=== PATIENT | female | born 1945 | race Caucasian/White ===

== ENCOUNTER → 2016-07-29 | Outpatient (CLI) | payer OTHER, MEDICARE ==
[~2016-07-29] MED LIST: ACET-1256 PO; ASPI81TA28 PO; CHOL100010 PO; HYDR0.5T PO; LISI-791 PO; METO25TA56 PO; OMEP40CA PO; SIMV40TA2 PO
== END | disposition home or self-care (01) ==
LOC: C.RDSM 10:30
PROVIDERS: ATTEND Physical Medicine & Rehabilitation Sports Medicine
DX: S72.041D Displaced fracture of base of neck of right femur, subsequent encounter for closed fracture with routine healing (principal); X58.XXXD Exposure to other specified factors, subsequent encounter

== ENCOUNTER → 2016-09-16 | Outpatient (CLI) | payer OTHER, MEDICARE ==
[2016-09-16 13:28] LABS: BASO % 0.4 %; BASO ABS # 0.02 K/uL (0-0.2); COMPLETE YES; EOS % 2.1 %; HEMATOCRIT 37.5 % (37-47); IG% 0.2 %; LYMPH % 31.1 %; LYMPH ABS # 1.47 K/uL (1.2-3.4); MEAN CELL VOLUME 90.4 fL (80-100); MEAN CORPUSCULAR HEMOGLOBIN 30.6 pg (25-34); MEAN CORPUSCULAR HGB CONC 33.9 g/dl (32-36); MEAN PLATELET VOLUME 9.5 fL (7.4-10.4); MONO % 6.1 %; NEUT % 60.1 %; PLATELET COUNT 160 K/uL (130-400); RED BLOOD COUNT 4.15 M/uL (4.2-5.4); WHITE BLOOD COUNT 4.73 K/uL (4.8-10.8)
[2016-09-16 14:18] LABS: ALT/SGPT 30 U/L (12-78); AST/SGOT 27 U/L (15-37); BLOOD UREA NITROGEN 10 mg/dl (7-18); BUN/CREATININE RATIO 13.1 (10-20); CALCIUM 9.1 mg/dl (8.5-10.1); CARBON DIOXIDE 25 mmol/L (21-32); CHLORIDE 103 mmol/L (98-107); CHOLESTEROL 159 mg/dl (0-200); CREATININE 0.77 mg/dl (0.60-1.20); GLUCOSE 84 mg/dl (70-99); POTASSIUM 4.1 mmol/L (3.5-5.1); SODIUM 136 mmol/L (136-145)
[2016-09-16 14:21] LABS: CHOLESTEROL/HDL RATIO 1.6; HDL CHOLESTEROL 98 mg/dl; LDL CHOLESTEROL CALCULATED 51 mg/dl; TRIGLYCERIDES 50 mg/dl (0-150); VERY LOW DENSITY LIPOPROT CALC 10 mg/dl
--- NOTE | 2016-09-25 08:44 | CODING QUERY MEDICAL NECESSITY ---
CQSUPPORTING DIAGNOSIS NEEDED A supporting diagnosis is required for the test/procedure performed on this patient in order for us to be reimbursed by the patient's insurance. Please provide a supporting diagnosis for the following test/procedure listed below next to the test name along with your signature. *If there is no additional diagnosis for this patient that would support the following test/procedure please document that below next to the test/procedure. Test(s)/Procedure(s) that require a supporting diagnosis: DOS 09/16/16 VITAMIN D TEST ORDERED BY ANSELMO ESTRADA Provider Signature: Date: Thank you Sanna Ramachandran Health Information Management Once completed, please kindly fax back to [phone] For questions please call [phone]
== END | disposition home or self-care (01) ==
LOC: C.LAB 12:29
DX: I10 Essential (primary) hypertension (principal); E78.5 Hyperlipidemia, unspecified; M06.9 Rheumatoid arthritis, unspecified

== ENCOUNTER → 2017-02-24 | Outpatient (CLI) | payer OTHER, MEDICARE ==
[2017-02-24 13:06] LABS: BASO % 0.4 %; BASO ABS # 0.02 K/uL (0-0.2); COMPLETE YES; EOS % 2.1 %; HEMATOCRIT 38.5 % (37-47); LYMPH % 34.4 %; LYMPH ABS # 1.62 K/uL (1.2-3.4); MEAN CELL VOLUME 94.4 fL (80-100); MEAN CORPUSCULAR HEMOGLOBIN 30.9 pg (25-34); MEAN CORPUSCULAR HGB CONC 32.7 g/dl (32-36); MEAN PLATELET VOLUME 9.5 fL (7.4-10.4); MONO % 8.1 %; PLATELET COUNT 149 K/uL (130-400); RED BLOOD COUNT 4.08 M/uL (4.2-5.4); WHITE BLOOD COUNT 4.71 K/uL (4.8-10.8)
[2017-02-24 13:52] LABS: ALT/SGPT 35 U/L (12-78); AST/SGOT 28 U/L (15-37); BLOOD UREA NITROGEN 18 mg/dl (7-18); BUN/CREATININE RATIO 23.6 (10-20); CALCIUM 8.5 mg/dl (8.5-10.1); CARBON DIOXIDE 26 mmol/L (21-32); CHLORIDE 103 mmol/L (98-107); CHOLESTEROL 165 mg/dl (0-200); CHOLESTEROL/HDL RATIO 1.5; CREATININE 0.75 mg/dl (0.60-1.20); FERRITIN 89.3 ng/ml (8.0-388.0); GLUCOSE 79 mg/dl (70-99); HDL CHOLESTEROL 109 mg/dl; LDL CHOLESTEROL CALCULATED 46 mg/dl; MAGNESIUM 2.2 mg/dl (1.8-2.4); POTASSIUM 4.3 mmol/L (3.5-5.1); SODIUM 135 mmol/L (136-145); THYROID STIMULATING HORMONE 0.164 uIu/ml (0.300-4.500); TRIGLYCERIDES 49 mg/dl (0-150); VERY LOW DENSITY LIPOPROT CALC 10 mg/dl
== END | disposition home or self-care (01) ==
LOC: C.LAB 12:14
DX: E78.5 Hyperlipidemia, unspecified (principal); G25.81 Restless legs syndrome

== ENCOUNTER 2020-05-09 15:42 | Inpatient (IN) ==
[2020-05-09 16:31] LABS: Eosinophils # (auto) 0.01 K/uL (0-0.5); Eosinophils % (auto) 0.2 %; Hematocrit (blood only) 33.8 % (37-47); Hemoglobin 11.8 g/dL (12.0-16.0); Immature Granulocytes # (auto) 0.01 K/uL (0.00-0.02); Immature Granulocytes % (auto) 0.2 %; Lymphocytes # (auto) 0.59 K/uL (1.2-3.4); Lymphocytes % (auto) 10.9 %; Mean Corpuscular Hemoglobin 31.1 pg (25-34); Mean Corpuscular Hgb Conc 34.9 g/dL (32-36); Mean Corpuscular Volume 89.2 fL (80-100); Monocytes % (auto) 7.4 %; Neutrophils # (auto) 4.41 K/uL (1.4-6.5); Neutrophils % (auto) 81.3 %; Platelet Count 169 K/uL (130-400); RDW Coefficient of Variation 12.6 % (11.5-14.5); RDW Standard Deviation 40.4 fL (36.4-46.3); Red Blood Count 3.79 M/uL (4.2-5.4); White Blood Count 5.42 K/uL (4.8-10.8)
[2020-05-09 16:47] LABS: Albumin Level 2.6 gm/dl (3.4-5.0); BUN Creatinine Ratio 15.6 (10-20); Creatinine Clr Calc Pharmacy 45.2 ml/min; Est GFR (African American) 92.7; Magnesium 1.7 mg/dl (1.8-2.4); Potassium 2.9 mmol/L (3.5-5.1)
--- NOTE | 2020-05-09 16:48 | Emergency Department Note ---
History of Present Illness General Chief complaint: Shortness of Breath/Dyspnea Stated complaint: DR SEVERO EVERARDO OVER Time Seen by Provider: 05/09/20 15:58 History of Present Illness Provider complaint: Shortness of breath and cough Onset (ago): day(s) (11) Associated symptoms: + cough, + fever/chills (Fevers have resolved ), + nausea/vomiting (Nausea no vomiting) and + shortness of breath 75-year-old female who presents to the emergency department with cough and shortness of breath. Patient reports she has been having cough and shortness of breath for the last 11 days. She also reports nausea, no vomiting. No chest pain or abdominal pain. Patient reports no hemoptysis. She reports she did have fevers earlier in her symptom course but has since resolved. She reports that multiple members of her family have been feeling ill as well. Home Medications Medication Instructions Recorded Confirmed Type acetaminophen 1,000 mg PO Q6H PRN 05/09/20 05/09/20 History aspirin [Aspirin Low Dose] 81 mg PO QAM 05/09/20 05/09/20 History calcium carbonate [Calcium 600] 600 mg PO QAM 05/09/20 05/09/20 History cholecalciferol (vitamin D3) 125 mcg PO QAM 05/09/20 05/09/20 History [Vitamin D3] furosemide 20 mg PO QAM 05/09/20 05/09/20 History hydroxychloroquine 400 mg PO HS 05/09/20 05/09/20 History metoprolol tartrate 50 mg PO QAM 05/09/20 05/09/20 History metoprolol tartrate 100 mg PO QPM 05/09/20 05/09/20 History simvastatin 20 mg PO QPM 05/09/20 05/09/20 History Allergies Allergy/AdvReac Type Severity Reaction Status Date / Time Sulfa (Sulfonamide Allergy Intermediate Rash Verified 05/09/20 16:57 Antibiotics) trimethoprim Allergy Intermediate Rash Verified 05/09/20 16:57 vancomycin Allergy Intermediate Rash, Verified 05/09/20 16:57 shortness of breath Cephalosporins AdvReac Mild Vomiting Verified 05/09/20 16:57 Past Med/Surg History Medical History (Updated 05/09/20 @ 19:26 by Nicho Mancia) Endometriosis Hyperlipidemia Hypertension No pertinent family history Rheumatoid arthritis Surgical History (Updated 05/09/20 @ 16:44 by Nicho Mancia) No pertinent past surgical history Social History Smoking Status: Former smoker Tobacco Type: Cigarettes Feels Safe at Home: Yes Review of Systems A total of 10 systems reviewed and were otherwise negative Physical Exam Vital Signs Vital Signs - 24 hr 05/09/20 15:45 05/09/20 16:09 05/09/20 16:10 Temperature 37.2 C Temperature Source Temporal Artery Scan Pulse Rate 98 H 81 86 Pulse Rate [Left] Pulse Rate from SpO2 Sensor 81 88 Respiratory Rate 24 29 H 29 H Respiratory Effort / Characteristics Non-Labored Spontaneous Respiratory Depth Normal Blood Pressure 171/89 H Blood Pressure [Right Arm] Blood Pressure Mean 116 Blood Pressure Mean [Right Arm] Blood Pressure Position [Right Arm] Pulse Oximetry 89 L 96 97 Oxygen Delivery Method Room Air Nasal Cannula Nasal Cannula Oxygen Flow Rate 3 3 Sepsis Recent Fever Within 48 Hours No Sepsis New/Unexplained Change in Mental Status No Sepsis Action Taken by Nursing No Action Required 05/09/20 16:15 05/09/20 16:20 05/09/20 16:30 Temperature Temperature Source Pulse Rate 81 81 79 Pulse Rate [Left] Pulse Rate from SpO2 Sensor 81 81 Respiratory Rate 26 H 31 H 25 H Respiratory Effort / Characteristics Short of Breath SOB on Exertion Short of Breath SOB on Exertion Respiratory Depth Blood Pressure Blood Pressure [Right Arm] Blood Pressure Mean Blood Pressure Mean [Right Arm] Blood Pressure Position [Right Arm] Pulse Oximetry 100 99 100 Oxygen Delivery Method Nasal Cannula Nasal Cannula Nasal Cannula Oxygen Flow Rate 3 3 3 Sepsis Recent Fever Within 48 Hours Sepsis New/Unexplained Change in Mental Status Sepsis Action Taken by Nursing 05/09/20 16:40 05/09/20 16:50 05/09/20 17:00 Temperature Temperature Source Pulse Rate 87 81 81 Pulse Rate [Left] Pulse Rate from SpO2 Sensor 82 83 Respiratory Rate 27 H 28 H 27 H Respiratory Effort / Characteristics Respiratory Depth Blood Pressure Blood Pressure [Right Arm] Blood Pressure Mean Blood Pressure Mean [Right Arm] Blood Pressure Position [Right Arm] Pulse Oximetry 99 95 Oxygen Delivery Method Nasal Cannula Nasal Cannula Oxygen Flow Rate 3 3 Sepsis Recent Fever Within 48 Hours Sepsis New/Unexplained Change in Mental Status Sepsis Action Taken by Nursing 05/09/20 17:10 05/09/20 17:13 05/09/20 17:20 Temperature Temperature Source Pulse Rate 90 80 84 Pulse Rate [Left] Pulse Rate from SpO2 Sensor 87 81 84 Respiratory Rate 18 26 H 26 H Respiratory Effort / Characteristics Respiratory Depth Blood Pressure 157/72 H 157/72 H Blood Pressure [Right Arm] Blood Pressure Mean 100 100 Blood Pressure Mean [Right Arm] Blood Pressure Position [Right Arm] Pulse Oximetry 95 97 98 Oxygen Delivery Method Nasal Cannula Oxygen Flow Rate 3 Sepsis Recent Fever Within 48 Hours Sepsis New/Unexplained Change in Mental Status Sepsis Action Taken by Nursing 05/09/20 17:30 05/09/20 17:31 05/09/20 17:53 Temperature Temperature Source Pulse Rate 78 86 107 H Pulse Rate [Left] Pulse Rate from SpO2 Sensor 79 76 Respiratory Rate 18 30 H 23 Respiratory Effort / Characteristics Respiratory Depth Blood Pressure 154/66 H Blood Pressure [Right Arm] Blood Pressure Mean 95 Blood Pressure Mean [Right Arm] Blood Pressure Position [Right Arm] Pulse Oximetry 100 99 Oxygen Delivery Method Oxygen Flow Rate Sepsis Recent Fever Within 48 Hours Sepsis New/Unexplained Change in Mental Status Sepsis Action Taken by Nursing 05/09/20 18:00 05/09/20 18:10 05/09/20 18:20 Temperature Temperature Source Pulse Rate 80 80 84 Pulse Rate [Left] Pulse Rate from SpO2 Sensor 80 80 82 Respiratory Rate 24 28 H 27 H Respiratory Effort / Characteristics Respiratory Depth Blood Pressure Blood Pressure [Right Arm] Blood Pressure Mean Blood Pressure Mean [Right Arm] Blood Pressure Position [Right Arm] Pulse Oximetry 100 98 98 Oxygen Delivery Method Oxygen Flow Rate Sepsis Recent Fever Within 48 Hours Sepsis New/Unexplained Change in Mental Status Sepsis Action Taken by Nursing 05/09/20 18:30 05/09/20 18:32 Temperature 37.1 C Temperature Source Oral Pulse Rate 79 Pulse Rate [Left] 85 Pulse Rate from SpO2 Sensor 81 Respiratory Rate 23 26 H Respiratory Effort / Characteristics Spontaneous SOB on Exertion Respiratory Depth Blood Pressure 156/94 H Blood Pressure [Right Arm] 156/94 H Blood Pressure Mean 114 Blood Pressure Mean [Right Arm] 114 Blood Pressure Position [Right Arm] Lying Pulse Oximetry 96 97 Oxygen Delivery Method Nasal Cannula Oxygen Flow Rate 3 Sepsis Recent Fever Within 48 Hours Sepsis New/Unexplained Change in Mental Status Sepsis Action Taken by Nursing Physical Exam GENERAL: She is oriented to person, place, and time. She appears well-developed and well-nourished. HENT: Exam performed. -Head: Normocephalic and atraumatic. -Right Ear: External ear normal. No mastoid tenderness. -Left Ear: External ear normal. No mastoid tenderness. -Mouth/Throat: The oropharynx is clear and moist. No trismus in the jaw. No dental abscesses or uvula swelling. No oropharyngeal exudate or tonsillar abscesses. EYES: Conjunctivae and EOM are normal. Pupils are equal, round, and reactive to light. Right eye exhibits no discharge. Left eye exhibits no discharge. No scleral icterus. NECK: Normal range of motion. Neck supple. No JVD present. No spinous process tenderness present. No carotid bruit present. No rigidity. No tracheal deviation and normal range of motion present. No Brudzinski's sign and no Kernig's sign noted. CV: Normal rate, regular rhythm, normal heart sounds and intact distal pulses. There is no peripheral edema. Palpable radial pulses bue. PULM/CHEST:Rhonchi bilaterally. -Chest Wall: She exhibits no tenderness. ABD: The abdomen is soft. Bowel sounds are normal. She has no distension. No mass is present. There is no tenderness. There is no rebound, no guarding, no Mu rphy's sign and no tenderness at McBurney's point. Rovsig negative MUSC/SKEL: Normal range of motion. There is no peripheral edema, tenderness or deformity. LYMPH: No cervical adenopathy. NEURO: She is alert and oriented to person, place, and time. She has normal strength. No cranial nerve deficit or sensory deficit. Coordination and gait normal. GCS eye subscore is 4. GCS verbal subscore is 5. GCS motor subscore is 6. Cerebellar tests wnl. SKIN: Skin is warm and dry. She is not diaphoretic. PSYCH: She has a normal mood and affect. Behavior is normal. Judgment and thought content normal. Course Course 1558: The patient was evaluated in room B10. A complete history and physical exam was performed. Patient was seen in full airborne precautions. Patient was seen in N95's, gloves, gowns, face shield by myself and staff. Cardiac monitoring: An order was placed for continuous cardiac monitoring. The monitor shows a rate of 80 with sinus rhythm Patient was found to be hypoxic on room air and placed on supplemental oxygen via nasal cannula which improved her oxygen saturation. 1922: Vital signs stable on continuous oxygen via nasal cannula.Labs show potassium of 2.9. Potassium replaced in the emergency department. Labs also show an elevated troponin and elevated proBNP. Chest x-ray shows findings are consistent of a viral pneumonia. CTA of the chest was negative for PE did show findings consistent of a viral pneumonia.Patient was COVID-19 positive. Given the patient's hypoxia, elevated troponin, EKG changes, and COVID-19 positive patient will be admitted to the hospitalist service. Dr. Oden [facility] hospitalist notified. Administered Medications Discontinued Medications Ioversol (Optiray 320 125ml) 118 ml IV ONCE ONE Stop: 05/09/20 17:35 Last Admin: 05/09/20 17:35 Dose: 118 ml Documented by: [id number] Potassium Chloride (Potassium Chloride 10 Meq Tabcr) 40 meq PO NOW STA Stop: 05/09/20 17:27 Last Admin: 05/09/20 18:34 Dose: 40 meq Documented by: [id number] Critical Care Time Critical Care Time: Yes I have personally spent greater than 67 minutes of critical care time in the direct management of this patient. This includes bedside care, interpretation of diagnostic studies, and testing, discussion with consultants, patient, and family members, and other required patient management activities. This 67 minut es is in excess of all separately billable procedures. Medical Decision Making Laboratory Data Result diagrams: 05/09/20 16:20 05/09/20 16:20 Lab Results 05/09/20 05/09/20 05/09/20 Range/Units 16:20 16:20 16:20 WBC 5.42 (4.8-10.8) K/uL RBC 3.79 L (4.2-5.4) M/uL Hgb 11.8 L (12.0-16.0) g/dL Hct 33.8 L (37-47) % MCV 89.2 (80-100) fL MCH 31.1 (25-34) pg MCHC 34.9 (32-36) g/dL RDW Std Deviation 40.4 (36.4-46.3) fL RDW Coeff of Emily 12.6 (11.5-14.5) % Plt Count 169 (130-400) K/uL MPV 10.0 (7.4-10.4) fL Immature Gran % (Auto) 0.2 % Neut % (Auto) 81.3 % Lymph % (Auto) 10.9 % Divide % (Auto) 7.4 % Eos % (Auto) 0.2 % Baso % (Auto) 0.0 % Neut # (Auto) 4.41 (1.4-6.5) K/uL Lymph # (Auto) 0.59 L (1.2-3.4) K/uL Divide # (Auto) 0.40 (0.11-0.59) K/uL Eos # (Auto) 0.01 (0-0.5) K/uL Baso # (Auto) 0.00 (0-0.2) K/uL Immature Gran # (Auto) 0.01 (0.00-0.02) K/uL PT 10.9 (9.0-12.0) Seconds INR 1.1 (0.9-1.1) APTT 29.8 (21.0-31.0) Seconds PTT Ratio 1.1 VBG pH (7.36-7.41) VBG pCO2 (38-50) mmHg VBG pO2 mmHg VBG HCO3 mmol/L VBG O2 Saturation % VBG Base Excess mEq/L Barometric Pressure mm/Hg Sodium 136 (136-145) mmol/L Potassium 2.9 L (3.5-5.1) mmol/L Chloride 101 (98-107) mmol/L Carbon Dioxide 23 (21-32) mmol/L Anion Gap 12.0 H (3-11) BUN 11 (7-18) mg/dl Creatinine 0.73 (0.6-1.2) mg/dl Est Cr Clr Drug Dosing 45.2 ml/min Est GFR ( Amer) 92.7 Est GFR (Non-Af Amer) 80.0 BUN/Creatinine Ratio 15.6 (10-20) Glucose 81 (70-99) mg/dl Lactate (0.4-2.0) mmol/L Calcium 9.0 (8.5-10.1) mg/dl Magnesium 1.7 L (1.8-2.4) mg/dl Total Bilirubin 1.0 (0.2-1) mg/dl AST 38 H (15-37) U/L ALT 16 (12-78) U/L Alkaline Phosphatase 67 (45-117) U/L Troponin I 0.176 H* (0-0.045) ng/ml NT-Pro-B Natriuret Pep 3837 H (0-1800) pg/ml Total Protein 7.6 (6.4-8.2) gm/dl Albumin 2.6 L (3.4-5.0) gm/dl Globulin 5.0 H (2.5-4.0) gm/dl Albumin/Globulin Ratio 0.5 L (0.9-2) Procalcitonin (0-0.5) ng/ml COVID-19 Eval Order SARS-CoV-2 (PCR) (Negative) Influenza Type A (PCR) (Neg) Influenza Type B (PCR) (Neg) RSV (RT-PCR) (Neg) 05/09/20 05/09/20 05/09/20 Range/Units 16:20 16:20 16:20 WBC (4.8-10.8) K/uL RBC (4.2-5.4) M/uL Hgb (12.0-16.0) g/dL Hct (37-47) % MCV (80-100) fL MCH (25-34) pg MCHC (32-36) g/dL RDW Std Deviation (36.4-46.3) fL RDW Coeff of Emily (11.5-14.5) % Plt Count (130-400) K/uL MPV (7.4-10.4) fL Immature Gran % (Auto) % Neut % (Auto) % Lymph % (Auto) % Divide % (Auto) % Eos % (Auto) % Baso % (Auto) % Neut # (Auto) (1.4-6.5) K/uL Lymph # (Auto) (1.2-3.4) K/uL Divide # (Auto) (0.11-0.59) K/uL Eos # (Auto) (0-0.5) K/uL Baso # (Auto) (0-0.2) K/uL Immature Gran # (Auto) (0.00-0.02) K/uL PT (9.0-12.0) Seconds INR (0.9-1.1) APTT (21.0-31.0) Seconds PTT Ratio VBG pH (7.36-7.41) VBG pCO2 (38-50) mmHg VBG pO2 mmHg VBG HCO3 mmol/L VBG O2 Saturation % VBG Base Excess mEq/L Barometric Pressure mm/Hg Sodium (136-145) mmol/L Potassium (3.5-5.1) mmol/L Chloride (98-107) mmol/L Carbon Dioxide (21-32) mmol/L Anion Gap (3-11) BUN (7-18) mg/dl Creatinine (0.6-1.2) mg/dl Est Cr Clr Drug Dosing ml/min Est GFR ( Amer) Est GFR (Non-Af Amer) BUN/Creatinine Ratio (10-20) Glucose (70-99) mg/dl Lactate (0.4-2.0) mmol/L Calcium (8.5-10.1) mg/dl Magnesium (1.8-2.4) mg/dl Total Bilirubin (0.2-1) mg/dl AST (15-37) U/L ALT (12-78) U/L Alkaline Phosphatase (45-117) U/L Troponin I (0-0.045) ng/ml NT-Pro-B Natriuret Pep (0-1800) pg/ml Total Protein (6.4-8.2) gm/dl Albumin (3.4-5.0) gm/dl Globulin (2.5-4.0) gm/dl Albumin/Globulin Ratio (0.9-2) Procalcitonin 0.21 (0-0.5) ng/ml COVID-19 Eval Order CovFluRsv at [facility] SARS-CoV-2 (PCR) POSITIVE A* (Negative) Influenza Type A (PCR) Negative (Neg) Influenza Type B (PCR) Negative (Neg) RSV (RT-PCR) Negative (Neg) 05/09/20 05/09/20 Range/Units 16:58 16:58 WBC (4.8-10.8) K/uL RBC (4.2-5.4) M/uL Hgb (12.0-16.0) g/dL Hct (37-47) % MCV (80-100) fL MCH (25-34) pg MCHC (32-36) g/dL RDW Std Deviation (36.4-46.3) fL RDW Coeff of Emily (11.5-14.5) % Plt Count (130-400) K/uL MPV (7.4-10.4) fL Immature Gran % (Auto) % Neut % (Auto) % Lymph % (Auto) % Divide % (Auto) % Eos % (Auto) % Baso % (Auto) % Neut # (Auto) (1.4-6.5) K/uL Lymph # (Auto) (1.2-3.4) K/uL Divide # (Auto) (0.11-0.59) K/uL Eos # (Auto) (0-0.5) K/uL Baso # (Auto) (0-0.2) K/uL Immature Gran # (Auto) (0.00-0.02) K/uL PT (9.0-12.0) Seconds INR (0.9-1.1) APTT (21.0-31.0) Seconds PTT Ratio VBG pH 7.43 H (7.36-7.41) VBG pCO2 36 L (38-50) mmHg VBG pO2 27 mmHg VBG HCO3 24 mmol/L VBG O2 Saturation < 60.0 % VBG Base Excess -0.3 mEq/L Barometric Pressure 728.7 mm/Hg Sodium (136-145) mmol/L Potassium (3.5-5.1) mmol/L Chloride (98-107) mmol/L Carbon Dioxide (21-32) mmol/L Anion Gap (3-11) BUN (7-18) mg/dl Creatinine (0.6-1.2) mg/dl Est Cr Clr Drug Dosing ml/min Est GFR ( Amer) Est GFR (Non-Af Amer) BUN/Creatinine Ratio (10-20) Glucose (70-99) mg/dl Lactate 2.5 H* (0.4-2.0) mmol/L Calcium (8.5-10.1) mg/dl Magnesium (1.8-2.4) mg/dl Total Bilirubin (0.2-1) mg/dl AST (15-37) U/L ALT (12-78) U/L Alkaline Phosphatase (45-117) U/L Troponin I (0-0.045) ng/ml NT-Pro-B Natriuret Pep (0-1800) pg/ml Total Protein (6.4-8.2) gm/dl Albumin (3.4-5.0) gm/dl Globulin (2.5-4.0) gm/dl Albumin/Globulin Ratio (0.9-2) Procalcitonin (0-0.5) ng/ml COVID-19 Eval Order SARS-CoV-2 (PCR) (Negative) Influenza Type A (PCR) (Neg) Influenza Type B (PCR) (Neg) RSV (RT-PCR) (Neg) Imaging Data Radiologist's Impression: XR chest 1V portable HISTORY: SEPSIS COMPARISON: Chest 08/20/2014. FINDINGS: Peripheral bilateral mid to lower lung zone airspace opacities, left greater than right. This likely represents a viral pneumonia. No pneumothorax. No pleural effusions. The heart is mildly enlarged. This remains unchanged. Old, healed bilateral humeral neck fractures. IMPRESSION: Peripheral bilateral mid to lower lung zone airspace opacities consistent with a viral pneumonia. ACT 112: Negative or not required by law. Electronically signed by: Milo Parsons M.D. 05/09/2020 4:59 PM Dictated: 05/09/[id number] Transcribed: 05/09/201657 CHEST CTA for PULMONARY ARTERIES CT DOSE: 406.44 mGycm HISTORY: Short of breath. Covid pneumonia. TECHNIQUE: Multiaxial CT images of the chest were performed following the intravenous administration of contrast to evaluate the pulmonary arteries. Maximal intensity projection images were also obtained. A dose lowering technique was utilized adhering to the principles of ALARA. COMPARISON STUDY: Chest CT 03/03/2010. FINDINGS: Multiple [id number] compression deformities seen within the thoracic spine. This is most pronounced at the T12 level. These are technically age indeterminate but likely old. Limited views the upper abdomen demonstrate a normal liver and adrenal glands. The spleen is likely mildly enlarged. There is a small hiatus hernia. No hilar lymphadenopathy. Mildly enlarged subcarinal lymph node measuring 2.0 x 1.3 cm. This may be reactive. No pleural or pericardial effusions. The heart is mildly enlarged. No pneumothorax. Patchy groundglass airspace opacities are seen throughout the lungs. These are most pronounced within the periphery of the bilateral mid to lower lung zones and are consistent with a moderate multifocal pneumonia. No pneumothorax. The central airways are patent. There is mild respiratory motion artifact. Normal caliber thoracic aorta with no evidence for dissection. Suboptimal evaluation of the bilateral lower lobe and right middle lobe segmental/subsegmental pulmonary arteries due to the respiratory motion artifact. Otherwise, no filling defects within the remaining pulmonary arteries to suggest pulmonary embolus. IMPRESSION: 1. No evidence for pulmonary embolus with limitations as described above. 2. Moderate multifocal pneumonia as described above. This is likely viral. ACT 112: Negative or not required by law. Electronically signed by: Milo Parsons M.D. 05/09/2020 6:02 PM Dictated: 05/09/[id number] Transcribed: 05/09/201755 ECG Data Indication: + SOB/dyspnea Rate (beats per minute): 79 Rhythm: + normal sinus ECG Intervals/blocks: + Right Bundle branch block and + Prolonged QT ECG ST segments: + Normal ST segments and + T-wave inversions Additional Comments: LA 144 QRS 140 QTc 529. QTc prolongation is new when compared to the EKG fromJuly 2014. S1Q3T3 pattern is observed. This was also present on the EKG from July 2014. There is T wave inversion in lead III, aVF, V2 through V6. The T wave inversion in leads V4 through V6 are new from the EKG compared in July 2014. [facility] Narrative 1558: The patient was evaluated in room B10. A complete history and physical exam was performed. Patient was seen in full airborne precautions. Patient was seen in N95's, gloves, gowns, face shield by myself and staff. Cardiac monitoring: An order was placed for continuous cardiac monitoring. The monitor shows a rate of 80 with sinus rhythm Patient was found to be hypoxic on room air and placed on supplemental oxygen via nasal cannula which improved her oxygen saturation. 1922: Vital signs stable on continuous oxygen via nasal cannula.Labs show potassium of 2.9. Potassium replaced in the emergency department. Labs also show an elevated troponin and elevated proBNP. Chest x-ray shows findings are consistent of a viral pneumonia. CTA of the chest was negative for PE did show findings consistent of a viral pneumonia.Patient was COVID-19 positive. Given the patient's hypoxia, elevated troponin, EKG changes, and COVID-19 positive patient will be admitted to the hospitalist service. [facility] Impression & Plan Pneumonia due to 2019 novel coronavirus, Hypoxia, Elevated troponin, Prolonged Q-T interval on ECG Discharge Plan Visit Data Chief Complaint: Shortness of Breath/Dyspnea Stated Complaint: DR SEVERO REF OVER ED Provider: Nicho Mancia Discharge Problem: Pneumonia due to 2019 novel coronavirus, Hypoxia, Elevated troponin, Prolonged Q-T interval on ECG Patient Disposition: Admitted As Inpatient Forms Stand Alone Forms: My [facility] Prescriptions Prescriptions: No Action metoprolol tartrate 100 mg tablet 100 mg PO QPM RF: 0 metoprolol tartrate 100 mg tablet 50 mg PO QAM RF: 0 aspirin [Aspirin Low Dose] 81 mg Tablet,Delayed Release (Dr/Ec) 81 mg PO QAM RF: 0 acetaminophen 500 mg Tablet 1,000 mg PO Q6H PRN (Reason: Pain) RF: 0 simvastatin 40 mg tablet 20 mg PO QPM RF: 0 calcium carbonate [Calcium 600] 600 mg calcium (1,500 mg) Tablet 600 mg PO QAM RF: 0 furosemide 20 mg tablet 20 mg PO QAM RF: 0 hydroxychloroquine 200 mg tablet 400 mg PO HS RF: 0 cholecalciferol (vitamin D3) [Vitamin D3] 125 mcg (5,000 unit) Tablet 125 mcg PO QAM RF: 0 Referrals Referrals: Jose Padgett Jr, DO [Primary Care Provider] -
[2020-05-09 16:50] LABS: INR 1.1 (0.9-1.1); Partial Thromboplastin Ratio 1.1; Partial Thromboplastin Time 29.8 Seconds (21.0-31.0); Prothrombin Time 10.9 Seconds (9.0-12.0)
--- NOTE | 2020-05-09 17:00 | XRay Report ---
XR chest 1V portable HISTORY: SEPSIS COMPARISON: Chest 08/20/2014. FINDINGS: Peripheral bilateral mid to lower lung zone airspace opacities, left greater than right. Th is likely represents a viral pneumonia. No pneumothorax. No pleural effusions. The heart is mildly en larged. This remains unchanged. Old, healed bilateral humeral neck fractures. IMPRESSION: Peripheral bilateral mid to lower lung zone airspace opacities consistent with a viral pneumonia. ACT 112: Negative or not required by law. Electronically signed by: Milo Parsons M.D. 05/09/2020 4:59 PM
[2020-05-09 17:01] LABS: Albumin Globulin Ratio 0.5 (0.9-2); Total Protein 7.6 gm/dl (6.4-8.2); Troponin I 0.176 ng/ml (0-0.045)
[2020-05-09 17:13] LABS: Influenza A virus by PCR Negative (Neg); Influenza B virus by PCR Negative (Neg); RSV by PCR Negative (Neg)
[2020-05-09 17:16] LABS: Base Excess VBG -0.3 mEq/L; HCO3 VBG 24 mmol/L; PCO2 VBG 36 mmHg (38-50); PO2 VBG 27 mmHg; pH VBG 7.43 (7.36-7.41)
[2020-05-09] MEDS ORDERED: POTASSIUM CHLORIDE 10 MEQ TABCR PO STA (17:26)
[2020-05-09 17:30] LABS: Oxygen Saturation VBG < 60.0 %
[2020-05-09 17:31] LABS: SARS CoV2 RNA(COVID-19) InHosp POSITIVE (Negative)
[2020-05-09] MEDS ORDERED: OPTIRAY 320 125ml IV ONE (17:34)
--- NOTE | 2020-05-09 18:03 | CT Scan Report ---
CHEST CTA for PULMONARY ARTERIES CT DOSE: 406.44 mGycm HISTORY: Short of breath. Covid pneumonia. TECHNIQUE: Multiaxial CT images of the chest were performed following the intravenous administration of contrast to evaluate the pulmonary arteries. Maximal intensity projection images were also obtaine d. A dose lowering technique was utilized adhering to the principles of ALARA. COMPARISON STUDY: Chest CT 03/03/2010. FINDINGS: Multiple zduo-uu-mewlmfro compression deformities seen within the thoracic spine. This is m ost pronounced at the T12 level. These are technically age indeterminate but likely old. Limited view s the upper abdomen demonstrate a normal liver and adrenal glands. The spleen is likely mildly enlarg ed. There is a small hiatus hernia. No hilar lymphadenopathy. Mildly enlarged subcarinal lymph node m easuring 2.0 x 1.3 cm. This may be reactive. No pleural or pericardial effusions. The heart is mildly enlarged. No pneumothorax. Patchy groundglass airspace opacities are seen throughout the lungs. Thes e are most pronounced within the periphery of the bilateral mid to lower lung zones and are consisten t with a moderate multifocal pneumonia. No pneumothorax. The central airways are patent. There is mil d respiratory motion artifact. Normal caliber thoracic aorta with no evidence for dissection. Subopti mal evaluation of the bilateral lower lobe and right middle lobe segmental/subsegmental pulmonary art eries due to the respiratory motion artifact. Otherwise, no filling defects within the remaining pulm onary arteries to suggest pulmonary embolus. IMPRESSION: 1. No evidence for pulmonary embolus with limitations as described above. 2. Moderate multifocal pneumonia as described above. This is likely viral. ACT 112: Negative or not required by law. Electronically signed by: Milo Parsons M.D. 05/09/2020 6:02 PM
[2020-05-09] MEDS ORDERED: DEXAMETHASONE SOD INJ 10 MG/ML VIAL IV ONE (19:54)
--- NOTE | 2020-05-09 21:58 | History & Physical Report ---
Date of Service May 09, 2020 Assessment & Plan (1) Pneumonia due to 2019 novel coronavirus: Pneumonia due to COVID-19 virus with hypoxia/symptoms suggestive of secondary bacterial superinfection- Dexamethasone 6 mg IV every morning Ceftriaxone 1 g IV every 24 hours Azithromycin 500 mg IV every 24 hours Ventolin HFA 2 puffs 4 times daily, and every 2 hours as needed Duonebs every 4 hours while awake and every 2 hours when necessary. Guaifenesin extended release 600 mg p.o. twice daily Zinc sulfate 220 mg p.o. every morning Lovenox 30 mg subcu every 12 hours Present on Admission?: Yes (2) Hypoxia: See above Present on Admission?: Yes (3) Elevated troponin: Elevated troponin/hypertension/lower extremity edema Troponin 0.176 upon admission. Continue aspirin 81 mg every morning, and metoprolol tartrate 50 mg in the morning and 100 mg in evening with hold parameters. The patient will be admitted to telemetry for serial cardiac enzymes, serial EKG's, cardiac rhythm monitoring. Main differential is ischemia versus myopericarditis associated with COVID-19 infection Consult cardiology Present on Admission?: Yes (4) Rheumatoid arthritis: Continue home dosing of hydroxychloroquine 40 mg p.o. at bedtime Present on Admission?: Yes (5) Hyperlipidemia: Continue simvastatin 20 mg in evening Present on Admission?: Yes (6) Hypertension: See above Present on Admission?: Yes (7) Edema: Hold furosemide at this time, as patient has had decreased oral intake for the past 2 weeks, and if anything looks euvolemic toward mildly hypovolemic Present on Admission?: Yes (8) Osteoporosis: Continue calcium carbonate, and vitamin D3 Present on Admission?: Yes (9) Hypokalemia: Given potassium chloride 40 mEq p.o. in the ED. Placed on NSS + KCl 20 mEq at 80 mils per hour Recheck laboratories in a.m. Present on Admission?: Yes (10) Hypomagnesemia: Magnesium 1.7 upon admission. Give mag sulfate 1 g IV. Repeat in a.m. Present on Admission?: Yes History of Present Illness Chief Complaint: The patient presents to the emergency department with complaint of 2 weeks of shortness of breath, intermittent fevers and chills, dyspnea on exertion, with the addition in the past 24 hours of a productive cough, chest discomfort, and nausea with vomiting Primary Care Provider: Jose Padgett Jr, DO The patient is a 75-year-old female with a past medical history including hyperlipidemia, hypertension, arthritis, lower extremity edema and osteoporosis. She presents with symptoms as noted above. Work-up in the emergency department included the following abnormal laboratories: Hemoglobin 11.8, potassium 2.9, magnesium 1.7, troponin 0 0.176, albumin 2.6, BNP 3837, and COVID-19 positive. Imaging included the following: Chest x-ray showed peripheral bilateral mid to lower lung zone airspace opacities consistent with a viral pneumonia. CT angiography of chest PE protocol, showed no evidence for pulmonary embolism within limitations of the study. Moderate multifocal pneumonia, likely viral. Lowest pulse ox recorded was 89% on room air. Temperature became elevated at 99.7. Allergies Allergy/AdvReac Type Severity Reaction Status Date / Time Sulfa (Sulfonamide Allergy Intermediate Rash Verified 05/09/20 16:57 Antibiotics) trimethoprim Allergy Intermediate Rash Verified 05/09/20 16:57 vancomycin Allergy Intermediate Rash, Verified 05/09/20 16:57 shortness of breath Cephalosporins AdvReac Mild Vomiting Verified 05/09/20 16:57 Home Medications Medication Instructions Recorded Confirmed Type acetaminophen 1,000 mg PO Q6H PRN 05/09/20 05/09/20 History aspirin [Aspirin Low Dose] 81 mg PO QAM 05/09/20 05/09/20 History calcium carbonate [Calcium 600] 600 mg PO QAM 05/09/20 05/09/20 History cholecalciferol (vitamin D3) 125 mcg PO QAM 05/09/20 05/09/20 History [Vitamin D3] furosemide 20 mg PO QAM 05/09/20 05/09/20 History hydroxychloroquine 400 mg PO HS 05/09/20 05/09/20 History metoprolol tartrate 50 mg PO QAM 05/09/20 05/09/20 History metoprolol tartrate 100 mg PO QPM 05/09/20 05/09/20 History simvastatin 20 mg PO QPM 05/09/20 05/09/20 History Past Med/Surg History Medical History (Updated 05/10/20 @ 03:12 by Gregorio Norman MD) Edema Endometriosis Hyperlipidemia Hypertension No pertinent family history Osteoporosis Rheumatoid arthritis Surgical History (Updated 05/09/20 @ 16:44 by Nicho Mancia) No pertinent past surgical history Social History Smoking Status: Former smoker Tobacco Type: Cigarettes Second Hand Exposure: No; Do You Dip or Chew Tobacco: No; Tobacco Cessation Education Requested by Patient: No Hx Alcohol Use: Yes (seldom) Alcohol type: wine Hx Substance Use: No Preferred Language: [place] Communication Ability: Effective Appellate Conferee Required: No Beliefs That Will Affect Care: None Current Living Situation: Family Current Living Situation Comment: with son Lex Other Information That Helps Us Care for You: No Feels Safe at Home: Yes Safety Concerns: Feels Safe At This Time Assistive Devices: Cane Review of Systems Review of Systems: The patient denies palpitations, lower extremity swelling, sore throat, sweats, diarrhea , constipation, abdominal pain, pelvic pain, blood in urine or stool, dysuria, urinary frequency or urgency, lightheadedness, dizziness, headache, memory loss, loss of consciousness, rash, abnormal bruising or bleeding, imbalance, focal weakness, numbness or tingling in arms or legs, back or neck pain, or night sweats. The review of systems is otherwise negative other than for that already noted above, and at least 10 systems have been reviewed. Physical Exam Physical Exam: The patient is awake, alert and oriented 3, normocephalic and atraumatic, lying in bed and in no acute distress. HEENT--PERRL, EOMI, mucous membranes and oropharynx dry. Neck--supple. No JVD. No bruits. Thyroid normal, trachea midline, no adenopathy. Heart--normal S1 and S2. No murmurs, rubs or gallops. Lungs--clear bilaterally, no respiratory distress, no accessory muscle use. Abdomen--normal bowel sounds and soft. Nontender. Nondistended, no hernias or masses, no organomegaly. Extremities--no cyanosis or clubbing. No edema. Dermatologic--normal skin turgor, normal color, no abnormal lymph nodes, no rash. Neurologic--cranial nerves II through XII grossly intact. Rheumatologic--normal range of motion. Psychiatric--normal affect. Results & Data Results & Data ([facility]) Vital Signs (Past 12 Hours) Vital Signs Temp Pulse Pulse Resp BP BP Pulse Ox 05/09/20 21:30 79 29 H 166/98 H 95 05/09/20 21:15 81 20 160/79 H 96 05/09/20 21:00 82 22 166/93 H 96 05/09/20 20:46 83 28 H 152/102 H 95 05/09/20 20:31 77 30 H 121/84 96 05/09/20 20:15 73 25 H 115/92 97 05/09/20 20:00 89 24 143/97 H 95 05/09/20 19:45 76 23 151/82 H 97 05/09/20 19:35 98 05/09/20 19:31 76 28 H 143/79 H 97 05/09/20 19:15 78 22 157/92 H 98 05/09/20 19:00 77 24 156/89 H 100 05/09/20 18:45 81 21 159/98 H 97 05/09/20 18:32 98.8 F 85 26 H 156/94 H 97 05/09/20 18:30 79 23 156/94 H 96 05/09/20 18:20 84 27 H 98 05/09/20 18:10 80 28 H 98 05/09/20 18:00 80 24 100 05/09/20 17:53 107 H 23 05/09/20 17:31 86 30 H 99 05/09/20 17:30 78 18 154/66 H 100 05/09/20 17:20 84 26 H 98 05/09/20 17:13 80 26 H 157/72 H 97 05/09/20 17:10 90 18 157/72 H 95 05/09/20 17:00 81 27 H 95 05/09/20 16:50 81 28 H 99 05/09/20 16:40 87 27 H 05/09/20 16:30 79 25 H 100 05/09/20 16:20 81 31 H 99 05/09/20 16:15 81 26 H 100 05/09/20 16:10 86 29 H 97 05/09/20 16:09 81 29 H 96 05/09/20 15:45 99.0 F 98 H 24 171/89 H 89 L Laboratory Results Laboratory Results WBC 5.42 K/uL (4.8-10.8) 05/09/20 16:20 RBC 3.79 M/uL (4.2-5.4) L 05/09/20 16:20 Hgb 11.8 g/dL (12.0-16.0) L 05/09/20 16:20 Hct 33.8 % (37-47) L 05/09/20 16:20 MCV 89.2 fL (80-100) 05/09/20 16:20 MCH 31.1 pg (25-34) 05/09/20 16:20 MCHC 34.9 g/dL (32-36) 05/09/20 16:20 RDW Std Deviation 40.4 fL (36.4-46.3) 05/09/20: RDW Coeff of Emily 12.6 % (11.5-14.5) 05/09/20:20 Plt Count 169 K/uL (130-400) 05/09/20:20 MPV 10.0 fL (7.4-10.4) 05/09/20:20 Immature Gran % (Auto) 0.2 % 05/09/20:20 Neut % (Auto) 81.3 % 05/09/20 16:20 Lymph % (Auto) 10.9 % 05/09/20:20 [place] % (Auto) 7.4 % 05/09/20 16:20 Eos % (Auto) 0.2 % 05/09/20 16:20 Baso % (Auto) 0.0 % 05/09/20:20 Neut # (Auto) 4.41 K/uL (1.4-6.5) 05/09/20 16:20 Lymph # (Auto) 0.59 K/uL (1.2-3.4) L 05/09/20:20 [place] # (Auto) 0.40 K/uL (0.11-0.59) 05/09/20 16:20 Eos # (Auto) 0.01 K/uL (0-0.5) 05/09/20 16:20 Baso # (Auto) 0.00 K/uL (0-0.2) 05/09/20:20 Immature Gran # (Auto) 0.01 K/uL (0.00-0.02) 05/09/20 16:20 PT 10.9 Seconds (9.0-12.0) 05/09/20 16:20 INR 1.1 (0.9-1.1) 05/09/20 16:20 APTT 29.8 Seconds (21.0-31.0) 05/09/20 16:20 PTT Ratio 1.1 05/09/20 16:20 VBG pH 7.43 (7.36-7.41) H 05/09/20 16:58 VBG pCO2 36 mmHg (38-50) L 05/09/20 16:58 VBG pO2 27 mmHg 05/09/20 16:58 VBG HCO3 24 mmol/L 05/09/20 16:58 VBG O2 Saturation < 60.0 % 05/09/20 16:58 VBG Base Excess -0.3 mEq/L 05/09/20 16:58 Barometric Pressure 728.7 mm/Hg 05/09/20 16:58 Sodium 136 mmol/L (136-145) 05/09/20 16:20 Potassium 2.9 mmol/L (3.5-5.1) L 05/09/20 16:20 Chloride 101 mmol/L (98-107) 05/09/20 16:20 Carbon Dioxide 23 mmol/L (21-32) 05/09/20 16:20 Anion Gap 12.0 (3-11) H 05/09/20 16:20 BUN 11 mg/dl (7-18) 05/09/20 16:20 Creatinine 0.73 mg/dl (0.6-1.2) 05/09/20 16:20 Est Cr Clr Drug Dosing 45.2 ml/min 05/09/20 16:20 Est GFR ( Amer) 92.7 05/09/20 16:20 Est GFR (Non-Af Amer) 80.0 05/09/20 16:20 BUN/Creatinine Ratio 15.6 (10-20) 05/09/20 16:20 Glucose 81 mg/dl (70-99) 05/09/20 16:20 Lactate 1.5 mmol/L (0.4-2.0) 05/09/20 19:04 Calcium 9.0 mg/dl (8.5-10.1) 05/09/20 16:20 Magnesium 1.7 mg/dl (1.8-2.4) L 05/09/20 16:20 Total Bilirubin 1.0 mg/dl (0.2-1) 05/09/20 16:20 AST 38 U/L (15-37) H 05/09/20 16:20 ALT 16 U/L (12-78) 05/09/20 16:20 Alkaline Phosphatase 67 U/L (45-117) 05/09/20 16:20 Troponin I 0.176 ng/ml (0-0.045) H* 05/09/20 16:20 NT-Pro-B Natriuret Pep 3837 pg/ml (0-1800) H 05/09/20 16:20 Total Protein 7.6 gm/dl (6.4-8.2) 05/09/20 16:20 Albumin 2.6 gm/dl (3.4-5.0) L 05/09/20 16:20 Globulin 5.0 gm/dl (2.5-4.0) H 05/09/20 16:20 Albumin/Globulin Ratio 0.5 (0.9-2) L 05/09/20 16:20 Procalcitonin 0.21 ng/ml (0-0.5) 05/09/20 16:20 COVID-19 Eval Order CovFluRsv at [facility] 05/09/20 16:20 SARS-CoV-2 (PCR) POSITIVE (Negative) A* 05/09/20 16:20 Influenza Type A (PCR) Negative (Neg) 05/09/20 16:20 Influenza Type B (PCR) Negative (Neg) 05/09/20 16:20 RSV (RT-PCR) Negative (Neg) 05/09/20 16:20 Diagnostic Findings [facility], [id number] XRay Report Patient: CANDIS PATELAdmit Date: 05/09/20MR#: [id number]: [address] DRAcct ID:[id number]: Date: [address] [place] [address] Zip: [place], [place] [address]Gcc: 75Location: EDSex: FRoom/Bed:Att Phy:Diagnosis: SOB, DR REF OVERPri Phy: Jose Padgett Jr, DOService Date: 05/09/20Fam Phy:Interpreting Phy: Milo Parsons MDAdmit Phy: Ordering Phy: Nicho Mancia MD cc: ~ XR chest 1V portable HISTORY: SEPSIS COMPARISON: Chest 08/20/2014. FINDINGS: Peripheral bilateral mid to lower lung zone airspace opacities, left greater than right. This likely represents a viral pneumonia. No pneumothorax. No pleural effusions. The heart is mildly enlarged. This remains unchanged. Old, healed bilateral humeral neck fractures. IMPRESSION: Peripheral bilateral mid to lower lung zone airspace opacities consistent with a viral pneumonia. ACT 112: Negative or not required by law. Electronically signed by: Milo Parsons M.D. 05/09/2020 4:59 PM Dictated: 05/09/201657Transcribed: 05/09/201657 [facility], [id number] CT Scan Report Patient: CANDIS PATELAdmit Date: 05/09/20MR#: [id number]: [address] ID:[id number]: Date: [address] [place] [address] Zip: [place] [address]Hhw: 75Location: EDSex: FRoom/Bed:Att Phy:Diagnosis: SOB, DR EVERARDO OVERPri Phy: Jose Padgett Jr, DOService Date: 05/09/20Fam Phy:Interpreting Phy: Milo Parsons MDAdmit Phy: Ordering Phy: Nicho Mancia MD cc: ~ CHEST CTA for PULMONARY ARTERIES CT DOSE: 406.44 mGycm HISTORY: Short of breath. Covid pneumonia. TECHNIQUE: Multiaxial CT images of the chest were performed following the intravenous administration of contrast to evaluate the pulmonary arteries. Maximal intensity projection images were also obtained. A dose lowering techni que was utilized adhering to the principles of ALARA. COMPARISON STUDY: Chest CT 03/03/2010. FINDINGS: Multiple nmli-je-uyvtiedb compression deformities seen within the thoracic spine. This is most pronounced at the T12 level. These are technically age indeterminate but likely old. Limited views the upper abdomen demonstrate a normal liver and adrenal glands. The spleen is likely mildly enlarged. There is a small hiatus hernia. No hilar lymphadenopathy. Mildly enlarged subcarinal lymph node measuring 2.0 x 1.3 cm. This may be reactive. No pleural or pericardial effusions. The heart is mildly enlarged. No pneumothorax. Patchy groundglass airspace opacities are seen throughout the lungs. These are most pronounced within the periphery of the bilateral mid to lower lung zones and are consistent with a moderate multifocal pneumonia. No pneumothorax. The central airways are patent. There is mild respiratory motion artifact. Normal caliber thoracic aorta with no evidence for dissection. Suboptimal evaluation of the bilateral lower lobe and right middle lobe segmental/subsegmental pulmonary arteries due to the respiratory motion artifact. Otherwise, no filling defects within the remaining pulmonary arteries to suggest pulmonary embolus. IMPRESSION: 1. No evidence for pulmonary embolus with limitations as described above. 2. Moderate multifocal pneumonia as described above. This is likely viral. ACT 112: Negative or not required by law. Electronically signed by: Milo Parsons M.D. 05/09/2020 6:02 PM Dictated: 05/09/201755Transcribed: 05/09/201755 Code Status & VTE Plan Code Status Full code VTE Prophylaxis Plan VTE Prophylaxis will be ordered: Yes PG Care Time/CCT Total # of Minutes Spent Total Time Spent with Patient: Total time spent is greater than 50% in coordination of care (as documented) at patient's floor/unit and/or counseling patient: Coding Level of Care Code 72916 Initial Inpt Care Lvl 3 Diagnoses Pneumonia due to 2019 novel coronavirus U07.1; J12.82 Hypoxia R09.02 Elevated troponin R77.8 Rheumatoid arthritis M06.9 Hyperlipidemia E78.5 Hypertension I10 Edema R60.9 Osteoporosis M81.0 Hypokalemia E87.6 Hypomagnesemia E83.42
[2020-05-09] MEDS ORDERED: ALBUTEROL HFA 8 GM INHALER INH PRN (22:20)
[2020-05-09] MEDS ORDERED: ONDANSETRON INJ 2 MG/ML 2 ML VIAL IV PRN (22:20)
[2020-05-09] MEDS ORDERED: ALBUT/IPRATROP 3MG/0.5MG NEB 3 ML VIAL NEB PRN (22:20)
[2020-05-09] MEDS ORDERED: MAGNESIUM SULFATE / D5W 1 GM/100 ML BAG IV ONE (23:34)
[2020-05-09] MEDS: AZITHROMYCIN 500 MG in DEXTROSE 5% 250 ML IV SCH (23:44)
[2020-05-09] MEDS: METOPROLOL TARTRATE 100 MG TAB PO SCH (23:47)
[2020-05-09] MEDS: guaiFENesin 600 MG TABCR PO SCH (23:47)
[2020-05-09] MEDS: SIMVASTATIN 20 MG TAB PO SCH (23:47)
[2020-05-09] MEDS: HYDROXYCHLOROQUINE SULFATE 200 MG TAB PO SCH (23:47)
[2020-05-09] MEDS: ENOXAPARIN INJ 30 MG/0.3 ML SYR SQ SCH (23:50)
[2020-05-10] MEDS: cefTRIAXone SODIUM 1,000 MG in DEXTROSE 5% 50 ML IV SCH ×2 (04:00→23:00)
[2020-05-10] MEDS: NSS + 20MEQ KCL 20 MEQ/1,000 ML BAG IV SCH ×2 (04:00→11:02)
[2020-05-10 08:09] LABS: Hematocrit (blood only) 32.5 % (37-47); Hemoglobin 11.2 g/dL (12.0-16.0); Immature Granulocytes # (auto) 0.01 K/uL (0.00-0.02); Immature Granulocytes % (auto) 0.4 %; Lymphocytes # (auto) 0.61 K/uL (1.2-3.4); Lymphocytes % (auto) 24.3 %; Mean Corpuscular Hemoglobin 30.8 pg (25-34); Mean Corpuscular Hgb Conc 34.5 g/dL (32-36); Mean Corpuscular Volume 89.3 fL (80-100); Neutrophils # (auto) 1.79 K/uL (1.4-6.5); Neutrophils % (auto) 71.3 %; Platelet Count 161 K/uL (130-400); RDW Coefficient of Variation 12.7 % (11.5-14.5); RDW Standard Deviation 40.6 fL (36.4-46.3); Red Blood Count 3.64 M/uL (4.2-5.4); White Blood Count 2.51 K/uL (4.8-10.8)
[2020-05-10 08:26] LABS: Albumin Level 2.2 gm/dl (3.4-5.0); BUN Creatinine Ratio 19.4 (10-20); Calcium 8.8 mg/dl (8.5-10.1); Creatinine Clr Calc Pharmacy 58.4 ml/min; Est GFR (African American) 104.4; Magnesium 2.3 mg/dl (1.8-2.4); Potassium 3.7 mmol/L (3.5-5.1)
[2020-05-10] MEDS: dexAMETHasone 6 MG in SYRINGE 0 ML IV SCH (08:28)
[2020-05-10] MEDS: ENOXAPARIN INJ 30 MG/0.3 ML SYR SQ SCH ×2 (08:28→21:34)
[2020-05-10] MEDS: METOPROLOL TARTRATE 50 MG TAB PO SCH (08:28)
[2020-05-10] MEDS: ASPIRIN 81 MG ECTAB PO SCH (08:28)
[2020-05-10] MEDS: guaiFENesin 600 MG TABCR PO SCH ×2 (08:28→21:34)
[2020-05-10] MEDS: ZINC SULFATE 220 MG CAPSULE PO SCH (08:28)
[2020-05-10] MEDS: CHOLECALCIFEROL 1,000 UNITS 25 MCG TAB PO SCH (08:29)
[2020-05-10] MEDS: CALCIUM 600MG + VIT D 400 IU TAB PO SCH (08:29)
[2020-05-10 08:43] LABS: Albumin Globulin Ratio 0.5 (0.9-2); Bilirubin,Total 0.5 mg/dl (0.2-1); Globulin 4.7 gm/dl (2.5-4.0); Total Protein 6.9 gm/dl (6.4-8.2); Troponin I 0.15 ng/ml (0-0.045)
--- NOTE | 2020-05-10 13:56 | Hospitalist Progress Note ---
Date of Service May 10, 2020 Assessment & Plan (1) Pneumonia due to 2019 novel coronavirus: Pneumonia due to COVID-19 virus with hypoxia/symptoms suggestive of secondary bacterial superinfection- Dexamethasone 6 mg IV daily x 10 days, stop sooner if she comes off oxygen Ceftriaxone 1 g IV every 24 hours x 5 days Azithromycin 500 mg IV every 24 hours x 5 days Ventolin HFA 2 puffs 4 times daily, and every 2 hours as needed Guaifenesin extended release 600 mg p.o. twice daily Zinc sulfate 220 mg p.o. every morning Lovenox 30 mg subcu every 12 hours stable on 4-5 liters today some crackles in bases, will give Lasix this afternoon (2) Hypoxia: requiring 4-5L, no distress treat COVID as above give lasix for negative fluid balance (3) Elevated troponin: no chest pain, no EKG changes hold on cardiology consult would not classify this as demand ischemia all three troponin consistent Continue aspirin 81 mg every morning, and metoprolol tartrate 50 mg in the morning and 100 mg in evening with hold parameters. (4) Rheumatoid arthritis: Continue home dosing of hydroxychloroquine 40 mg p.o. at bedtime (5) Hyperlipidemia: Continue simvastatin 20 mg in evening (6) Hypertension: See above (7) Edema: resume lasix today (8) Osteoporosis: Continue calcium carbonate, and vitamin D3 (9) Hypokalemia: resolved, K is 3.7 continue PO supplementation with lasix (10) Hypomagnesemia: resolved, up to 2.3 today Admission and Anticipated Discharge Date Admission Date: May 09, 2020 Subjective patient doing well, resting in bed, no distress at all she is eating well, no nausea, no diarrhea no fever/chills, no cough reviewed chart, reviewed labs Review of Systems Review of Systems: All systems reviewed & are unremarkable except as noted in Subjective Respiratory: + dyspnea on exertion; no cough and no dyspnea Cardiovascular: no chest pain and no edema Physical Exam 2 Constitutional: WD/WN, vitals as above Neck: trachea midline, no thyromegaly Respiratory: normal respiratory effort; no respiratory distress, no labored breathing and no cough Auscultation: + crackles (bases) Cardiovascular: RRR, no murmur, no edema Gastrointestinal (Abdomen): normal bowel sounds, soft, nontender, no hepatosplenomegaly Musculoskeletal: no cyanosis or clubbing, extremities motor strength 5/5 Skin: no rashes, warm and dry Neurologic: patellar DTR's 2+ bilat, sensation intact and PERRL, EOMI, accommodation nl, no face palsy, no dysarthria Psychiatric: A+Ox3, euthymic affect Lymphatic: no cervical or axillary lymphadenopathy Results & Data Results & Data ([facility]) Vital Signs (Past 12 Hours) Vital Signs Temp Pulse Pulse Resp BP BP Pulse Ox 05/10/20 12:00 69 05/10/20 11:01 37.2 C 66 20 121/76 95 05/10/20 08:00 69 89 L 05/10/20 07:19 36.8 C 69 20 116/69 91 05/10/20 03:58 36.7 C 68 18 111/68 93 Pulse Ox 05/10/20 12:00 05/10/20 11:01 05/10/20 08:00 89 L 05/10/20 07:19 05/10/20 03:58 Laboratory Results Laboratory Results - last 24 hr 05/09/20 05/09/20 05/09/20 16:20 16:20 16:20 WBC 5.42 RBC 3.79 L Hgb 11.8 L Hct 33.8 L MCV 89.2 MCH 31.1 MCHC 34.9 RDW Std Deviation 40.4 RDW Coeff of Emily 12.6 Plt Count 169 MPV 10.0 Immature Gran % (Auto) 0.2 Neut % (Auto) 81.3 Lymph % (Auto) 10.9 [place] % (Auto) 7.4 Eos % (Auto) 0.2 Baso % (Auto) 0.0 Neut # (Auto) 4.41 Lymph # (Auto) 0.59 L [place] # (Auto) 0.40 Eos # (Auto) 0.01 Baso # (Auto) 0.00 Immature Gran # (Auto) 0.01 PT 10.9 INR 1.1 APTT 29.8 PTT Ratio 1.1 VBG pH VBG pCO2 VBG pO2 VBG HCO3 VBG O2 Saturation VBG Base Excess Barometric Pressure Sodium 136 Potassium 2.9 L Chloride 101 Carbon Dioxide 23 Anion Gap 12.0 H BUN 11 Creatinine 0.73 Est Cr Clr Drug Dosing 45.2 Est GFR ( Amer) 92.7 Est GFR (Non-Af Amer) 80.0 BUN/Creatinine Ratio 15.6 Glucose 81 Lactate Calcium 9.0 Magnesium 1.7 L Total Bilirubin 1.0 AST 38 H ALT 16 Alkaline Phosphatase 67 Troponin I 0.176 H* NT-Pro-B Natriuret Pep 3837 H Total Protein 7.6 Albumin 2.6 L Globulin 5.0 H Albumin/Globulin Ratio 0.5 L Procalcitonin COVID-19 Eval Order SARS-CoV-2 (PCR) Influenza Type A (PCR) Influenza Type B (PCR) RSV (RT-PCR) 05/09/20 05/09/20 05/09/20 16:20 16:20 16:20 WBC RBC Hgb Hct MCV MCH MCHC RDW Std Deviation RDW Coeff of Emily Plt Count MPV Immature Gran % (Auto) Neut % (Auto) Lymph % (Auto) [place] % (Auto) Eos % (Auto) Baso % (Auto) Neut # (Auto) Lymph # (Auto) [place] # (Auto) Eos # (Auto) Baso # (Auto) Immature Gran # (Auto) PT INR APTT PTT Ratio VBG pH VBG pCO2 VBG pO2 VBG HCO3 VBG O2 Saturation VBG Base Excess Barometric Pressure Sodium Potassium Chloride Carbon Dioxide Anion Gap BUN Creatinine Est Cr Clr Drug Dosing Est GFR ( Amer) Est GFR (Non-Af Amer) BUN/Creatinine Ratio Glucose Lactate Calcium Magnesium Total Bilirubin AST ALT Alkaline Phosphatase Troponin I NT-Pro-B Natriuret Pep Total Protein Albumin Globulin Albumin/Globulin Ratio Procalcitonin 0.21 COVID-19 Eval Order CovFluRsv at [facility] SARS-CoV-2 (PCR) POSITIVE A* Influenza Type A (PCR) Negative Influenza Type B (PCR) Negative RSV (RT-PCR) Negative 05/09/20 05/09/20 05/09/20 16:58 16:58 19:04 WBC RBC Hgb Hct MCV MCH MCHC RDW Std Deviation RDW Coeff of Emily Plt Count MPV Immature Gran % (Auto) Neut % (Auto) Lymph % (Auto) [place] % (Auto) Eos % (Auto) Baso % (Auto) Neut # (Auto) Lymph # (Auto) [place] # (Auto) Eos # (Auto) Baso # (Auto) Immature Gran # (Auto) PT INR APTT PTT Ratio VBG pH 7.43 H VBG pCO2 36 L VBG pO2 27 VBG HCO3 24 VBG O2 Saturation < 60.0 VBG Base Excess -0.3 Barometric Pressure 728.7 Sodium Potassium Chloride Carbon Dioxide Anion Gap BUN Creatinine Est Cr Clr Drug Dosing Est GFR ( Amer) Est GFR (Non-Af Amer) BUN/Creatinine Ratio Glucose Lactate 2.5 H* 1.5 Calcium Magnesium Total Bilirubin AST ALT Alkaline Phosphatase Troponin I NT-Pro-B Natriuret Pep Total Protein Albumin Globulin Albumin/Globulin Ratio Procalcitonin COVID-19 Eval Order SARS-CoV-2 (PCR) Influenza Type A (PCR) Influenza Type B (PCR) RSV (RT-PCR) 05/10/20 05/10/20 05/10/20 07:53 07:53 12:25 WBC 2.51 L RBC 3.64 L Hgb 11.2 L Hct 32.5 L MCV 89.3 MCH 30.8 MCHC 34.5 RDW Std Deviation 40.6 RDW Coeff of Emily 12.7 Plt Count 161 MPV 10.0 Immature Gran % (Auto) 0.4 Neut % (Auto) 71.3 Lymph % (Auto) 24.3 [place] % (Auto) 4.0 Eos % (Auto) 0.0 Baso % (Auto) 0.0 Neut # (Auto) 1.79 Lymph # (Auto) 0.61 L [place] # (Auto) 0.10 L Eos # (Auto) 0.00 Baso # (Auto) 0.00 Immature Gran # (Auto) 0.01 PT INR APTT PTT Ratio VBG pH VBG pCO2 VBG pO2 VBG HCO3 VBG O2 Saturation VBG Base Excess Barometric Pressure Sodium 137 Potassium 3.7 D Chloride 106 Carbon Dioxide 20 L Anion Gap 11.0 BUN 11 Creatinine 0.57 L Est Cr Clr Drug Dosing 58.4 Est GFR ( Amer) 104.4 Est GFR (Non-Af Amer) 90.0 BUN/Creatinine Ratio 19.4 Glucose 109 H Lactate Calcium 8.8 Magnesium 2.3 Total Bilirubin 0.5 D AST 32 ALT 15 Alkaline Phosphatase 60 Troponin I 0.150 H* 0.133 H* NT-Pro-B Natriuret Pep Total Protein 6.9 Albumin 2.2 L Globulin 4.7 H Albumin/Globulin Ratio 0.5 L Procalcitonin COVID-19 Eval Order SARS-CoV-2 (PCR) Influenza Type A (PCR) Influenza Type B (PCR) RSV (RT-PCR) Medications Administered Current Inpatient Medications Acetaminophen (Acetaminophen 500 Mg Tab) 500 mg PO Q6H PRN PRN Reason: Pain or Fever Stop: 06/08/20 22:27 Albuterol (Albuterol Hfa 8 Gm Inhaler) 2 puffs INH QID PRN PRN Reason: Dyspnea Stop: 06/08/20 22:19 Albuterol (Albut/Ipratrop 3mg/0.5mg Neb 3 Ml Vial) 3 ml NEB Q2H PRN PRN Reason: dyspnea Stop: 06/08/20 22:19 Aspirin ([facility] 81 Mg [facility]ab) [facility] [place]: 06/09/20 08:59 Last Admin: 05/10/20 08:28 Dose: 81 mg Documented by: Enoxaparin Sodium (Enoxaparin Inj 30 Mg/0.3 Ml Syr) 30 mg SQ Q12 [facility] Stop: 06/08/20 22:59 Last Admin: 05/10/20 08:28 Dose: 30 mg Documented by: Guaifenesin (Guaifenesin 600 Mg Tabcr) 600 mg PO Q12 [facility] Stop: 06/08/20 22:19 Last Admin: 05/10/20 08:28 Dose: 600 mg Documented by: Hydroxychloroquine Sulfate (Hydroxychloroquine Sulfate 200 Mg Tab) 400 mg PO HS [facility] Stop: 06/08/20 22:19 Last Admin: 05/09/20 23:47 Dose: 400 mg Documented by: Dexamethasone 6 mg/ Syringe 1.5 mls @ 1 mls/[facility] Stop: 06/09/20 08:59 Last Admin: 05/10/20 08:28 Dose: 1 mls/min Documented by: Ceftriaxone Sodium 1,000 mg/ (Dextrose) 50 mls @ 100 mls/hr IV Q24H [facility]; Protocol Stop: 05/16/20 22:29 Last Infusion: 05/10/20 04:30 Dose: Infused Documented by: Azithromycin 500 mg/ Dextrose 255 mls @ 125 mls/hr IV Q24H [facility] Stop: 05/16/20 22:59 Last Infusion: 05/10/20 01:47 Dose: Infused Documented by: Metoprolol Tartrate (Metoprolol Tartrate 50 Mg Tab) [facility] Stop: 06/09/20 08:59 Last Admin: 05/10/20 08:28 Dose: 50 mg Documented by: Metoprolol Tartrate (Metoprolol Tartrate 100 Mg Tab) 100 mg PO QPM [facility] Stop: 06/08/20 22:19 Last Admin: 05/09/20 23:47 Dose: 100 mg Documented by: Multivitamins/Minerals (Calcium 600mg + Vit D 400 Iu Tab) 1 [facility] [place]: 06/09/20 08:59 Last Admin: 05/10/20 08:29 Dose: 1 tab Documented by: Ondansetron HCl (Ondansetron Inj 2 Mg/Ml 2 Ml Vial) 4 mg IV Q6H PRN PRN Reason: Nausea Stop: 06/08/20 22:19 Simvastatin (Simvastatin 20 Mg Tab) 20 mg PO QPM [facility] Stop: 06/08/20 22:19 Last Admin: 05/09/20 23:47 Dose: 20 mg Documented by: Vitamin D (Cholecalciferol 1,000 Units 25 Mcg Tab) 5,000 units PO [facility] Stop: 06/09/20 08:59 Last Admin: 05/10/20 08:29 Dose: 5,000 units Documented by: Zinc Sulfate (Zinc Sulfate 220 Mg Capsule) 220 mg PO [facility] Stop: 06/09/20 08:59 Last Admin: 05/10/20 08:28 Dose: 220 mg Documented by: PG Care Time/CCT Total # of Minutes Spent Total Time Spent with Patient: Total time spent is greater than 50% in coordination of care (as documented) at patient's floor/unit and/or counseling patient: Coding Level of Care Code 08703 Subseq Hosp Care Lvl 3 Diagnoses Pneumonia due to 2019 novel coronavirus U07.1; J12.82 Hypoxia R09.02 Elevated troponin R77.8 Rheumatoid arthritis M06.9 Hyperlipidemia E78.5 Hypertension I10 Edema R60.9 Osteoporosis M81.0 Hypokalemia E87.6 Hypomagnesemia E83.42
[2020-05-10] MEDS ORDERED: FUROSEMIDE 20 MG in SYRINGE 0 ML IV ONE (16:00)
[2020-05-10] MEDS: METOPROLOL TARTRATE 100 MG TAB PO SCH (21:33)
[2020-05-10] MEDS: POTASSIUM CHLORIDE CRTAB 20 MEQ TABCR PO SCH (21:33)
[2020-05-10] MEDS: SIMVASTATIN 20 MG TAB PO SCH (21:35)
[2020-05-10] MEDS: HYDROXYCHLOROQUINE SULFATE 200 MG TAB PO SCH (21:35)
[2020-05-10] MEDS: AZITHROMYCIN 500 MG in DEXTROSE 5% 250 ML IV SCH (23:56)
[2020-05-11] MEDS: ACETAMINOPHEN 500 MG TAB PO PRN (01:58)
--- NOTE | 2020-05-11 05:42 | Electrocardiogram Report ---
Test Reason : Blood Pressure : / mmHG Vent. Rate : 079 BPM Atrial Rate : 079 BPM P-R Int : 144 ms QRS Dur : 140 ms QT Int : 462 ms P-R-T Axes : 003 014 -31 degrees QTc Int : 529 ms Poor data quality, interpretation may be adversely affected Normal sinus rhythm Right bundle branch block T wave abnormality, consider inferolateral ischemia Abnormal ECG When compared with ECG of 20-AUG-2014 20:07, Borderline criteria for Inferior infarct are no longer Present T wave inversion more evident in Inferolateral leads QT has lengthened Confirmed by Jeremías Whitlock ([id number]) on 05/11/2020 5:41:58 AM Referred By: REFERRED SELF Confirmed By:Jeremías Whitlock
--- NOTE | 2020-05-11 06:02 | Electrocardiogram Report ---
Test Reason : Blood Pressure : / mmHG Vent. Rate : 061 BPM Atrial Rate : 061 BPM P-R Int : 154 ms QRS Dur : 140 ms QT Int : 514 ms P-R-T Axes : 030 024 -22 degrees QTc Int : 517 ms Normal sinus rhythm with sinus arrhythmia Right bundle branch block T wave abnormality, consider inferolateral ischemia Abnormal ECG When compared with ECG of 09-MAY-2020 16:12, No significant change was found Confirmed by Jeremías Whitlock ([id number]) on 05/11/2020 6:01:44 AM Referred By: REFERRED SELF Confirmed By:Jeremías Whitlock
[2020-05-11 06:43] LABS: Hematocrit (blood only) 32.8 % (37-47); Hemoglobin 11.2 g/dL (12.0-16.0); Immature Granulocytes # (auto) 0.02 K/uL (0.00-0.02); Immature Granulocytes % (auto) 0.3 %; Lymphocytes # (auto) 0.81 K/uL (1.2-3.4); Lymphocytes % (auto) 12.2 %; Mean Corpuscular Hemoglobin 30.2 pg (25-34); Mean Corpuscular Hgb Conc 34.1 g/dL (32-36); Mean Corpuscular Volume 88.4 fL (80-100); Mean Platelet Volume 10.3 fL (7.4-10.4); Monocytes # (auto) 0.37 K/uL (0.11-0.59); Monocytes % (auto) 5.6 %; Neutrophils # (auto) 5.46 K/uL (1.4-6.5); Neutrophils % (auto) 81.9 %; Platelet Count 168 K/uL (130-400); RDW Coefficient of Variation 12.7 % (11.5-14.5); RDW Standard Deviation 40.9 fL (36.4-46.3); Red Blood Count 3.71 M/uL (4.2-5.4); White Blood Count 6.66 K/uL (4.8-10.8)
[2020-05-11 07:22] LABS: Albumin Globulin Ratio 0.5 (0.9-2); Albumin Level 2.2 gm/dl (3.4-5.0); BUN Creatinine Ratio 25.4 (10-20); Bilirubin,Total 0.4 mg/dl (0.2-1); Calcium 8.7 mg/dl (8.5-10.1); Creatinine Clr Calc Pharmacy 44.7 ml/min; Est GFR (African American) 89.7; Est GFR (Non-African American) 77.4; Globulin 4.5 gm/dl (2.5-4.0); Potassium 3.7 mmol/L (3.5-5.1); Total Protein 6.7 gm/dl (6.4-8.2)
[2020-05-11] MEDS: ENOXAPARIN INJ 30 MG/0.3 ML SYR SQ SCH ×2 (08:39→22:00)
[2020-05-11] MEDS: CHOLECALCIFEROL 1,000 UNITS 25 MCG TAB PO SCH (08:39)
[2020-05-11] MEDS: FUROSEMIDE 20 MG TAB PO SCH (08:39)
[2020-05-11] MEDS: ZINC SULFATE 220 MG CAPSULE PO SCH (08:40)
[2020-05-11] MEDS: METOPROLOL TARTRATE 50 MG TAB PO SCH (08:40)
[2020-05-11] MEDS: guaiFENesin 600 MG TABCR PO SCH ×2 (08:40→21:59)
[2020-05-11] MEDS: ASPIRIN 81 MG ECTAB PO SCH (08:40)
[2020-05-11] MEDS: CALCIUM 600MG + VIT D 400 IU TAB PO SCH (08:41)
[2020-05-11] MEDS: POTASSIUM CHLORIDE CRTAB 20 MEQ TABCR PO SCH ×2 (08:41→21:59)
[2020-05-11] MEDS: dexAMETHasone 6 MG in SYRINGE 0 ML IV SCH (09:02)
--- NOTE | 2020-05-11 10:27 | Hospitalist Progress Note ---
Date of Service May 11, 2020 Assessment & Plan (1) Pneumonia due to 2019 novel coronavirus: Pneumonia due to COVID-19 virus with hypoxia/symptoms suggestive of secondary bacterial superinfection- Dexamethasone 6 mg IV daily x 10 days, day 3 Ceftriaxone 1 g IV every 24 hours x 5 days Azithromycin 500 mg IV every 24 hours x 5 days Ventolin HFA 2 puffs 4 times daily, and every 2 hours as needed Guaifenesin extended release 600 mg p.o. twice daily Zinc sulfate 220 mg p.o. every morning Lovenox 30 mg subcu every 12 hours stable on 3L today lungs cleared up with resuming lasix yesterday (2) Hypoxia: requiring 3L, no distress treat COVID as above give lasix 20mg daily for negative fluid balance (3) Elevated troponin: no chest pain, no EKG changes hold on cardiology consult would not classify this as demand ischemia all three troponin consistent Continue aspirin 81 mg every morning, and metoprolol tartrate 50 mg in the morning and 100 mg in evening with hold parameters. (4) Rheumatoid arthritis: Continue home dosing of hydroxychloroquine 40 mg p.o. at bedtime (5) Hyperlipidemia: Continue simvastatin 20 mg in evening (6) Hypertension: See above (7) Edema: continue lasix 20mg daily (8) Osteoporosis: Continue calcium carbonate, and vitamin D3 (9) Hypokalemia: resolved, K is 3.7 again today continue PO supplementation with lasix (10) Hypomagnesemia: resolved, up to 2.0 today Admission and Anticipated Discharge Date Admission Date: May 09, 2020 Subjective patient feels well, breathing comfortably at rest, gets winded with little exertion sat up in a chair this morning, ate a little breakfast has a cough, some sputum production no fever/chills/sweats, no diarrhea or vomiting she wants to walk more, will get PT to work with her, difficult cause she is confined to a room vitals stable, on 3L 95% at rest CBC and BMP normal today Review of Systems Review of Systems: All systems reviewed & are unremarkable except as noted in Subjective Physical Exam Constitutional: WD/WN, vitals as above Neck: trachea midline, no thyromegaly Respiratory: normal respiratory effort; no respiratory distress, no labored breathing and no cough Auscultation: lungs clear to auscultation bilaterally Cardiovascular: RRR, no murmur, no edema Gastrointestinal (Abdomen): normal bowel sounds, soft, nontender, no hepatosplenomegaly Musculoskeletal: no cyanosis or clubbing, extremities motor strength 5/5 Skin: no rashes, warm and dry Neurologic: patellar DTR's 2+ bilat, sensation intact and PERRL, EOMI, accommodation nl, no face palsy, no dysarthria Psychiatric: A+Ox3, euthymic affect Lymphatic: no cervical or axillary lymphadenopathy Results & Data Results & Data ([facility]) Vital Signs (Past 12 Hours) Vital Signs Temp Pulse Pulse Resp BP Pulse Ox 05/11/20 08:11 36.7 C 72 20 132/73 95 05/11/20 08:00 69 05/11/20 04:28 36.8 C 72 21 134/71 96 05/10/20 23:38 67 05/10/20 23:13 36.8 C 67 23 129/76 96 Laboratory Results Laboratory Results - last 24 hr 05/10/20 05/10/20 05/11/20 12:25 20:34 06:07 WBC 6.66 RBC 3.71 L Hgb 11.2 L Hct 32.8 L MCV 88.4 MCH 30.2 MCHC 34.1 RDW Std Deviation 40.9 RDW Coeff of Emily 12.7 Plt Count 168 MPV 10.3 Immature Gran % (Auto) 0.3 Neut % (Auto) 81.9 Lymph % (Auto) 12.2 [place] % (Auto) 5.6 Eos % (Auto) 0.0 Baso % (Auto) 0.0 Neut # (Auto) 5.46 Lymph # (Auto) 0.81 L [place] # (Auto) 0.37 Eos # (Auto) 0.00 Baso # (Auto) 0.00 Immature Gran # (Auto) 0.02 Sodium Potassium Chloride Carbon Dioxide Anion Gap BUN Creatinine Est Cr Clr Drug Dosing Est GFR ( Amer) Est GFR (Non-Af Amer) BUN/Creatinine Ratio Glucose Calcium Magnesium Total Bilirubin AST ALT Alkaline Phosphatase Troponin I 0.133 H* 0.115 H* Total Protein Albumin Globulin Albumin/Globulin Ratio 05/11/20 06:07 WBC RBC Hgb Hct MCV MCH MCHC RDW Std Deviation RDW Coeff of Emily Plt Count MPV Immature Gran % (Auto) Neut % (Auto) Lymph % (Auto) [place] % (Auto) Eos % (Auto) Baso % (Auto) Neut # (Auto) Lymph # (Auto) [place] # (Auto) Eos # (Auto) Baso # (Auto) Immature Gran # (Auto) Sodium 136 Potassium 3.7 Chloride 106 Carbon Dioxide 23 Anion Gap 7.0 BUN 19 H D Creatinine 0.75 Est Cr Clr Drug Dosing 44.7 Est GFR ( Amer) 89.7 Est GFR (Non-Af Amer) 77.4 BUN/Creatinine Ratio 25.4 H Glucose 120 H Calcium 8.7 Magnesium 2.0 Total Bilirubin 0.4 AST 32 ALT 15 Alkaline Phosphatase 60 Troponin I Total Protein 6.7 Albumin 2.2 L Globulin 4.5 H Albumin/Globulin Ratio 0.5 L Medications Administered Current Inpatient Medications Acetaminophen (Acetaminophen 500 Mg Tab) 500 mg PO Q6H PRN PRN Reason: Pain or Fever Stop: 06/08/20 22:27 Last Admin: 05/11/20 01:58 Dose: 500 mg Documented by: Albuterol (Albuterol Hfa 8 Gm Inhaler) 2 puffs INH QID PRN PRN Reason: Dyspnea Stop: 06/08/20 22:19 Albuterol (Albut/Ipratrop 3mg/0.5mg Neb 3 Ml Vial) 3 ml NEB Q2H PRN PRN Reason: dyspnea Stop: 06/08/20 22:19 Aspirin (Aspirin 81 Mg Ectab) [facility] [place]: 06/09/20 08:59 Last Admin: 05/11/20 08:40 Dose: 81 mg Documented by: Enoxaparin Sodium (Enoxaparin Inj 30 Mg/0.3 Ml Syr) 30 mg SQ Q12 [facility] Stop: 06/08/20 22:59 Last Admin: 05/11/20 08:39 Dose: 30 mg Documented by: Furosemide (Furosemide 20 Mg Tab) 20 mg PO QAM [facility] Stop: 06/10/20 08:59 Last Admin: 05/11/20 08:39 Dose: 20 mg Documented by: Guaifenesin (Guaifenesin 600 Mg Tabcr) 600 mg PO Q12 [facility] Stop: 06/08/20 22:19 Last Admin: 05/11/20 08:40 Dose: 600 mg Documented by: Hydroxychloroquine Sulfate (Hydroxychloroquine Sulfate 200 Mg Tab) 400 mg PO [facility] Stop: 06/08/20 22:19 Last Admin: 05/10/20 21:35 Dose: 400 mg Documented by: Dexamethasone 6 mg/ Syringe 1.5 mls @ 1 mls/min IV QAM [facility] Stop: 06/09/20 08:59 Last Admin: 05/11/20 09:02 Dose: 1 mls/min Documented by: Ceftriaxone Sodium 1,000 mg/ (Dextrose) 50 mls @ 100 mls/hr IV Q24H [facility]; Protocol Stop: 05/16/20 22:29 Last Infusion: 05/10/20 23:55 Dose: Infused Documented by: Azithromycin 500 mg/ Dextrose 255 mls @ 125 mls/hr IV Q24H [facility] Stop: 05/16/20 22:59 Last Infusion: 05/11/20 02:05 Dose: Infused Documented by: Metoprolol Tartrate (Metoprolol Tartrate 50 Mg Tab) [facility] [place]: 06/09/20 08:59 Last Admin: 05/11/20 08:40 Dose: 50 mg Documented by: Metoprolol Tartrate (Metoprolol Tartrate 100 Mg Tab) 100 mg PO QPM [facility] Stop: 06/08/20 22:19 Last Admin: 05/10/20 21:33 Dose: 100 mg Documented by: Multivitamins/Minerals (Calcium 600mg + Vit D 400 Iu Tab) 1 tab PO [facility] Stop: 06/09/20 08:59 Last Admin: 05/11/20 08:41 Dose: 1 tab Documented by: Ondansetron HCl (Ondansetron Inj 2 Mg/Ml 2 Ml Vial) 4 mg IV Q6H PRN PRN Reason: Nausea Stop: 06/08/20 22:19 Potassium Chloride (Potassium Chloride Crtab 20 Meq Tabcr) 20 meq PO BID [facility] Stop: 06/09/20 20:59 Last Admin: 05/11/20 08:41 Dose: 20 meq Documented by: Simvastatin (Simvastatin 20 Mg Tab) 20 mg PO QPM [facility] Stop: 06/08/20 22:19 Last Admin: 05/10/20 21:35 Dose: 20 mg Documented by: Vitamin D (Cholecalciferol 1,000 Units 25 Mcg Tab) 5,000 [facility] [place]: 06/09/20 08:59 Last Admin: 05/11/20 08:39 Dose: 5,000 units Documented by: Zinc Sulfate (Zinc Sulfate 220 Mg Capsule) 220 mg PO QAM [facility] Stop: 06/09/20 08:59 Last Admin: 05/11/20 08:40 Dose: 220 mg Documented by: PG Care Time/CCT Total # of Minutes Spent Total Time Spent with Patient: Total time spent is greater than 50% in coordination of care (as documented) at patient's floor/unit and/or counseling patient: Coding Level of Care Code 90881 Subseq Hosp Care Lvl 3 Diagnoses Pneumonia due to 2019 novel coronavirus U07.1; J12.82 Hypoxia R09.02 Elevated troponin R77.8 Rheumatoid arthritis M06.9 Hyperlipidemia E78.5 Hypertension I10 Edema R60.9 Osteoporosis M81.0 Hypokalemia E87.6 Hypomagnesemia E83.42
[2020-05-11] MEDS: SIMVASTATIN 20 MG TAB PO SCH (21:59)
[2020-05-11] MEDS: METOPROLOL TARTRATE 100 MG TAB PO SCH (21:59)
[2020-05-11] MEDS: HYDROXYCHLOROQUINE SULFATE 200 MG TAB PO SCH (21:59)
[2020-05-11] MEDS: cefTRIAXone SODIUM 1,000 MG in DEXTROSE 5% 50 ML IV SCH (22:00)
[2020-05-11] MEDS: AZITHROMYCIN 500 MG in DEXTROSE 5% 250 ML IV SCH (23:03)
--- NOTE | 2020-05-12 06:17 | Electrocardiogram Report ---
Test Reason : Blood Pressure : / mmHG Vent. Rate : 070 BPM Atrial Rate : 070 BPM P-R Int : 144 ms QRS Dur : 148 ms QT Int : 462 ms P-R-T Axes : 031 007 -19 degrees QTc Int : 498 ms Normal sinus rhythm Right bundle branch block T wave abnormality, consider inferolateral ischemia Abnormal ECG When compared with ECG of 10-MAY-2020 06:44, No significant change was found Confirmed by Jeremías Whitlock ([id number]) on 05/12/2020 6:16:58 AM Referred By: REFERRED SELF Confirmed By:Jeremías Whitlock
[2020-05-12] MEDS: dexAMETHasone 6 MG in SYRINGE 0 ML IV SCH (08:48)
[2020-05-12] MEDS: CHOLECALCIFEROL 1,000 UNITS 25 MCG TAB PO SCH (08:48)
[2020-05-12] MEDS: ASPIRIN 81 MG ECTAB PO SCH (08:48)
[2020-05-12] MEDS: METOPROLOL TARTRATE 50 MG TAB PO SCH (08:48)
[2020-05-12] MEDS: ZINC SULFATE 220 MG CAPSULE PO SCH (08:48)
[2020-05-12] MEDS: CALCIUM 600MG + VIT D 400 IU TAB PO SCH (08:49)
[2020-05-12] MEDS: POTASSIUM CHLORIDE CRTAB 20 MEQ TABCR PO SCH ×2 (08:49→21:30)
[2020-05-12] MEDS: guaiFENesin 600 MG TABCR PO SCH ×2 (08:49→21:30)
[2020-05-12] MEDS: ENOXAPARIN INJ 30 MG/0.3 ML SYR SQ SCH ×2 (08:49→21:31)
[2020-05-12] MEDS: FUROSEMIDE 20 MG TAB PO SCH (08:49)
[2020-05-12] MEDS ORDERED: FUROSEMIDE 20 MG in SYRINGE 0 ML IV ONE (10:00)
[2020-05-12 10:16] LABS: Hemoglobin 12.9 g/dL (12.0-16.0); Mean Corpuscular Hemoglobin 30.8 pg (25-34); Mean Corpuscular Hgb Conc 33.9 g/dL (32-36); Mean Corpuscular Volume 90.7 fL (80-100); Mean Platelet Volume 10.1 fL (7.4-10.4); Platelet Count 277 K/uL (130-400); RDW Coefficient of Variation 12.9 % (11.5-14.5); Red Blood Count 4.19 M/uL (4.2-5.4); White Blood Count 9.28 K/uL (4.8-10.8)
[2020-05-12 10:35] LABS: D Dimer 3300 ug/L FEU (0-500)
[2020-05-12 10:43] LABS: BUN Creatinine Ratio 19.9 (10-20); C Reactive Protein 2.44 mg/dl (0-0.29); Calcium 9.5 mg/dl (8.5-10.1); Creatinine Clr Calc Pharmacy 40.6 ml/min; Est GFR (African American) 80.6; Est GFR (Non-African American) 69.5; Potassium 3.5 mmol/L (3.5-5.1)
[2020-05-12 10:57] LABS: Appearance Urine Clear (Clear); Bacteria Urine Automated Negative (Negative); Bilirubin Urine Negative (Negative); Blood Urine Negative (Negative); Cast Urine Automated 0 /lpf (0-5); Color Urine Yellow; Glucose Urine UA Negative (Negative); Ketones Urine Negative (Negative); Leukocyte Esterase Urine 1+ (Negative); Nitrite Urine Negative (Negative); Protein Urine Negative (Negative); RBC Urine Automated 0-4 /hpf (0-4); Specific Gravity Urine 1.009 (1.000-1.030); Urobilinogen Urine Negative (Negative); pH Urine 7.5 (4.5-7.5)
--- NOTE | 2020-05-12 12:09 | XRay Report ---
XR chest 1V portable CLINICAL HISTORY: worsening hypoxemia COMPARISON STUDY: 05/09/2020 FINDINGS: The cardiac and mediastinal contours remain stable. There are persistent interstitial pulmo nary opacities with a peripheral distribution. These remain stable to slightly improved on the left a nd stable to slightly progressive on the right. There are no large pleural effusions.[ IMPRESSION: Persistent multifocal interstitial pulmonary opacities consistent with a multifocal pneum onia ACT 112: Negative or not required by law. Electronically signed by: Med Baez M.D. 05/12/2020 12:08 PM
[2020-05-12] MEDS: ACETAMINOPHEN 500 MG TAB PO PRN (13:46)
--- NOTE | 2020-05-12 14:50 | Hospitalist Progress Note ---
Date of Service May 12, 2020 Assessment & Plan (1) Pneumonia due to 2019 novel coronavirus: Pneumonia due to COVID-19 virus with hypoxia/symptoms suggestive of secondary bacterial superinfection- Dexamethasone 6 mg IV daily x 10 days, day 4 Ceftriaxone 1 g IV daily, day 4 Azithromycin 500 mg IV daily, day 4 Ventolin HFA 2 puffs 4 times daily, and every 2 hours as needed Guaifenesin extended release 600 mg p.o. twice daily Zinc sulfate 220 mg p.o. every morning Lovenox 30 mg subcu every 12 hours more oxygen required today, likely from some mild pulmonary edema improved with Lasix 20mg IV, down to 5L from 8L oxymask continue to keep lungs dry, will repeat Lasix 20mg IV in the morning ESR, CRP and d dimer elevated with signs of inflammation CTA chest at time of admission negative for PE (2) Hypoxia: increased oxygen requirement at 8L oxymask, now down to 5L with diuresis, no distress treat COVID as above continue Lasix 20mg IV daily (3) Elevated troponin: no chest pain, no EKG changes hold on cardiology consult would not classify this as demand ischemia all three troponin consistent Continue aspirin 81 mg every morning, and metoprolol tartrate 50 mg in the morning and 100 mg in evening with hold parameters. (4) Rheumatoid arthritis: Continue home dosing of hydroxychloroquine 40 mg p.o. at bedtime (5) Hyperlipidemia: Continue simvastatin 20 mg in evening (6) Hypertension: See above (7) Edema: continue lasix 20mg IV daily (8) Osteoporosis: Continue calcium carbonate, and vitamin D3 (9) Hypokalemia: resolved, K is 3.5 continue BID supplementation with lasix (10) Hypomagnesemia: resolved Admission and Anticipated Discharge Date Admission Date: May 09, 2020 Subjective patient with some increased dyspnea and hypoxia this morning, started suddenly placed on 8L oxymask, saturations came up to 95%, felt better gave her additional Lasix 20mg IV to her 20mg PO and her urine output was greatly increased crackles in the bases on exam oxygen improved to 5L by this afternoon checked labs, CBC normal, d dimer 3300, ESR 62, CRP 2.44, procalcitonin 0.10 CXR reviewed personally, persistent bilateral multifocal infiltrates patient is eating well, minimal cough, no fever/chills, no diarrhea Review of Systems Review of Systems: All systems reviewed & are unremarkable except as noted in Subjective Respiratory: + dyspnea and + dyspnea on exertion; no cough Physical Exam Constitutional: WD/WN, vitals as above Neck: trachea midline, no thyromegaly Respiratory: normal respiratory effort; no respiratory distress, no labored breathing and no cough Auscultation: + crackles (bases); no rhonchi and no wheezes Cardiovascular: RRR, no murmur, no edema Gastrointestinal (Abdomen): normal bowel sounds, soft, nontender, no hepatosplenomegaly Musculoskeletal: no cyanosis or clubbing, extremities motor strength 5/5 Skin: no rashes, warm and dry Neurologic: patellar DTR's 2+ bilat, sensation intact and PERRL, EOMI, accommodation nl, no face palsy, no dysarthria Psychiatric: A+Ox3, euthymic affect Lymphatic: no cervical or axillary lymphadenopathy Results & Data Results & Data ([facility]) Vital Signs (Past 12 Hours) Vital Signs Temp Pulse Pulse Resp BP BP Pulse Ox 05/12/20 12:05 36.7 C 77 16 152/85 H 91 05/12/20 09:30 20 93 05/12/20 08:30 36.6 C 72 22 116/63 88 L 05/12/20 08:15 36.6 C 72 24 91 05/12/20 08:00 67 81 L 05/12/20 03:51 36.5 C 76 18 123/70 90 Laboratory Results Laboratory Results - last 24 hr 05/12/20 05/12/20 05/12/20 09:48 09:48 09:48 WBC 9.28 RBC 4.19 L Hgb 12.9 Hct 38.0 MCV 90.7 MCH 30.8 MCHC 33.9 RDW Std Deviation 43.0 RDW Coeff of Emily 12.9 Plt Count 277 D MPV 10.1 ESR 62 H D-Dimer 3300 H* Sodium Potassium Chloride Carbon Dioxide Anion Gap BUN Creatinine Est Cr Clr Drug Dosing Est GFR ( Amer) Est GFR (Non-Af Amer) BUN/Creatinine Ratio Glucose Calcium C-Reactive Protein Procalcitonin Urine Color Urine Appearance Urine pH Ur Specific [place] Urine Protein Urine Glucose (UA) Urine Ketones Urine Blood Urine Nitrite Urine Bilirubin Urine Urobilinogen Ur Leukocyte Esterase Urine WBC (Auto) Urine RBC (Auto) U Hyaline Cast (Auto) U Epithel Cells (Auto) Urine Bacteria (Auto) 05/12/20 05/12/20 05/12/20 09:48 09:48 10:40 WBC RBC Hgb Hct MCV MCH MCHC RDW Std Deviation RDW Coeff of Emily Plt Count MPV ESR D-Dimer Sodium 138 Potassium 3.5 Chloride 106 Carbon Dioxide 25 Anion Gap 7.0 BUN 16 Creatinine 0.82 Est Cr Clr Drug Dosing 40.6 Est GFR ( Amer) 80.6 Est GFR (Non-Af Amer) 69.5 BUN/Creatinine Ratio 19.9 Glucose 104 H Calcium 9.5 C-Reactive Protein 2.44 H Procalcitonin 0.10 Urine Color Yellow Urine Appearance Clear Urine pH 7.5 Ur Specific [place] 1.009 Urine Protein Negative Urine Glucose (UA) Negative Urine Ketones Negative Urine Blood Negative Urine Nitrite Negative Urine Bilirubin Negative Urine Urobilinogen Negative Ur Leukocyte Esterase 1+ H Urine WBC (Auto) 1-5 Urine RBC (Auto) 0-4 U Hyaline Cast (Auto) 0 U Epithel Cells (Auto) 5-10 H Urine Bacteria (Auto) Negative Medications Administered Current Inpatient Medications Acetaminophen (Acetaminophen 500 Mg Tab) 500 mg PO Q6H PRN PRN Reason: Pain or Fever Stop: 06/08/20 22:27 Last Admin: 05/12/20 13:46 Dose: 500 mg Documented by: Albuterol (Albuterol Hfa 8 Gm Inhaler) 2 puffs INH QID PRN PRN Reason: Dyspnea Stop: 06/08/20 22:19 Albuterol (Albut/Ipratrop 3mg/0.5mg Neb 3 Ml Vial) 3 ml NEB Q2H PRN PRN Reason: dyspnea Stop: 06/08/20 22:19 Aspirin (Aspirin 81 Mg Ectab) 81 mg PO QAM [facility] Stop: 06/09/20 08:59 Last Admin: 05/12/20 08:48 Dose: 81 mg Documented by: Enoxaparin Sodium (Enoxaparin Inj 30 Mg/0.3 Ml Syr) 30 mg SQ Q12 [facility] Stop: 06/08/20 22:59 Last Admin: 05/12/20 08:49 Dose: 30 mg Documented by: Guaifenesin (Guaifenesin 600 Mg Tabcr) 600 mg PO Q12 [facility] Stop: 06/08/20 22:19 Last Admin: 05/12/20 08:49 Dose: 600 mg Documented by: Hydroxychloroquine Sulfate (Hydroxychloroquine Sulfate 200 Mg Tab) 400 mg PO HS [facility] Stop: 06/08/20 22:19 Last Admin: 05/11/20 21:59 Dose: 400 mg Documented by: Dexamethasone 6 mg/ Syringe 1.5 mls @ 1 mls/min IV QAM [facility] Stop: 06/09/20 08:59 Last Admin: 05/12/20 08:48 Dose: 1 mls/min Documented by: Ceftriaxone Sodium 1,000 mg/ (Dextrose) 50 mls @ 100 mls/hr IV Q24H [facility]; Protocol Stop: 05/16/20 22:29 Last Infusion: 05/11/20 23:04 Dose: Infused Documented by: Azithromycin 500 mg/ Dextrose 255 mls @ 125 mls/hr IV Q24H [facility] Stop: 05/16/20 22:59 Last Infusion: 05/12/20 03:56 Dose: Infused Documented by: Furosemide 20 mg/ Syringe 2 mls [facility]: 06/12/20 08:59 Metoprolol Tartrate (Metoprolol Tartrate 50 Mg Tab) [facility] Stop: 06/09/20 08:59 Last Admin: 05/12/20 08:48 Dose: 50 mg Documented by: Metoprolol Tartrate (Metoprolol Tartrate 100 Mg Tab) 100 mg PO QPM [facility] Stop: 06/08/20 22:19 Last Admin: 05/11/20 21:59 Dose: 100 mg Documented by: Multivitamins/Minerals (Calcium 600mg + Vit D 400 Iu Tab) [facility] Stop: 06/09/20 08:59 Last Admin: 05/12/20 08:49 Dose: 1 tab Documented by: Ondansetron HCl (Ondansetron Inj 2 Mg/Ml 2 Ml Vial) 4 mg IV Q6H PRN PRN Reason: Nausea Stop: 06/08/20 22:19 Potassium Chloride (Potassium Chloride Crtab 20 Meq Tabcr) 20 meq PO BID [facility] Stop: 06/09/20 20:59 Last Admin: 05/12/20 08:49 Dose: 20 meq Documented by: Simvastatin (Simvastatin 20 Mg Tab) 20 mg PO QPM [facility] Stop: 06/08/20 22:19 Last Admin: 05/11/20 21:59 Dose: 20 mg Documented by: Vitamin D (Cholecalciferol 1,000 Units 25 Mcg Tab) 5,000 units PO QAM [facility] Stop: 06/09/20 08:59 Last Admin: 05/12/20 08:48 Dose: 5,000 units Documented by: Zinc Sulfate (Zinc Sulfate 220 Mg Capsule) 220 mg PO QAM [facility] Stop: 06/09/20 08:59 Last Admin: 05/12/20 08:48 Dose: 220 mg Documented by: PG Care Time/CCT Total # of Minutes Spent Total Time Spent: 33 Total Time Spent with Patient: Total time spent is greater than 50% in coordination of care (as documented) at patient's floor/unit and/or counseling patient: Coding Level of Care Code 88505 Subseq Hosp Care Lvl 3 Diagnoses Pneumonia due to 2019 novel coronavirus U07.1; J12.82 Hypoxia R09.02 Elevated troponin R77.8 Rheumatoid arthritis M06.9 Hyperlipidemia E78.5 Hypertension I10 Edema R60.9 Osteoporosis M81.0 Hypokalemia E87.6 Hypomagnesemia E83.42
[2020-05-12] MEDS: HYDROXYCHLOROQUINE SULFATE 200 MG TAB PO SCH (21:30)
[2020-05-12] MEDS: SIMVASTATIN 20 MG TAB PO SCH (21:30)
[2020-05-12] MEDS: METOPROLOL TARTRATE 100 MG TAB PO SCH (21:31)
[2020-05-12] MEDS: cefTRIAXone SODIUM 1,000 MG in DEXTROSE 5% 50 ML IV SCH (21:32)
[2020-05-12] MEDS: AZITHROMYCIN 500 MG in DEXTROSE 5% 250 ML IV SCH (22:53)
[2020-05-13] MEDS: dexAMETHasone 6 MG in SYRINGE 0 ML IV SCH (08:28)
[2020-05-13] MEDS: FUROSEMIDE 20 MG in SYRINGE 0 ML IV SCH (08:28)
[2020-05-13] MEDS: ENOXAPARIN INJ 30 MG/0.3 ML SYR SQ SCH ×2 (08:28→21:11)
[2020-05-13] MEDS: POTASSIUM CHLORIDE CRTAB 20 MEQ TABCR PO SCH ×2 (08:29→23:12)
[2020-05-13] MEDS: ASPIRIN 81 MG ECTAB PO SCH (08:29)
[2020-05-13] MEDS: METOPROLOL TARTRATE 50 MG TAB PO SCH (08:29)
[2020-05-13] MEDS: guaiFENesin 600 MG TABCR PO SCH ×2 (08:29→21:10)
[2020-05-13] MEDS: ZINC SULFATE 220 MG CAPSULE PO SCH (08:29)
[2020-05-13] MEDS: CALCIUM 600MG + VIT D 400 IU TAB PO SCH (08:29)
[2020-05-13] MEDS: CHOLECALCIFEROL 1,000 UNITS 25 MCG TAB PO SCH (08:29)
--- NOTE | 2020-05-13 10:30 | Hospitalist Progress Note ---
Date of Service May 13, 2020 Assessment & Plan (1) Pneumonia due to 2019 novel coronavirus: Pneumonia due to COVID-19 virus with hypoxia/symptoms suggestive of secondary bacterial superinfection- Dexamethasone 6 mg IV daily x 10 days, day 5 Ceftriaxone 1 g IV daily, day 5, stop after today Azithromycin 500 mg IV daily, day 5 Ventolin HFA 2 puffs 4 times daily, and every 2 hours as needed Guaifenesin extended release 600 mg p.o. twice daily Zinc sulfate 220 mg p.o. every morning Lovenox 30 mg subcu every 12 hours down to 5L today, breathing easier after diuresis gave Lasix 20mg IV again today ESR, CRP and d dimer elevated with signs of inflammation CTA chest at time of admission negative for PE (2) Hypoxia: improved oxygenation today, down to 5L, no distress at rest, desaturates with exertion treat COVID as above continue Lasix 20mg IV daily (3) Elevated troponin: no chest pain, no EKG changes hold on cardiology consult would not classify this as demand ischemia all three troponin consistent Continue aspirin 81 mg every morning, and metoprolol tartrate 50 mg in the morning and 100 mg in evening with hold parameters. (4) Rheumatoid arthritis: Continue home dosing of hydroxychloroquine 40 mg p.o. at bedtime (5) Hyperlipidemia: Continue simvastatin 20 mg in evening (6) Hypertension: See above (7) Edema: continue lasix 20mg IV daily (8) Osteoporosis: Continue calcium carbonate, and vitamin D3 (9) Hypokalemia: check BMP this morning continue BID supplementation with lasix (10) Hypomagnesemia: resolved Admission and Anticipated Discharge Date Admission Date: May 09, 2020 Subjective patient is feeling better today, saturations are 95% on 5L while resting, any little activity will make her desaturate but she recovers well she is eating well, says her stools are a little loose but not bothersome no fever/chills, no nausea, no chest pain, has a minimal cough, non-productive made a lot of urine with Lasix yesterday, had 500cc out so far today, will watch as she got Lasix 20mg IV this morning will check a BMP told her that she is slowly improving, likely here in hospital a few more days Review of Systems Review of Systems: All systems reviewed & are unremarkable except as noted in Subjective Constitutional: no fever Respiratory: + cough, + dyspnea and + dyspnea on exertion; no sputum production Cardiovascular: no chest pain and no edema Gastrointestinal: + diarrhea/loose stools; no abdominal pain, no nausea, no vomiting and no constipation Physical Exam Constitutional: WD/WN, vitals as above Neck: trachea midline, no thyromegaly Respiratory: normal respiratory effort; no respiratory distress, no labored breathing and no cough Auscultation: + crackles (bases); no rhonchi and no wheezes Cardiovascular: RRR, no murmur, no edema Gastrointestinal (Abdomen): normal bowel sounds, soft, nontender, no hepatosplenomegaly Musculoskeletal: no cyanosis or clubbing, extremities motor strength 5/5 Skin: no rashes, warm and dry Neurologic: patellar DTR's 2+ bilat, sensation intact and PERRL, EOMI, accommodation nl, no face palsy, no dysarthria Psychiatric: A+Ox3, euthymic affect Lymphatic: no cervical or axillary lymphadenopathy Results & Data Results & Data ([facility]) Vital Signs (Past 12 Hours) Vital Signs Temp Pulse Pulse Resp BP BP Pulse Ox 05/13/20 08:00 73 05/13/20 07:42 36.7 C 78 20 129/75 92 05/13/20 03:46 36.5 C 64 28 H 133/82 91 05/12/20 23:59 67 05/12/20 23:32 36.6 C 65 22 135/80 96 Laboratory Results Laboratory Results - last 24 hr 05/12/20 05/12/20 05/12/20 09:48 09:48 09:48 D-Dimer 3300 H* Sodium 138 Potassium 3.5 Chloride 106 Carbon Dioxide 25 Anion Gap 7.0 BUN 16 Creatinine 0.82 Est Cr Clr Drug Dosing 40.6 Est GFR ( Amer) 80.6 Est GFR (Non-Af Amer) 69.5 BUN/Creatinine Ratio 19.9 Glucose 104 H Calcium 9.5 C-Reactive Protein 2.44 H Procalcitonin 0.10 Urine Color Urine Appearance Urine pH Ur Specific [place] Urine Protein Urine Glucose (UA) Urine Ketones Urine Blood Urine Nitrite Urine Bilirubin Urine Urobilinogen Ur Leukocyte Esterase Urine WBC (Auto) Urine RBC (Auto) U Hyaline Cast (Auto) U Epithel Cells (Auto) Urine Bacteria (Auto) 05/12/20 10:40 D-Dimer Sodium Potassium Chloride Carbon Dioxide Anion Gap BUN Creatinine Est Cr Clr Drug Dosing Est GFR ( Amer) Est GFR (Non-Af Amer) BUN/Creatinine Ratio Glucose Calcium C-Reactive Protein Procalcitonin Urine Color Yellow Urine Appearance Clear Urine pH 7.5 Ur Specific [place] 1.009 Urine Protein Negative Urine Glucose (UA) Negative Urine Ketones Negative Urine Blood Negative Urine Nitrite Negative Urine Bilirubin Negative Urine Urobilinogen Negative Ur Leukocyte Esterase 1+ H Urine WBC (Auto) 1-5 Urine RBC (Auto) 0-4 U Hyaline Cast (Auto) 0 U Epithel Cells (Auto) 5-10 H Urine Bacteria (Auto) Negative Medications Administered Current Inpatient Medications Acetaminophen (Acetaminophen 500 Mg Tab) 500 mg PO Q6H PRN PRN Reason: Pain or Fever Stop: 06/08/20 22:27 Last Admin: 05/12/20 13:46 Dose: 500 mg Documented by: Albuterol (Albuterol Hfa 8 Gm Inhaler) 2 puffs INH QID PRN PRN Reason: Dyspnea Stop: 06/08/20 22:19 Albuterol (Albut/Ipratrop 3mg/0.5mg Neb 3 Ml Vial) 3 ml NEB Q2H PRN PRN Reason: dyspnea Stop: 06/08/20 22:19 Aspirin (Aspirin 81 Mg Ectab) 81 mg PO QAM [facility] Stop: 06/09/20 08:59 Last Admin: 05/13/20 08:29 Dose: 81 mg Documented by: Enoxaparin Sodium (Enoxaparin Inj 30 Mg/0.3 Ml Syr) 30 mg SQ Q12 [facility] Stop: 06/08/20 22:59 Last Admin: 05/13/20 08:28 Dose: 30 mg Documented by: Guaifenesin (Guaifenesin 600 Mg Tabcr) 600 mg PO Q12 [facility] Stop: 06/08/20 22:19 Last Admin: 05/13/20 08:29 Dose: 600 mg Documented by: Hydroxychloroquine Sulfate (Hydroxychloroquine Sulfate 200 Mg Tab) 400 mg PO HS [facility] Stop: 06/08/20 22:19 Last Admin: 05/12/20 21:30 Dose: 400 mg Documented by: Dexamethasone 6 mg/ Syringe 1.5 mls @ 1 mls/min IV QAM [facility] Stop: 06/09/20 08:59 Last Admin: 05/13/20 08:28 Dose: 1 mls/min Documented by: Ceftriaxone Sodium 1,000 mg/ (Dextrose) 50 mls @ 100 mls/hr IV Q24H [facility]; Protocol Stop: 05/16/20 22:29 Last Infusion: 05/12/20 22:02 Dose: Infused Documented by: Azithromycin 500 mg/ Dextrose 255 mls @ 125 mls/hr IV Q24H [facility] Stop: 05/16/20 22:59 Last Infusion: 05/13/20 01:00 Dose: Infused Documented by: Furosemide 20 mg/ Syringe 2 mls @ 4 [facility]ls[facility] [place]: 06/12/20 08:59 Last Admin: 05/13/20 08:28 Dose: 4 mls/min Documented by: Metoprolol Tartrate (Metoprolol Tartrate 50 Mg Tab) 50 mg PO [facility] Stop: 06/09/20 08:59 Last Admin: 05/13/20 08:29 Dose: 50 mg Documented by: Metoprolol Tartrate (Metoprolol Tartrate 100 Mg Tab) 100 mg PO QPM [facility] Stop: 06/08/20 22:19 Last Admin: 05/12/20 21:31 Dose: 100 mg Documented by: Multivitamins/Minerals (Calcium 600mg + Vit D 400 Iu Tab) 1 tab PO [facility] Stop: 06/09/20 08:59 Last Admin: 05/13/20 08:29 Dose: 1 tab Documented by: Ondansetron HCl (Ondansetron Inj 2 Mg/Ml 2 Ml Vial) 4 mg IV Q6H PRN PRN Reason: Nausea Stop: 06/08/20 22:19 Potassium Chloride (Potassium Chloride Crtab 20 Meq Tabcr) 20 meq PO BID [facility] Stop: 06/09/20 20:59 Last Admin: 05/13/20 08:29 Dose: 20 meq Documented by: Simvastatin (Simvastatin 20 Mg Tab) 20 mg PO QPM [facility] Stop: 06/08/20 22:19 Last Admin: 05/12/20 21:30 Dose: 20 mg Documented by: Vitamin D (Cholecalciferol 1,000 Units 25 Mcg Tab) 5,000 units PO [facility] Stop: 06/09/20 08:59 Last Admin: 05/13/20 08:29 Dose: 5,000 units Documented by: Zinc Sulfate (Zinc Sulfate 220 Mg Capsule) 220 mg PO QAM [facility] Stop: 06/09/20 08:59 Last Admin: 05/13/20 08:29 Dose: 220 mg Documented by: PG Care Time/CCT Total # of Minutes Spent Total Time Spent with Patient: Total time spent is greater than 50% in coordination of care (as documented) at patient's floor/unit and/or counseling patient: Coding Level of Care Code 83100 Subseq Hosp Care Lvl 2 Diagnoses Pneumonia due to 2019 novel coronavirus U07.1; J12.82 Hypoxia R09.02 Elevated troponin R77.8 Rheumatoid arthritis M06.9 Hyperlipidemia E78.5 Hypertension I10 Edema R60.9 Osteoporosis M81.0 Hypokalemia E87.6 Hypomagnesemia E83.42
[2020-05-13 11:17] LABS: BUN Creatinine Ratio 22.8 (10-20); Calcium 9.5 mg/dl (8.5-10.1); Est GFR (Non-African American) 64.7; Potassium 3.9 mmol/L (3.5-5.1)
[2020-05-13] MEDS ORDERED: CALCIUM CARBONATE 500 MG CHEWABLE TAB PO PRN (15:33)
[2020-05-13] MEDS: HYDROXYCHLOROQUINE SULFATE 200 MG TAB PO SCH (21:10)
[2020-05-13] MEDS: SIMVASTATIN 20 MG TAB PO SCH (21:11)
[2020-05-13] MEDS: METOPROLOL TARTRATE 100 MG TAB PO SCH (21:11)
[2020-05-13] MEDS ORDERED: POTASSIUM CHLORIDE 20 MEQ/15 ML UDC PO STA (21:22)
[2020-05-13] MEDS: AZITHROMYCIN 500 MG in DEXTROSE 5% 250 ML IV SCH (23:12)
[2020-05-13] MEDS: cefTRIAXone SODIUM 1,000 MG in DEXTROSE 5% 50 ML IV SCH (23:12)
[2020-05-14] MEDS: dexAMETHasone 6 MG in SYRINGE 0 ML IV SCH (08:39)
[2020-05-14] MEDS: CALCIUM 600MG + VIT D 400 IU TAB PO SCH (08:40)
[2020-05-14] MEDS: ENOXAPARIN INJ 30 MG/0.3 ML SYR SQ SCH ×2 (08:40→20:27)
[2020-05-14] MEDS: METOPROLOL TARTRATE 50 MG TAB PO SCH (08:40)
[2020-05-14] MEDS: ZINC SULFATE 220 MG CAPSULE PO SCH (08:40)
[2020-05-14] MEDS: FUROSEMIDE 20 MG in SYRINGE 0 ML IV SCH (08:40)
[2020-05-14] MEDS: CHOLECALCIFEROL 1,000 UNITS 25 MCG TAB PO SCH (08:41)
[2020-05-14] MEDS: guaiFENesin 600 MG TABCR PO SCH ×2 (08:41→20:28)
[2020-05-14] MEDS: POTASSIUM CHLORIDE CRTAB 20 MEQ TABCR PO SCH ×2 (08:41→08:46)
[2020-05-14] MEDS: ASPIRIN 81 MG ECTAB PO SCH (08:41)
--- NOTE | 2020-05-14 09:52 | Hospitalist Progress Note ---
Date of Service May 14, 2020 Assessment & Plan (1) Pneumonia due to 2019 novel coronavirus: Pneumonia due to COVID-19 virus with hypoxia/symptoms suggestive of secondary bacterial superinfection- Dexamethasone 6 mg IV daily x 10 days, day 6 completed 5 days of Ceftriaxone 1 g IV daily and Azithromycin 500 mg IV daily Ventolin HFA 2 puffs 4 times daily, and every 2 hours as needed Guaifenesin extended release 600 mg p.o. twice daily add flutter valve today to try to mobilize secretions Zinc sulfate 220 mg p.o. every morning Lovenox 30 mg subcu every 12 hours stable on 6L, no distress, just feels weak responds well to diuresis and she is drinking a lot of fluids already got Lasix 20mg IV this morning, will give additional Lasix 20mg IV at 1300 increase her AM Lasix to 40mg IV tomorrow repeat her BMP in the morning, her Cr is stable at 0.87 and K is 3.9 ESR, CRP and d dimer elevated with signs of inflammation back on 05/12 CTA chest at time of admission negative for PE (2) Hypoxia: slight increase in oxygen requirements today at 6L, no distress at rest, desaturates with exertion treat COVID as above continue Lasix but increase to 40mg IV daily (3) Elevated troponin: no chest pain, no EKG changes hold on cardiology consult would not classify this as demand ischemia all three troponin consistent Continue aspirin 81 mg every morning, and metoprolol tartrate 50 mg in the morning and 100 mg in evening with hold parameters. (4) Rheumatoid arthritis: Continue home dosing of hydroxychloroquine 400 mg p.o. at bedtime (5) Hyperlipidemia: Continue simvastatin 20 mg in evening (6) Hypertension: See above (7) Edema: continue lasix 40mg IV daily she normally takes 20mg PO daily at home continue on potassium 20mEq BID, K is 3.9 (8) Osteoporosis: Continue calcium carbonate, and vitamin D3 (9) Hypokalemia: K is 3.9 continue 20mEq BID supplementation with lasix (10) Hypomagnesemia: resolved (11) GERD (gastroesophageal reflux disease): c/o some reflux symptoms add Protonix 40mg daily starting today Admission and Anticipated Discharge Date Admission Date: May 09, 2020 Subjective patient sitting up in a chair, she says she wishes she could say she feels better but she doesn't still feels weak and has some shortness of breath, no fever/chills she thinks she would feel better if she could cough up this phlegm, already on Mucinex, will add flutter valve up to 6L this morning, got her Lasix 20mg IV, will give another dose at 1pm, Cr is stable and she is drinking a lot of fluid no diarrhea or vomiting, she is sleeping okay, feels okay on her feet when she walks to the bathroom Review of Systems Review of Systems: All systems reviewed & are unremarkable except as noted in Subjective Constitutional: + fatigue and + weakness; no fever, no chills and no sweats Respiratory: + cough, + dyspnea and + dyspnea on exertion; no sputum production Cardiovascular: no chest pain and no edema Gastrointestinal: no abdominal pain, no nausea, no vomiting, no constipation and no diarrhea/loose stools Physical Exam Constitutional: WD/WN, vitals as above Neck: trachea midline, no thyromegaly Respiratory: normal respiratory effort; no respiratory distress, no labored breathing and no cough Auscultation: + crackles (bases); no rhonchi and no wheezes Cardiovascular: RRR, no murmur, no edema Gastrointestinal (Abdomen): normal bowel sounds, soft, nontender, no hepatosplenomegaly Musculoskeletal: no cyanosis or clubbing, extremities motor strength 5/5 Skin: no rashes, warm and dry Neurologic: patellar DTR's 2+ bilat, sensation intact and PERRL, EOMI, accommodation nl, no face palsy, no dysarthria Psychiatric: A+Ox3, euthymic affect Lymphatic: no cervical or axillary lymphadenopathy Results & Data Results & Data ([facility]) Vital Signs (Past 12 Hours) Vital Signs Temp Pulse Pulse Resp BP Pulse Ox 05/14/20 08:00 67 05/14/20 07:46 83 18 105/72 05/14/20 04:00 37.2 C 69 18 111/72 90 05/13/20 22:49 36.6 C 74 20 117/71 91 Laboratory Results Laboratory Results - last 24 hr 05/13/20 10:24 Sodium 134 L Potassium 3.9 Chloride 102 Carbon Dioxide 28 Anion Gap 5.0 BUN 20 H Creatinine 0.87 Est Cr Clr Drug Dosing 38.0 Est GFR ( Amer) 75.0 Est GFR (Non-Af Amer) 64.7 BUN/Creatinine Ratio 22.8 H Glucose 112 H Calcium 9.5 Medications Administered Current Inpatient Medications Acetaminophen (Acetaminophen 500 Mg Tab) 500 mg PO Q6H PRN PRN Reason: Pain or Fever Stop: 06/08/20 22:27 Last Admin: 05/12/20 13:46 Dose: 500 mg Documented by: Albuterol (Albuterol Hfa 8 Gm Inhaler) 2 puffs INH QID PRN PRN Reason: Dyspnea Stop: 06/08/20 22:19 Albuterol (Albut/Ipratrop 3mg/0.5mg Neb 3 Ml Vial) 3 ml NEB Q2H PRN PRN Reason: dyspnea Stop: 06/08/20 22:19 Aspirin (Aspirin 81 Mg Ectab) 81 mg PO QAM [facility] Stop: 06/09/20 08:59 Last Admin: 05/14/20 08:41 Dose: 81 mg Documented by: Calcium Carbonate (Calcium Carbonate 500 Mg Chewable Tab) 500 mg PO Q6 PRN PRN Reason: Indigestion Stop: 06/12/20 15:32 Last Admin: 05/13/20 15:42 Dose: 500 mg Documented by: Enoxaparin Sodium (Enoxaparin Inj 30 Mg/0.3 Ml Syr) 30 mg SQ Q12 [facility] Stop: 06/08/20 22:59 Last Admin: 05/14/20 08:40 Dose: 30 mg Documented by: Guaifenesin (Guaifenesin 600 Mg Tabcr) 600 mg PO Q12 [facility] Stop: 06/08/20 22:19 Last Admin: 05/14/20 08:41 Dose: 600 mg Documented by: Hydroxychloroquine Sulfate (Hydroxychloroquine Sulfate 200 Mg Tab) 400 mg PO HS [facility] Stop: 06/08/20 22:19 Last Admin: 05/13/20 21:10 Dose: 400 mg Documented by: Dexamethasone 6 mg/ Syringe 1.5 mls @ 1 mls/min IV QAM [facility] Stop: 06/09/20 08:59 Last Admin: 05/14/20 08:39 Dose: 1 mls/min Documented by: Furosemide 40 mg/ Syringe 4 mls @ 4 [facility]: 06/14/20 08:59 Furosemide 20 mg/ Syringe 2 mls @ 4 mls/min IV ONE ONE Stop: 05/14/20 13:01 Metoprolol Tartrate (Metoprolol Tartrate 50 Mg Tab) [facility] Stop: 06/09/20 08:59 Last Admin: 05/14/20 08:40 Dose: 50 mg Documented by: Metoprolol Tartrate (Metoprolol Tartrate 100 Mg Tab) 100 mg PO QPM [facility] Stop: 06/08/20 22:19 Last Admin: 05/13/20 21:11 Dose: 100 mg Documented by: Multivitamins/Minerals (Calcium 600mg + Vit D 400 Iu Tab) 1 [facility] Stop: 06/09/20 08:59 Last Admin: 05/14/20 08:40 Dose: 1 tab Documented by: Ondansetron HCl (Ondansetron Inj 2 Mg/Ml 2 Ml Vial) 4 mg IV Q6H PRN PRN Reason: Nausea Stop: 06/08/20 22:19 Potassium Chloride (Potassium Chloride Pwd 20 Meq Pack) 20 meq PO BID [facility] Stop: 06/13/20 20:59 Simvastatin (Simvastatin 20 Mg Tab) 20 mg PO QPM [facility] Stop: 06/08/20 22:19 Last Admin: 05/13/20 21:11 Dose: 20 mg Documented by: Vitamin D (Cholecalciferol 1,000 Units 25 Mcg Tab) 5,000 units PO QAM [facility] Stop: 06/09/20 08:59 Last Admin: 05/14/20 08:41 Dose: 5,000 units Documented by: Zinc Sulfate (Zinc Sulfate 220 Mg Capsule) [facility] Stop: 06/09/20 08:59 Last Admin: 05/14/20 08:40 Dose: 220 mg Documented by: PG Care Time/CCT Total # of Minutes Spent Total Time Spent with Patient: Total time spent is greater than 50% in coordination of care (as documented) at patient's floor/unit and/or counseling patient: Coding Level of Care Code 45722 Subseq Hosp Care Lvl 3 Diagnoses Pneumonia due to 2019 novel coronavirus U07.1; J12.82 Hypoxia R09.02 Elevated troponin R77.8 Rheumatoid arthritis M06.9 Hyperlipidemia E78.5 Hypertension I10 Edema R60.9 Osteoporosis M81.0 Hypokalemia E87.6 Hypomagnesemia E83.42 GERD (gastroesophageal reflux disease) K21.9
[2020-05-14] MEDS: PANTOprazole 40 MG TAB PO SCH (10:31)
[2020-05-14] MEDS ORDERED: FUROSEMIDE 20 MG in SYRINGE 0 ML IV ONE (13:00)
[2020-05-14] MEDS: METOPROLOL TARTRATE 100 MG TAB PO SCH (20:28)
[2020-05-14] MEDS: POTASSIUM CHLORIDE PWD 20 MEQ PACK PO SCH (20:28)
[2020-05-14] MEDS: HYDROXYCHLOROQUINE SULFATE 200 MG TAB PO SCH (20:29)
[2020-05-14] MEDS: SIMVASTATIN 20 MG TAB PO SCH (20:29)
[2020-05-15] MEDS: ENOXAPARIN INJ 30 MG/0.3 ML SYR SQ SCH ×2 (08:43→19:49)
[2020-05-15] MEDS: FUROSEMIDE 40 MG in SYRINGE 0 ML IV SCH (08:43)
[2020-05-15] MEDS: dexAMETHasone 6 MG in SYRINGE 0 ML IV SCH (08:43)
[2020-05-15] MEDS: METOPROLOL TARTRATE 50 MG TAB PO SCH (08:43)
[2020-05-15] MEDS: ZINC SULFATE 220 MG CAPSULE PO SCH (08:44)
[2020-05-15] MEDS: CALCIUM 600MG + VIT D 400 IU TAB PO SCH (08:44)
[2020-05-15] MEDS: guaiFENesin 600 MG TABCR PO SCH ×2 (08:44→19:51)
[2020-05-15] MEDS: CHOLECALCIFEROL 1,000 UNITS 25 MCG TAB PO SCH (08:44)
[2020-05-15] MEDS: POTASSIUM CHLORIDE PWD 20 MEQ PACK PO SCH ×2 (08:44→19:50)
[2020-05-15] MEDS: ASPIRIN 81 MG ECTAB PO SCH (08:44)
[2020-05-15] MEDS: PANTOprazole 40 MG TAB PO SCH (08:44)
--- NOTE | 2020-05-15 15:07 | Hospitalist Progress Note ---
Date of Service May 15, 2020 Assessment & Plan (1) Pneumonia due to 2019 novel coronavirus: Pneumonia due to COVID-19 virus with hypoxia/symptoms suggestive of secondary bacterial superinfection-seems improved, remains on some oxygen 7 Dexamethasone 6 mg IV daily x 10 days, day 7 completed 5 days of Ceftriaxone 1 g IV daily and Azithromycin 500 mg IV daily Continue Ventolin HFA 2 puffs 4 times daily, and every 2 hours as needed Continue guaifenesin extended release 600 mg p.o. twice daily Continue flutter valve today to try to mobilize secretions Zinc sulfate 220 mg p.o. every morning Lovenox 30 mg subcu every 12 hours stable on 2-3 L nasal cannula, no distress, just feels weak responds well to diuresis and she is drinking a lot of fluids Continue daily IV Lasix repeat her BMP in the morning ESR, CRP and d dimer elevated with signs of inflammation back on 05/12-follow in the morning CTA chest at time of admission negative for PE (2) Hypoxia: Improved, weaned down to 2 L nasal cannula today Continue to treat COVID as above continue Lasix 40mg IV daily Will need a two-step prior to discharge-probably tomorrow (3) Elevated troponin: no chest pain, no EKG changes, minimally elevated hold on cardiology consult would not classify this as demand ischemia all three troponin consistent Continue aspirin 81 mg every morning, and metoprolol tartrate 50 mg in the morning and 100 mg in evening with hold parameters. (4) Rheumatoid arthritis: Continue home dosing of hydroxychloroquine 400 mg p.o. at bedtime (5) Hyperlipidemia: Continue simvastatin 20 mg in evening (6) Hypertension: Blood pressures controlled Continue metoprolol, Lasix (7) Edema: Very minimal at this point Continue lasix 40mg IV daily x1 more day she normally takes 20mg PO daily at home-convert to this on 05/17 continue on potassium 20mEq BID, follow BMP Normal (8) Osteoporosis: Continue calcium carbonate, and vitamin D3 (9) Hypokalemia: K is 3.9 continue 20mEq BID supplementation with lasix (10) Hypomagnesemia: resolved (11) GERD (gastroesophageal reflux disease): c/o some reflux symptoms added Protonix 40mg daily and now improved (12) DVT prophylaxis: Lovenox 30 mg SQ twice daily Disposition-continued stay, but possibly discharged home tomorrow Admission and Anticipated Discharge Date Admission Date: May 09, 2020 Subjective Patient reports feeling fairly well, remains on oxygen. He is eating more. Feels like she is able to ambulate at her baseline. Not short of breath and has mild cough. Telemetry with normal sinus rhythm rates in the 60s to 70s. Review of Systems Review of Systems: All systems reviewed & are unremarkable except as noted in HPI & below Physical Exam Constitutional: average body habitus; no acute distress and not ill appearing Eyes: + anicteric sclerae Neck: trachea midline, no thyromegaly Respiratory: normal respiratory effort; no labored breathing Auscultation: + crackles (Bilateral lower lung berg); no rhonchi and no wheezes Cardiovascular: RRR, no murmur, no edema Chest (Breasts): Chest: normal inspection of chest Gastrointestinal (Abdomen): normal bowel sounds, soft, nontender, no hepatosplenomegaly Musculoskeletal: Extremities: + extremities abnormal to inspection (Multiple deformities of the hands and fingers), no cyanosis and no clubbing Skin: no rashes, warm and dry Neurologic: moves all extremities and awake; no focal motor deficits Psychiatric: A+Ox3, euthymic affect Lymphatic: no lymphedema Results & Data Results & Data ([facility]) Vital Signs (Past 12 Hours) Vital Signs Temp Pulse Resp BP Pulse Ox 05/15/20 12:22 36.6 C 85 18 90/64 L 98 05/15/20 08:54 36.8 C 88 20 114/74 95 05/15/20 03:39 36.9 C 64 16 150/87 H 98 Laboratory Results Laboratory values reviewed sputum culture growing Moraxella catarrhalis Blood cultures negative PG Care Time/CCT Total # of Minutes Spent Total Time Spent with Patient: Total time spent is greater than 50% in coordination of care (as documented) at patient's floor/unit and/or counseling patient: Coding Level of Care Code 88133 Subseq Hosp Care Lvl 3 Diagnoses Pneumonia due to 2019 novel coronavirus U07.1; J12.82 Hypoxia R09.02 Elevated troponin R77.8 Rheumatoid arthritis M06.9 Hyperlipidemia E78.5 Hypertension I10 Edema R60.9 Osteoporosis M81.0 Hypokalemia E87.6 Hypomagnesemia E83.42 GERD (gastroesophageal reflux disease) K21.9 DVT prophylaxis Z29.9
[2020-05-15] MEDS: HYDROXYCHLOROQUINE SULFATE 200 MG TAB PO SCH (19:50)
[2020-05-15] MEDS: METOPROLOL TARTRATE 100 MG TAB PO SCH (19:50)
[2020-05-15] MEDS: SIMVASTATIN 20 MG TAB PO SCH (19:52)
[2020-05-16] MEDS: METOPROLOL TARTRATE 50 MG TAB PO SCH (07:42)
[2020-05-16] MEDS: ZINC SULFATE 220 MG CAPSULE PO SCH (07:42)
[2020-05-16] MEDS: PANTOprazole 40 MG TAB PO SCH (07:42)
[2020-05-16] MEDS: ASPIRIN 81 MG ECTAB PO SCH (07:42)
[2020-05-16] MEDS: ENOXAPARIN INJ 30 MG/0.3 ML SYR SQ SCH (07:43)
[2020-05-16] MEDS: CHOLECALCIFEROL 1,000 UNITS 25 MCG TAB PO SCH (07:43)
[2020-05-16] MEDS: dexAMETHasone 6 MG in SYRINGE 0 ML IV SCH (07:43)
[2020-05-16] MEDS: guaiFENesin 600 MG TABCR PO SCH (07:43)
[2020-05-16] MEDS: CALCIUM 600MG + VIT D 400 IU TAB PO SCH (07:43)
[2020-05-16] MEDS: POTASSIUM CHLORIDE PWD 20 MEQ PACK PO SCH (07:43)
[2020-05-16] MEDS: FUROSEMIDE 40 MG in SYRINGE 0 ML IV SCH (08:03)
[2020-05-16] MEDS ORDERED: FUROSEMIDE 20 MG TAB PO SCH (09:00)
[2020-05-16 09:17] LABS: Basophils # (auto) 0.01 K/uL (0-0.2); Basophils % (auto) 0.1 %; Eosinophils # (auto) 0.04 K/uL (0-0.5); Eosinophils % (auto) 0.3 %; Hematocrit (blood only) 39.3 % (37-47); Hemoglobin 13.3 g/dL (12.0-16.0); Immature Granulocytes # (auto) 0.22 K/uL (0.00-0.02); Immature Granulocytes % (auto) 1.5 %; Lymphocytes % (auto) 11.4 %; Mean Corpuscular Hemoglobin 30.6 pg (25-34); Mean Corpuscular Hgb Conc 33.8 g/dL (32-36); Mean Corpuscular Volume 90.6 fL (80-100); Mean Platelet Volume 10.2 fL (7.4-10.4); Monocytes # (auto) 0.54 K/uL (0.11-0.59); Monocytes % (auto) 3.6 %; Neutrophils # (auto) 12.36 K/uL (1.4-6.5); Neutrophils % (auto) 83.1 %; Platelet Count 297 K/uL (130-400); RDW Coefficient of Variation 13.1 % (11.5-14.5); RDW Standard Deviation 43.2 fL (36.4-46.3); Red Blood Count 4.34 M/uL (4.2-5.4); White Blood Count 14.87 K/uL (4.8-10.8)
[2020-05-16 09:49] LABS: Albumin Level 2.6 gm/dl (3.4-5.0); BUN Creatinine Ratio 49.2 (10-20); C Reactive Protein 1.28 mg/dl (0-0.29); Calcium 10.1 mg/dl (8.5-10.1); Creatinine Clr Calc Pharmacy 35.4 ml/min; Est GFR (Non-African American) 62.1; Potassium 3.7 mmol/L (3.5-5.1)
[2020-05-16 09:54] LABS: Albumin Globulin Ratio 0.5 (0.9-2); Bilirubin,Total 0.5 mg/dl (0.2-1); Globulin 4.9 gm/dl (2.5-4.0); Total Protein 7.5 gm/dl (6.4-8.2)
--- NOTE | 2020-05-16 13:33 | Discharge Summary ---
Date of Service May 16, 2020 Admission HPI Per Admitting Provider The patient is a 75-year-old female with a past medical history including hyperlipidemia, hypertension, arthritis, lower extremity edema and osteoporosis. She presents with symptoms as noted above. Work-up in the emergency department included the following abnormal laboratories: Hemoglobin 11.8, potassium 2.9, magnesium 1.7, troponin 0 0.176, albumin 2.6, BNP 3837, and COVID-19 positive. Imaging included the following: Chest x-ray showed peripheral bilateral mid to lower lung zone airspace opacities consistent with a viral pneumonia. CT angiography of chest PE protocol, showed no evidence for pulmonary embolism within limitations of the study. Moderate multifocal pneumonia, likely viral. Lowest pulse ox recorded was 89% on room air. Temperature became elevated at 99.7. Principal Diagnosis COVID-19 PNA, Acute respiratory failure with hypoxia Discharge Exam Constitutional average body habitus; no acute distress and not ill appearing Eyes + anicteric sclerae Neck trachea midline, no thyromegaly Respiratory normal respiratory effort, lungs clear to auscultation Cardiovascular RRR, no murmur, no edema Chest (Breasts) Chest: normal inspection of chest Gastrointestinal (Abdomen) normal bowel sounds, soft, nontender, no hepatosplenomegaly Musculoskeletal Extremities: + extremities abnormal to inspection (Multiple deformities of the hands and fingers), no cyanosis and no clubbing Skin no rashes, warm and dry Neurologic moves all extremities and awake; no focal motor deficits Psychiatric A+Ox3, euthymic affect Lymphatic no lymphedema Discharge Data Allergies Allergy/AdvReac Type Severity Reaction Status Date / Time Sulfa (Sulfonamide Allergy Intermediate Rash Verified 05/09/20 16:57 Antibiotics) trimethoprim Allergy Intermediate Rash Verified 05/09/20 16:57 vancomycin Allergy Intermediate Rash, Verified 05/09/20 16:57 shortness of breath Cephalosporins AdvReac Mild Vomiting Verified 05/09/20 16:57 Consultations 05/09/20 19:14 ED Decision to Admit Stat 05/09/20 22:20 Consult Case Management - Discharge Planning Routine Ordered Studies 05/09/20 16:00 CT angio chest PE protocol Stat CXR x 2 Hospital Course (1) Pneumonia due to 2019 novel coronavirus: Pneumonia due to COVID-19 virus with hypoxia/symptoms suggestive of secondary bacterial superinfection-seems improved, remains on some oxygen --> needs 2L with exertion but none at rest Dexamethasone 6 mg IV daily x 10 days, needs 2 more days after discharge completed 5 days of Ceftriaxone 1 g IV daily and Azithromycin 500 mg IV daily Never needed bronchodilators Was given guaifenesin extended release 600 mg p.o. twice daily -Continue flutter valve today to try to mobilize secretions -was given Zinc sulfate 220 mg p.o. every morning Lovenox 30 mg subcu every 12 hours was used for DVT prophylaxis responded well to diuresis -was given a few doses of IV lasix Continue home po lasix on discharge ESR, CRP and d dimer elevated on 05/12-improving by day of discharge CTA chest at time of admission negative for PE Doing very well, stable for dc to home (2) Hypoxia: Improved, as above, needs 2L with exertion treated with IV lasix and decadron (3) Elevated troponin: no chest pain, no EKG changes, minimally elevated would not classify this as demand ischemia all three troponin consistent Continue aspirin 81 mg every morning, and metoprolol tartrate 50 mg in the morning and 100 mg in evening with hold parameters. (4) Rheumatoid arthritis: Continue home dosing of hydroxychloroquine 400 mg p.o. at bedtime (5) Hyperlipidemia: Continue simvastatin 20 mg in evening (6) Hypertension: Blood pressures controlled Continue metoprolol, Lasix (7) Edema: Very minimal at this point continue home po lasix (8) Osteoporosis: Continue calcium carbonate, and vitamin D3 (9) Hypokalemia: replaced and resolved (10) Hypomagnesemia: resolved (11) GERD (gastroesophageal reflux disease): c/o some reflux symptoms added Protonix 40mg daily and now improved-continue x 2 weeks after discharge due to steroid use and stress (12) DVT prophylaxis: Lovenox 30 mg SQ twice daily Disposition-dc to home, no need for home health Total Time Total Time Spent Total Time Spent (In Minutes): 35 min Total Time Includes: Examination of the Patient, Discharge Planning and Medication Reconciliation Discharge Plan Discharge Items Patient Disposition: Home - Home Health Services Reason For Visit: COVID-19 PNEUMONIA WITH HYPOXIA, ELEVATED TROPONIN Discharge Diagnosis: COVID-19 Pneumonia, Acute respiratory failure with hypoxia Condition on Discharge: Good Activity: As commented below Bathing: No limitations Exercise/Sports: Gradually increase as tolerated Non-emergency contact: Primary Care Provider Call non-emergency contact if: you have any medication questions and your sym ptoms worsen Follow-up/Referrals: Jose Padgett Jr, DO [Primary Care Provider] - (Follow up within 1-2 weeks.) Diet: Heart Healthy Addtl Attending Provider Instructions: Please finish out 2 more days of the steroid called dexamethasone to reduce inflammation in your lungs. Continue using the oxygen at 2L via nasal cannula with exertion until your doctor tells you it is safe to stop using it. Please continue the antacid pill called Protonix for 2 more weeks to prevent ulcers in the stomach. You can come out of quarantine 20 days from your first symptoms which would be in about 4 days from now. Pending Studies at Discharge: No Stand-Alone Forms: My [facility] Medications and DC Order Prescriptions: New pantoprazole 40 mg Tablet,Delayed Release (Dr/Ec) 40 mg PO QAM 14 Days Qty: 14 RF: 0 dexamethasone 6 mg tablet 6 mg PO DAILY Qty: 2 RF: 0 Continued metoprolol tartrate 100 mg tablet 100 mg PO QPM RF: 0 metoprolol tartrate 100 mg tablet 50 mg PO QAM RF: 0 aspirin [Aspirin Low Dose] 81 mg Tablet,Delayed Release (Dr/Ec) 81 mg PO QAM RF: 0 acetaminophen 500 mg Tablet 1,000 mg PO Q6H PRN (Reason: Pain) RF: 0 simvastatin 40 mg tablet 20 mg PO QPM RF: 0 calcium carbonate [Calcium 600] 600 mg calcium (1,500 mg) Tablet 600 mg PO QAM RF: 0 furosemide 20 mg tablet 20 mg PO QAM RF: 0 hydroxychloroquine 200 mg tablet 400 mg PO HS RF: 0 cholecalciferol (vitamin D3) [Vitamin D3] 125 mcg (5,000 unit) Tablet 125 mcg PO QAM RF: 0 Discharge Orders: Discharge Order (Routine); Ordered 05/16/20 Ordered By: Chaya Odell Admission Data Admit Date/Time: 05/09/20 20:31 Attending Provider: Chaya Odell Admit Provider: Gregorio Nomran Primary Care Provider: Jose Padgett Jr Other Providers: Gregorio Norman Other Interventions: Discharge Summary Assessment (RN) Last Done: 05/16/20 12:59 Coding Level of Care Code D/C Day Management >30 mins Diagnoses Pneumonia due to 2019 novel coronavirus U07.1; J12.82 Hypoxia R09.02 Elevated troponin R77.8 Rheumatoid arthritis M06.9 Hyperlipidemia E78.5 Hypertension I10 Edema R60.9 Osteoporosis M81.0 Hypokalemia E87.6 Hypomagnesemia E83.42 GERD (gastroesophageal reflux disease) K21.9 DVT prophylaxis Z29.9
== END 2020-05-16 15:56 | disposition home health service (06) | DRG 177 ==
LOC: ED 15:42 → SUATTDRO 20:31 → 2S 20:31

== ENCOUNTER 2020-12-14 15:15 | Observation (INO) ==
[2020-12-14] MEDS ORDERED: SODIUM CHLORIDE 0.9% 1000ML 1,000 ML IV SCH (16:30)
[2020-12-14] MEDS ORDERED: PANTOPRAZOLE BOLUS/DRIP 1 EA IV STA (16:38)
[2020-12-14] MEDS ORDERED: PANTOprazole 80 MG in DEXTROSE 5% 100 ML IV ONE (16:38)
--- NOTE | 2020-12-14 16:41 | Emergency Department Note ---
History of Present Illness General Chief complaint: Fall Time Seen by Provider: 12/14/20 15:38 Source: patient Mode of arrival: EMS Limitations: no limitations History of Present Illness Provider complaint: Syncope, fall Onset (ago): hour(s) Maximum Pain Intensity: 3 Treatments prior to arrival: other This is a 75-year-old female presents emergency department via EMS after a syncopal event and subsequent fall at home. Patient states she was in the kitchen cooking in the next thing she knows she was on the floor with her grandson standing over her. Son is at bedside who states his son reported to him that patient seemed well-appearing and then suddenly collapsed. She had very brief stiffening and shaking of her extremities when she initially collapsed. He reported to his father that this lasted no more than a minute, and patient very quickly returned to baseline. Son states he was only approximately 5 minutes from the house and by the time of his arrival the patient was sitting up, oriented, and was well-appearing. Given her collapse as well as striking her head on the linoleum floor in the kitchen with obvious contusion noted to the back of the head, they contacted EMS. Patient does use aspirin, no other anticoagulation. Patient states she does have a posterior headache, dizziness, and nausea although denies any other new or evolving symptoms, denies any additional pain. No other prodromal symptoms of dizziness, chest pain, palpitations, trouble breathing, nausea, weakness. No recent falls or injury. No change in bowel or bladder function. No recent change in medications or diet. Pt seen during a time of high acuity and national emergency pandemic while wearing PPE. Home Medications Medication Instructions Recorded Confirmed Type acetaminophen 500 mg tablet 1,000 mg PO Q6H PRN 05/09/20 12/14/20 History aspirin 81 mg tablet,delayed 81 mg PO QAM 05/09/20 12/14/20 History release (Aspirin Low Dose) calcium carbonate 600 mg calcium 600 mg PO QAM 05/09/20 12/14/20 History (1,500 mg) tablet (Calcium) cholecalciferol (vitamin D3) 125 125 mcg PO QAM 05/09/20 12/14/20 History mcg (5,000 unit) tablet (Vitamin D3) furosemide 20 mg tablet 20 mg PO QAM 05/09/20 12/14/20 History hydroxychloroquine 200 mg tablet 200 mg PO BID 05/09/20 12/14/20 History metoprolol tartrate 100 mg tablet 100 mg PO QPM 05/09/20 12/14/20 History simvastatin 40 mg tablet 40 mg PO QPM 05/09/20 12/14/20 History metoprolol tartrate 100 mg tablet 50 mg PO QAM 12/14/20 12/14/20 History Allergies Allergy/AdvReac Type Severity Reaction Status Date / Time Sulfa (Sulfonamide Allergy Intermediate Rash Verified 12/14/20 21:20 Antibiotics) trimethoprim Allergy Intermediate Rash Verified 12/14/20 21:20 vancomycin Allergy Intermediate Rash, Verified 12/14/20 21:20 shortness of breath Cephalosporins AdvReac Mild Vomiting Verified 12/14/20 21:20 Past Med/Surg History Medical History Edema Endometriosis Fracture of femoral neck, right Headache Hyperlipidemia Hypertension No pertinent family history Osteoporosis Rheumatoid arthritis Surgical History No pertinent past surgical history Social History Smoking Status: Unknown if ever smoked Tobacco Type: Cigarettes Second Hand Exposure: No; Hx Alcohol Use: Yes (seldom) Alcohol type: wine Hx Substance Use: No Preferred Language: Upper Sorbian Communication Ability: Effective Supervisor Sound Technician Required: No Beliefs That Will Affect Care: None Current Living Situation: Family Current Living Situation Comment: with son Lex Feels Safe at Home: Yes Assistive Devices: Oxygen - Continuous Review of Systems A total of 10 systems reviewed and were otherwise negative All systems reviewed & are unremarkable except as noted in HPI & below Physical Exam Vital Signs Vital Signs - 24 hr 12/14/20 15:30 12/14/20 16:00 12/14/20 16:51 Temperature 36.6 C Temperature Source Oral Pulse Rate - Lying Pulse Rate - Sitting Pulse Rate - Standing Pulse Rate 62 65 67 Pulse Rate from SpO2 Sensor 62 66 69 Respiratory Rate 16 23 17 Blood Pressure - Lying Blood Pressure - Sitting Blood Pressure- Standing Blood Pressure 155/71 H 170/86 H Blood Pressure Mean 99 114 Pulse Oximetry 98 99 99 Oxygen Delivery Method Room Air Sepsis Recent Fever Within 48 Hours No Sepsis New/Unexplained Change in Mental Status No Sepsis Action Taken by Nursing No Action Required 12/14/20 17:00 12/14/20 18:00 12/14/20 18:30 Temperature Temperature Source Pulse Rate - Lying Pulse Rate - Sitting Pulse Rate - Standing Pulse Rate 66 61 Pulse Rate from SpO2 Sensor 64 67 61 Respiratory Rate 17 16 Blood Pressure - Lying Blood Pressure - Sitting Blood Pressure- Standing Blood Pressure 140/69 140/80 136/73 Blood Pressure Mean 92 100 94 Pulse Oximetry 97 98 99 Oxygen Delivery Method Sepsis Recent Fever Within 48 Hours Sepsis New/Unexplained Change in Mental Status Sepsis Action Taken by Nursing 12/14/20 19:01 12/14/20 19:23 12/14/20 19:31 Temperature Temperature Source Pulse Rate - Lying 63 Pulse Rate - Sitting 62 Pulse Rate - Standing 70 Pulse Rate 64 61 Pulse Rate from SpO2 Sensor 64 61 Respiratory Rate 13 20 Blood Pressure - Lying 108/84 Blood Pressure - Sitting 154/68 H Blood Pressure- Standing 154/80 H Blood Pressure 134/71 125/84 Blood Pressure Mean 92 97 Pulse Oximetry 98 98 Oxygen Delivery Method Sepsis Recent Fever Within 48 Hours Sepsis New/Unexplained Change in Mental Status Sepsis Action Taken by Nursing 12/14/20 20:00 12/14/20 21:30 12/14/20 22:00 Temperature Temperature Source Pulse Rate - Lying Pulse Rate - Sitting Pulse Rate - Standing Pulse Rate 62 70 71 Pulse Rate from SpO2 Sensor 62 70 72 Respiratory Rate 17 18 15 Blood Pressure - Lying Blood Pressure - Sitting Blood Pressure- Standing Blood Pressure 111/72 122/63 107/60 Blood Pressure Mean 85 82 75 Pulse Oximetry 98 97 96 Oxygen Delivery Method Sepsis Recent Fever Within 48 Hours Sepsis New/Unexplained Change in Mental Status Sepsis Action Taken by Nursing GENERAL: alert, well appearing, well nourished, no distress, non-toxic HEAD: nc, hematoma noted in the occipital scalp region EYE EXAM: normal conjunctiva, PERRL and EOM's grossly intact, no nystagmus OROPHARYNX: no exudate, no erythema, lips, buccal mucosa, and tongue normal and mucous membranes are moist NECK: supple, no nuchal rigidity, no adenopathy, non-tender, FROM LUNGS: Clear to auscultation. Normal chest wall mechanics, no w/r/r HEART: no murmurs, S1 normal and S2 normal ABDOMEN: abdomen soft, non-tender, normo-active bowel sounds, no masses, no rebound or guarding. BACK: Back is symmetrical on inspection and there is no deformity, no midline tenderness, no CVA tenderness. SKIN: no rashes and no bruising UPPER EXTREMITIES: upper extremities are grossly normal. FROM, nml pulses b/l. Chronic deformities related to rheumatoid arthritis with significant ulnar deviation of bilateral hands. LOWER EXTREMITIES: No pitting edema. FROM, nml pulses b/l. NEURO EXAM: Normal sensorium, cranial nerves II-XII grossly intact, normal speech, no gross weakness of arms, no gross weakness of legs. Gross sensation intact. Course Course 1824: Pt updated on results. Emesis bag from CT consistent with blueberries which patient states she ate earlier today. No evidence of blood. Patient states nausea improved. Discussed results so far. Vital signs stable. 1924: Repeat troponin not elevated. New compared to prior. Administered Medications Sodium Chloride (Nss 1000ml) 1,000 mls @ 125 mls/hr IV .Q8H KARLA Stop: 01/13/21 16:29 Last Admin: 12/14/20 17:10 Dose: 125 mls/hr Documented by: [id number] Discontinued Medications Pantoprazole Sodium (Protonix Bolus/Drip) 0 mls @ 1 mls/hr IV ONE STA Stop: 12/14/20 16:39 Last Admin: 12/14/20 18:35 Dose: Not Given Documented by: [id number] Pantoprazole Sodium 40 mg/ (Dextrose) 100 mls @ 20 mls/hr IV Q5H [facility] Stop: 01/13/21 16:59 Last Admin: 12/14/20 18:35 Dose: Not Given Documented by: [id number] Pantoprazole Sodium 80 mg/ (Dextrose) 120 mls @ 400 mls/hr IV NOW ONE Stop: 12/14/20 16:55 Last Admin: 12/14/20 18:35 Dose: Not Given Documented by: [id number] Ioversol (Optiray 320 100ml) 94 ml IV ONCE ONE Stop: 12/14/20 16:50 Last Admin: 12/14/20 16:50 Dose: 94 ml Documented by: [id number] Medical Decision Making Differential Diagnosis Differential diagnosis includes etiologies such as vasovagal event, infection, hypoglycemia, electrolyte abnormalities, cardiac sources, intracerebral event, t oxicologic, neurologic, as well as others were entertained. Medical Records Attestation: I reviewed the patient's medical records. Home Medications Current Medication List: was personally reviewed by me Laboratory Data Attestation: I reviewed the patient's lab results. Result diagrams: 12/14/20 17:35 12/14/20 17:35 Lab Results 12/14/20 12/14/20 12/14/20 Range/Units 17:35 17:35 18:11 WBC 7.64 (4.8-10.8) K/uL RBC 4.24 (4.2-5.4) M/uL Hgb 13.3 (12.0-16.0) g/dL Hct 39.9 (37-47) % MCV 94.1 (80-100) fL MCH 31.4 (25-34) pg MCHC 33.3 (32-36) g/dL RDW Std Deviation 45.7 (36.4-46.3) fL RDW Coeff of Emily 13.3 (11.5-14.5) % Plt Count 134 (130-400) K/uL MPV 10.1 (7.4-10.4) fL Immature Gran % (Auto) 0.3 % Neut % (Auto) 83.0 % Lymph % (Auto) 11.4 % [place] % (Auto) 4.8 % Eos % (Auto) 0.5 % Baso % (Auto) 0.0 % Neut # (Auto) 6.34 (1.4-6.5) K/uL Lymph # (Auto) 0.87 L (1.2-3.4) K/uL [place] # (Auto) 0.37 (0.11-0.59) K/uL Eos # (Auto) 0.04 (0-0.5) K/uL Baso # (Auto) 0.00 (0-0.2) K/uL Immature Gran # (Auto) 0.02 (0.00-0.02) K/uL Sodium 130 L (136-145) mmol/L Potassium 4.5 (3.5-5.1) mmol/L Chloride 99 (98-107) mmol/L Carbon Dioxide 25 (21-32) mmol/L Anion Gap 6.0 (3-11) BUN 14 (7-18) mg/dl Creatinine 0.89 (0.6-1.2) mg/dl Est Cr Clr Drug Dosing Not Reportable Est GFR ( Amer) 73.0 ml/min Est GFR (Non-Af Amer) 63.0 ml/min BUN/Creatinine Ratio 15.5 (10-20) Glucose 101 H (70-99) mg/dl Calcium 8.7 (8.5-10.1) mg/dl Magnesium 2.0 (1.8-2.4) mg/dl Total Bilirubin 0.9 (0.2-1) mg/dl AST 30 (15-37) U/L ALT 26 (12-78) U/L Alkaline Phosphatase 94 (45-117) U/L Troponin I 0.040 (0-0.045) ng/ml NT-Pro-B Natriuret Pep 838 (0-1800) pg/ml Total Protein 7.6 (6.4-8.2) gm/dl Albumin 3.6 (3.4-5.0) gm/dl Globulin 4.0 (2.5-4.0) gm/dl Albumin/Globulin Ratio 0.9 (0.9-2) Lipase 170 (73-393) U/L TSH 0.351 (0.300-4.500) uIu/ml Urine Color Yellow Urine Appearance Clear (Clear) Urine pH 7.0 (4.5-7.5) Ur Specific [place] 1.023 (1.000-1.030) Urine Protein Negative (Negative) Urine Glucose (UA) Negative (Negative) Urine Ketones Negative (Negative) Urine Blood Negative (Negative) Urine Nitrite Negative (Negative) Urine Bilirubin Negative (Negative) Urine Urobilinogen Negative (Negative) Ur Leukocyte Esterase Negative (Negative) COVID-19 Eval Order SARS-CoV-2 (PCR) (Negative) 12/14/20 12/14/20 12/14/20 Range/Units 19:12 20:47 20:47 WBC (4.8-10.8) K/uL RBC (4.2-5.4) M/uL Hgb (12.0-16.0) g/dL Hct (37-47) % MCV (80-100) fL MCH (25-34) pg MCHC (32-36) g/dL RDW Std Deviation (36.4-46.3) fL RDW Coeff of Emily (11.5-14.5) % Plt Count (130-400) K/uL MPV (7.4-10.4) fL Immature Gran % (Auto) % Neut % (Auto) % Lymph % (Auto) % [place] % (Auto) % Eos % (Auto) % Baso % (Auto) % Neut # (Auto) (1.4-6.5) K/uL Lymph # (Auto) (1.2-3.4) K/uL [place] # (Auto) (0.11-0.59) K/uL Eos # (Auto) (0-0.5) K/uL Baso # (Auto) (0-0.2) K/uL Immature Gran # (Auto) (0.00-0.02) K/uL Sodium (136-145) mmol/L Potassium (3.5-5.1) mmol/L Chloride (98-107) mmol/L Carbon Dioxide (21-32) mmol/L Anion Gap (3-11) BUN (7-18) mg/dl Creatinine (0.6-1.2) mg/dl Est Cr Clr Drug Dosing Est GFR ( Amer) ml/min Est GFR (Non-Af Amer) ml/min BUN/Creatinine Ratio (10-20) Glucose (70-99) mg/dl Calcium (8.5-10.1) mg/dl Magnesium (1.8-2.4) mg/dl Total Bilirubin (0.2-1) mg/dl AST (15-37) U/L ALT (12-78) U/L Alkaline Phosphatase (45-117) U/L Troponin I 0.058 H* (0-0.045) ng/ml NT-Pro-B Natriuret Pep (0-1800) pg/ml Total Protein (6.4-8.2) gm/dl Albumin (3.4-5.0) gm/dl Globulin (2.5-4.0) gm/dl Albumin/Globulin Ratio (0.9-2) Lipase (73-393) U/L TSH (0.300-4.500) uIu/ml Urine Color Urine Appearance (Clear) Urine pH (4.5-7.5) Ur Specific [place] (1.000-1.030) Urine Protein (Negative) Urine Glucose (UA) (Negative) Urine Ketones (Negative) Urine Blood (Negative) Urine Nitrite (Negative) Urine Bilirubin (Negative) Urine Urobilinogen (Negative) Ur Leukocyte Esterase (Negative) COVID-19 Eval Order Covid19 at [facility] SARS-CoV-2 (PCR) NEGATIVE (Negative) Imaging Data Radiologist's Impression: Cervical Spine CT 12/14/20 16:19 CT OF THE CERVICAL SPINE WITHOUT CONTRAST CLINICAL HISTORY: trauma, syncope COMPARISON STUDY: Cervical spine CT February 29, 2008. TECHNIQUE: Helical axial images of the cervical spine were obtained without IV contrast. Sagittal and coronal reconstructions were viewed. Automated exposure control was utilized for the study. A dose lowering technique was utilized adhering to the principles of ALARA. FINDINGS: Alignment of the cervical spine is anatomic. Vertebral body heights are maintained. No acute cervical spine fracture or subluxation is present. There is no prevertebral edema. Facet joints are intact. Severe multilevel facet arthrosis is present. Degenerative changes at the C1-C2 articulation are noted. The anterior inferior aspect of the C7 vertebral body is excluded on this exam. There is mild leftward curvature of the cervical spine. IMPRESSION: No acute cervical spine fracture or subluxation. ACT 112: Negative or not required by law. Electronically signed by: Ej Veronica M.D. 12/14/2020 4:52 PM Chest X-Ray 12/14/20 16:19 XR chest 1V portable HISTORY: 75 years-old Female syncope acute chest trauma with syncope COMPARISON: 05/12/2020 chest radiograph and CTA chest TECHNIQUE: Portable AP view of the chest FINDINGS: Cardiomediastinal and hilar silhouettes are unchanged. Calcified plaque of the thoracic aorta. Mild chronic interstitial coarsening. Ill-defined opacity of the left lung apex may be secondary to summation density. No pneumothorax, pleural effusion or overt pulmonary edema. Degenerative changes of the shoulders and spine. Contrast is noted within the bilateral renal collecting systems. IMPRESSION: No acute process. ACT 112: Negative or not required by law. The above report was generated using voice recognition software. It may contain grammatical, syntax or spelling errors. Electronically signed by: Viktor Dunne M.D. 12/14/2020 5:[address] 12/14/20 16:19 CT head/brain wo con CLINICAL HISTORY: 75 years-old Female with trauma, syncope. Acute head trauma with syncope TECHNIQUE: Multiple axial CT images of the head were obtained without contrast. A dose lowering technique was utilized adhering to the principles of ALARA. CT DOSE: 965.81 mGycm COMPARISON: Head CT 05/17/2015 FINDINGS: No acute intracranial hemorrhage, midline shift, intracranial mass, hydrocephalus, territorial ischemia or abnormal extra-axial collection. Age- related involutional changes. White matter hypodensities suggestive of chronic microvascular ischemic disease. Unchanged subcentimeter chronic lacunar infarcts of the fernandez radiata. Senescent calcifications of the basal ganglia. Cerebral vascular calcifications. The calvarium is intact. Small posterior parietal scalp hematoma measures 4.3 x 0.5 cm. The paranasal sinuses, mastoid air cells, and middle ear cavities are clear. IMPRESSION: 1. No acute intracranial abnormality or calvarial fracture. 2. Small posterior scalp hematoma. ACT 112: Negative or not required by law. The above report was generated using voice recognition software. It may contain grammatical, syntax or spelling errors. Electronically signed by: Viktor Dunne M.D. 12/14/2020 4:51 PM Pelvis X-Ray 12/14/20 16:20 XR pelvis 1-2V routine HISTORY: 75 years-old Female syncope acute syncope with pelvic pain COMPARISON: CT abdomen and pelvis of same day TECHNIQUE: AP view of the pelvis FINDINGS: Demineralized appearance the bones. Right hip total joint arthroplasty. Moderate left hip osteoarthritis. No acute fracture, dislocation or avascular necrosis identified. Arterial calcifications. Contrast within the urinary bladder. IMPRESSION: No acute fracture or dislocation. ACT 112: Negative or not required by law. The above report was generated using voice recognition software. It may contain grammatical, syntax or spelling errors. Electronically signed by: Viktor Dunne M.D. 12/14/2020 5:48 PM Abdomen/Pelvis CT 12/14/20 16:[address] WITH IV CONTRAST CT DOSE: 850.06 mGycm HISTORY: Acute nausea with vomiting hematemesis TECHNIQUE: Multiaxial CT images of the abdomen and pelvis were performed following the IV administration of 94 cc of Optiray, A dose lowering technique was utilized adhering to the principles of ALARA. COMPARISON STUDY: CT abdomen and pelvis 06/08/2007, thoracic spine radiographs 11/10/2008. FINDINGS: Mild cardiomegaly. Extensive coronary artery calcifications with extensive atherosclerosis of the aorta and branch vessels. No thoracic or abdominal aortic aneurysm. Mild subpleural cystic changes of the right lower lobe. Subsegmental bibasilar atelectasis/scarring. No pneumatosis or pneumoperitoneum. Limited study secondary to upper extremity positioning. Streak artifact from right hip arthroplasty limits evaluation of the pelvic structures. The spleen, mildly atrophic pancreas, adrenal glands, gallbladder and liver appear unremarkable. Patency of the hepatic and portal veins. Unremarkable kidneys. No hydronephrosis. There are a few tiny subcentimeter bilateral renal hypodensities arise. The visualized urinary bladder is unremarkable. The uterus is either atrophic or surgically absent. There is no adenopathy. Mild distal esophageal wall thickening. Small hiatal hernia. Mild colonic diverticulosis. Wall thickening of the transverse and descending colon is likely secondary to partial distention. Normal appendix. No small bowel obstruction. No ascites or mesenteric inflammation. Unremarkable soft tissues. Degenerative changes of the spine, pelvis and left hip. No acute fracture or suspicious bone lesion identified. Numerous thoracic and lumbar compression deformities, notably involving the T12 and L1 vertebral bodies appear chronic. IMPRESSION: 1. No acute intra-abdominal or intrapelvic abnormality. 2. No bowel obstruction or bowel wall thickening. Normal appendix. 3. Mild colonic diverticulosis. 4. Small hiatal hernia. 5. Additional findings as above. ACT 112: Negative or not required by law. The above report was generated using voice recognition software. It may contain grammatical, syntax or spelling errors. Electronically signed by: Viktor Dunne M.D. 12/14/2020 5:04 PM ECG Data Attestation: I personally reviewed and interpreted this ECG as follows: Indication: + syncope Rate (beats per minute): 61 Rhythm: + normal sinus ECG Intervals/blocks: + Right Bundle branch block ECG [place]: + Normal ECG ST segments: + Nonspecific ST abnormalities Comparison ECG Date: from (05/11/2020) Change: no significant change MDM Narrative This is a 75-year-old female brought in by EMS after a syncopal event at home. Patient denied any prodromal symptoms or recent changes otherwise explain her syncope. Family did witness some stiffening/mild shaking when she first collapse however no tongue biting and no incontinence and patient awake and alert 1 minute later. Based on this I do not suspect occult seizure disorder. Initial labs that were drawn and sent were reassuring. Patient monitored on telemetry and was hemodynamically stable. No ectopy or dysrhythmia noted. Patient initially sent for CT of the head and C-spine, however while in CT the tech called stating she began vomiting. Additional CT of the abdomen and pelvis added as a precaution. CAT scans are reassuring. Scalp hematoma was noted consistent with her physical exam. No other other evidence of trauma on exam. I suspect the nausea and vomiting is secondary to her close head injury and likely underlying concussion. Given no obvious explanation for her syncopal event, patient continue be monitored and repeat troponin drawn and sent. This was positive. Discussed results with patient and family at bedside and advised additional inpatient evaluation and treatment. Case discussed with hospitalist. No acute EKG changes noted. Patient denied any complaints of chest pain or trouble breathing. I do not suspect occult cardiac contusion or other intrathoracic trauma. Patient does use low-dose aspirin daily, no other anticoagulation. Patient has no pertinent family history. Patient was first seen and observation began at 1538 and was necessary in order to determine etiology of syncopal event and monitor for changes. Upon re-evaluation, 4 hours of observation revealed that the patient should be admitted due to an elevated troponin and unexplained syncopal event at 1925. Patient admitted to hospitalist service. An order was placed for continuous cardiac monitoring. The monitor shows a rate of _80_ with _normal sinus_ rhythm. Impression & Plan Syncope, Elevated troponin, Rheumatoid arthritis, CHI (closed head injury), Scalp hematoma, Nausea & vomiting Discharge Plan Visit Data Chief Complaint: Fall ED Provider: Gisselle Mak Discharge Problem: Syncope, Elevated troponin, Rheumatoid arthritis, CHI (closed head injury), Scalp hematoma, Nausea & vomiting Forms Stand Alone Forms: [facility] [employer] Prescriptions Prescriptions: No Action metoprolol tartrate 100 mg tablet 100 mg PO QPM RF: 0 aspirin [Aspirin Low Dose] 81 mg Tablet,Delayed Release (Dr/Ec) 81 mg PO QAM RF: 0 acetaminophen 500 mg Tablet 1,000 mg PO Q6H PRN (Reason: Pain) RF: 0 simvastatin 40 mg tablet 40 mg PO QPM RF: 0 calcium carbonate [Calcium 600] 600 mg calcium (1,500 mg) Tablet 600 mg PO QAM RF: 0 furosemide 20 mg tablet 20 mg PO QAM RF: 0 hydroxychloroquine 200 mg tablet 200 mg PO BID RF: 0 cholecalciferol (vitamin D3) [Vitamin D3] 125 mcg (5,000 unit) Tablet 125 mcg PO QAM RF: 0 metoprolol tartrate 100 mg tablet 50 mg PO QAM RF: 0 Referrals Referrals: Jose Padgett Jr, [Primary Care Provider] -
[2020-12-14] MEDS ORDERED: OPTIRAY 320 100ml IV ONE (16:49)
--- NOTE | 2020-12-14 16:52 | CT Scan Report ---
CT head/brain wo con CLINICAL HISTORY: 75 years-old Female with trauma, syncope. Acute head trauma with syncope TECHNIQUE: Multiple axial CT images of the head were obtained without contrast. A dose lowering tech nique was utilized adhering to the principles of ALARA. CT DOSE: 965.81 mGycm COMPARISON: Head CT 05/17/2015 FINDINGS: No acute intracranial hemorrhage, midline shift, intracranial mass, hydrocephalus, territorial ischem ia or abnormal extra-axial collection. Age-related involutional changes. White matter hypodensities s uggestive of chronic microvascular ischemic disease. Unchanged subcentimeter chronic lacunar infarcts of the fernandez radiata. Senescent calcifications of the basal ganglia. Cerebral vascular calcificatio ns. The calvarium is intact. Small posterior parietal scalp hematoma measures 4.3 x 0.5 cm. The paranasal sinuses, mastoid air cells, and middle ear cavities are clear. IMPRESSION: 1. No acute intracranial abnormality or calvarial fracture. 2. Small posterior scalp hematoma. ACT 112: Negative or not required by law. The above report was generated using voice recognition software. It may contain grammatical, syntax o r spelling errors. Electronically signed by: Viktor Dunne M.D. 12/14/2020 4:51 PM
--- NOTE | 2020-12-14 16:54 | CT Scan Report ---
CT OF THE CERVICAL SPINE WITHOUT CONTRAST CLINICAL HISTORY: trauma, syncope COMPARISON STUDY: Cervical spine CT February 29, 2008. TECHNIQUE: Helical axial images of the cervical spine were obtained without IV contrast. Sagittal a nd coronal reconstructions were viewed. Automated exposure control was utilized for the study. A do se lowering technique was utilized adhering to the principles of ALARA. FINDINGS: Alignment of the cervical spine is anatomic. Vertebral body heights are maintained. No acut e cervical spine fracture or subluxation is present. There is no prevertebral edema. Facet joints are intact. Severe multilevel facet arthrosis is present. Degenerative changes at the C1-C2 articulatio n are noted. The anterior inferior aspect of the C7 vertebral body is excluded on this exam. There is mild leftward curvature of the cervical spine. IMPRESSION: No acute cervical spine fracture or subluxation. ACT 112: Negative or not required by law. Electronically signed by: Ej Veronica M.D. 12/14/2020 4:52 PM
[2020-12-14] MEDS ORDERED: PANTOprazole 40 MG in DEXTROSE 5% 100 ML IV SCH (17:00)
--- NOTE | 2020-12-14 17:05 | CT Scan Report ---
ABDOMEN AND PELVIS CT WITH IV CONTRAST CT DOSE: 850.06 mGycm HISTORY: Acute nausea with vomiting hematemesis TECHNIQUE: Multiaxial CT images of the abdomen and pelvis were performed following the IV administrat ion of 94 cc of Optiray, A dose lowering technique was utilized adhering to the principles of ALARA. COMPARISON STUDY: CT abdomen and pelvis 06/08/2007, thoracic spine radiographs 11/10/2008. FINDINGS: Mild cardiomegaly. Extensive coronary artery calcifications with extensive atherosclerosis of the aor ta and branch vessels. No thoracic or abdominal aortic aneurysm. Mild subpleural cystic changes of th e right lower lobe. Subsegmental bibasilar atelectasis/scarring. No pneumatosis or pneumoperitoneum. Limited study secondary to upper extremity positioning. Streak artifact from right hip arthroplasty l imits evaluation of the pelvic structures. The spleen, mildly atrophic pancreas, adrenal glands, gallbladder and liver appear unremarkable. Flores ncy of the hepatic and portal veins. Unremarkable kidneys. No hydronephrosis. There are a few tiny rangel bcentimeter bilateral renal hypodensities arise. The visualized urinary bladder is unremarkable. The uterus is either atrophic or surgically absent. There is no adenopathy. Mild distal esophageal wall thickening. Small hiatal hernia. Mild colonic diverticulosis. Wall thicke ellen of the transverse and descending colon is likely secondary to partial distention. Normal appendi x. No small bowel obstruction. No ascites or mesenteric inflammation. Unremarkable soft tissues. Dege nerative changes of the spine, pelvis and left hip. No acute fracture or suspicious bone lesion ident ified. Numerous thoracic and lumbar compression deformities, notably involving the T12 and L1 vertebr al bodies appear chronic. IMPRESSION: 1. No acute intra-abdominal or intrapelvic abnormality. 2. No bowel obstruction or bowel wall thickening. Normal appendix. 3. Mild colonic diverticulosis. 4. Small hiatal hernia. 5. Additional findings as above. ACT 112: Negative or not required by law. The above report was generated using voice recognition software. It may contain grammatical, syntax o r spelling errors. Electronically signed by: Viktor Dunne M.D. 12/14/2020 5:04 PM
[2020-12-14 17:44] LABS: Eosinophils # (auto) 0.04 K/uL (0-0.5); Eosinophils % (auto) 0.5 %; Hematocrit (blood only) 39.9 % (37-47); Hemoglobin 13.3 g/dL (12.0-16.0); Immature Granulocytes # (auto) 0.02 K/uL (0.00-0.02); Immature Granulocytes % (auto) 0.3 %; Lymphocytes # (auto) 0.87 K/uL (1.2-3.4); Lymphocytes % (auto) 11.4 %; Mean Corpuscular Hemoglobin 31.4 pg (25-34); Mean Corpuscular Hgb Conc 33.3 g/dL (32-36); Mean Corpuscular Volume 94.1 fL (80-100); Mean Platelet Volume 10.1 fL (7.4-10.4); Monocytes # (auto) 0.37 K/uL (0.11-0.59); Monocytes % (auto) 4.8 %; Neutrophils # (auto) 6.34 K/uL (1.4-6.5); Platelet Count 134 K/uL (130-400); RDW Coefficient of Variation 13.3 % (11.5-14.5); RDW Standard Deviation 45.7 fL (36.4-46.3); Red Blood Count 4.24 M/uL (4.2-5.4); White Blood Count 7.64 K/uL (4.8-10.8)
--- NOTE | 2020-12-14 17:49 | XRay Report ---
XR pelvis 1-2V routine HISTORY: 75 years-old Female syncope acute syncope with pelvic pain COMPARISON: CT abdomen and pelvis of same day TECHNIQUE: AP view of the pelvis FINDINGS: Demineralized appearance the bones. Right hip total joint arthroplasty. Moderate left hip osteoarthri tis. No acute fracture, dislocation or avascular necrosis identified. Arterial calcifications. Contra st within the urinary bladder. IMPRESSION: No acute fracture or dislocation. ACT 112: Negative or not required by law. The above report was generated using voice recognition software. It may contain grammatical, syntax o r spelling errors. Electronically signed by: Viktor Dunne M.D. 12/14/2020 5:48 PM
--- NOTE | 2020-12-14 17:53 | XRay Report ---
XR chest 1V portable HISTORY: 75 years-old Female syncope acute chest trauma with syncope COMPARISON: 05/12/2020 chest radiograph and CTA chest TECHNIQUE: Portable AP view of the chest FINDINGS: Cardiomediastinal and hilar silhouettes are unchanged. Calcified plaque of the thoracic aorta. Mild c hronic interstitial coarsening. Ill-defined opacity of the left lung apex may be secondary to summati on density. No pneumothorax, pleural effusion or overt pulmonary edema. Degenerative changes of the s houlders and spine. Contrast is noted within the bilateral renal collecting systems. IMPRESSION: No acute process. ACT 112: Negative or not required by law. The above report was generated using voice recognition software. It may contain grammatical, syntax o r spelling errors. Electronically signed by: Viktor Dunne M.D. 12/14/2020 5:51 PM
[2020-12-14 18:02] LABS: Alanine Aminotransferase 26 U/L (12-78); Albumin Level 3.6 gm/dl (3.4-5.0); Aspartate Aminotransferase 30 U/L (15-37); BUN Creatinine Ratio 15.5 (10-20); Blood Urea Nitrogen 14 mg/dl (7-18); Calcium 8.7 mg/dl (8.5-10.1); Carbon Dioxide 25 mmol/L (21-32); Chloride 99 mmol/L (98-107); Glucose 101 mg/dl (70-99); Lipase 170 U/L (73-393); Potassium 4.5 mmol/L (3.5-5.1); Sodium 130 mmol/L (136-145)
[2020-12-14 18:13] LABS: Albumin Globulin Ratio 0.9 (0.9-2); Alkaline Phosphatase 94 U/L (45-117); Bilirubin,Total 0.9 mg/dl (0.2-1); NT Pro B Type Natriuretic Pept 838 pg/ml (0-1800); Thyroid Stimulating Hormone 0.351 uIu/ml (0.300-4.500); Total Protein 7.6 gm/dl (6.4-8.2)
[2020-12-14 18:22] LABS: Appearance Urine Clear (Clear); Bilirubin Urine Negative (Negative); Blood Urine Negative (Negative); Color Urine Yellow; Glucose Urine UA Negative (Negative); Ketones Urine Negative (Negative); Leukocyte Esterase Urine Negative (Negative); Nitrite Urine Negative (Negative); Protein Urine Negative (Negative); Specific Gravity Urine 1.023 (1.000-1.030); Urobilinogen Urine Negative (Negative)
--- NOTE | 2020-12-14 20:35 | History & Physical Report ---
Date of Service December 14, 2020 Assessment & Plan (1) Seizure: Plan: Araceli Cobos is a 75 y/o F w/ CAD (60% LAD), rheumatoid arthritis, and previous seizure x1-2 who presents w/ a 1 minute episode most consistent w/ generalized tonic clonic seizure. Patient has had sz hx in 2007 w/ neuro consult and had MRI supporting PRES. She was not placed on chronic seizure meds. No family hx. - considered PRES. MRI in AM, would also r/o structural lesion. Neuro consult. EEG will defer to neuro. - no obvious medication precipitation. hydroxychloroquine and autoimmune possible assoc w/ PRES Also considered syncope (convulsive>vasovagal/orthostatic>cardiogenic). More lik kris seizure given hx, the prolonged convulsive state, and tongue biting. - considered hypona 130, but this level should not result in seizure. Other labs and electrolytes reviewed. - considered hyperthyroidism given hx. TSH lower limit of normal. check T4. - check lyme, anaplasma - monitor telemetry - trend trop. elevation/increase so far is modest (2) Hyponatremia: Plan: Per patient, has had issues w/ in past. - added fluid restriction - 130 at admission, follow BMP in AM Present on Admission?: Yes (3) Fall: Plan: - no acute fracture or brain bleed per imaging - small posterior scalp hematoma noted - clinical presentation reassuring; monitor clinically Present on Admission?: Yes (4) Elevated troponin: Plan: - given level of elevation, most likely demand ischemia. may also be 2/2 seizure activity - reassuring presentation and w/o chest pain complaint - trend trop Present on Admission?: Yes (5) Rheumatoid arthritis: Plan: - continue home hydroxychloquine Present on Admission?: Yes (6) Hypertension: Plan: - hold PM dose metoprolol because of current 107/60 BP, restart tomorrow Present on Admission?: Yes (7) Hyperlipidemia: Plan: - continue home Simvastatin Present on Admission?: Yes Plan: FEN/GI: HH. fluid restrict 2L. 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 This was witnessed by the grandson who noted that patient appeared unresponsive, fell backwards, and hit her occiput on the linoleum. Patient then had eyes rolled back and had tonic-clonic like activity for almost a minute. After the episode resolved, patient had some nausea but no other symptoms. Her son came several minutes later and called EMS. Son noticed some pallor. Currently, back of head is hurting s/p hitting her head. Denies confusion, numbness/tingling, tinnitus. She has had total of 3 episodes of emesis, but this has resolved and she is no longer nauseated. Denies recent illness. No postdrome or postictal symptoms. Patient had a seizure episode in 2007 while hospitalized at [facility] and had neuro consult w/ unremarkable eeg and MRI brain suggestive of PRES at the time. She was not placed on chronic antiepileptic therapy. Denies hx of migraines. 20 pack year tobacco hx, quit 10 years ago. Patient was on home O2 after covid admission, but has since weaned off. ED course: NSS maintenance rate. Prelim labwork and imaging (CT head, abd/pelv. XR hip, chest) w/o acute fracture or bleed. 2nd troponin slightly elev from 0.40 to 0.58. Allergies Allergy/AdvReac Type Severity Reaction Status Date / Time Sulfa (Sulfonamide Allergy Intermediate Rash Verified 12/14/20 21:20 Antibiotics) trimethoprim Allergy Intermediate Rash Verified 12/14/20 21:20 vancomycin Allergy Intermediate Rash, Verified 12/14/20 21:20 shortness of breath Cephalosporins AdvReac Mild Vomiting Verified 12/14/20 21:20 Home Medications Medication Instructions Recorded Confirmed Type acetaminophen 500 mg tablet 1,000 mg PO Q6H PRN 05/09/20 12/14/20 History aspirin 81 mg tablet,delayed 81 mg PO QAM 05/09/20 12/14/20 History release (Aspirin Low Dose) calcium carbonate 600 mg calcium 600 mg PO QAM 05/09/20 12/14/20 History (1,500 mg) tablet (Calcium) cholecalciferol (vitamin D3) 125 125 mcg PO QAM 05/09/20 12/14/20 History mcg (5,000 unit) tablet (Vitamin D3) furosemide 20 mg tablet 20 mg PO QAM 05/09/20 12/14/20 History hydroxychloroquine 200 mg tablet 200 mg PO BID 05/09/20 12/14/20 History simvastatin 40 mg tablet 40 mg PO QPM 05/09/20 12/14/20 History metoprolol tartrate 100 mg tablet 50 mg PO QAM 12/14/20 12/14/20 History doxycycline hyclate 100 mg capsule 100 mg PO BID 9 Days #18 cap 12/15/20 Rx Past Med/Surg History Medical History Edema Endometriosis Fracture of femoral neck, right Headache Hyperlipidemia Hypertension No pertinent family history Osteoporosis Rheumatoid arthritis Surgical History No pertinent past surgical history Social History Smoking Status: Former smoker Tobacco Type: Cigarettes Second Hand Exposure: No; Hx Alcohol Use: Yes Alcohol type: wine Hx Substance Use: No Preferred Language: Pashto Communication Ability: Effective School Inspector Required: No Beliefs That Will Affect Care: None marital status: / Current Living Situation: Family Current Living Situation Comment: Lives with son and grandchildren How many Children do You have: 1 Feels Safe at Home: Yes Assistive Devices: Cane Review of Systems Review of Systems: All systems reviewed & are unremarkable except as noted in HPI & below Constitutional: Denies fever, chills. + mild fatigue Eyes: Denies blurry vision, vision changes ENT: Denies sore throat, sinus pain, tongue pain Cardiovascular: Denies chest pain, palpitations Respiratory: Chronic SOB, resolved after outpatient cardio started Lasix Mar 2020 Gastrointestinal: Denies abdominal pain, vomiting, constipation, diarrhea. Nausea has resolved Genitourinary: Denies urinary symptoms including dysuria Musculoskeletal: Denies weakness, muscle aches/pain, joint aches/pain Neurological: + occipital headache. Denies numbness, tingling, focal weakness. Initially stated had some dizziness after seizure-like episode, but later clarified that it was nausea and not room-spinning or near-syncopal dizziness. Physical Exam Physical Exam: General: A&Ox4. NAD. Cooperative. Normal speech. HEENT: Small palpable raised lump at occiput, mildly TTP. EOMI. PERRL. Poor dentition. + tongue bite nia on right. Neck supple. No c spine ttp. Pulm: CTAB. -wheezes, -rales, -rhonchi. No respiratory distress. Cardiac: RRR, -mrg. Radial pulses intact and symmetrical. Abdominal: Nontender, nondistended, soft. Neuro: CN II-XII intact. No facial droop. Normal strength and sensation of extremities. Integ: No visible rash, bruising or erythema, including at occiput of skull. Results & Data Results & Data ([facility]) Vital Signs (Past 12 Hours) Vital Signs Temp Pulse Resp BP Pulse Ox 12/14/20 19:01 64 13 134/71 98 12/14/20 18:30 61 16 136/73 99 12/14/20 18:00 140/80 98 12/14/20 17:00 66 17 140/69 97 12/14/20 16:51 67 17 99 12/14/20 16:00 65 23 170/86 H 99 12/14/20 15:30 36.6 C 62 16 155/71 H 98 Laboratory Results Cardiac Enzymes 12/14/20 12/14/20 Range/Units 17:35 19:12 AST 30 (15-37) U/L Troponin I 0.040 0.058 H* (0-0.045) ng/ml CBC 12/14/20 Range/Units 17:35 WBC 7.64 (4.8-10.8) K/uL RBC 4.24 (4.2-5.4) M/uL Hgb 13.3 (12.0-16.0) g/dL Hct 39.9 (37-47) % Plt Count 134 (130-400) K/uL Neut # (Auto) 6.34 (1.4-6.5) K/uL Lymph # (Auto) 0.87 L (1.2-3.4) K/uL [place] # (Auto) 0.37 (0.11-0.59) K/uL Eos # (Auto) 0.04 (0-0.5) K/uL Baso # (Auto) 0.00 (0-0.2) K/uL Comprehensive Metabolic Panel 12/14/20 Range/Units 17:35 Sodium 130 L (136-145) mmol/L Potassium 4.5 (3.5-5.1) mmol/L Chloride 99 (98-107) mmol/L Carbon Dioxide 25 (21-32) mmol/L BUN 14 (7-18) mg/dl Creatinine 0.89 (0.6-1.2) mg/dl Glucose 101 H (70-99) mg/dl Calcium 8.7 (8.5-10.1) mg/dl AST 30 (15-37) U/L ALT 26 (12-78) U/L Alkaline Phosphatase 94 (45-117) U/L Total Protein 7.6 (6.4-8.2) gm/dl Albumin 3.6 (3.4-5.0) gm/dl Intake and Output 12/14/20 12/14/20 12/14/20 06:59 14:59 22:59 Other: Weight 57 kg Weight Measurement Method Built in [facility] Patient Weight 12/15/20 06:59 Weight 57 kg Diagnostic Findings Cervical Spine CT 12/14/20 16:19 CT OF THE CERVICAL SPINE WITHOUT CONTRAST CLINICAL HISTORY: trauma, syncope COMPARISON STUDY: Cervical spine CT February 29, 2008. TECHNIQUE: Helical axial images of the cervical spine were obtained without IV contrast. Sagittal and coronal reconstructions were viewed. Automated exposure control was utilized for the study. A dose lowering technique was utilized adhering to the principles of ALARA. FINDINGS: Alignment of the cervical spine is anatomic. Vertebral body heights are maintained. No acute cervical spine fracture or subluxation is present. There is no prevertebral edema. Facet joints are intact. Severe multilevel facet arthrosis is present. Degenerative changes at the C1-C2 articulation are noted. The anterior inferior aspect of the C7 vertebral body is excluded on this exam. There is mild leftward curvature of the cervical spine. IMPRESSION: No acute cervical spine fracture or subluxation. ACT 112: Negative or not required by law. Electronically signed by: Ej Veronica M.D. 12/14/2020 4:52 PM Chest X-Ray 12/14/20 16:19 XR chest 1V portable HISTORY: 75 years-old Female syncope acute chest trauma with syncope COMPARISON: 05/12/2020 chest radiograph and CTA chest TECHNIQUE: Portable AP view of the chest FINDINGS: Cardiomediastinal and hilar silhouettes are unchanged. Calcified plaque of the thoracic aorta. Mild chronic interstitial coarsening. Ill-defined opacity of the left lung apex may be secondary to summation density. No pneumothorax, pleural effusion or overt pulmonary edema. Degenerative changes of the shoulders and spine. Contrast is noted within the bilateral renal collecting systems. IMPRESSION: No acute process. ACT 112: Negative or not required by law. The above report was generated using voice recognition software. It may contain grammatical, syntax or spelling errors. Electronically signed by: Viktor Dunne M.D. 12/14/2020 5:[address] 12/14/20 16:19 CT head/brain wo con CLINICAL HISTORY: 75 years-old Female with trauma, syncope. Acute head trauma with syncope TECHNIQUE: Multiple axial CT images of the head were obtained without contrast. A dose lowering technique was utilized adhering to the principles of ALARA. CT DOSE: 965.81 mGycm COMPARISON: Head CT 05/17/2015 FINDINGS: No acute intracranial hemorrhage, midline shift, intracranial mass, hydrocephalus, territorial ischemia or abnormal extra-axial collection. Age- related involutional changes. White matter hypodensities suggestive of chronic microvascular ischemic disease. Unchanged subcentimeter chronic lacunar infarcts of the fernandez radiata. Senescent calcifications of the basal ganglia. Cerebral vascular calcifications. The calvarium is intact. Small posterior parietal scalp hematoma measures 4.3 x 0.5 cm. The paranasal sinuses, mastoid air cells, and middle ear cavities are clear. IMPRESSION: 1. No acute intracranial abnormality or calvarial fracture. 2. Small posterior scalp hematoma. ACT 112: Negative or not required by law. The above report was generated using voice recognition software. It may contain grammatical, syntax or spelling errors. Electronically signed by: Viktor Dunne M.D. 12/14/2020 4:51 PM Pelvis X-Ray 12/14/20 16:20 XR pelvis 1-2V routine HISTORY: 75 years-old Female syncope acute syncope with pelvic pain COMPARISON: CT abdomen and pelvis of same day TECHNIQUE: AP view of the pelvis FINDINGS: Demineralized appearance the bones. Right hip total joint arthroplasty. Moderate left hip osteoarthritis. No acute fracture, dislocation or avascular necrosis identified. Arterial calcifications. Contrast within the urinary bladder. IMPRESSION: No acute fracture or dislocation. ACT 112: Negative or not required by law. The above report was generated using voice recognition software. It may contain grammatical, syntax or spelling errors. Electronically signed by: Viktor Dunne M.D. 12/14/2020 5:48 PM Abdomen/Pelvis CT 12/14/20 16:[address] WITH IV CONTRAST CT DOSE: 850.06 mGycm HISTORY: Acute nausea with vomiting hematemesis TECHNIQUE: Multiaxial CT images of the abdomen and pelvis were performed following the IV administration of 94 cc of Optiray, A dose lowering technique was utilized adhering to the principles of ALARA. COMPARISON STUDY: CT abdomen and pelvis 06/08/2007, thoracic spine radiographs 11/10/2008. FINDINGS: Mild cardiomegaly. Extensive coronary artery calcifications with extensive atherosclerosis of the aorta and branch vessels. No thoracic or abdominal aortic aneurysm. Mild subpleural cystic changes of the right lower lobe. Subsegmental bibasilar atelectasis/scarring. No pneumatosis or pneumoperitoneum. Limited study secondary to upper extremity positioning. Streak artifact from right hip arthroplasty limits evaluation of the pelvic structures. The spleen, mildly atrophic pancreas, adrenal glands, gallbladder and liver appear unremarkable. Patency of the hepatic and portal veins. Unremarkable kidneys. No hydronephrosis. There are a few tiny subcentimeter bilateral renal hypodensities arise. The visualized urinary bladder is unremarkable. The uterus is either atrophic or surgically absent. There is no adenopathy. Mild distal esophageal wall thickening. Small hiatal hernia. Mild colonic diverticulosis. Wall thickening of the transverse and descending colon is likely secondary to partial distention. Normal appendix. No small bowel obstruction. No ascites or mesenteric inflammation. Unremarkable soft tissues. Degenerative changes of the spine, pelvis and left hip. No acute fracture or suspicious bone lesion identified. Numerous thoracic and lumbar compression deformities, notably involving the T12 and L1 vertebral bodies appear chronic. IMPRESSION: 1. No acute intra-abdominal or intrapelvic abnormality. 2. No bowel obstruction or bowel wall thickening. Normal appendix. 3. Mild colonic diverticulosis. 4. Small hiatal hernia. 5. Additional findings as above. ACT 112: Negative or not required by law. The above report was generated using voice recognition software. It may contain grammatical, syntax or spelling errors. Electronically signed by: Viktor Dunne M.D. 12/14/2020 5:04 PM ECG Additional Comments: ecg interpreted by me. NSR 61. RBBB and inferior lead T wave inversion unchanged from 05/11/20 ecg. Normal axis. Slightly prolonged QTc 493. Code Status & VTE Plan Code Status full VTE Prophylaxis Plan VTE Prophylaxis will be ordered: Yes Supervising Physician Co-Signing Physician Notes Attending addendum: I have physically seen this patient, have supervised the medical residents activities, and agree with the H&P unless as otherwise noted. Assessment and Plan: Seizure like activity- The patient will be admitted to telemetry for serial cardiac enzymes, serial EKG's, cardiac rhythm monitoring and a 2-D echocardiogram with Dopplers. History of previous seizure in 2007, with MRI suggesting PRES Order Lyme and anaplasmosis testing and treat as appropriate Consult neurology, can decide if EEG is necessary Elevated troponin- The patient will be admitted to telemetry for serial cardiac enzymes, serial EKG's, cardiac rhythm monitoring and a 2-D echocardiogram with Dopplers. Continue aspirin 81 mg every morning and metoprolol tartrate 50 mg every morning. Trend blood pressure and heart rates, and add an evening dose of metoprolol tartrate as indicated Hyponatremia- Sodium 130 upon admission Fluid restriction as noted Repeat laboratories in a.m. Hyperlipidemia- Continue simvastatin Check a fasting lipid panel Rheumatoid arthritis- Continue hydroxychloroquine Remaining orders and notations as noted Resident Activity Tracking Resident Involvement: Resident Care Provided Care Provided: Adult Hospital Medicine
[2020-12-15] MEDS: ACETAMINOPHEN 325 MG TAB PO PRN ×2 (00:41→16:14)
[2020-12-15] MEDS ORDERED: ENOXAPARIN INJ 40 MG/0.4 ML SYR SQ SCH (05:00)
[2020-12-15 06:34] LABS: Basophils # (auto) 0.01 K/uL (0-0.2); Basophils % (auto) 0.2 %; Eosinophils # (auto) 0.07 K/uL (0-0.5); Eosinophils % (auto) 1.4 %; Hematocrit (blood only) 34.4 % (37-47); Hemoglobin 11.4 g/dL (12.0-16.0); Lymphocytes # (auto) 1.39 K/uL (1.2-3.4); Lymphocytes % (auto) 28.5 %; Mean Corpuscular Hemoglobin 30.3 pg (25-34); Mean Corpuscular Hgb Conc 33.1 g/dL (32-36); Mean Corpuscular Volume 91.5 fL (80-100); Mean Platelet Volume 10.7 fL (7.4-10.4); Monocytes # (auto) 0.39 K/uL (0.11-0.59); Neutrophils # (auto) 3.02 K/uL (1.4-6.5); Neutrophils % (auto) 61.9 %; Platelet Count 114 K/uL (130-400); RDW Coefficient of Variation 13.2 % (11.5-14.5); RDW Standard Deviation 44.4 fL (36.4-46.3); Red Blood Count 3.76 M/uL (4.2-5.4); White Blood Count 4.88 K/uL (4.8-10.8)
[2020-12-15 07:07] LABS: Albumin Level 2.9 gm/dl (3.4-5.0); BUN Creatinine Ratio 16.9 (10-20); Calcium 8.1 mg/dl (8.5-10.1); Creatinine Clr Calc Pharmacy 39.8 ml/min; Est GFR (African American) 79.4 ml/min; Est GFR (Non-African American) 68.5 ml/min; Potassium 3.4 mmol/L (3.5-5.1)
[2020-12-15 07:09] LABS: Albumin Globulin Ratio 0.8 (0.9-2); Bilirubin,Total 0.8 mg/dl (0.2-1); Globulin 3.5 gm/dl (2.5-4.0); T4 Free Thyroxine 1.27 ng/dl (0.8-1.6); Total Protein 6.4 gm/dl (6.4-8.2); Troponin I 0.049 ng/ml (0-0.045)
[2020-12-15 08:03] LABS: Lyme Ab IgG w/WB Rflx Positive (Negative); Lyme Ab IgM w/WB Rflx Equivocal (Negative)
--- NOTE | 2020-12-15 08:29 | Magnetic Resonance Report ---
MR brain seizure wo con INDICATION: [place] ^seizure vs syncope TECHNIQUE: Multiplanar and multisequence MR images of the brain were obtained without contrast. Comparison: Comparison is made to MRI brain 02/29/2008 FINDINGS: No abnormal restricted diffusion is identified. Foci of T2 and FLAIR hyperintensity are noted in the paraventricular areas consistent with chronic small vessel ischemic disease. Old lacunar infarct is s een on the left. There is no evidence of acute intraparenchymal hemorrhage. No extra axial fluid kera ections are seen. There are no masses, mass effect, or midline shift. No abnormal enhancement is seen . Ex vacuo ventriculomegaly and sulcal enlargement is noted compatible with diffuse encephalomalacia. The corpus callosum, pituitary gland, and cerebellar tonsils appear grossly unremarkable.High-resolu tion images of the temporal lobes do not demonstrate any signal abnormality. Flow voids of the major intracranial arterial vessels are identified. The imaged portions of the para nasal sinuses, mastoid air cells, and orbits are unremarkable. IMPRESSION: No acute abnormality. In particular, no edema in the temporal lobes bilaterally in this postictal pat ient. ACT 112: Negative or not required by law. Electronically signed by: Damian Lobo M.D. 12/15/2020 8:28 AM
--- NOTE | 2020-12-15 08:35 | Neurology Consultation ---
Date of Consultation December 15, 2020 Assessment & Plan (1) Syncope: (2) Post-traumatic seizures: (3) Concussion: (4) Headache: This patient had a significant event December 14. I believe this initiated with a sudden onset syncope/collapse which is likely cardiovascular in origin. I suspect a cardiac dysrhythmia and orthostasis or vasovagal seem less likely. I do not believe this represents a primary seizure. The only seizure type that would create this type of immediate collapse would be an atonic seizure. Atonic seizures are quite rare in adults and typically associated with multiple other seizure types in individuals with significant brain problems. Next, the patient had a significant closed head trauma to her occipital creating a concussion. This head trauma triggered the brief generalized tonic seizures. Patient had a several minute post ictal phase and was back to baseline neurologically by 5 minutes or so. She had some typical post concussion symptoms with headache, nonspecific dizziness, and nausea. Today she is back to baseline with minimal headache. She has a small contusion in her occiput. Neurologic examination shows no focal findings, meningeal signs, or encephalopathy. CT scan of the head and cervical spines were unremarkable and an MRI of the brain was unremarkable. She does have some atrophy and [id number] old small vessel ischemia noted. Overnight she had significant hypotension and was still hypotensive this morning. Recommendations: 1. I see no need for an EEG at this time. 2. I see no need for to initiate an anticonvulsant at this time also. 3. call if worse or new issues arise Overall, I spent a total of 100 minutes with this case including review of records, review of CT and MRI films, direct evaluation the patient bedside, and discussion of the case with the patient and Dr. Umana including differential diagnosis and treatment options. History of Present Illness Reason for Consultation: Patient is a 75-year-old, who I was asked to see at the request of Dr. Roth for neurologic consultation regarding syncope versus seizure Requesting Physician: Dr. 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 there was no amyloidosis diagnosed. She was given hydroxychloroquine, steroids, and gold therapy for the rheumatoid arthritis in the past, but currently is hydroxychloroquine. she was given Rituxan for the gammopathy. She also has a history of hypertension, dyslipideia, and diastolic heart failure. She was seen by Dr. Browning in 2007. She presented to the ER with a seizure and had initial seizure in the ER. There was a concern about Vicodin use or overdose. The seizure in the emergency room was a witnessed generalized tonic- clonic event. She was given Dilantin. An MRI of the brain reportedly showed PRES, but I do not have that film to review. She had considerable hypertension at the time. An EEG showed some very mild generalized slowing but no focal abnormalities or potentially epileptogenic discharges. She did well and Dilantin was discontinued years ago. Recently, the patient was hospitalized in April of this year for a Covid-19 positive viral pneumonia. She had a Prolia injection 12-13-20. she has been getting these for 6 years without incident. Sometime around 1400 on December 14, patient was standing at the kitchen sink with a pot of water when she was witnessed to have sudden onset of her eyes rolling up and she fell straight back onto her occiput onto the kitchen floor. She had no warning symptoms. After she was on the ground, she was noted to have generalized tonic movements lasting up to a minute. There was no obvious tongue biting or incontinence of urine. Afterwards she had some confusion but by 5 minutes was much improved. She vomited once. Patient apparently had eaten at 11 a.m.. She was not ill. Patient arrived at the emergency room December 14 at 15:30, with a temperature 36.6, pulse 62 and regular, respiratory rate 16, blood pressure 155/71, and O2 saturation 98 percent. She was complaining of some headaches, we "dizziness", and nausea. She vomited once or twice in the emergency room. Neurologic examination was unremarkable and there were no focal neurologic findings. CBC was unremarkable. Chem profile was unremarkable although a sodium was 130. TSH was 0.[address] scan of the cervical spine was unremarkable with no acute changes. Chest x-ray was unremarkable. CT scan of the head revealed an occipital scalp hematoma and some basal ganglia calcifications of a nonspecific nature but was otherwise without acute findings. CT scan of the abdomen pelvis was unremarkable. An MRI of the brain showed no acute changes or stroke. There was no edema in the temporal lobes. overnight her blood pressure was 89/50 and this morning at 07:37 was 103/58. Pulse was normal in the 60s. EKG shows left atrial enlargement and right bundle-branch block. There were T- wave inversions consistent with inferior ischemia but there was no change compared to her previous EKG from April of 2020 Where as her headache was quite intense steady aching yesterday, this morning it is very minimal. She has no other symptoms and feels back to baseline. Allergies Allergy/AdvReac Type Severity Reaction Status Date / Time Sulfa (Sulfonamide Allergy Intermediate Rash Verified 12/14/20 21:20 Antibiotics) trimethoprim Allergy Intermediate Rash Verified 12/14/20 21:20 vancomycin Allergy Intermediate Rash, Verified 12/14/20 21:20 shortness of breath Cephalosporins AdvReac Mild Vomiting Verified 12/14/20 21:20 Home Medications Medication Instructions Recorded Confirmed Type acetaminophen 500 mg tablet 1,000 mg PO Q6H PRN 05/09/20 12/14/20 History aspirin 81 mg tablet,delayed 81 mg PO QAM 05/09/20 12/14/20 History release (Aspirin Low Dose) calcium carbonate 600 mg calcium 600 mg PO QAM 05/09/20 12/14/20 History (1,500 mg) tablet (Calcium) cholecalciferol (vitamin D3) 125 125 mcg PO QAM 05/09/20 12/14/20 History mcg (5,000 unit) tablet (Vitamin D3) furosemide 20 mg tablet 20 mg PO QAM 05/09/20 12/14/20 History hydroxychloroquine 200 mg tablet 200 mg PO BID 05/09/20 12/14/20 History metoprolol tartrate 100 mg tablet 100 mg PO QPM 05/09/20 12/14/20 History simvastatin 40 mg tablet 40 mg PO QPM 05/09/20 12/14/20 History metoprolol tartrate 100 mg tablet 50 mg PO QAM 12/14/20 12/14/20 History Patient History Medical History Edema Endometriosis Fracture of femoral neck, right Headache Hyperlipidemia Hypertension No pertinent family history Osteoporosis Rheumatoid arthritis Surgical History No pertinent past surgical history Social History Smoking Status: Former smoker Tobacco Type: Cigarettes Smoking End Date: 2009; Second Hand Exposure: No; Hx Alcohol Use: Yes Alcohol type: wine Hx Substance Use: No Preferred Language: [place] Citizen Communication Ability: Effective Counterperson Required: No Beliefs That Will Affect Care: None Current Living Situation: Family Current Living Situation Comment: Lives with son and grandchildren Other Information That Helps Us Care for You: No Feels Safe at Home: Yes Safety Concerns: Feels Safe At This Time Assistive Devices: None Assistive Devices Comment: was on home O2 after covid hosp admisison, since weaned off Review of Systems Constitutional: no fever, no fatigue and no weakness Eyes: no diplopia, no eye pain and no worsening vision Ear, Nose, Mouth, Throat: no ear pain, no tinnitus, no hearing loss, no dizziness, no snoring, no hoarseness and no dysphagia Respiratory: no cough and no dyspnea Cardiovascular: no chest pain, no palpitations and no lightheadedness Gastrointestinal: no abdominal pain, no nausea and no vomiting Genitourinary: no dysuria, no urinary frequency and no urinary incontinence Musculoskeletal: no back pain, no neck pain, no radicular pain, no joint pain and no myalgia Integumentary: no rash and no lesions Neurologic: + headache(s); no gait abnormality, no localized weakness, no generalized weakness, no tingling, no numbness, no tremor(s), no abnormal movements, no abnormal speech, no confusion and no memory loss Psychiatric: no depression, no irritability, no anxiety, no difficulty concentrating, no confusion and no hallucinations Endocrine: no fatigue and no flushing Hematologic / Lymphatic: no easy bleeding and no easy bruising Allergy / Immunological: no urticaria and no problem reported Exam (Neuro) Physical Exam: The patient is right-handed. The patient is awake, alert, and attentive. Speech is normal without any aphasia or dysarthria. The patient can name objects, repeat phrases, and has normal spontaneous speech. Mentation and thought processes are intact, with orientation to person, place and time, and normal fund of knowledge. Attention and concentration are normal. Mood and affect are normal and appropriate. General appearance and grooming are normal. Short and long-term memory seem intact to conversation The discs are sharp with positive venous pulsations bilaterally. There are no exudates, hemorrhages, or blood vessel changes seen. Pupils are 4 mm bilaterally and reactive to light. Extraocular eye muscles are intact without nystagmus. Visual acuity and visual berg seem normal grossly to confrontation. There are no deficits to sensation in the face in all 3 distributions of the fifth cranial nerve bilaterally. Corneal reflexes are positive bilaterally. Facial strength and symmetry was normal bilaterally. Hearing seems normal bilaterally. Palate moves well without asymmetry. There is normal sternocleidomastoid and trapezius (shoulder shrug) strength bilaterally. Tongue is midline with good strength bilaterally. Neck has a full range of motion without discomfort. There are no cervical bruits bilaterally. There are no cranial or ocular bruits. Heart is without murmur. There is a regular rhythm and rate. Cervical, thoracic, and lumbar spine are nontender to palpation. Gait was not tested but stance sitting up in chair is normal. With outstretched arms there is no drift. There are no resting, postural, or action tremors. There is no ataxia with finger to nose testing. The patient has severe joint deformity in the hands so facility cannot be adequately tested. No other abnormal involuntary movements are noted. Motor strength is 5/5 diffusely in the arms bilaterally including deltoids, biceps, triceps, brachioradialis, wrist flexors and extensors, and equipment maintenance superintendent. Motor strength is 5/5 diffusely in the legs bilaterally including hip flexors, quadriceps, hamstrings, gastrocnemius, tibialis anterior, tibialis posterior, and Peroneii muscles. All of the toes on the left are absent and several toes right absent. The limbs have good tone without rigidity or spasticity. There is no atrophy noted in the muscles. Muscle bulk is normal, there is no tenderness to palpation, no myotonia to percussion, and no fasciculations seen. Sensory examination is intact to touch and pin throughout all 4 limbs diffusely. Vibratory and position sense testing is normal bilaterally as well. There is normal sensation to temperature. Reflexes are 1/4 in the biceps, triceps, brachioradialis, quadriceps, and Achilles tendons bilaterally. There is no clonus bilaterally. Toes are downgoing with plantar stimulation on the right. There is no peripheral edema noted in the limbs. Results & Data ([facility] [place]) Vital Signs (Past 12 Hours) Vital Signs Temp Pulse Pulse Resp BP BP Pulse Ox 12/15/20 07:37 37.1 C 68 18 103/58 L 97 12/15/20 03:39 36.8 C 18 89/50 L 98 12/15/20 00:24 36.7 C 18 146/83 H 98 12/15/20 00:12 74 12/14/20 22:00 71 15 107/60 96 12/14/20 21:30 70 18 122/63 97 PG Care Time/CCT Total # of Minutes Spent Total Time Spent with Patient: Total time spent is greater than 50% in coordination of care (as documented) at patient's floor/unit and/or counseling patient: Coding Level of Care Code 57141 Office/Outpt Visit, New Diagnoses Post-traumatic seizures R56.1 Syncope R55 Concussion S06.0X9A Headache R51.9 Time Spent (min) 100 Comment add modifiers as able
--- NOTE | 2020-12-15 08:56 | Electrocardiogram Report ---
Test Reason : Blood Pressure : / mmHG Vent. Rate : 061 BPM Atrial Rate : 061 BPM P-R Int : 166 ms QRS Dur : 146 ms QT Int : 490 ms P-R-T Axes : 009 007 -06 degrees QTc Int : 493 ms Normal sinus rhythm Possible Left atrial enlargement Right bundle branch block Diffuse Nonspecific T wave abnormality Abnormal ECG When compared with ECG of 11-MAY-2020 09:51, No significant change was found Confirmed by Adalberto Newberry ([id number]) on 12/15/2020 8:56:07 AM Referred By: REFERRED SELF Confirmed By:Adalberto Newberry
[2020-12-15] MEDS ORDERED: METOPROLOL TARTRATE 50 MG TAB PO SCH (09:00)
[2020-12-15] MEDS ORDERED: HYDROXYCHLOROQUINE SULFATE 200 MG TAB PO SCH (09:00)
[2020-12-15] MEDS ORDERED: FUROSEMIDE 20 MG TAB PO SCH (09:00)
[2020-12-15] MEDS ORDERED: DOXYCYCLINE HYCLATE 100 MG CAP PO SCH (12:00)
--- NOTE | 2020-12-15 13:21 | Hospitalist Progress Note ---
Date of Service December 15, 2020 Assessment & Plan (1) Syncope: Plan: Araceli Cobos is a 75 y/o F w/ CAD (60% LAD), rheumatoid arthritis, and previous seizure x1-2 who presents w/ syncope and 1 minute episode most consistent w/ generalized tonic clonic seizure. Patient has had sz hx in 2007 w/ neuro consult and had MRI supporting PRES. She was not placed on chronic seizure meds. No family hx. - considered PRES. MRI in AM, would also r/o structural lesion. Neuro consult, they believe her etiology more syncope, and her concussion trigger a brief seizure, believe possible cardiac etiology - no obvious medication precipitation. hydroxychloroquine and autoimmune p ossible assoc w/ PRES Also considered syncope (convulsive>vasovagal/orthostatic>cardiogenic). - Na 130, but this level should not result in seizure. Other labs and electrolytes reviewed. - TSH T4 WNL - Positive lyme --> started doxycycline 12/15 -negative anaplasma smear -12/14 EKG RBBB no change from apr 2020 - monitor telemetry - trop 0.058 max downtrending -cardiology consulted (2) Hyponatremia: Plan: Per patient, has had issues w/ in past. - 130 at admission, recieved IVF, last 136 (3) Fall: Plan: - no acute fracture or brain bleed per imaging - small posterior scalp hematoma noted - clinical presentation reassuring; monitor clinically (4) Elevated troponin: Plan: - given level of elevation, most likely demand ischemia. may also be 2/2 seizure activity - reassuring presentation and w/o chest pain complaint - trop downtrending (5) Rheumatoid arthritis: Plan: - continue home hydroxychloquine (6) Hypertension: Plan: - hold metoprolol due to soft BP -last BP 118/61 (7) Hyperlipidemia: Plan: - continue home Simvastatin Plan: FEN/GI: HH. fluid restrict 2L. No IV fluids ppx: Lovenox code: full dispo: med/surg tele Admission and Anticipated Discharge Date Admission Date: December 14, 2020 Subjective 75yo Female with PMH CAD, RA, polyclonal gammopathy, hyperviscosity syndrome, HTN, HLD, COVID here for 1 episode of syncope followed by generalized seizure. Patient states that she was with her grandson when she lost consciousness and woke up on the floor. She denies that this has ever happened before, denies dizziness when getting up from a chair, denies history of arrythmia. Patient states she is in charge of her own medication, she takes them regularly. Denies any recent changes in diet or medication. Patient seen seated next to bedside resting comfortably, no complaints, denies headache SOB chest pain. Last night patient was laying in bed had an episode of hypotension, she states she did not feel any symptoms dizziness LOC chest pain SOB, states her BP went back to normal when she sat upright. Review of Systems Review of Systems: Negative fever chills Negative headache dizziness Negative chest pain palpitations SOB Negative nausea vomitting diarrhea constipation Negative numbness tingling rash swelling Physical Exam Physical Exam: General: Well appearing, age appropriate Heart: RRR, +S1 S2, no murmurs/gallops/rubs Lungs: cta b/l, no wheezes/rales/rhonchi Abd: soft, NT/ND, +BS Extremities: no swelling, no rashes Results & Data Results & Data ([facility]) Vital Signs (Past 12 Hours) Vital Signs Temp Pulse Resp BP Pulse Ox Pulse Ox 12/15/20 12:30 98 12/15/20 11:15 36.7 C 66 18 118/61 98 12/15/20 07:37 37.1 C 68 18 103/58 L 97 12/15/20 03:39 36.8 C 18 89/50 L 98 Laboratory Results 12/15/20 12/15/20 12/15/20 Range/Units 05:28 05:28 05:28 WBC (4.8-10.8) K/uL RBC (4.2-5.4) M/uL Hgb (12.0-16.0) g/dL Hct (37-47) % MCV (80-100) fL MCH (25-34) pg MCHC (32-36) g/dL RDW Std Deviation (36.4-46.3) fL RDW Coeff of Emily (11.5-14.5) % Plt Count (130-400) K/uL MPV (7.4-10.4) fL Immature Gran % (Auto) % Neut % (Auto) % Lymph % (Auto) % [place] % (Auto) % Eos % (Auto) % Baso % (Auto) % Neut # (Auto) (1.4-6.5) K/uL Lymph # (Auto) (1.2-3.4) K/uL [place] # (Auto) (0.11-0.59) K/uL Eos # (Auto) (0-0.5) K/uL Baso # (Auto) (0-0.2) K/uL Immature Gran # (Auto) (0.00-0.02) K/uL Sodium 136 (136-145) mmol/L Potassium 3.4 L D (3.5-5.1) mmol/L Chloride 107 (98-107) mmol/L Carbon Dioxide 22 (21-32) mmol/L Anion Gap 7.0 (3-11) BUN 14 (7-18) mg/dl Creatinine 0.83 (0.6-1.2) mg/dl Est Cr Clr Drug Dosing 39.8 Est GFR ( Amer) 79.4 ml/min Est GFR (Non-Af Amer) 68.5 ml/min BUN/Creatinine Ratio 16.9 (10-20) Glucose 88 (70-99) mg/dl Calcium 8.1 L (8.5-10.1) mg/dl Magnesium (1.8-2.4) mg/dl Total Bilirubin 0.8 (0.2-1) mg/dl AST 24 (15-37) U/L ALT 21 (12-78) U/L Alkaline Phosphatase 75 (45-117) U/L Troponin I 0.049 H* (0-0.045) ng/ml NT-Pro-B Natriuret Pep (0-1800) pg/ml Total Protein 6.4 (6.4-8.2) gm/dl Albumin 2.9 L (3.4-5.0) gm/dl Globulin 3.5 (2.5-4.0) gm/dl Albumin/Globulin Ratio 0.8 L (0.9-2) Lipase (73-393) U/L TSH (0.300-4.500) uIu/ml Free T4 1.27 (0.8-1.6) ng/dl Urine Color Urine Appearance (Clear) Urine pH (4.5-7.5) Ur Specific Ney (1.000-1.030) Urine Protein (Negative) Urine Glucose (UA) (Negative) Urine Ketones (Negative) Urine Blood (Negative) Urine Nitrite (Negative) Urine Bilirubin (Negative) Urine Urobilinogen (Negative) Ur Leukocyte Esterase (Negative) Anaplasma Smear Lyme Disease IgG Ab Positive A (Negative) Lyme IgG (Western Blot) Pending Lyme IgG 18 kDa Band Pending Lyme IgG 23 kDa Band Pending Lyme IgG 28 kDa Band Pending Lyme IgG 30 kDa Band Pending Lyme IgG 39 kDa Band Pending Lyme IgG 41 kDa Band Pending Lyme IgG 45 kDa Band Pending Lyme IgG 58 kDa Band Pending Lyme IgG 66 kDa Band Pending Lyme IgG 93 kDa Band Pending Lyme IgM Ab (WB) Pending Lyme Disease IgM Ab Equivocal A (Negative) Lyme IgM 23 kDa Band Pending Lyme IgM 39 kDa Band Pending Lyme IgM 41 kDa Band Pending COVID-19 Eval Order SARS-CoV-2 (PCR) (Negative) 12/15/20 12/14/20 12/14/20 Range/Units 05:28 20:47 20:47 WBC 4.88 (4.8-10.8) K/uL RBC 3.76 L (4.2-5.4) M/uL Hgb 11.4 L (12.0-16.0) g/dL Hct 34.4 L (37-47) % MCV 91.5 (80-100) fL MCH 30.3 (25-34) pg MCHC 33.1 (32-36) g/dL RDW Std Deviation 44.4 (36.4-46.3) fL RDW Coeff of Emily 13.2 (11.5-14.5) % Plt Count 114 L (130-400) K/uL MPV 10.7 H (7.4-10.4) fL Immature Gran % (Auto) 0.0 % Neut % (Auto) 61.9 % Lymph % (Auto) 28.5 % [place] % (Auto) 8.0 % Eos % (Auto) 1.4 % Baso % (Auto) 0.2 % Neut # (Auto) 3.02 (1.4-6.5) K/uL Lymph # (Auto) 1.39 (1.2-3.4) K/uL [place] # (Auto) 0.39 (0.11-0.59) K/uL Eos # (Auto) 0.07 (0-0.5) K/uL Baso # (Auto) 0.01 (0-0.2) K/uL Immature Gran # (Auto) 0.00 (0.00-0.02) K/uL Sodium (136-145) mmol/L Potassium (3.5-5.1) mmol/L Chloride (98-107) mmol/L Carbon Dioxide (21-32) mmol/L Anion Gap (3-11) BUN (7-18) mg/dl Creatinine (0.6-1.2) mg/dl Est Cr Clr Drug Dosing Est GFR ( Amer) ml/min Est GFR (Non-Af Amer) ml/min BUN/Creatinine Ratio (10-20) Glucose (70-99) mg/dl Calcium (8.5-10.1) mg/dl Magnesium (1.8-2.4) mg/dl Total Bilirubin (0.2-1) mg/dl AST (15-37) U/L ALT (12-78) U/L Alkaline Phosphatase (45-117) U/L Troponin I (0-0.045) ng/ml NT-Pro-B Natriuret Pep (0-1800) pg/ml Total Protein (6.4-8.2) gm/dl Albumin (3.4-5.0) gm/dl Globulin (2.5-4.0) gm/dl Albumin/Globulin Ratio (0.9-2) Lipase (73-393) U/L TSH (0.300-4.500) uIu/ml Free T4 (0.8-1.6) ng/dl Urine Color Urine Appearance (Clear) Urine pH (4.5-7.5) Ur Specific Ney (1.000-1.030) Urine Protein (Negative) Urine Glucose (UA) (Negative) Urine Ketones (Negative) Urine Blood (Negative) Urine Nitrite (Negative) Urine Bilirubin (Negative) Urine Urobilinogen (Negative) Ur Leukocyte Esterase (Negative) Anaplasma Smear See Comment Lyme Disease IgG Ab (Negative) Lyme IgG (Western Blot) Lyme IgG 18 kDa Band Lyme IgG 23 kDa Band Lyme IgG 28 kDa Band Lyme IgG 30 kDa Band Lyme IgG 39 kDa Band Lyme IgG 41 kDa Band Lyme IgG 45 kDa Band Lyme IgG 58 kDa Band Lyme IgG 66 kDa Band Lyme IgG 93 kDa Band Lyme IgM Ab (WB) Lyme Disease IgM Ab (Negative) Lyme IgM 23 kDa Band Lyme IgM 39 kDa Band Lyme IgM 41 kDa Band COVID-19 Eval Order Covid19 at [facility] SARS-CoV-2 (PCR) NEGATIVE (Negative) 12/14/20 12/14/20 12/14/20 Range/Units 19:12 18:11 17:35 WBC (4.8-10.8) K/uL RBC (4.2-5.4) M/uL Hgb (12.0-16.0) g/dL Hct (37-47) % MCV (80-100) fL MCH (25-34) pg MCHC (32-36) g/dL RDW Std Deviation (36.4-46.3) fL RDW Coeff of Emily (11.5-14.5) % Plt Count (130-400) K/uL MPV (7.4-10.4) fL Immature Gran % (Auto) % Neut % (Auto) % Lymph % (Auto) % [place] % (Auto) % Eos % (Auto) % Baso % (Auto) % Neut # (Auto) (1.4-6.5) K/uL Lymph # (Auto) (1.2-3.4) K/uL [place] # (Auto) (0.11-0.59) K/uL Eos # (Auto) (0-0.5) K/uL Baso # (Auto) (0-0.2) K/uL Immature Gran # (Auto) (0.00-0.02) K/uL Sodium 130 L (136-145) mmol/L Potassium 4.5 (3.5-5.1) mmol/L Chloride 99 (98-107) mmol/L Carbon Dioxide 25 (21-32) mmol/L Anion Gap 6.0 (3-11) BUN 14 (7-18) mg/dl Creatinine 0.89 (0.6-1.2) mg/dl Est Cr Clr Drug Dosing Not Reportable Est GFR ( Amer) 73.0 ml/min Est GFR (Non-Af Amer) 63.0 ml/min BUN/Creatinine Ratio 15.5 (10-20) Glucose 101 H (70-99) mg/dl Calcium 8.7 (8.5-10.1) mg/dl Magnesium 2.0 (1.8-2.4) mg/dl Total Bilirubin 0.9 (0.2-1) mg/dl AST 30 (15-37) U/L ALT 26 (12-78) U/L Alkaline Phosphatase 94 (45-117) U/L Troponin I 0.058 H* 0.040 (0-0.045) ng/ml NT-Pro-B Natriuret Pep 838 (0-1800) pg/ml Total Protein 7.6 (6.4-8.2) gm/dl Albumin 3.6 (3.4-5.0) gm/dl Globulin 4.0 (2.5-4.0) gm/dl Albumin/Globulin Ratio 0.9 (0.9-2) Lipase 170 (73-393) U/L TSH 0.351 (0.300-4.500) uIu/ml Free T4 (0.8-1.6) ng/dl Urine Color Yellow Urine Appearance Clear (Clear) Urine pH 7.0 (4.5-7.5) Ur Specific Ney 1.023 (1.000-1.030) Urine Protein Negative (Negative) Urine Glucose (UA) Negative (Negative) Urine Ketones Negative (Negative) Urine Blood Negative (Negative) Urine Nitrite Negative (Negative) Urine Bilirubin Negative (Negative) Urine Urobilinogen Negative (Negative) Ur Leukocyte Esterase Negative (Negative) Anaplasma Smear Lyme Disease IgG Ab (Negative) Lyme IgG (Western Blot) Lyme IgG 18 kDa Band Lyme IgG 23 kDa Band Lyme IgG 28 kDa Band Lyme IgG 30 kDa Band Lyme IgG 39 kDa Band Lyme IgG 41 kDa Band Lyme IgG 45 kDa Band Lyme IgG 58 kDa Band Lyme IgG 66 kDa Band Lyme IgG 93 kDa Band Lyme IgM Ab (WB) Lyme Disease IgM Ab (Negative) Lyme IgM 23 kDa Band Lyme IgM 39 kDa Band Lyme IgM 41 kDa Band COVID-19 Eval Order SARS-CoV-2 (PCR) (Negative) 12/14/20 Range/Units 17:35 WBC 7.64 (4.8-10.8) K/uL RBC 4.24 (4.2-5.4) M/uL Hgb 13.3 (12.0-16.0) g/dL Hct 39.9 (37-47) % MCV 94.1 (80-100) fL MCH 31.4 (25-34) pg MCHC 33.3 (32-36) g/dL RDW Std Deviation 45.7 (36.4-46.3) fL RDW Coeff of Emily 13.3 (11.5-14.5) % Plt Count 134 (130-400) K/uL MPV 10.1 (7.4-10.4) fL Immature Gran % (Auto) 0.3 % Neut % (Auto) 83.0 % Lymph % (Auto) 11.4 % [place] % (Auto) 4.8 % Eos % (Auto) 0.5 % Baso % (Auto) 0.0 % Neut # (Auto) 6.34 (1.4-6.5) K/uL Lymph # (Auto) 0.87 L (1.2-3.4) K/uL [place] # (Auto) 0.37 (0.11-0.59) K/uL Eos # (Auto) 0.04 (0-0.5) K/uL Baso # (Auto) 0.00 (0-0.2) K/uL Immature Gran # (Auto) 0.02 (0.00-0.02) K/uL Sodium (136-145) mmol/L Potassium (3.5-5.1) mmol/L Chloride (98-107) mmol/L Carbon Dioxide (21-32) mmol/L Anion Gap (3-11) BUN (7-18) mg/dl Creatinine (0.6-1.2) mg/dl Est Cr Clr Drug Dosing Est GFR ( Amer) ml/min Est GFR (Non-Af Amer) ml/min BUN/Creatinine Ratio (10-20) Glucose (70-99) mg/dl Calcium (8.5-10.1) mg/dl Magnesium (1.8-2.4) mg/dl Total Bilirubin (0.2-1) mg/dl AST (15-37) U/L ALT (12-78) U/L Alkaline Phosphatase (45-117) U/L Troponin I (0-0.045) ng/ml NT-Pro-B Natriuret Pep (0-1800) pg/ml Total Protein (6.4-8.2) gm/dl Albumin (3.4-5.0) gm/dl Globulin (2.5-4.0) gm/dl Albumin/Globulin Ratio (0.9-2) Lipase (73-393) U/L TSH (0.300-4.500) uIu/ml Free T4 (0.8-1.6) ng/dl Urine Color Urine Appearance (Clear) Urine pH (4.5-7.5) Ur Specific Ney (1.000-1.030) Urine Protein (Negative) Urine Glucose (UA) (Negative) Urine Ketones (Negative) Urine Blood (Negative) Urine Nitrite (Negative) Urine Bilirubin (Negative) Urine Urobilinogen (Negative) Ur Leukocyte Esterase (Negative) Anaplasma Smear Lyme Disease IgG Ab (Negative) Lyme IgG (Western Blot) Lyme IgG 18 kDa Band Lyme IgG 23 kDa Band Lyme IgG 28 kDa Band Lyme IgG 30 kDa Band Lyme IgG 39 kDa Band Lyme IgG 41 kDa Band Lyme IgG 45 kDa Band Lyme IgG 58 kDa Band Lyme IgG 66 kDa Band Lyme IgG 93 kDa Band Lyme IgM Ab (WB) Lyme Disease IgM Ab (Negative) Lyme IgM 23 kDa Band Lyme IgM 39 kDa Band Lyme IgM 41 kDa Band COVID-19 Eval Order SARS-CoV-2 (PCR) (Negative) Medications Administered Current Inpatient Medications Acetaminophen (Acetaminophen 325 Mg Tab) 650 mg PO Q4H PRN PRN Reason: Pain or Fever Stop: 01/14/21 00:20 Last Admin: 12/15/20 00:41 Dose: 650 mg Documented by: Doxycycline Hyclate (Doxycycline Hyclate 100 Mg Cap) 100 mg PO BID [facility] Stop: 12/25/20 11:59 Last Admin: 12/15/20 12:47 Dose: 100 mg Documented by: Enoxaparin Sodium (Enoxaparin Inj 40 Mg/0.4 Ml Syr) 40 mg SQ Q24H KARLA Stop: 01/14/21 04:59 Last Admin: 12/15/20 09:31 Dose: 40 mg Documented by: Furosemide (Furosemide 20 Mg Tab) 20 mg PO QAM KARLA Stop: 01/14/21 08:59 Last Admin: 12/15/20 09:32 Dose: 20 mg Documented by: Hydroxychloroquine Sulfate (Hydroxychloroquine Sulfate 200 Mg Tab) 200 mg PO BID KARLA Stop: 01/14/21 08:59 Last Admin: 12/15/20 09:32 Dose: 200 mg Documented by: Metoprolol Tartrate (Metoprolol Tartrate 50 Mg Tab) 50 mg PO QAM KARLA Stop: 01/14/21 08:59 Last Admin: 12/15/20 08:32 Dose: Not Given Documented by: Metoprolol Tartrate (Metoprolol Tartrate 100 Mg Tab) 100 mg PO QPM [facility] Stop: 01/14/21 20:59 Simvastatin (Simvastatin 40 Mg Tab) 40 mg PO QPM [facility] Stop: 01/14/21 20:59 Resident Activity Tracking Resident Involvement: Resident Care Provided Care Provided: Adult Hospital Medicine
--- NOTE | 2020-12-15 16:14 | Cardiology Consultation ---
Date of Consultation December 15, 2020 Assessment & Plan (1) Syncope: Etiology of syncopal episode remains unclear. Agree with neurology evaluation that her presentation is more suggestive of convulsive syncope than conventional seizure. Telemetry appears benign, no evidence of heart block or dysrhythmia. Although she has been mildly hypotensive, she denies a history of orthostasis and the event occurred after she had been standing for a while and was actively washing dishes (not shortly after standing up) and she had no prodrome. This makes orthostatic hypotension less likely, but in order to offer more blood pressure reserve would recommend holding her diuretic currently and considering decreased dose upon discharge (e.g., furosemide 20 mg every other day). Similarly, would consider reducing her metoprolol dosing from 100 mg a.m./50 mg every afternoon to 50 mg twice daily. Although her troponin is mildly elevated, she does not describe any prior or prodromal ischemic symptoms in her ECG shows no dynamic changes, suspect supply/demand mismatch from acute syncopal event and patient with known borderline occlusive coronary disease caused mild troponin elevation from demand ischemia. Would recommend increasing her activity on reduced vasoactive regimen, if she is able to ambulate tomorrow morning and has reasonable hemodynamics she could be discharged home with arrangements for a Zio patch or MCOT monitor with plans for follow-up with Dr. Cunha for further evaluation. (2) Nonocclusive coronary atherosclerosis of [place] coronary artery: Although her coronary disease was nonocclusive in 2008, it may have progressed, but she has not been having symptoms suggestive of myocardial ischemia. Could obtain outpatient stress study if etiology of syncope remains unexplained and/or she demonstrates any symptoms suggestive of myocardial ischemia. (3) Chronic heart failure with preserved ejection fraction (HFpEF): She notes that she has done well with no heart failure symptoms since she was placed on diuretics by Dr. Cunha. She appears euvolemic to mildly hypovolemic currently, as noted above would recommend decreasing frequency of diuretic dosing. Could shift to sliding scale weight-based regimen regimen as well. (4) Hypertension: Currently borderline hypotensive, medication adjustment as above. (5) Elevated troponin: As noted above. History of Present Illness Reason for Consultation: Syncope, prolonged QT interval Requesting Physician: Bridget Umana MD Attending Physician: Bridget Umana MD History of Present Illness 75-year-old woman with history of nonocclusive CAD, hemodynamically insignificant LAD/pulmonary artery fistula, diastolic congestive heart failure (on chronic diuretics), rheumatoid arthritis (on hydroxychloroquine), with other medical problems (see below), who was admitted last evening after an episode of convulsive syncope. Patient had a history of a seizure requiring hospitalization in 2007, neurology work-up was negative and she was not placed on anticonvulsants. She has not had prior syncopal episodes and denies any orthostatic symptoms, presyncope, or lightheadedness. She was washing the dishes and had been standing for about 15 minutes when she suddenly lost consciousness and fell to the floor and had tonic/clonic type activity for about 1 minute. No incontinence. Did sustain a small posterior scalp hematoma. She denied any prodrome. She did have dizziness, headache, and several episodes of vomiting after her syncopal episode. She had no associated chest discomfort, dyspnea, or palpitations. Aside from mild scalp discomfort from her hematoma, she has no current complaints. Telemetry monitoring shows sinus rhythm 60-70 bpm with no bradycardia, heart block, significant ectopy or dysrhythmias. PAST MEDICAL HISTORY (from Dr. Cunha's 08/16/20 outpatient note): 1. A 60% mid LAD lesion. 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 3. Normal Qp/Qs suggesting no evidence of significant left to right shunting. 4. Normal pulmonary artery pressures and normal pulmonary capillary wedge pressures (10/2012 at [facility] in the scanned outside procedure note from 10/20/2012) which were significantly different than the catheterization at [facility] which revealed pulmonary hypertension and severe elevation of her wedge pressures. 5. Echocardiogram 02/2020 with normal LV function, EF in the range of 65% with type 2 diastolic dysfunction and elevated left atrial pressures and top normal pulmonary artery pressures without significant valvular heart disease. 6. Longstanding rheumatoid arthritis. 7. Polyclonal gammopathy 8. TMA of her left foot. 9. History of hyperviscosity syndrome. 10. Osteoporosis. 11. History of perirectal abscess with E. coli bacteremia. 12. Negative workup for amyloidosis 09/2007. 13. History of a negative workup for heparin-induced thrombocytopenia. 14. Status post hip fracture, 07/2014. 15. Right bundle-branch block. Allergies Allergy/AdvReac Type Severity Reaction Status Date / Time Sulfa (Sulfonamide Allergy Intermediate Rash Verified 12/14/20 21:20 Antibiotics) trimethoprim Allergy Intermediate Rash Verified 12/14/20 21:20 vancomycin Allergy Intermediate Rash, Verified 12/14/20 21:20 shortness of breath Cephalosporins AdvReac Mild Vomiting Verified 12/14/20 21:20 Home Medications Medication Instructions Recorded Confirmed Type acetaminophen 500 mg tablet 1,000 mg PO Q6H PRN 05/09/20 12/14/20 History aspirin 81 mg tablet,delayed 81 mg PO QAM 05/09/20 12/14/20 History release (Aspirin Low Dose) calcium carbonate 600 mg calcium 600 mg PO QAM 05/09/20 12/14/20 History (1,500 mg) tablet (Calcium) cholecalciferol (vitamin D3) 125 125 mcg PO QAM 05/09/20 12/14/20 History mcg (5,000 unit) tablet (Vitamin D3) furosemide 20 mg tablet 20 mg PO QAM 05/09/20 12/14/20 History hydroxychloroquine 200 mg tablet 200 mg PO BID 05/09/20 12/14/20 History metoprolol tartrate 100 mg tablet 100 mg PO QPM 05/09/20 12/14/20 History simvastatin 40 mg tablet 40 mg PO QPM 05/09/20 12/14/20 History metoprolol tartrate 100 mg tablet 50 mg PO QAM 12/14/20 12/14/20 History Patient History Medical History Edema Endometriosis Fracture of femoral neck, right Headache Hyperlipidemia Hypertension No pertinent family history Osteoporosis Rheumatoid arthritis Surgical History No pertinent past surgical history Social History Smoking Status: Former smoker Tobacco Type: Cigarettes Smoking End Date: 2009; Second Hand Exposure: No; Hx Alcohol Use: Yes Alcohol type: wine Hx Substance Use: No Preferred Language: Arabic Communication Ability: Effective Fish Liver Sorter Required: No Beliefs That Will Affect Care: None marital status: / Current Living Situation: Family Current Living Situation Comment: Lives with son and grandchildren How many Children do You have: 1 Other Information That Helps Us Care for You: No Feels Safe at Home: Yes Safety Concerns: Feels Safe At This Time Assistive Devices: Cane Assistive Devices Comment: was on home O2 after covid hosp admisison, since weaned off Physical Exam Physical Exam: Normal habitus elderly white female in no distress. Afebrile. Blood pressure is mildly hypotensive to low normal. Pulse 65 and regular without ectopy. Skin: no ecchymoses or generalized lesions. HEENT: Small posterior hematoma, otherwise unremarkable. Neck: Jugular venous pulse at or just below the clavicle at 90 degrees, no carotid bruits. Lungs: clear bilaterally. Cardiac: regular rhythm, no murmur or gallop. Abdomen: benign. Extremities: no edema, pulses intact. Neurologic: normal affect and conversation, nonfocal. Results & Data ([facility]) Vital Signs (Past 12 Hours) Vital Signs Temp Pulse Resp BP Pulse Ox Pulse Ox 12/15/20 12:30 98 12/15/20 11:15 98.1 F 66 18 118/61 98 12/15/20 07:37 98.8 F 68 18 103/58 L 97 12/15/20 03:39 98.2 F 18 89/50 L 98 Laboratory Results Troponins were borderline (0.040, 0.058, 0.049) Hemoglobin 11 with normal white count. Potassium 3.4, otherwise normal electrolytes, BUN 14, creatinine 0.83. Diagnostic Findings ECG on admission showed sinus rhythm, right bundle branch block, nonspecific T wave abnormality (flattened T wave in anterior leads). QTc interval was normal (440 ms by my measurement). Compared with ECG of 05/11/2020, no significant change. Chest x-ray unremarkable. Brain MRI and head CT were unremarkable. CT of the abdomen/pelvis was unremarkable. Echocardiogram from February 2020 showed EF 65 to 70% with mild LVH and grade 2 diastolic dysfunction. Mild MR/TR/PI with top normal PA systolic pressure. Compared with 2013 study, diastolic dysfunction had worsened, otherwise no significant change. PG Care Time/CCT Total # of Minutes Spent Total Time Spent with Patient: Total time spent is greater than 50% in coordination of care (as documented) at patient's floor/unit and/or counseling patient: Coding Level of Care Code 83486 Initial Inpt Care Lvl 3 Diagnoses Syncope R55 Nonocclusive coronary atherosclerosis of [place] coronary artery I25.10 Chronic heart failure with preserved ejection fraction (HFpEF) I50.32 Hypertension I10 Elevated troponin R77.8
[2020-12-15 16:24] VITALS: BP 128/55; TEMP 97.9; O2SAT 99
--- NOTE | 2020-12-15 18:16 | Discharge Summary ---
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 This was witnessed by the grandson who noted that patient appeared unresponsive, fell backwards, and hit her occiput on the linoleum. Patient then had eyes rolled back and had tonic-clonic like activity for almost a minute. After the episode resolved, patient had some nausea but no other symptoms. Her son came several minutes later and called EMS. Son noticed some pallor. Currently, back of head is hurting s/p hitting her head. Denies confusion, numbness/tingling, tinnitus. She has had total of 3 episodes of emesis, but this has resolved and she is no longer nauseated. Denies recent illness. No postdrome or postictal symptoms. Patient had a seizure episode in 2007 while hospitalized at [facility] and had neuro consult w/ unremarkable eeg and MRI brain suggestive of PRES at the time. She was not placed on chronic antiepileptic therapy. Denies hx of migraines. 20 pack year tobacco hx, quit 10 years ago. Patient was on home O2 after covid admission, but has since weaned off. ED course: NSS maintenance rate. Prelim labwork and imaging (CT head, abd/pelv. XR hip, chest) w/o acute fracture or bleed. 2nd troponin slightly elev from 0.40 to 0.58. Admission Exam Per Admitting Provider General: A&Ox4. NAD. Cooperative. Normal speech. HEENT: Small palpable raised lump at occiput, mildly TTP. EOMI. PERRL. Poor dentition. + tongue bite nia on right. Neck supple. No c spine ttp. Pulm: CTAB. -wheezes, -rales, -rhonchi. No respiratory distress. Cardiac: RRR, -mrg. Radial pulses intact and symmetrical. Abdominal: Nontender, nondistended, soft. Neuro: CN II-XII intact. No facial droop. Normal strength and sensation of extremities. Integ: No visible rash, bruising or erythema, including at occiput of skull. Principal Diagnosis Syncope Discharge Exam General: Well appearing, age appropriate Heart: RRR, +S1 S2, no murmurs/gallops/rubs Lungs: cta b/l, no wheezes/rales/rhonchi Abd: soft, NT/ND, +BS Extremities: no swelling, no rashes Discharge Data Allergies Allergy/AdvReac Type Severity Reaction Status Date / Time Sulfa (Sulfonamide Allergy Intermediate Rash Verified 12/14/20 21:20 Antibiotics) trimethoprim Allergy Intermediate Rash Verified 12/14/20 21:20 vancomycin Allergy Intermediate Rash, Verified 12/14/20 21:20 shortness of breath Cephalosporins AdvReac Mild Vomiting Verified 12/14/20 21:20 Consultations 12/14/20 20:25 ED Decision to Admit Stat 12/14/20 22:51 Consult Neurology Routine 12/15/20 11:52 Consult Cardiology Routine Ordered Studies 12/14/20 16:19 CT cervical spine wo con Stat CT head/brain wo con Stat 12/14/20 16:35 CT abd pelvis IV con only Stat 12/14/20 22:51 MR brain seizure wo con Routine Hospital Course (1) Syncope: Araceli Cobos is a 75 y/o F w/ CAD (60% LAD), rheumatoid arthritis, and previous seizure x1-2 who presents w/ syncope and 1 minute episode most consistent w/ generalized tonic clonic seizure. Patient has had sz hx in 2007 w/ neuro consult and had MRI supporting PRES. She was not placed on chronic seizure meds. No family hx. Considered PRES. No obvious medication precipitation. hydroxychloroquine and autoimmune possible assoc w/ PRES. MRI brain negative. Neuro consult, they believe her etiology more syncope, and her concussion trigger a brief seizure, believe possible cardiac etiology More likely Cardiogenic etiology Low Na 130, other labs and electrolytes reviewed WNL. TSH T4 WNL. Positive lyme. Negative anaplasma smear. 12/14 EKG RBBB no change from apr 2020. Trop 0.058 max downtrending. Cardiology consulted, believe contribution from hypovolemia/arrythmia. Decreasing lasix to 20mg every other day, metoprolol to 50mg BID, recommend 30 day event monitor. Please have patient follow up with Dr. Cunha to get the event monitor. (2) Lyme disease: Lyme IgG positive. Started on doxycyclne - sent home with rx to finish 10 days of course. (3) Prolonged Q-T interval on ECG: QT 490. No arrythmias noted while in the hospital. To have outpatient event monitor arranged. (4) Hyponatremia: Per patient, has had issues w/ in past. 130 at admission, recieved IVF, last 136 (5) Fall: No acute fracture or brain bleed per imaging, small posterior scalp hematoma noted. Clinical presentation reassuring. (6) Elevated troponin: Given level of elevation, most likely demand ischemia. Reassuring presentation and w/o chest pain complaint, trop downtrending. (7) Rheumatoid arthritis: Continue home hydroxychloquine (8) Hypertension: Metoprolol dose decreased. See above. Lasix decreased to every other day. Orthostatics negative. (9) Hyperlipidemia: Continue home Simvastatin Total Time Total Time Spent Total Time Spent (In Minutes): see attending attestation Discharge Plan Discharge Items Patient Disposition: Home - Self-Care Reason For Visit: SEIZURE VS SYNCOPE Discharge Diagnosis: Syncope Activity: Resume your previous activity Non-emergency contact: Primary Care Provider Call non-emergency contact if: your symptoms worsen Follow-up/Referrals: Jose Padgett Jr, DO [Primary Care Provider] - (Please call your primary care office and schedule a hospital follow up appointment.) Diet: Regular and Heart Healthy Addtl Attending Provider Instructions: You were admitted to the hospital for Syncope, also known as fainting. You were evaluated by Neurology, who determined that you did not have a seizure. You were also evaluated by Cardiology, who determined you were slightly dehydrated, and that may have contributed to your symptoms. We will reduce your lasix from 20mg daily to 20mg every other day. We will also reduce your metoprolol to 50mg twice a day. We would like you to follow up with cardiology to get a 30 day event monitor, in order to evaluate for possible arrythmias You were also found to be positive for Lyme Disease. It is possible that Lyme disease may also have contributed to your symptoms. Please take the antibiotic Doxycycline twice a day for 9 days, and follow up with your PCP. Please do not take your calcium supplement while you are on this medication. A discharge summary will be sent to your primary care physician to ensure continuity of care. Please bring this discharge summary with you to your next office appointment so that your provider can review it at that time. Follow-up appointments: Make a follow-up appointment with your PCP within the next week. It is very important that you follow up with them shortly after discharge from the hospital. Make a follow-up appointment with your Curatorial Specialist. It is very important that you follow up with them shortly after discharge from the hospital. Keep all your follow-up appointments as already scheduled. If you cannot make an appointment, notify your provider. Medications: Your medication list has been reviewed and reconciled upon discharge to ensure accuracy and continuity of care. An updated list of all your medications is included with your hospital discharge paperwork. Please review this list closely, and make note of any changes. * We have adjusted your Lasix to 20mg every other day. * We have adjusted your Metoprolol to 50mg twice a day. * We have sent a medication called Doxycycline to your pharmacy. Please take Doxycycline 100mg twice a day for 9 days. Take your medications as instructed; do not skip a dose of your medicines. Make sure all of your doctors know every medicine you are taking (including weis-hpn-lqsehyb medicines, vitamins, and supplements). Call your primary care provider before taking any new medicines (including tmck-rhn-hrspdgc medicines, vitamins, and supplements), because some of these may interact with your current medications, or may make your symptoms worse. Tell your primary care provider if you cannot afford your medications. CONTACT YOUR PRIMARY CARE PROVIDER if you experience any of the following: Trouble breathing, fainting Difficulty following your treatment plan, or difficulty taking medications CALL 911 OR GO TO THE EMERGENCY DEPARTMENT if you experience any of the following: Sudden, severe abdominal pain or nausea/vomiting Severe chest pain, or chest pain that radiates (moves) to your jaw or arm Sudden, severe shortness of breath or difficulty breathing Thank you for allowing us to participate in your care. Pending Studies at Discharge: No Stand-Alone Forms: [employer], Smoking Cessation Medications and DC Order Prescriptions: New doxycycline hyclate 100 mg capsule 100 mg PO BID 9 Days Qty: 18 RF: 0 Continued aspirin [Aspirin Low Dose] 81 mg Tablet,Delayed Release (Dr/Ec) 81 mg PO QAM RF: 0 acetaminophen 500 mg Tablet 1,000 mg PO Q6H PRN (Reason: Pain) RF: 0 simvastatin 40 mg tablet 40 mg PO QPM RF: 0 calcium carbonate [Calcium 600] 600 mg calcium (1,500 mg) Tablet 600 mg PO QAM RF: 0 furosemide 20 mg tablet 20 mg PO QAM RF: 0 hydroxychloroquine 200 mg tablet 200 mg PO BID RF: 0 cholecalciferol (vitamin D3) [Vitamin D3] 125 mcg (5,000 unit) Tablet 125 mcg PO QAM RF: 0 metoprolol tartrate 100 mg tablet 50 mg PO QAM RF: 0 Discontinued metoprolol tartrate 100 mg tablet 100 mg PO QPM RF: 0 Discharge Orders: Discharge Order (Routine); Ordered 12/15/20 Ordered By: Tricia Spencer Admission Data Admit Date/Time: 12/14/20 22:51 Attending Provider: Bridget Umana Admit Provider: Miller Roth Primary Care Provider: Jose Padgett Jr Other Providers: Pavan Baeza ; Gregorio Norman ; Adalberto Newberry Other Interventions: Discharge Summary Assessment (RN) Last Done: 12/15/20 18:07 Supervising Physician Co-Signing Physician Notes Resident Physician Supervision Note: I independently interviewed and examined the patient and verified the ro histo ry and physical, reviewed labs and image studies and agree with resident Dr. Spencer findings and care plan. Resident Activity Tracking Resident Involvement: Resident Care Provided Care Provided: Adult Hospital Medicine
[2020-12-15 18:34] VITALS: PULSE 68
[2020-12-15] MEDS ORDERED: METOPROLOL TARTRATE 100 MG TAB PO SCH (21:00)
[2020-12-15] MEDS ORDERED: SIMVASTATIN 40 MG TAB PO SCH (21:00)
--- NOTE | 2020-12-16 05:29 | Billing Data ---
Date of Service December 16, 2020 Coding Level of Care Code INT OBSERVATION CARE 70M LVL 3
[2020-12-19 00:26] LABS: 18KDIGG Band REACTIVE; 23KDIGG Band NON-REACTIVE; 23KDIGM Band REACTIVE; 28KDIGG Band REACTIVE; 30KDIGG Band REACTIVE; 39KDIGG Band REACTIVE; 39KDIGM Band NON-REACTIVE; 41KDIGG Band REACTIVE; 41KDIGM Band REACTIVE; 45KDIGG Band REACTIVE; 58KDIGG Band REACTIVE; 66KDIGG Band REACTIVE; 93KDIGG Band REACTIVE; Lyme Antibodies, WB IgG POSITIVE (NEGATIVE); Lyme Antibodies, WB IgM POSITIVE (NEGATIVE)
== END 2020-12-15 18:49 | disposition home or self-care (01) ==
LOC: ED 15:15 → 2W 15:15 → SUATTDRO 22:51 → 2W 23:30
DX: Z79.82 Long term (current) use of aspirin; Z79.899 Other long term (current) drug therapy; M81.0 Age-related osteoporosis without current pathological fracture; S00.03XA Contusion of scalp, initial encounter; I10 Essential (primary) hypertension; E78.5 Hyperlipidemia, unspecified; I25.10 Atherosclerotic heart disease of native coronary artery without angina pectoris; R77.8 Other specified abnormalities of plasma proteins; K44.9 Diaphragmatic hernia without obstruction or gangrene; Z87.891 Personal history of nicotine dependence; R56.1 Post traumatic seizures; K57.30 Diverticulosis of large intestine without perforation or abscess without bleeding; S06.0X9A Concussion with loss of consciousness of unspecified duration, initial encounter; A69.20 Lyme disease, unspecified; Z20.822 Contact with and (suspected) exposure to COVID-19; E87.1 Hypo-osmolality and hyponatremia; M06.9 Rheumatoid arthritis, unspecified; R55 Syncope and collapse; Z88.1 Allergy status to other antibiotic agents; W19.XXXA Unspecified fall, initial encounter; Z88.2 Allergy status to sulfonamides

== ENCOUNTER 2020-12-29 18:42 | Inpatient (IN) ==
[2020-12-29 19:11] LABS: Basophils # (auto) 0.04 K/uL (0-0.2); Basophils % (auto) 0.6 %; Eosinophils # (auto) 0.15 K/uL (0-0.5); Eosinophils % (auto) 2.3 %; Hematocrit (blood only) 38.7 % (37-47); Hemoglobin 12.8 g/dL (12.0-16.0); Lymphocytes # (auto) 2.11 K/uL (1.2-3.4); Lymphocytes % (auto) 31.8 %; Mean Corpuscular Hemoglobin 30.8 pg (25-34); Mean Corpuscular Hgb Conc 33.1 g/dL (32-36); Mean Corpuscular Volume 93.3 fL (80-100); Mean Platelet Volume 9.8 fL (7.4-10.4); Monocytes % (auto) 7.5 %; Neutrophils # (auto) 3.84 K/uL (1.4-6.5); Neutrophils % (auto) 57.8 %; Platelet Count 146 K/uL (130-400); RDW Coefficient of Variation 13.8 % (11.5-14.5); Red Blood Count 4.15 M/uL (4.2-5.4); White Blood Count 6.64 K/uL (4.8-10.8)
[2020-12-29 19:29] LABS: Alanine Aminotransferase 31 U/L (12-78); Albumin Level 3.3 gm/dl (3.4-5.0); Aspartate Aminotransferase 34 U/L (15-37); BUN Creatinine Ratio 12.9 (10-20); Blood Urea Nitrogen 19 mg/dl (7-18); Calcium 9.6 mg/dl (8.5-10.1); Carbon Dioxide 29 mmol/L (21-32); Chloride 104 mmol/L (98-107); Est GFR (African American) 40.4 ml/min; Est GFR (Non-African American) 34.9 ml/min; Glucose 91 mg/dl (70-99); Lipase 172 U/L (73-393); Potassium 4.7 mmol/L (3.5-5.1); Sodium 137 mmol/L (136-145)
[2020-12-29 19:30] LABS: Partial Thromboplastin Ratio 0.9; Partial Thromboplastin Time 24.9 Seconds (21.0-31.0)
[2020-12-29 19:34] LABS: Albumin Globulin Ratio 0.7 (0.9-2); Alkaline Phosphatase 103 U/L (45-117); Bilirubin,Total 0.6 mg/dl (0.2-1); Globulin 4.7 gm/dl (2.5-4.0); Troponin I < 0.015 ng/ml (0-0.045)
--- NOTE | 2020-12-29 20:38 | XRay Report ---
XR chest 1V portable CLINICAL HISTORY: Atypical chest pain. COMPARISON STUDY: Chest CT May 09, 2020. Chest radiograph December 14, 2020. FINDINGS: Lung volumes are normal. Lungs are clear. There is no pneumothorax or pleural effusion. Car diac size is stable. Mediastinal contours are normal. There is no evidence for pulmonary edema. Elect ronic device projects over the left chest. IMPRESSION: No acute cardiopulmonary findings. ACT 112: Negative or not required by law. Electronically signed by: Ej Veronica M.D. 12/29/2020 8:37 PM
[2020-12-29 21:48] LABS: Magnesium 2.6 mg/dl (1.8-2.4); Thyroid Stimulating Hormone 1.48 uIu/ml (0.300-4.500)
--- NOTE | 2020-12-29 23:10 | Emergency Department Note ---
History of Present Illness General Chief complaint: Cardiac Assessment Stated complaint: Cardiac Assessment Time Seen by Provider: 12/29/20 22:50 History of Present Illness 75-year-old female presents to the ED with a chief complaint of being contacted by her heart monitor company [employer] and told to come to the hospital because she needs a pacemaker. She states they told her her heart shut down. The patient states that she was feeling lightheaded throughout the day today intermittently. 2 to 3 weeks ago she had a syncopal episode where she fell and hurt her self. She has seen Dr. Cunha. The patient has no complaints at this time. No fevers or recent illness. No chest pains or shortness of breath. Home Medications Medication Instructions Recorded Confirmed Type acetaminophen 500 mg tablet 1,000 mg PO Q6H PRN 05/09/20 12/14/20 History aspirin 81 mg tablet,delayed 81 mg PO QAM 05/09/20 12/14/20 History release (Aspirin Low Dose) calcium carbonate 600 mg calcium 600 mg PO QAM 05/09/20 12/14/20 History (1,500 mg) tablet (Calcium) cholecalciferol (vitamin D3) 125 125 mcg PO QAM 05/09/20 12/14/20 History mcg (5,000 unit) tablet (Vitamin D3) furosemide 20 mg tablet 20 mg PO QAM 05/09/20 12/14/20 History hydroxychloroquine 200 mg tablet 200 mg PO BID 05/09/20 12/14/20 History simvastatin 40 mg tablet 40 mg PO QPM 05/09/20 12/14/20 History metoprolol tartrate 100 mg tablet 50 mg PO QAM 12/14/20 12/14/20 History Allergies Allergy/AdvReac Type Severity Reaction Status Date / Time Sulfa (Sulfonamide Allergy Intermediate Rash Verified 12/14/20 21:20 Antibiotics) trimethoprim Allergy Intermediate Rash Verified 12/14/20 21:20 vancomycin Allergy Intermediate Rash, Verified 12/14/20 21:20 shortness of breath Cephalosporins AdvReac Mild Vomiting Verified 12/14/20 21:20 Past Med/Surg History Medical History Edema Endometriosis Fracture of femoral neck, right Headache Hyperlipidemia Hypertension No pertinent family history Osteoporosis Rheumatoid arthritis Surgical History No pertinent past surgical history Social History Smoking Status: Never smoker Tobacco Type: Cigarettes Second Hand Exposure: No; Hx Alcohol Use: Yes Alcohol type: wine Hx Substance Use: No Preferred Language: Bengali Communication Ability: Effective [employer]ph[employer] Required: No Beliefs That Will Affect Care: None marital status: / Current Living Situation: Family Current Living Situation Comment: Lives with son and grandchildren How many Children do You have: 1 Feels Safe at Home: Yes Assistive Devices: Cane Review of Systems A total of 10 systems reviewed and were otherwise negative Physical Exam Vital Signs Vital Signs - 24 hr 12/29/20 18:46 Temperature 37.1 C Temperature Source Skin Pulse Rate 68 Pulse Rhythm Regular Pulse Strength Normal Respiratory Rate 20 Respiratory Effort / Characteristics Non-Labored Spontaneous Respiratory Depth Normal Respiratory Pattern Regular Blood Pressure 194/90 H Blood Pressure Mean 124 Pulse Oximetry 100 Oxygen Delivery Method Room Air Sepsis Recent Fever Within 48 Hours No Sepsis New/Unexplained Change in Mental Status N/A Sepsis Action Taken by Nursing No Action Required CONSTITUTIONAL/VITAL SIGNS: Reviewed / noted above. GENERAL: Non-toxic in appearance. INTEGUMENTARY: Warm, dry, and [place]. HEAD: Normocephalic. EYES: without scleral icterus or trauma. ENT/OROPHARYNX: clear and moist. LYMPHADENOPATHY/NECK: Is supple without lymphadenopathy or meningismus. RESPIRATORY: Clear to auscultation bilaterally. No increased work of breathing. CARDIOVASCULAR: Regular rate and rhythm. GI/ABDOMEN: Soft and nontender. No organomegaly or pulsatile mass. EXTREMITIES: Warm and well perfused. BACK: No CVA tenderness. NEUROLOGICAL: Intact without focal deficits. PSYCHIATRIC: normal affect. MUSCULOSKELETAL: Normally developed with good muscle tone. TRIAGE NURSING DOCUMENTATION REVIEWED. Medical Decision Making Differential Diagnosis Differential includes acute coronary syndrome, myocardial infarction, CVA, TIA, anemia, infection, pneumonia, UTI, pyelonephritis, poor nutrition, dehydration, electrolyte disturbance,hypoglycemia, arrhythmia. Medical Records Attestation: I reviewed the patient's medical records. Home Medications Current Medication List: was personally reviewed by me Laboratory Data Attestation: I reviewed the patient's lab results. Result diagrams: 12/29/20 19:00 12/29/20 19:00 Lab Results 12/29/20 12/29/20 12/29/20 Range/Units 19:00 19:00 19:00 WBC 6.64 (4.8-10.8) K/uL RBC 4.15 L (4.2-5.4) M/uL Hgb 12.8 (12.0-16.0) g/dL Hct 38.7 (37-47) % MCV 93.3 (80-100) fL MCH 30.8 (25-34) pg MCHC 33.1 (32-36) g/dL RDW Std Deviation 47.0 H (36.4-46.3) fL RDW Coeff of Emily 13.8 (11.5-14.5) % Plt Count 146 (130-400) K/uL MPV 9.8 (7.4-10.4) fL Immature Gran % (Auto) 0.0 % Neut % (Auto) 57.8 % Lymph % (Auto) 31.8 % Esmeralda % (Auto) 7.5 % Eos % (Auto) 2.3 % Baso % (Auto) 0.6 % Neut # (Auto) 3.84 (1.4-6.5) K/uL Lymph # (Auto) 2.11 (1.2-3.4) K/uL Esmeralda # (Auto) 0.50 (0.11-0.59) K/uL Eos # (Auto) 0.15 (0-0.5) K/uL Baso # (Auto) 0.04 (0-0.2) K/uL Immature Gran # (Auto) 0.00 (0.00-0.02) K/uL APTT 24.9 (21.0-31.0) Seconds PTT Ratio 0.9 Sodium 137 (136-145) mmol/L Potassium 4.7 (3.5-5.1) mmol/L Chloride 104 (98-107) mmol/L Carbon Dioxide 29 (21-32) mmol/L Anion Gap 4.0 (3-11) BUN 19 H (7-18) mg/dl Creatinine 1.45 H (0.6-1.2) mg/dl Est Cr Clr Drug Dosing 26.0 ml/min Est GFR ( Amer) 40.4 ml/min Est GFR (Non-Af Amer) 34.9 ml/min BUN/Creatinine Ratio 12.9 (10-20) Glucose 91 (70-99) mg/dl Calcium 9.6 (8.5-10.1) mg/dl Magnesium (1.8-2.4) mg/dl Total Bilirubin 0.6 (0.2-1) mg/dl AST 34 (15-37) U/L ALT 31 (12-78) U/L Alkaline Phosphatase 103 (45-117) U/L Troponin I < 0.015 (0-0.045) ng/ml Total Protein 8.0 (6.4-8.2) gm/dl Albumin 3.3 L (3.4-5.0) gm/dl Globulin 4.7 H (2.5-4.0) gm/dl Albumin/Globulin Ratio 0.7 L (0.9-2) Lipase 172 (73-393) U/L TSH (0.300-4.500) uIu/ml 12/29/20 Range/Units 19:00 WBC (4.8-10.8) K/uL RBC (4.2-5.4) M/uL Hgb (12.0-16.0) g/dL Hct (37-47) % MCV (80-100) fL MCH (25-34) pg MCHC (32-36) g/dL RDW Std Deviation (36.4-46.3) fL RDW Coeff of Emily (11.5-14.5) % Plt Count (130-400) K/uL MPV (7.4-10.4) fL Immature Gran % (Auto) % Neut % (Auto) % Lymph % (Auto) % Esmeralda % (Auto) % Eos % (Auto) % Baso % (Auto) % Neut # (Auto) (1.4-6.5) K/uL Lymph # (Auto) (1.2-3.4) K/uL Esmeralda # (Auto) (0.11-0.59) K/uL Eos # (Auto) (0-0.5) K/uL Baso # (Auto) (0-0.2) K/uL Immature Gran # (Auto) (0.00-0.02) K/uL APTT (21.0-31.0) Seconds PTT Ratio Sodium (136-145) mmol/L Potassium (3.5-5.1) mmol/L Chloride (98-107) mmol/L Carbon Dioxide (21-32) mmol/L Anion Gap (3-11) BUN (7-18) mg/dl Creatinine (0.6-1.2) mg/dl Est Cr Clr Drug Dosing ml/min Est GFR ( Amer) ml/min Est GFR (Non-Af Amer) ml/min BUN/Creatinine Ratio (10-20) Glucose (70-99) mg/dl Calcium (8.5-10.1) mg/dl Magnesium 2.6 H (1.8-2.4) mg/dl Total Bilirubin (0.2-1) mg/dl AST (15-37) U/L ALT (12-78) U/L Alkaline Phosphatase (45-117) U/L Troponin I (0-0.045) ng/ml Total Protein (6.4-8.2) gm/dl Albumin (3.4-5.0) gm/dl Globulin (2.5-4.0) gm/dl Albumin/Globulin Ratio (0.9-2) Lipase (73-393) U/L TSH 1.480 (0.300-4.500) uIu/ml Imaging Data Radiologist's Impression: Chest X-Ray 12/29/20 18:53 XR chest 1V portable CLINICAL HISTORY: Atypical chest pain. COMPARISON STUDY: Chest CT May 09, 2020. Chest radiograph December 14, 2020. FINDINGS: Lung volumes are normal. Lungs are clear. There is no pneumothorax or pleural effusion. Cardiac size is stable. Mediastinal contours are normal. There is no evidence for pulmonary edema. Electronic device projects over the left chest. IMPRESSION: No acute cardiopulmonary findings. ACT 112: Negative or not required by law. Electronically signed by: Ej Veronica M.D. 12/29/2020 8:37 PM ECG Data Attestation: I personally reviewed and interpreted this ECG as follows: Additional Comments: Twelve-lead EKG: Per my interpretation there is a normal sinus rhythm at a rate of 68. Right bundle branch block. No ST elevation. No PVCs. MDM Narrative Patient presents with an event monitor that alerted her that she needed to come to the hospital for possible pacemaker due to an arrhythmia. The patient currently has no symptoms but did have some lightheadedness earlier today. The patient Is currently asymptomatic. Twelve-lead EKG shows a normal sinus rhythm at a rate of 68 with a right bundle branch block. CBC and chemistry panel Is unremarkable. Troponin is negative. BUN is 19 and creatinine is 1.45. Baseline creatinine is 0.85. TSH was normal. The patient was told the results. She will see the hospitalist for further inpatient monitoring and care. Impression & Plan Arrhythmia, Acute kidney injury, Episodic lightheadedness Discharge Plan Visit Data Chief Complaint: Cardiac Assessment Stated Complaint: Cardiac Assessment ED Provider: Damaso Vogt Discharge Problem: Arrhythmia, Acute kidney injury, Episodic lightheadedness Patient Disposition: Being Evaluated by Hospitalist Forms Stand Alone Forms: [facility], Virtual Emergency Department, Important Visit Information Prescriptions Prescriptions: No Action aspirin [Aspirin Low Dose] 81 mg Tablet,Delayed Release (Dr/Ec) 81 mg PO QAM RF: 0 acetaminophen 500 mg Tablet 1,000 mg PO Q6H PRN (Reason: Pain) RF: 0 simvastatin 40 mg tablet 40 mg PO QPM RF: 0 calcium carbonate [Calcium 600] 600 mg calcium (1,500 mg) Tablet 600 mg PO QAM RF: 0 furosemide 20 mg tablet 20 mg PO QAM RF: 0 hydroxychloroquine 200 mg tablet 200 mg PO BID RF: 0 cholecalciferol (vitamin D3) [Vitamin D3] 125 mcg (5,000 unit) Tablet 125 mcg PO QAM RF: 0 metoprolol tartrate 100 mg tablet 50 mg PO QAM RF: 0 Referrals Referrals: Jose Padgett Jr, [Primary Care Provider] -
[2020-12-29] MEDS ORDERED: SODIUM CHLORIDE 0.9% 1000ML 500 ML IV ONE (23:40)
[2020-12-30] MEDS ORDERED: ONDANSETRON INJ 2 MG/ML 2 ML VIAL IV PRN (01:20)
--- NOTE | 2020-12-30 01:54 | History & Physical Report ---
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 She presents today after being contacted by her heart monitor company [employer] #Arrhythmia Patient recently discharged on December 15 for evaluation of syncopal episode. During this admission there was no clear etiology of her syncopal episode. She was noted to have Lyme disease and started on appropriate therapy, she reports being compliant with this therapy. Since discharge she has been feeling well reporting no fevers or chills, nausea or vomiting, chest pressure, chest pain, shortness of breath. She does note a slight bit of increased fatigue. She was in her usual state of health this afternoon when she was contacted by her heart monitor company [employer] who advised her to come to the emergency department as she would need a pacemaker. She has no further details regarding the arrhythmia that was observed, or other information as to why she was instructed to present to the hospital. Plan to obtain pacemaker interrogation and consult cardiology if indicated. -Admit to telemetry, n.p.o. in the event pacemaker is needed -Interrogate pacemaker -Consult cardiology based on results -EKG with chest pain #VERONICA Creatinine on presentation today was 1.45, baseline appears to be 0.9. Avoid nephrotoxins, adequate hydration -LR at 100 -Trend BMP #Chronic heart failure with preserved ejection fraction Not in failure at present, continue home medications -Furosemide 20 mg every morning -Metoprolol 50 mg every morning #Rheumatoid arthritis History of, at some point there was concern that she had developed press syndrome and that was responsible for her presentation. She has been maintained on hydroxychloroquine. -Continue hydroxychloroquine 100 mg p.o. twice daily -Tylenol 1 g every 6 hours #Coronary artery disease -Continue simvastatin 20 mg every afternoon -Baby aspirin 81 mg every morning #Lyme disease Diagnosed in previous admission, completed course of doxycycline without issues. FENa: N.p.o. in the event that she needs a pacemaker placed Code Status: Full code DVT PPX: Lovenox PT/OT: Ordered Case Management: Discharge planning Dispo: Telemetry Ousmane Marcum MD PGY 3, FCM This chart was completed utilizing [employer] dictation voice recognition software. Grammatical errors, random word insertions, pronoun errors, and in complete sentences are an occasional consequence of the system. Any questions or concerns about the content, text, or information contained within the body of this dictation should be addressed directly to the physician for clarification. 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 She presents today after being contacted by her heart monitor company [employer]. They alerted her that they noticed an abnormality on her event monitor and recommended she come to the hospital as she would need a pacemaker to be placed. She has no additional details regarding the specific arrhythmia observed. Upon presentation to the emergency department she was completely asymptomatic specifically denying any chest pressure, chest pain, shortness of breath, nausea or vomiting. She reports that she has been compliant with her Lyme's disease medication and taking it as prescribed. She reports that she follows with Dr. Cunha as an outpatient. Upon arrival to the emergency department routine labs were obtained, CBC was unremarkable, CMP demonstrated a mild elevation of creatinine to 1.45 otherwise unremarkable, troponin negative, mild hypoalbuminemia demonstrated, TSH 1.48 Covid testing was negative chest x-ray was negative. Given the patient's concerning message from her heart monitor company the hospital service was consulted for admission. Upon evaluation of the patient she reports being completely asymptomatic, noting she has been feeling well over the past few days. She denies any recent syncopal episodes, chest pressure, chest pain, shortness of breath, fevers or chills she does note a bit of increased fatigue. Will admit to telemetry overnight and obtain pacemaker interrogation prior to consulting cardiology Allergies Allergy/AdvReac Type Severity Reaction Status Date / Time Sulfa (Sulfonamide Allergy Intermediate Rash Verified 12/29/20 23:44 Antibiotics) trimethoprim Allergy Intermediate Rash Verified 12/29/20 23:44 vancomycin Allergy Intermediate Rash, Verified 12/29/20 23:44 shortness of breath Cephalosporins AdvReac Mild Vomiting Verified 12/29/20 23:44 Home Medications Medication Instructions Recorded Confirmed Type acetaminophen 500 mg tablet 1,000 mg PO Q6H PRN 05/09/20 12/29/20 History aspirin 81 mg tablet,delayed 81 mg PO QAM 05/09/20 12/29/20 History release (Aspirin Low Dose) calcium carbonate 600 mg calcium 600 mg PO QAM 05/09/20 12/29/20 History (1,500 mg) tablet (Calcium) cholecalciferol (vitamin D3) 125 125 mcg PO QAM 05/09/20 12/29/20 History mcg (5,000 unit) tablet (Vitamin D3) furosemide 20 mg tablet 20 mg PO QAM 05/09/20 12/29/20 History hydroxychloroquine 200 mg tablet 100 mg PO BID 05/09/20 12/29/20 History simvastatin 40 mg tablet 20 mg PO QPM 05/09/20 12/29/20 History metoprolol tartrate 100 mg tablet 50 mg PO QAM 12/14/20 12/29/20 History Past Med/Surg History Medical History Edema Endometriosis Fracture of femoral neck, right Headache Hyperlipidemia Hypertension No pertinent family history Osteoporosis Rheumatoid arthritis Surgical History No pertinent past surgical history Social History Smoking Status: Never smoker Tobacco Type: Cigarettes Second Hand Exposure: No; Hx Alcohol Use: Yes Alcohol type: wine Hx Substance Use: No Preferred Language: Upper Sorbian Communication Ability: Effective High School Counselor Required: No Beliefs That Will Affect Care: None marital status: / Current Living Situation: Family Current Living Situation Comment: Lives with son and grandchildren How many Children do You have: 1 Feels Safe at Home: Yes Assistive Devices: Cane Review of Systems Review of Systems: All systems reviewed & are unremarkable except as noted in HPI & below Physical Exam Physical Exam: General: No acute distress HEENT: Normocephalic atraumatic Neck: No significant lymphadenopathy, trachea midline, normal to visual inspec tion Cardiac: Regular rate and rhythm, normal S1, normal S2, I did not appreciated any significant murmurs rubs or gallops, 1+ pedal edema bilaterally, No calf tenderness, capillary refill is less than 3 seconds Respiratory: Clear to auscultation bilaterally with symmetrical chest rise, I did not appreciate any significant wheezes, rales, rhonchi, no increased work of breathing GI: Normal bowel sounds, soft, nontender in all 4 quadrants, nondistended MSK: No sensory or motor changes, moves all extremities without issue, extremities are warm and well-perfused Skin: [place], clean, dry, intact. Neuro: Alert and oriented x4 Psych: Calm, cooperative, logical thought process Results & Data Results & Data ([facility]) Vital Signs (Past 12 Hours) Vital Signs Temp Pulse Resp BP Pulse Ox 12/30/20 01:00 72 22 12/30/20 00:30 73 16 164/78 H 98 12/30/20 00:00 63 16 97 12/29/20 23:30 63 16 12/29/20 23:00 64 17 171/92 H 94 12/29/20 22:59 67 14 96 12/29/20 18:46 37.1 C 68 20 194/90 H 100 Laboratory Results 12/29/20 12/29/20 12/29/20 Range/Units 23:00 23:00 19:00 WBC (4.8-10.8) K/uL RBC (4.2-5.4) M/uL Hgb (12.0-16.0) g/dL Hct (37-47) % MCV (80-100) fL MCH (25-34) pg MCHC (32-36) g/dL RDW Std Deviation (36.4-46.3) fL RDW Coeff of Emily (11.5-14.5) % Plt Count (130-400) K/uL MPV (7.4-10.4) fL Immature Gran % (Auto) % Neut % (Auto) % Lymph % (Auto) % [place] % (Auto) % Eos % (Auto) % Baso % (Auto) % Neut # (Auto) (1.4-6.5) K/uL Lymph # (Auto) (1.2-3.4) K/uL [place] # (Auto) (0.11-0.59) K/uL Eos # (Auto) (0-0.5) K/uL Baso # (Auto) (0-0.2) K/uL Immature Gran # (Auto) (0.00-0.02) K/uL APTT (21.0-31.0) Seconds PTT Ratio Sodium (136-145) mmol/L Potassium (3.5-5.1) mmol/L Chloride (98-107) mmol/L Carbon Dioxide (21-32) mmol/L Anion Gap (3-11) BUN (7-18) mg/dl Creatinine (0.6-1.2) mg/dl Est Cr Clr Drug Dosing ml/min Est GFR ( Amer) ml/min Est GFR (Non-Af Amer) ml/min BUN/Creatinine Ratio (10-20) Glucose (70-99) mg/dl Calcium (8.5-10.1) mg/dl Magnesium 2.6 H (1.8-2.4) mg/dl Total Bilirubin (0.2-1) mg/dl AST (15-37) U/L ALT (12-78) U/L Alkaline Phosphatase (45-117) U/L Troponin I (0-0.045) ng/ml Total Protein (6.4-8.2) gm/dl Albumin (3.4-5.0) gm/dl Globulin (2.5-4.0) gm/dl Albumin/Globulin Ratio (0.9-2) Lipase (73-393) U/L TSH 1.480 (0.300-4.500) uIu/ml COVID-19 Eval Order Covid19 at [facility] SARS-CoV-2 (PCR) NEGATIVE (Negative) 12/29/20 12/29/20 12/29/20 Range/Units 19:00 19:00 19:00 WBC 6.64 (4.8-10.8) K/uL RBC 4.15 L (4.2-5.4) M/uL Hgb 12.8 (12.0-16.0) g/dL Hct 38.7 (37-47) % MCV 93.3 (80-100) fL MCH 30.8 (25-34) pg MCHC 33.1 (32-36) g/dL RDW Std Deviation 47.0 H (36.4-46.3) fL RDW Coeff of Emily 13.8 (11.5-14.5) % Plt Count 146 (130-400) K/uL MPV 9.8 (7.4-10.4) fL Immature Gran % (Auto) 0.0 % Neut % (Auto) 57.8 % Lymph % (Auto) 31.8 % [place] % (Auto) 7.5 % Eos % (Auto) 2.3 % Baso % (Auto) 0.6 % Neut # (Auto) 3.84 (1.4-6.5) K/uL Lymph # (Auto) 2.11 (1.2-3.4) K/uL [place] # (Auto) 0.50 (0.11-0.59) K/uL Eos # (Auto) 0.15 (0-0.5) K/uL Baso # (Auto) 0.04 (0-0.2) K/uL Immature Gran # (Auto) 0.00 (0.00-0.02) K/uL APTT 24.9 (21.0-31.0) Seconds PTT Ratio 0.9 Sodium 137 (136-145) mmol/L Potassium 4.7 (3.5-5.1) mmol/L Chloride 104 (98-107) mmol/L Carbon Dioxide 29 (21-32) mmol/L Anion Gap 4.0 (3-11) BUN 19 H (7-18) mg/dl Creatinine 1.45 H (0.6-1.2) mg/dl Est Cr Clr Drug Dosing 26.0 ml/min Est GFR ( Amer) 40.4 ml/min Est GFR (Non-Af Amer) 34.9 ml/min BUN/Creatinine Ratio 12.9 (10-20) Glucose 91 (70-99) mg/dl Calcium 9.6 (8.5-10.1) mg/dl Magnesium (1.8-2.4) mg/dl Total Bilirubin 0.6 (0.2-1) mg/dl AST 34 (15-37) U/L ALT 31 (12-78) U/L Alkaline Phosphatase 103 (45-117) U/L Troponin I < 0.015 (0-0.045) ng/ml Total Protein 8.0 (6.4-8.2) gm/dl Albumin 3.3 L (3.4-5.0) gm/dl Globulin 4.7 H (2.5-4.0) gm/dl Albumin/Globulin Ratio 0.7 L (0.9-2) Lipase 172 (73-393) U/L TSH (0.300-4.500) uIu/ml COVID-19 Eval Order SARS-CoV-2 (PCR) (Negative) Medications Administered Current Inpatient Medications Acetaminophen (Acetaminophen 500 Mg Tab) 1,000 mg PO Q4H PRN PRN Reason: Pain or Fever Stop: 01/29/21 01:19 Enoxaparin Sodium (Enoxaparin Inj 40 Mg/0.4 Ml Syr) 40 mg SQ Q24H KARLA Stop: 01/29/21 01:29 Ondansetron HCl (Ondansetron Inj 2 Mg/Ml 2 Ml Vial) 4 mg IV Q6H PRN PRN Reason: Nausea Stop: 01/29/21 01:19 Polyethylene Glycol (Polyethylene (Miralax) 17 Gm Pack) 17 gm PO DAILY KARLA Stop: 01/29/21 08:59 Code Status & VTE Plan VTE Prophylaxis Plan VTE Prophylaxis will be ordered: Yes Resident Activity Tracking Resident Involvement: Resident Care Provided Care Provided: Adult Hospital Medicine (1) Arrhythmia Arrhythmia type: unspecified cardiac arrhythmia Qualified Code(s): I49.9 - Cardiac arrhythmia, unspecified
[2020-12-30] MEDS ORDERED: ACETAMINOPHEN 500 MG TAB PO PRN (02:31)
[2020-12-30] MEDS: LACTATED RINGER'S 1,000 ML IV SCH ×2 (04:32→13:09)
[2020-12-30] MEDS: ENOXAPARIN INJ 30 MG/0.3 ML SYR SQ SCH (05:21)
[2020-12-30 05:23] LABS: Basophils # (auto) 0.02 K/uL (0-0.2); Basophils % (auto) 0.5 %; Eosinophils # (auto) 0.13 K/uL (0-0.5); Eosinophils % (auto) 3.1 %; Hematocrit (blood only) 34.1 % (37-47); Hemoglobin 11.4 g/dL (12.0-16.0); Lymphocytes # (auto) 1.39 K/uL (1.2-3.4); Lymphocytes % (auto) 33.1 %; Mean Corpuscular Hemoglobin 30.9 pg (25-34); Mean Corpuscular Hgb Conc 33.4 g/dL (32-36); Mean Corpuscular Volume 92.4 fL (80-100); Mean Platelet Volume 10.5 fL (7.4-10.4); Monocytes # (auto) 0.38 K/uL (0.11-0.59); Neutrophils # (auto) 2.28 K/uL (1.4-6.5); Neutrophils % (auto) 54.3 %; Platelet Count 100 K/uL (130-400); RDW Coefficient of Variation 13.7 % (11.5-14.5); RDW Standard Deviation 46.5 fL (36.4-46.3); Red Blood Count 3.69 M/uL (4.2-5.4)
[2020-12-30 05:50] LABS: Albumin Globulin Ratio 0.7 (0.9-2); Albumin Level 2.6 gm/dl (3.4-5.0); BUN Creatinine Ratio 20.4 (10-20); Bilirubin,Total 0.6 mg/dl (0.2-1); Calcium 8.5 mg/dl (8.5-10.1); Creatinine Clr Calc Pharmacy 43.1 ml/min; Est GFR (Non-African American) 71.6 ml/min; Globulin 3.6 gm/dl (2.5-4.0); Potassium 3.7 mmol/L (3.5-5.1); Total Protein 6.2 gm/dl (6.4-8.2)
--- NOTE | 2020-12-30 06:33 | Billing Data ---
Date of Service December 30, 2020 Coding Level of Care Code 03108 Initial Inpt Care Lvl 2
[2020-12-30] MEDS ORDERED: METOPROLOL TARTRATE 50 MG TAB PO SCH (09:00)
[2020-12-30] MEDS: ASPIRIN 81 MG ECTAB PO SCH (09:03)
[2020-12-30] MEDS: FUROSEMIDE 20 MG TAB PO SCH (09:03)
[2020-12-30] MEDS: HYDROXYCHLOROQUINE SULFATE 200 MG TAB PO SCH ×2 (09:04→19:58)
[2020-12-30] MEDS: CHOLECALCIFEROL 1,000 UNITS 25 MCG TAB PO SCH (09:05)
[2020-12-30] MEDS: CALCIUM CARBONATE 1250MG TAB PO SCH (09:06)
--- NOTE | 2020-12-30 09:51 | Electrocardiogram Report ---
Test Reason : Blood Pressure : / mmHG Vent. Rate : 068 BPM Atrial Rate : 068 BPM P-R Int : 162 ms QRS Dur : 134 ms QT Int : 448 ms P-R-T Axes : 056 -09 018 degrees QTc Int : 476 ms Poor data quality, interpretation may be adversely affected Normal sinus rhythm Possible Left atrial enlargement Right bundle branch block Abnormal ECG When compared with ECG of 14-DEC-2020 16:12, No significant change was found Confirmed by Mark Puente ([id number]) on 12/30/2020 9:50:52 AM Referred By: Savanah Marin Confirmed By:Mrak Puente
[2020-12-30] MEDS: POLYETHYLENE (MIRALAX) 17 GM PACK PO SCH (10:45)
[2020-12-30] MEDS: cefTRIAXone SODIUM 2,000 MG in DEXTROSE 5% 50 ML IV SCH (11:49)
--- NOTE | 2020-12-30 12:35 | Hospitalist Progress Note ---
Date of Service December 30, 2020 Assessment & Plan (1) Sinus pause: Plan: 3.8 sec pause detected on home event monitor on 12/29/2020. Since admission no dysrhythmia seen. [id number] the pause could be the cause of her recent syncopal episode which led to hospitalization in November. The patient had a markedly positive Western Blot for Lyme in November. She completed 10 days of doxy for such. Theoretically Lyme carditis could cause the above electrical disturbance but the chances of such are fairly low. [id number], given the circumstances, will place on rocephin IV in jess of doxy. Will obtain formal EP evaluation on Friday to determine if permanent pacemaker is needed. Tele monitoring in meantime. Hold beta kaylah. Last echo per records 02/2020 with preserved EF. Consider updating her echo. (2) Lyme disease: Plan: Recent Western blot was markedly positive for both IgM and IgG. Early disseminated Lyme? While hospitalized place on Rocephin 2gm IV daily. Cannot rule out Lyme carditis but chances of such are low. Alternatively, it is possible that her RA is causing a falsely positive Lyme Western blot. (3) Nonocclusive coronary atherosclerosis of [place] coronary artery: Plan: 60% LAD lesion based on previous cath per outpatient cardiology records. (4) Syncope: Plan: 11/2020 hospitalization for such. Etiology at that time was uncertain. High suspicion for dysrhythmia as cause. Event monitor ordered and sinus pause detected yesterday. Certainly heart block/sinus pause could have caused her recent syncopal spell. (5) GERD (gastroesophageal reflux disease): (6) Hyperlipidemia: (7) Hypertension: Plan: Hold metoprolol due to #1. (8) Rheumatoid arthritis: Plan: Cont plaquenil. No flare at this time. (9) Pancytopenia: Plan: etiology?? this is new in the last 2-3 weeks. anaplasmosis? nutritional def? other? check anasplamosis DNA given recent lyme. consider b12/folate levels. CBC in am. sed rate/crp in am. (10) DVT prophylaxis: Plan: lovenox 30mg daily Plan: updated pt's son by phone this evening Admission and Anticipated Discharge Date Admission Date: December 30, 2020 Subjective patient lying in bed comfortably during the visit we were able to obtain a copy of the event monitor report that led to this admission the event occurred at ~1000 yesterday am the report demonstrates a 3.8 sec pause/complete AV dissociation when asked to recall where she was or what she was doing during the above event she couldn't remember specifically however, she thinks she had eaten breakfast prior to the event doesn't recall near-syncope or other cardiopulmonary symptoms she does state that most of yesterday she felt dizzy/lightheaded; no vertigo with respect to recent lyme testing that was positive -- denies any fevers, chills, myalgias [place] confirms she indeed took 10 days of doxy post-discharge from recent hospitalization; those abx are complete Review of Systems Review of Systems: gen - good appetite, no fatigue, no fevers/chills CV - no chest pain pulm - no dyspnea GI - no N/V/D Physical Exam Physical Exam: gen - NAD, comfortable, a/o x 3 neck - no JVD mouth - MMM heart - RRR, s1 s2, no murmur lungs - cta b/l abd - soft NT ND BS+ ext - no edema, pulses 2+ b/l skin - no rash Results & Data Results & Data ([facility]) Vital Signs (Past 12 Hours) Vital Signs Temp Pulse Pulse Resp BP BP Pulse Ox 12/30/20 12:00 36.9 C 66 16 132/71 98 12/30/20 08:00 36.7 C 65 12/30/20 03:00 36.7 C 76 20 123/86 99 12/30/20 02:48 71 12/30/20 02:38 36.7 C 98 H 22 168/114 H 98 12/30/20 01:56 68 16 144/59 H 98 12/30/20 01:30 68 18 144/61 H 99 12/30/20 01:00 72 22 Laboratory Results Laboratory Results - last 24 hr 12/30/20 12/30/20 12/30/20 04:56 04:56 04:56 WBC 4.20 L RBC 3.69 L Hgb 11.4 L Hct 34.1 L MCV 92.4 MCH 30.9 MCHC 33.4 RDW Std Deviation 46.5 H RDW Coeff of Emily 13.7 Plt Count 100 L MPV 10.5 H Immature Gran % (Auto) 0.0 Neut % (Auto) 54.3 Lymph % (Auto) 33.1 [place] % (Auto) 9.0 Eos % (Auto) 3.1 Baso % (Auto) 0.5 Neut # (Auto) 2.28 Lymph # (Auto) 1.39 [place] # (Auto) 0.38 Eos # (Auto) 0.13 Baso # (Auto) 0.02 Immature Gran # (Auto) 0.00 Sodium 140 Potassium 3.7 D Chloride 111 H Carbon Dioxide 26 Anion Gap 3.0 BUN 16 Creatinine 0.80 D Est Cr Clr Drug Dosing 43.1 Est GFR ( Amer) 83.0 Est GFR (Non-Af Amer) 71.6 BUN/Creatinine Ratio 20.4 H Glucose 91 Calcium 8.5 Total Bilirubin 0.6 AST 26 ALT 22 Alkaline Phosphatase 79 Total Protein 6.2 L D Albumin 2.6 L Globulin 3.6 Albumin/Globulin Ratio 0.7 L A. phagocytophilum DNA Pending PG Care Time/CCT Total # of Minutes Spent Total Time Spent with Patient: Total time spent is greater than 50% in coordination of care (as documented) at patient's floor/unit and/or counseling patient: Coding Level of Care Code 11439 Subseq Hosp Care Lvl 3 Diagnoses Sinus pause I45.5 Lyme disease A69.20 Nonocclusive coronary atherosclerosis of [place] coronary artery I25.10 Syncope R55 GERD (gastroesophageal reflux disease) K21.9 Hyperlipidemia E78.5 Hypertension I10 Rheumatoid arthritis M06.9 Pancytopenia D61.818 DVT prophylaxis Z29.9
[2020-12-30] MEDS: SIMVASTATIN 20 MG TAB PO SCH (19:58)
[2020-12-31] MEDS: ENOXAPARIN INJ 30 MG/0.3 ML SYR SQ SCH (05:42)
[2020-12-31 06:22] LABS: Basophils # (auto) 0.02 K/uL (0-0.2); Basophils % (auto) 0.5 %; Eosinophils # (auto) 0.12 K/uL (0-0.5); Eosinophils % (auto) 2.8 %; Hematocrit (blood only) 34.8 % (37-47); Hemoglobin 11.5 g/dL (12.0-16.0); Lymphocytes # (auto) 1.42 K/uL (1.2-3.4); Lymphocytes % (auto) 33.6 %; Mean Corpuscular Hemoglobin 30.9 pg (25-34); Mean Corpuscular Volume 93.5 fL (80-100); Mean Platelet Volume 10.7 fL (7.4-10.4); Monocytes # (auto) 0.32 K/uL (0.11-0.59); Monocytes % (auto) 7.6 %; Neutrophils # (auto) 2.34 K/uL (1.4-6.5); Neutrophils % (auto) 55.5 %; Platelet Count 101 K/uL (130-400); RDW Coefficient of Variation 13.6 % (11.5-14.5); RDW Standard Deviation 47.1 fL (36.4-46.3); Red Blood Count 3.72 M/uL (4.2-5.4); White Blood Count 4.22 K/uL (4.8-10.8)
[2020-12-31 06:49] LABS: BUN Creatinine Ratio 28.2 (10-20); Calcium 8.6 mg/dl (8.5-10.1); Creatinine Clr Calc Pharmacy 46.6 ml/min; Est GFR (African American) 91.2 ml/min; Est GFR (Non-African American) 78.7 ml/min; Potassium 4.1 mmol/L (3.5-5.1)
[2020-12-31] MEDS: cefTRIAXone SODIUM 2,000 MG in DEXTROSE 5% 50 ML IV SCH (09:55)
[2020-12-31] MEDS: FUROSEMIDE 20 MG TAB PO SCH (09:57)
[2020-12-31] MEDS: HYDROXYCHLOROQUINE SULFATE 200 MG TAB PO SCH ×2 (09:57→19:38)
[2020-12-31] MEDS: ASPIRIN 81 MG ECTAB PO SCH (09:57)
[2020-12-31] MEDS: CHOLECALCIFEROL 1,000 UNITS 25 MCG TAB PO SCH (09:57)
[2020-12-31] MEDS: CALCIUM CARBONATE 1250MG TAB PO SCH (09:57)
[2020-12-31] MEDS: POLYETHYLENE (MIRALAX) 17 GM PACK PO SCH (09:58)
[2020-12-31] MEDS: ACETAMINOPHEN 500 MG TAB PO PRN (19:36)
[2020-12-31] MEDS: SIMVASTATIN 20 MG TAB PO SCH (19:38)
--- NOTE | 2020-12-31 20:29 | Hospitalist Progress Note ---
Date of Service December 31, 2020 Assessment & Plan (1) Sinus pause: Plan: 3.8 sec pause detected on home event monitor on 12/29/2020. Since admission no dysrhythmia seen. [id number] the pause could be the cause of her recent syncopal episode which led to her hospitalization in November. The patient had a markedly positive Western Blot for Lyme in November. She completed 10 days of doxy for such. Theoretically Lyme carditis could cause the above electrical disturbance but the chances of such are fairly low. [id number], given the circumstances, will place on rocephin IV for now. Will obtain formal EP evaluation on Friday to determine if permanent pacemaker is needed ([facility] Card - Dr Duggan). NPO after MN tonight. Cont to hold beta kaylah. Last echo per records 02/2020 with preserved EF. Consider updating her echo. (2) Lyme disease: Plan: Recent Western blot was markedly positive for both IgM and IgG. Early disseminated Lyme? While hospitalized place on Rocephin 2gm IV daily. Cannot rule out Lyme carditis but chances of such are very low. Alternatively, it is possible that her RA is causing a falsely positive Lyme Western blot. (3) Nonocclusive coronary atherosclerosis of [place] coronary artery: Plan: 60% LAD lesion based on previous cath per outpatient cardiology records. No recent ischemic symptoms. Continue aspirin. (4) Syncope: Plan: 11/2020 hospitalization for such. Etiology at that time was uncertain. High suspicion for dysrhythmia as cause. Event monitor ordered and sinus pause detected 12/29/20. Certainly heart block/sinus pause could have caused her recent syncopal spell. Consult [facility] Cardiology on Friday. Keep NPO in case pacer is needed. (5) GERD (gastroesophageal reflux disease): (6) Hyperlipidemia: (7) Hypertension: Plan: Hold metoprolol due to #1. (8) Rheumatoid arthritis: Plan: Cont plaquenil. No flare at this time. (9) Pancytopenia: Plan: etiology?? this is new in the last 2-3 weeks. anaplasmosis? nutritional def? other? check anasplamosis DNA given recent lyme. check b12/folate levels. check sed rate/crp. repeat CBC in am. (10) DVT prophylaxis: Plan: lovenox 30mg daily Plan: updated pt's son by phone 12/30/20 Admission and Anticipated Discharge Date Admission Date: December 30, 2020 Subjective no events overnight tele - no pauses, AV block, escape rhythms or other dysrhythmia patient reports feeling tired, but otherwise no dizziness, lightheadedness, near-syncope, or chest pain eating well Review of Systems Review of Systems: gen - no fevers, no chills pulm - no cough, no congestion, no dyspnea CV - no palpitations, no chest pain GI - no n/v musculo - no c/o joint pain Physical Exam Physical Exam: gen - NAD, a/o x 3 neck - no JVD mouth - MMM heart - RRR, s1 s2, no murmur lungs - cta b/l abd - soft NT ND BS+ ext - no edema, pulses 2+ b/l skin - no rash musculo - rheumatoid changes b/l hands Results & Data Results & Data ([facility]) Vital Signs (Past 12 Hours) Vital Signs Temp Pulse Pulse Resp BP Pulse Ox 12/31/20 16:00 80 12/31/20 08:41 36.7 C 77 19 114/67 96 Laboratory Results Laboratory Results - last 24 hr 12/31/20 12/31/20 05:43 05:43 WBC 4.22 L RBC 3.72 L Hgb 11.5 L Hct 34.8 L MCV 93.5 MCH 30.9 MCHC 33.0 RDW Std Deviation 47.1 H RDW Coeff of Emily 13.6 Plt Count 101 L MPV 10.7 H Immature Gran % (Auto) 0.0 Neut % (Auto) 55.5 Lymph % (Auto) 33.6 [place] % (Auto) 7.6 Eos % (Auto) 2.8 Baso % (Auto) 0.5 Neut # (Auto) 2.34 Lymph # (Auto) 1.42 [place] # (Auto) 0.32 Eos # (Auto) 0.12 Baso # (Auto) 0.02 Immature Gran # (Auto) 0.00 Sodium 136 Potassium 4.1 Chloride 107 Carbon Dioxide 23 Anion Gap 6.0 BUN 21 H Creatinine 0.74 Est Cr Clr Drug Dosing 46.6 Est GFR ( Amer) 91.2 Est GFR (Non-Af Amer) 78.7 BUN/Creatinine Ratio 28.2 H Glucose 90 Calcium 8.6 PG Care Time/CCT Total # of Minutes Spent Total Time Spent with Patient: Total time spent is greater than 50% in coordination of care (as documented) at patient's floor/unit and/or counseling patient: Coding Level of Care Code 44579 Subseq Hosp Care Lvl 2 Diagnoses Sinus pause I45.5 Lyme disease A69.20 Nonocclusive coronary atherosclerosis of [place] coronary artery I25.10 Syncope R55 GERD (gastroesophageal reflux disease) K21.9 Hyperlipidemia E78.5 Hypertension I10 Rheumatoid arthritis M06.9 Pancytopenia D61.818 DVT prophylaxis Z29.9
[2021-01-01 04:57] LABS: Basophils # (auto) 0.02 K/uL (0-0.2); Basophils % (auto) 0.5 %; Eosinophils # (auto) 0.13 K/uL (0-0.5); Eosinophils % (auto) 3.4 %; Hematocrit (blood only) 35.6 % (37-47); Hemoglobin 11.7 g/dL (12.0-16.0); Immature Granulocytes # (auto) 0.01 K/uL (0.00-0.02); Immature Granulocytes % (auto) 0.3 %; Lymphocytes # (auto) 1.36 K/uL (1.2-3.4); Lymphocytes % (auto) 35.1 %; Mean Corpuscular Hemoglobin 30.6 pg (25-34); Mean Corpuscular Hgb Conc 32.9 g/dL (32-36); Mean Corpuscular Volume 93.2 fL (80-100); Mean Platelet Volume 10.6 fL (7.4-10.4); Monocytes # (auto) 0.39 K/uL (0.11-0.59); Monocytes % (auto) 10.1 %; Neutrophils # (auto) 1.97 K/uL (1.4-6.5); Neutrophils % (auto) 50.6 %; Platelet Count 108 K/uL (130-400); RDW Coefficient of Variation 13.5 % (11.5-14.5); RDW Standard Deviation 45.9 fL (36.4-46.3); Red Blood Count 3.82 M/uL (4.2-5.4); White Blood Count 3.88 K/uL (4.8-10.8)
[2021-01-01 05:17] LABS: BUN Creatinine Ratio 32.2 (10-20); Blood Urea Nitrogen 29 mg/dl (7-18); C Reactive Protein < 0.29 mg/dl (0-0.29); Carbon Dioxide 23 mmol/L (21-32); Chloride 107 mmol/L (98-107); Creatinine Clr Calc Pharmacy 37.9 ml/min; Est GFR (Non-African American) 61.3 ml/min; Glucose 101 mg/dl (70-99); Potassium 3.7 mmol/L (3.5-5.1); Sodium 137 mmol/L (136-145)
[2021-01-01 05:32] LABS: Giant Platelets 1+
[2021-01-01 06:00] LABS: Folate (Folic Acid) 13.5 ng/ml (>5.38)
[2021-01-01] MEDS: ENOXAPARIN INJ 30 MG/0.3 ML SYR SQ SCH (06:20)
[2021-01-01] MEDS: HYDROXYCHLOROQUINE SULFATE 200 MG TAB PO SCH ×2 (09:17→20:47)
[2021-01-01] MEDS: cefTRIAXone SODIUM 2,000 MG in DEXTROSE 5% 50 ML IV SCH (09:17)
[2021-01-01] MEDS: FUROSEMIDE 20 MG TAB PO SCH (09:18)
[2021-01-01] MEDS: POLYETHYLENE (MIRALAX) 17 GM PACK PO SCH (09:18)
[2021-01-01] MEDS: ASPIRIN 81 MG ECTAB PO SCH (09:18)
[2021-01-01] MEDS: CHOLECALCIFEROL 1,000 UNITS 25 MCG TAB PO SCH (09:18)
[2021-01-01] MEDS: CALCIUM CARBONATE 1250MG TAB PO SCH (09:18)
--- NOTE | 2021-01-01 10:04 | Hospitalist Progress Note ---
Date of Service January 01, 2021 Assessment & Plan (1) Sinus pause: Plan: 3.8 sec pause detected on home event monitor on 12/29/2020. Since admission no dysrhythmia seen. [id number] the pause could be the cause of her recent syncopal episode which led to her hospitalization in November. Discussed with Dr. Duggan and planning on pacemaker placement tomorrow. NPO after MN tonight. Cont to hold beta kaylah. Will defer repeat echocardiogram to cardiology. (2) Lyme disease: Plan: Recent Western blot was markedly positive for both IgM and IgG. Completed 10 days of doxycycline. Possible lyme carditis causing pause but low likelihood and given no ongoing AV jg block off BB will discontinue further antibiotics. (3) Nonocclusive coronary atherosclerosis of [place] coronary artery: Plan: 60% LAD lesion based on previous cath per outpatient cardiology records. No recent ischemic symptoms. Continue aspirin. (4) Syncope: Plan: 11/2020 hospitalization for such. Etiology at that time was uncertain. High suspicion for dysrhythmia as cause. Event monitor ordered and sinus pause detected 12/29/20. Certainly heart block/sinus pause could have caused her recent syncopal spell. See above (5) GERD (gastroesophageal reflux disease): Plan: No current symptoms. On no medications for this. (6) Hyperlipidemia: Plan: Continue simvastatin 20 mg p.o. every afternoon (7) Hypertension: Plan: Hold metoprolol due to #1. (8) Rheumatoid arthritis: Plan: Cont plaquenil. No flare at this time. (9) Pancytopenia: Plan: etiology?? this is new in the last 2-3 weeks. ?anaplasmosis -PCR outstanding at this time, smear negative B12 level 386 -doubtful contributory. Folate levels normal. ESR 41, CRP WNL. (10) DVT prophylaxis: Plan: Lovenox 30mg daily -hold prior to pacemaker insertion Admission and Anticipated Discharge Date Admission Date: December 30, 2020 Subjective Patient feels at her baseline. No pauses on telemetry overnight. No chest pain, presyncope, syncope, claudication, orthopnea or PND. Awaiting cardiology evaluation when seen. Review of Systems Review of Systems: All systems reviewed & are unremarkable except as noted in HPI & below Physical Exam Constitutional: WD/WN, vitals as above Eyes: + anicteric sclerae; normal pupil size Neck: trachea midline, no thyromegaly Respiratory: normal respiratory effort, lungs clear to auscultation Cardiovascular: RRR, no murmur, no edema Gastrointestinal (Abdomen): normal bowel sounds, soft, nontender, no hepatosplenomegaly Musculoskeletal: no cyanosis or clubbing, extremities motor strength 5/5 Neurologic: moves all extremities and awake; not confused Psychiatric: A+Ox3, euthymic affect Results & Data Results & Data ([facility]) Vital Signs (Past 12 Hours) Vital Signs Temp Pulse Pulse Resp BP Pulse Ox Pulse Ox 01/01/21 08:03 36.5 C 74 13 146/73 H 98 01/01/21 08:00 65 01/01/21 04:00 36.7 C 66 15 122/69 96 01/01/21 01:00 97 01/01/21 00:00 36.5 C 80 24 126/62 97 PG Care Time/CCT Total # of Minutes Spent Total Time Spent with Patient: Total time spent is greater than 50% in coordination of care (as documented) at patient's floor/unit and/or counseling patient: Coding Level of Care Code 73413 Inpt Consult Level 4 Diagnoses Sinus pause I45.5 Lyme disease A69.20 Nonocclusive coronary atherosclerosis of [place] coronary artery I25.10 Syncope R55 GERD (gastroesophageal reflux disease) K21.9 Hyperlipidemia E78.5 Hypertension I10 Rheumatoid arthritis M06.9 Pancytopenia D61.818 DVT prophylaxis Z29.9
[2021-01-01] MEDS: ACETAMINOPHEN 500 MG TAB PO PRN (14:39)
--- NOTE | 2021-01-01 16:55 | Cardiology Consultation ---
Date of Consultation January 01, 2021 Assessment & Plan (1) Syncope: (2) Lyme disease: (3) AV block, Mobitz II: 1. Syncope: Although we still do not have clear evidence of what caused her syncope the finding of a long pause associated with AV block is suggestive and in the absence of other explanations this may be sufficient to treat. She was on low-dose beta-blockade but that seems unlikely to cause this event. She has had Lyme disease however it has been treated in either this episode is not likely to be caused by Lyme disease or it has been long enough that it should be treated in any case by pacing. 2. Lyme disease: Lyme disease typically causes AV block, her situation is little bit unusual in that she had one episode of very transient AV block without other findings of AV block. 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 3. 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 Although alternatives such as ongoing monitoring are possible given her recent traumatic syncope it may be prudent to implant a pacemaker. I will plan to do that early afternoon on January 02, 2021. History of Present Illness Reason for Consultation: AV block, syncope Attending Physician: Rafi Lee MD History of Present Illness This is a 75-year-old woman with nonocclusive coronary artery disease and diastolic congestive heart failure who presented with an episode of syncope on December 14, 2020. She does have a history of she seizure requiring hospitalization in 2007, apparently her neurologic work-up at the time was negative. This episode occurred after she was standing up washing dishes for about 15 minutes then suddenly lost consciousness and fell to the floor and apparently had seizure type activity for about a minute. She did have a small posterior scalp hematoma. She did have headache and an episode of vomiting after her episode. On telemetry after admission from that event she was in sinus rhythm with no arrhythmia identified. Echocardiography has demonstrated normal left v entricular function with diastolic dysfunction. Of note her Lyme IgG titer was positive and she was started on doxycycline. A neurologic evaluation was performed and it was felt that this did not represent a primary neurologic event. With no clear cause of her event she was discharged on metoprolol 50 mg twice a day and an outpatient event monitor was arranged. A 3.8-second pause was identified on event monitoring on December 29, 2020. She was sent to the emergency room and admitted that day and remains in the hospital. So far no further arrhythmia has been identified. At the time of my evaluation she was feeling well, she describes her event as noted above. Allergies Allergy/AdvReac Type Severity Reaction Status Date / Time Sulfa (Sulfonamide Allergy Intermediate Rash Verified 12/29/20 23:44 Antibiotics) trimethoprim Allergy Intermediate Rash Verified 12/29/20 23:44 vancomycin Allergy Intermediate Rash, Verified 12/29/20 23:44 shortness of breath Cephalosporins AdvReac Mild Vomiting Verified 12/29/20 23:44 Home Medications Medication Instructions Recorded Confirmed Type acetaminophen 500 mg tablet 1,000 mg PO Q6H PRN 05/09/20 12/29/20 History aspirin 81 mg tablet,delayed 81 mg PO QAM 05/09/20 12/29/20 History release (Aspirin Low Dose) calcium carbonate 600 mg calcium 600 mg PO QAM 05/09/20 12/29/20 History (1,500 mg) tablet (Calcium) cholecalciferol (vitamin D3) 125 125 mcg PO QAM 05/09/20 12/29/20 History mcg (5,000 unit) tablet (Vitamin D3) furosemide 20 mg tablet 20 mg PO QAM 05/09/20 12/29/20 History hydroxychloroquine 200 mg tablet 100 mg PO BID 05/09/20 12/29/20 History simvastatin 40 mg tablet 20 mg PO QPM 05/09/20 12/29/20 History metoprolol tartrate 100 mg tablet 50 mg PO QAM 12/14/20 12/29/20 History Patient History Medical History Edema Endometriosis Fracture of femoral neck, right Headache Hyperlipidemia Hypertension No pertinent family history Osteoporosis Rheumatoid arthritis Surgical History No pertinent past surgical history Social History Smoking Status: Former smoker Tobacco Type: Cigarettes Smoking End Date: 50 years ago; Second Hand Exposure: No; Do You Dip or Chew Tobacco: No; Tobacco Cessation Education Requested by Patient: No Hx Alcohol Use: No Hx Substance Use: No Preferred Language: [place]ian Communication Ability: Effective Maintenance And Utilities Supervisor Required: No Beliefs That Will Affect Care: None marital status: / Current Living Situation: Family Current Living Situation Comment: Lives with son and grandchildren How many Children do You have: 1 Other Information That Helps Us Care for You: No Feels Safe at Home: Yes Safety Concerns: Feels Safe At This Time Assistive Devices: Cane Review of Systems Review of Systems: All systems reviewed & are unremarkable except as noted in HPI & below Physical Exam Physical Exam: Constitutional: Alert, cooperative and in no distress. HEENT: Unremarkable Neck: No jugular venous distention, carotid pulses are normal and equal bilaterally without bruits. Pulmonary: Clear to auscultation bilaterally. Cardiac: Regular rhythm with no murmur, gallop or rub. Abdomen: Soft, nontender with normal bowel sounds. Extremities: No edema. Distal pulses intact. Neurologic: No focal findings. Gait is steady. Skin: No rash, ecchymoses or petechiae. Results & Data ([facility]) Vital Signs (Past 12 Hours) Vital Signs Temp Pulse Pulse Resp BP Pulse Ox 01/01/21 16:00 75 01/01/21 08:03 36.5 C 74 13 146/73 H 98 01/01/21 08:00 65 Laboratory Results CBC 01/01/21 Range/Units 04:22 WBC 3.88 L (4.8-10.8) K/uL RBC 3.82 L (4.2-5.4) M/uL Hgb 11.7 L (12.0-16.0) g/dL Hct 35.6 L (37-47) % Plt Count 108 L (130-400) K/uL Neut # (Auto) 1.97 (1.4-6.5) K/uL Lymph # (Auto) 1.36 (1.2-3.4) K/uL Bowie # (Auto) 0.39 (0.11-0.59) K/uL Eos # (Auto) 0.13 (0-0.5) K/uL Baso # (Auto) 0.02 (0-0.2) K/uL Comprehensive Metabolic Panel 01/01/21 Range/Units 04:22 Sodium 137 (136-145) mmol/L Potassium 3.7 (3.5-5.1) mmol/L Chloride 107 (98-107) mmol/L Carbon Dioxide 23 (21-32) mmol/L BUN 29 H (7-18) mg/dl Creatinine 0.91 (0.6-1.2) mg/dl Glucose 101 H (70-99) mg/dl Calcium 9.0 (8.5-10.1) mg/dl Intake and Output 01/01/21 01/01/21 01/01/21 06:59 14:59 22:59 Intake Total 0 / 310 190 / 190 Output Total 0 / 0 Balance 0 / 310 190 / 190 Intake: IV 70 / 70 cefTRIAXone SODIUM 2,000 mg In 70 / 70 Dextrose 5% 50 ml @ 100 mls/hr IV DAILY [facility] Rx#:[id number] Oral 0 / 240 120 / 120 Output: # Bowel Movements 0 / 0 Other: # Unmeasured Voids 1 Weight 54 kg Weight Measurement Method Built in [facility] Diagnostic Findings Her electrocardiograms this admission show sinus rhythm with a normal CT interval and a right bundle branch block with a slightly leftward axis. The event monitor strip was reviewed and this shows transient AV block for 3.8 seconds, 3 nonconducted P waves are present. No other AV block has been identified to my knowledge. Telemetry: Sinus rhythm with intact AV conduction throughout, no significant arrhythmia PG Care Time/CCT Total # of Minutes Spent Total Time Spent with Patient: Total time spent is greater than 50% in coordination of care (as documented) at patient's floor/unit and/or counseling patient: Coding Level of Care Code 91481 Initial Inpt Care Lvl 3 Diagnoses Syncope R55 Lyme disease A69.20 AV block, [place] II I44.1
[2021-01-01] MEDS: SIMVASTATIN 20 MG TAB PO SCH (20:47)
[2021-01-02] MEDS ORDERED: LACTATED RINGER'S 1,000 ML IV SCH (08:00)
[2021-01-02] MEDS: CALCIUM CARBONATE 1250MG TAB PO SCH (08:18)
[2021-01-02] MEDS: ASPIRIN 81 MG ECTAB PO SCH (08:18)
[2021-01-02] MEDS: FUROSEMIDE 20 MG TAB PO SCH (08:18)
[2021-01-02] MEDS: HYDROXYCHLOROQUINE SULFATE 200 MG TAB PO SCH ×2 (08:19→21:22)
[2021-01-02] MEDS: CHOLECALCIFEROL 1,000 UNITS 25 MCG TAB PO SCH (08:19)
[2021-01-02] MEDS: ACETAMINOPHEN 500 MG TAB PO PRN ×2 (09:24→21:21)
[2021-01-02] MEDS: POLYETHYLENE (MIRALAX) 17 GM PACK PO SCH (09:34)
--- NOTE | 2021-01-02 10:08 | Cardiology Progress Note ---
Date of Service January 02, 2021 Assessment & Plan (1) Syncope: (2) Lyme disease: (3) AV block, [place] II: Plan: 1. Syncope: Although we still do not have clear evidence of what caused her syncope the finding of a long pause associated with AV block is suggestive and in the absence of other explanations this is by far the most likely cause of her prior episode of syncope. She was on low-dose beta-blockade but that seems unlikely to cause this event. This has been discontinued but she has not had further pauses, however she did not have more than the 1 in the past either. She has had Lyme disease however it has been treated and either this episode is not likely to be caused by Lyme disease or it has been long enough that it should be treated in any case by pacing. 2. Lyme disease: Lyme disease typically causes AV block, her situation is little bit unusual in that she had one episode of very transient AV block without other findings of AV block. She does have underlying right bundle branch block which has not changed. 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 3. 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 Although alternatives such as ongoing monitoring are possible given her recent traumatic syncope it is prudent to implant a pacemaker. That is planned for around noon today. I discussed the indications, procedure, risks and alternatives of pacemaker implantation with her and she understands and agrees to proceed. Consent obtained. I also discussed sedation with her and she agrees, consent obtained. Admission and Anticipated Discharge Date Admission Date: December 30, 2020 Subjective She is feeling well today, she has had no further syncopal or presyncopal events. No other cardiovascular symptoms. Physical Exam Physical Exam: Constitutional: Alert, cooperative and in no distress. HEENT: Unremarkable Neck: No jugular venous distention, carotid pulses are normal and equal bilaterally without bruits. Pulmonary: Clear to auscultation bilaterally. Cardiac: Regular rhythm with no murmur, gallop or rub. Abdomen: Soft, nontender with normal bowel sounds. Extremities: No edema. Distal pulses intact. Neurologic: No focal findings. Gait is steady. Skin: No rash, ecchymoses or petechiae. Results & Data ([facility]) Vital Signs (Past 12 Hours) Vital Signs Temp Pulse Pulse Pulse Resp BP Pulse Ox 01/02/21 08:00 70 01/02/21 04:19 36.5 C 71 96 H 16 156/75 H 96 01/02/21 01:00 01/02/21 00:05 71 01/01/21 23:55 36.5 C 69 16 109/60 97 Pulse Ox 01/02/21 08:00 01/02/21 04:19 01/02/21 01:00 97 01/02/21 00:05 01/01/21 23:55 Laboratory Results Intake and Output 01/01/21 01/02/21 01/02/21 22:59 06:59 14:59 Other: # Unmeasured Voids 2 Weight 54.1 kg Weight Measurement Method Built in [facility] Diagnostic Findings Telemetry: Sinus rhythm, no significant arrhythmia PG Care Time/CCT Total # of Minutes Spent Total Time Spent with Patient: Total time spent is greater than 50% in coordination of care (as documented) at patient's floor/unit and/or counseling patient: Coding Level of Care Code 11009 Subseq Hosp Care Lvl 3 Diagnoses Syncope R55 Lyme disease A69.20 AV block, [place] II I44.1
--- NOTE | 2021-01-02 11:17 | Hospitalist Progress Note ---
Date of Service January 02, 2021 Assessment & Plan (1) Sinus pause: Plan: 3.8 sec pause detected on home event monitor on 12/29/2020. Since admission no dysrhythmia seen. [id number] the pause could be the cause of her recent syncopal episode which led to her hospitalization in November. NPO Cont to hold beta kaylah. Will defer repeat echocardiogram to cardiology. (2) Lyme disease: Plan: Recent Western blot was markedly positive for both IgM and IgG. Completed 10 days of doxycycline. Adequately treated at this time. Not suspected to be contributory towards above (3) Nonocclusive coronary atherosclerosis of [place] coronary artery: Plan: 60% LAD lesion based on previous cath per outpatient cardiology records. No recent ischemic symptoms. Continue aspirin. (4) Syncope: Plan: 11/2020 hospitalization for such. Etiology at that time was uncertain. High suspicion for dysrhythmia as cause. Event monitor ordered and sinus pause detected 12/29/20. Certainly heart block/sinus pause could have caused her recent syncopal spell. See above (5) GERD (gastroesophageal reflux disease): Plan: No current symptoms. On no medications for this. (6) Hyperlipidemia: Plan: Continue simvastatin 20 mg p.o. every afternoon (7) Hypertension: Plan: Hold metoprolol due to #1. (8) Rheumatoid arthritis: Plan: Cont plaquenil. No flare at this time. (9) Pancytopenia: Plan: etiology?? this is new in the last 2-3 weeks. ?anaplasmosis - PCR outstanding at this time, smear negative. B12 level 386 - doubtful contributory. Folate levels normal. ESR 41, CRP WNL. (10) DVT prophylaxis: Plan: Lovenox 30mg daily - holding perioperatively due to pacemaker insertion Admission and Anticipated Discharge Date Admission Date: December 30, 2020 Subjective No chest pain, presyncope or syncope. Planning on pacemaker insertion today. Review of Systems Review of Systems: All systems reviewed & are unremarkable except as noted in HPI & below Physical Exam Constitutional: WD/WN, vitals as above Eyes: + anicteric sclerae; normal pupil size Neck: trachea midline, no thyromegaly Respiratory: normal respiratory effort, lungs clear to auscultation Cardiovascular: RRR, no murmur, no edema Gastrointestinal (Abdomen): normal bowel sounds, soft, nontender, no hepatosplenomegaly Musculoskeletal: no cyanosis or clubbing, extremities motor strength 5/5 Neurologic: moves all extremities and awake; not confused Psychiatric: A+Ox3, euthymic affect Results & Data Results & Data ([facility]) Vital Signs (Past 12 Hours) Vital Signs Temp Pulse Pulse Pulse Resp BP Pulse Ox 01/02/21 08:00 70 01/02/21 04:19 36.5 C 71 96 H 16 156/75 H 96 01/02/21 01:00 01/02/21 00:05 71 01/01/21 23:55 36.5 C 69 16 109/60 97 Pulse Ox 01/02/21 08:00 01/02/21 04:19 01/02/21 01:00 97 01/02/21 00:05 01/01/21 23:55 PG Care Time/CCT Total # of Minutes Spent Total Time Spent with Patient: Total time spent is greater than 50% in coordination of care (as documented) at patient's floor/unit and/or counseling patient: Coding Level of Care Code 28310 Subseq Hosp Care Lvl 2 Diagnoses Sinus pause I45.5 Lyme disease A69.20 Nonocclusive coronary atherosclerosis of [place] coronary artery I25.10 Syncope R55 GERD (gastroesophageal reflux disease) K21.9 Hyperlipidemia E78.5 Hypertension I10 Rheumatoid arthritis M06.9 Pancytopenia D61.818 DVT prophylaxis Z29.9
[2021-01-02] MEDS ORDERED: BACITRACIN OINT 0.9 GM PKT ONE (11:36)
[2021-01-02] MEDS ORDERED: VANCOMYCIN HCL 1000MG/20ML VIAL ONE (11:36)
[2021-01-02] MEDS ORDERED: WATER, STERILE FOR INJ 10 ML VIAL ONE (11:36)
[2021-01-02] MEDS ORDERED: LIDOCAINE 1% LOCAL 20 ML VIAL ONE (11:36)
--- NOTE | 2021-01-02 12:14 | Pre Anesthesia Assessment ---
Date of Service January 02, 2021 Pre Sedation Assessment Vital Signs Temp Pulse Pulse Pulse Resp BP Pulse Ox 01/02/21 08:00 70 01/02/21 04:19 36.5 C 71 96 H 16 156/75 H 96 01/02/21 01:00 01/02/21 00:05 71 01/01/21 23:55 36.5 C 69 16 109/60 97 01/01/21 19:45 36.6 C 89 16 111/66 97 01/01/21 16:35 36.6 C 76 17 120/59 L 97 01/01/21 16:00 75 01/01/21 12:35 36.6 C 89 21 120/59 L 93 Pulse Ox 01/02/21 08:00 01/02/21 04:19 01/02/21 01:00 97 01/02/21 00:05 01/01/21 23:55 01/01/21 19:45 01/01/21 16:35 01/01/21 16:00 01/01/21 12:35 Cardiovascular RRR, no murmur, no edema Respiratory normal respiratory effort, lungs clear to auscultation Pre-Sedation Airway Assessment Smoking Status: Former smoker Mallampati Class: II ASA: ASA3 NPO Status Date of Last Intake of Fluids: 01/01/21 Date of Last Intake of Solid Food: 01/01/21 Procedure Planning Contraindications for Sedation: none Notes The planned sedation has been discussed with the patient. Informed Consent was obtained. I have identified the patient, determined the appropriateness of sedation and have assessed the patient immediately prior to the procedure. All medicine(s) and interventions are by my order.
[2021-01-02] MEDS ORDERED: MIDAZOLAM HCL 5 MG/ML 1 ML VIAL ONE (12:23)
[2021-01-02] MEDS ORDERED: fentaNYL citrate 100 MCG/2 ML VIAL ONE (12:23)
--- NOTE | 2021-01-02 13:59 | Electrophysiology Report ---
Date of Service January 02, 2021 Electrophysiology Procedure Electrophysiology Procedure Report Preoperative diagnosis: Intermittent complete heart block Postoperative diagnosis: Same Procedure: Dual-chamber pacemaker implantation Surgeon: David iWlkinson MD Estimated blood loss: 20 cc Complications: None Disposition: Mechanical Drawing Teacher recovery Procedure details: After obtaining informed consent for the procedure, the patient was brought to the laboratory and prepped and draped in the standard sterile manner. The left prepectoral region was anesthetized with 1% lidocaine local anesthetic and left axillary venipuncture was performed by percutaneous technique and a guidewire placed through the left subclavian vein into the superior vena cava. The area was further infiltrated with 1% lidocaine local anesthetic and a 5 cm incision was made parallel to the left clavicle and 2 cm b elow it and carried down to the anterior pectoralis fascia. A pacemaker pocket was formed by blunt dissection anterior to the pectoralis fascia and a saline- soaked sponge was placed in the pocket, and antibiotic was not used due to multiple allergies and sensitivities. An 8 [place] Medtronic lead introducer was placed over the guidewire into the left subclavian vein, the dilator and guidewire were removed and a bipolar active fixation steroid tipped atrial lead was advanced through the introducer into the superior vena cava. A guidewire was placed through the introducer and the introducer was stripped from the lead and guidewire. A 7 [place]ian introducer was placed over the guidewire into the left subclavian vein and the dilator and guidewire removed. A septal lead sheath was advanced into the right ventricle and several septal locations were evaluated for pacing. The thresholds were very high and this lead could not be used in that position. The lead was therefore removed and a bipolar active fixation steroid tipped ventricular lead was advanced introducer into the superior vena cava. Using a curved stylette the ventricular lead was advanced through the right ventricular outflow tract into the pulmonary artery and then using a straight stylette was positioned in the right ventricular apex. The screw was extended fixing the lead in position. Pacing and sensing thresholds were evaluated in bipolar configuration and are recorded on the implant data sheet. Diaphragmatic pacing was evaluated at maximum output as noted on the data sheet. Using a curved stylette the atrial lead was positioned in the region of the atrial appendage and the screw extended fixing the lead in position. Pacing and sensing thresholds were evaluated in bipolar configuration and are recorded on the implant data sheet. Diaphragmatic pacing was evaluated at maximum output as noted on the data sheet. Once the leads were in position they were attached to the anterior pectoralis fascia using 2 sutures of 2-0 silk around each lead collar. The saline soaked sponge was removed from the pocket, hemostasis was obtained, the pacemaker was attached to the leads and placed in a Tyrx pouch and then in the pocket with the leads coiled beneath it. The incision was closed with a running double subcutaneous closure of 3-0 Vicryl absorbable suture, followed by running subcuticular skin closure of 4-0 Vicryl absorbable suture. Bacitracin ointment was placed on the incision and a dressing applied. [facility] [place]rophysiology codes Indication for Procedure (1) AV block, Mobitz II: Pacing Procedure 1: Pacin Insert/Replace Pacer A & V PG Moderate Sedation Codes Moderate Sedation Codes Procedure 1: Sedation/Anesthesia: 06808 Mod Sedation by the same physician;Init15 Min Child Age 5 & Up Procedure 2: Sedation/Anesthesia: 87171 Mod Sedation by the same physician; Ea [id number] Minutes
--- NOTE | 2021-01-02 14:36 | Post Anesthesia Assessment ---
Date of Service January 02, 2021 Post Sedation Assessment Vital Signs Temp Pulse Pulse Pulse Resp BP Pulse Ox 01/02/21 14:11 36.6 C 66 18 140/78 97 01/02/21 13:52 36.6 C 66 18 150/87 H 96 01/02/21 08:00 70 01/02/21 04:19 36.5 C 71 96 H 16 156/75 H 96 01/02/21 01:00 01/02/21 00:05 71 01/01/21 23:55 36.5 C 69 16 109/60 97 01/01/21 19:45 36.6 C 89 16 111/66 97 01/01/21 16:35 36.6 C 76 17 120/59 L 97 01/01/21 16:00 75 Pulse Ox 01/02/21 14:11 01/02/21 13:52 01/02/21 08:00 01/02/21 04:19 01/02/21 01:00 97 01/02/21 00:05 01/01/21 23:55 01/01/21 19:45 01/01/21 16:35 01/01/21 16:00 Recovery Score Activity: Moves 4 extremities Respiration: Deep Breath/Cough Circulation: +/-20% PreAnes Value Consciousness: Fully Awake Oxygen Saturation: > 92% On Room Air Post Anesthesia Score: 10 Discharge Sedation Level of Care: Fast Track Phase II Post Sedation Plan On clinical assessment, the patient appears to have tolerated the sedation without complications. Patient is recovering as anticipated. Patient will continue to be monitored by nursing and may be discharged when sedation discharge criteria are met per below protocol. Upon Completions of procedure up to 15 minutes continue every 5 minute vital signs and the P.A.R. score; then discharge to a Phase I or Fast Track to Phase II per the following guidelines: * Discharge Patient to appropriate Phase II area if PAR is 8 or greater or return to pre- procedure baseline. The post - procedure orders will be as directed. * If PAR score is less than 8 or not return to pre-procedure baseline then patient will follow Phase I monitoring till PAR is reached for Phase II. The Phase I may be done in procedure room or may call to secure a Phase I area. * If naloxone or flumazenil are used for reversal, hold in Phase I for continued monitoring from when last reversal dose was given for a minimum of 60 minutes or longer pending the nurse and/or physician discretion of patient condition before discharge to Phase II. Please call the Sedation Physician to re-evaluate and complete post-note for discharge to Phase II area. Do NOT discharge from procedure sedation or Phase 1 until post- sedation evaluation note is complete by procedure /sedation MD Sedation Discharge Instructions to be given to the patient at discharge to home.
--- NOTE | 2021-01-02 15:41 | Electrocardiogram Report ---
Test Reason : Blood Pressure : / mmHG Vent. Rate : 066 BPM Atrial Rate : 066 BPM P-R Int : 160 ms QRS Dur : 132 ms QT Int : 458 ms P-R-T Axes : 029 -08 011 degrees QTc Int : 480 ms Normal sinus rhythm Right bundle branch block Abnormal ECG When compared with ECG of 29-DEC-2020 18:52, No significant change was found Confirmed by Mark Puente ([id number]) on 01/02/2021 3:41:11 PM Referred By: Savanah Marin Confirmed By:Mark Puente
[2021-01-02] MEDS: SIMVASTATIN 20 MG TAB PO SCH (21:23)
[2021-01-03 05:50] LABS: Basophils # (auto) 0.01 K/uL (0-0.2); Basophils % (auto) 0.2 %; Eosinophils % (auto) 4.5 %; Hematocrit (blood only) 35.1 % (37-47); Hemoglobin 11.6 g/dL (12.0-16.0); Lymphocytes % (auto) 27.3 %; Mean Corpuscular Hemoglobin 30.4 pg (25-34); Mean Corpuscular Volume 92.1 fL (80-100); Mean Platelet Volume 10.8 fL (7.4-10.4); Monocytes # (auto) 0.42 K/uL (0.11-0.59); Monocytes % (auto) 9.5 %; Neutrophils # (auto) 2.57 K/uL (1.4-6.5); Neutrophils % (auto) 58.5 %; Platelet Count 105 K/uL (130-400); RDW Coefficient of Variation 13.5 % (11.5-14.5); RDW Standard Deviation 45.1 fL (36.4-46.3); Red Blood Count 3.81 M/uL (4.2-5.4)
[2021-01-03 06:29] LABS: BUN Creatinine Ratio 30.5 (10-20); Calcium 8.7 mg/dl (8.5-10.1); Creatinine Clr Calc Pharmacy 40.8 ml/min; Est GFR (African American) 79.4 ml/min; Est GFR (Non-African American) 68.5 ml/min; Potassium 3.7 mmol/L (3.5-5.1)
[2021-01-03] MEDS: CALCIUM CARBONATE 1250MG TAB PO SCH (09:26)
[2021-01-03] MEDS: FUROSEMIDE 20 MG TAB PO SCH (09:26)
[2021-01-03] MEDS: POLYETHYLENE (MIRALAX) 17 GM PACK PO SCH (09:27)
[2021-01-03] MEDS: ASPIRIN 81 MG ECTAB PO SCH (09:27)
[2021-01-03] MEDS: HYDROXYCHLOROQUINE SULFATE 200 MG TAB PO SCH (09:27)
[2021-01-03] MEDS: CHOLECALCIFEROL 1,000 UNITS 25 MCG TAB PO SCH (09:27)
--- NOTE | 2021-01-03 09:44 | Cardiology Progress Note ---
Date of Service January 03, 2021 Assessment & Plan (1) AV block, Mobitz II: (2) Status post placement of cardiac pacemaker: Plan: 1. AV block: We have documented a brief episode of AV block as an outpatient, this appeared to be in for his and would be consistent with her prior syncopal event. We did not document that but hopefully that is the case and she will not have recurrent symptoms. The pacemaker will monitor for other types of arrhythmias if any are present. 2. Post pacemaker: She is doing well postop day #1, the site looks good, the x- ray looks good and the leads are in good position. The device is working well. She is stable for discharge. I will put discharge recommendations in her discharge instructions, she should follow-up with cardiology within a week to check the incision, either with Sade or I can schedule it with us. I have not scheduled follow-up at this time. Admission and Anticipated Discharge Date Admission Date: December 30, 2020 Subjective She is feeling well today with no significant incisional discomfort and no cardiovascular complaints. Physical Exam Physical Exam: The incision is clean and dry with no active bleeding. Minor ecchymosis as expected. No swelling or erythema. Lungs are clear Cardiac rhythm is regular with no rub Results & Data ([facility]) Vital Signs (Past 12 Hours) Vital Signs Temp Pulse Resp BP Pulse Ox 01/03/21 08:00 36.4 C 85 13 142/80 H 97 01/03/21 02:59 36.9 C 74 19 114/61 96 01/02/21 23:56 36.6 C 67 17 115/63 97 Laboratory Results CBC 01/03/21 Range/Units 05:00 WBC 4.40 L (4.8-10.8) K/uL RBC 3.81 L (4.2-5.4) M/uL Hgb 11.6 L (12.0-16.0) g/dL Hct 35.1 L (37-47) % Plt Count 105 L (130-400) K/uL Neut # (Auto) 2.57 (1.4-6.5) K/uL Lymph # (Auto) 1.20 (1.2-3.4) K/uL [place] # (Auto) 0.42 (0.11-0.59) K/uL Eos # (Auto) 0.20 (0-0.5) K/uL Baso # (Auto) 0.01 (0-0.2) K/uL Comprehensive Metabolic Panel 01/03/21 Range/Units 05:00 Sodium 136 (136-145) mmol/L Potassium 3.7 (3.5-5.1) mmol/L Chloride 106 (98-107) mmol/L Carbon Dioxide 23 (21-32) mmol/L BUN 25 H (7-18) mg/dl Creatinine 0.83 (0.6-1.2) mg/dl Glucose 94 (70-99) mg/dl Calcium 8.7 (8.5-10.1) mg/dl Intake and Output 01/02/21 01/03/21 01/03/21 22:59 06:59 14:59 Intake Total 153 / 153 Output Total 450 / 450 350 / 350 Balance 153 / -297 -450 / -297 -350 / -350 Intake: IV 153 / 153 Lactated Ringer's 1,000 ml @ 80 153 / 153 mls/hr IV .[id number] [facility] Rx#: [id number] Output: Urine 450 / 450 350 / 350 Diagnostic Findings Postop ECG: Sinus rhythm, intact AV conduction, appropriate pacemaker inhibition Telemetry: Predominantly sinus rhythm with intact AV conduction, appropriate pacemaker inhibition Chest x-ray: Good lead position, no pneumothorax by my reading, formal reading pending Pacemaker evaluation: Excellent pacemaker function PG Care Time/CCT Total # of Minutes Spent Total Time Spent with Patient: Total time spent is greater than 50% in c oordination of care (as documented) at patient's floor/unit and/or counseling patient: Coding Level of Care Code None Diagnoses AV block, Mobitz II I44.1 Status post placement of cardiac pacemaker Z95.0 CPT Codes Dual Lead Pacemaker System - 94003 ([id number])
--- NOTE | 2021-01-03 11:30 | XRay Report ---
XR chest 2V PA/lateral HISTORY: Left-sided pacemaker placement. EXACT TIME ORDERED Evaluate for pneumothorax and l COMPARISON: Chest 12/29/2020. FINDINGS: The patient's chin partially obscures the lung apices. No definite pneumothorax. No pleural effusions. There are low lung volumes. Interval placement left-sided dual-chamber pacemaker. The dahiaan ds appear intact. The lungs are clear. No evidence for pulmonary edema. The cardiac silhouette remain s mildly enlarged. There is a tortuous thoracic aorta, unchanged. Old compression deformities again n oted within the thoracic spine. IMPRESSION: Status post left-sided dual-chamber pacemaker. No pneumothorax. ACT 112: Negative or not required by law. Electronically signed by: Milo Parsons M.D. 01/03/2021 11:29 AM
--- NOTE | 2021-01-03 15:09 | Discharge Summary ---
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 She presents today after being contacted by her heart monitor company [employer]. They alerted her that they noticed an abnormality on her event monitor and recommended she come to the hospital as she would need a pacemaker to be placed. She has no additional details regarding the specific arrhythmia observe d. Upon presentation to the emergency department she was completely asymptomatic specifically denying any chest pressure, chest pain, shortness of breath, nausea or vomiting. She reports that she has been compliant with her Lyme's disease medication and taking it as prescribed. She reports that she follows with Dr. Cunha as an outpatient. Upon arrival to the emergency department routine labs were obtained, CBC was unremarkable, CMP demonstrated a mild elevation of creatinine to 1.45 otherwise unremarkable, troponin negative, mild hypoalbuminemia demonstrated, TSH 1.48 Covid testing was negative chest x-ray was negative. Given the patient's concerning message from her heart monitor company the hospital service was consulted for admission. Upon evaluation of the patient she reports being completely asymptomatic, noting she has been feeling well over the past few days. She denies any recent syncopal episodes, chest pressure, chest pain, shortness of breath, fevers or chills she does note a bit of increased fatigue. Will admit to telemetry overnight and obtain pacemaker interrogation prior to consulting cardiology Principal Diagnosis AV block, Mobitz II Sinus pause Discharge Exam Constitutional WD/WN, vitals as above Eyes + anicteric sclerae; normal pupil size Neck trachea midline, no thyromegaly Respiratory normal respiratory effort, lungs clear to auscultation Cardiovascular RRR, no murmur, no edema Gastrointestinal (Abdomen) normal bowel sounds, soft, nontender, no hepatosplenomegaly Musculoskeletal no cyanosis or clubbing, extremities motor strength 5/5 Neurologic moves all extremities and awake; not confused Psychiatric A+Ox3, euthymic affect Discharge Data Allergies Allergy/AdvReac Type Severity Reaction Status Date / Time Sulfa (Sulfonamide Allergy Intermediate Rash Verified 12/29/20 23:44 Antibiotics) trimethoprim Allergy Intermediate Rash Verified 12/29/20 23:44 vancomycin Allergy Intermediate Rash, Verified 12/29/20 23:44 shortness of breath Cephalosporins AdvReac Mild Vomiting Verified 12/29/20 23:44 Consultations 12/29/20 23:09 ED Decision to Admit Stat 12/31/20 19:19 Consult Cardiology Routine Procedures Performed Operation Date: 01/02/21 12:15 Actual Procedures p Pacer with A/V Leads (Dual) - David Wilkinson MD Ordered Studies 01/02/21 07:00 EP Lab Images for PACS ONCE 01/02/21 12:30 CL Cath Imgs for PACS use only Stat Hospital Course (1) Sinus pause: (2) Lyme disease: (3) Nonocclusive coronary atherosclerosis of [place] coronary artery: (4) Syncope: (5) GERD (gastroesophageal reflux disease): (6) Hyperlipidemia: (7) Hypertension: (8) Rheumatoid arthritis: (9) Pancytopenia: (10) DVT prophylaxis: Araceli Cobos is 75 year old female who presented to the ER after recent syncopal episode and her loop recorder showed a 3.8 second pause therefore she was admitted for pacemaker insertion. This was performed on January 02 and she was discharged the following day. Furosemide was switched to every other day dosing on last admission. Metoprolol was switched to twice daily. Total Time Total Time Spent Total Time Spent (In Minutes): 35 Discharge Plan Discharge Items Patient Disposition: Home - Self-Care Reason For Visit: ARRHYTHMIA Discharge Diagnosis: Sinus pause Activity: As commented below Non-emergency contact: Assistant Terminal Manager Call non-emergency contact if: you have any medication questions and your symptoms worsen Follow-up/Referrals: Jose Padgett Jr, DO [Primary Care Provider] - Diet: Heart Healthy Addtl Attending Provider Instructions: Metoprolol changed to twice a day dosing as this medication should be taken twice a day rather than once a day. Now that you have a pacemaker inserted it will no longer cause low heart rates, sinus pauses or heart block. Furosemide switched to every other day dosing as this was changed on last admission to reduce risk of low blood pressure causing dizziness. ACTIVITY RECOMMENDATIONS: * Do not raise affected arm over head for 2 weeks. SPECIAL CARE INSTRUCTIONS: * If bleeding occurs, apply direct pressure to area for 5 minutes. * Call your doctor if you have severe pain, fever, drainage or bleeding at site. * Keep dressing on and dry for 48 hours then remove. * Keep any scheduled doctor's appointment. * Implant Card - hand held device with website information given. SKIN IRRITATION: * You may experience some redness and/or swelling in the area where radiation was administered. If any skin irritation occurs, please contact your family physician. FOLLOW UP VISIT: Keep any scheduled doctor appointments. Pending Studies at Discharge: Yes (Anaplasmosis PCR) Stand-Alone Forms: [facility], Smoking Cessation Medications and DC Order Prescriptions: Continued aspirin [Aspirin Low Dose] 81 mg Tablet,Delayed Release (Dr/Ec) 81 mg PO QAM RF: 0 acetaminophen 500 mg Tablet 1,000 mg PO Q6H PRN (Reason: Pain) RF: 0 simvastatin 40 mg tablet 20 mg PO QPM RF: 0 calcium carbonate [Calcium 600] 600 mg calcium (1,500 mg) Tablet 600 mg PO QAM RF: 0 hydroxychloroquine 200 mg tablet 100 mg PO BID RF: 0 cholecalciferol (vitamin D3) [Vitamin D3] 125 mcg (5,000 unit) Tablet 125 mcg PO QAM RF: 0 Changed furosemide 20 mg tablet 20 mg PO Q2D Qty: 0 RF: 0 metoprolol tartrate 100 mg tablet 50 mg PO BID Qty: 0 RF: 0 Discharge Orders: Discharge Order (Routine); Ordered 01/03/21 Ordered By: Rafi Lee Admission Data Admit Date/Time: 12/30/20 01:20 Attending Provider: Rafi Lee Admit Provider: Ousmane Marcum I. Primary Care Provider: Jose Padgett Jr Other Providers: Mary Lou Marcum Christophe W. Other Interventions: Discharge Summary Assessment (RN) Last Done: 01/03/21 15:04 Coding Level of Care Code D/C DAY MANAGEMENT >30 MINS Diagnoses Sinus pause I45.5 Lyme disease A69.20 Nonocclusive coronary atherosclerosis of [place] coronary artery I25.10 Syncope R55 GERD (gastroesophageal reflux disease) K21.9 Hyperlipidemia E78.5 Hypertension I10 Rheumatoid arthritis M06.9 Pancytopenia D61.818 DVT prophylaxis Z29.9
== END 2021-01-03 16:16 | disposition home or self-care (01) | DRG 243 ==
LOC: ED 18:42 → 1E 12-30 01:20 → SUATTDRO 12-30 01:20 → 1E 12-30 01:57

== ENCOUNTER 2023-04-08 17:11 | Inpatient (IN) ==
[2023-04-08 17:58] LABS: Basophils # (auto) 0.06 K/uL (0.00-0.20); Basophils % (auto) 0.8 %; Eosinophils # (auto) 0.16 K/uL (0.00-0.50); Eosinophils % (auto) 2.1 %; Hemoglobin 12.6 g/dl (12.0-16.0); Immature Granulocytes # (auto) 0.03 K/uL (0.01-0.20); Immature Granulocytes % (auto) 0.4 %; Lymphocytes # (auto) 1.41 K/uL (1.20-3.40); Lymphocytes % (auto) 18.1 %; Mean Corpuscular Hemoglobin 30.7 pg (25.0-34.0); Mean Corpuscular Hgb Conc 33.2 g/dL (32.0-36.0); Mean Corpuscular Volume 92.7 fL (80.0-100.0); Mean Platelet Volume 10.4 fL (9.4-12.4); Monocytes # (auto) 0.61 K/uL (0.11-0.59); Monocytes % (auto) 7.9 %; Neutrophils % (auto) 70.7 %; Platelet Count 170 K/uL (130-400); RDW Coefficient of Variation 12.2 % (11.5-14.5); RDW Standard Deviation 41.7 fL (36.4-46.3); White Blood Count 7.77 K/ul (4.8-10.8)
--- NOTE | 2023-04-08 18:01 | Emergency Department Note ---
Impression & Plan Acute non-ST elevation myocardial infarction (NSTEMI) ED Provider Note Diagnosis: NSTEMI Disposition: Admit CHIEF COMPLAINT: Back pain HPI: Patient 78-year-old presenting with complaint of back pain. Patient points to the mid thoracic region. Patient states this occurred and she was at rest and does not remember any traumatic injuries. Patient states the pain is making her short of breath. Patient denies any anterior chest pain. Patient denies lifting any heavy objects. PAST MEDICAL HISTORY: See Below PAST SURGICAL HISTORY: See Below SOCIAL HISTORY: See Below HOME MEDICATIONS: See Below ALLERGIES: See Below VITALS: See Below PHYSICAL EXAMINATION: GENERAL: Well appearing, well nourished, NAD, non-toxic. EYE EXAM: Normal conjunctiva. OROPHARYNX: Moist mucus membranes. Grossly normal dentition. NECK: Supple, LUNGS: Clear to auscultation. Normal chest wall mechanics. HEART: NSR ABDOMEN: Abdomen soft, non-tender, normo-active bowel sounds, no masses, no rebound or guarding BACK: No CVA TTP. SKIN: No rashes and no bruising. UPPER EXTREMITIES: Upper extremities are grossly normal LOWER EXTREMITIES: Grossly normal, no edema. NEURO EXAM: A&O x3,, normal speech, moves all 4 extremities PSYCH: Cooperative MEDICAL DECISION MAKING: History obtained from: Patient ER Course: Patient is a 78-year-old female presenting with complaint of lower thoracic back pain. Patient states symptoms started at rest. Patient denies lifting any heavy objects. Patient denies any acute trauma. Patient denies any anterior chest pain or shortness of breath. Patient is EKG shows paced rhythm. Patient's first troponin elevated and second troponin increased from that first number. Patient's case discussed with hospitalist service who accepts patient further treatment and evaluation. Patient already took 1 baby aspirin this morning and will be given 3 baby aspirin here to complete a full dose. Labs (independently interpreted) are significant for: Troponin positive x 2 Imaging results (independently interpreted): Chest x-ray clear EKG interpretation (independently interpreted): EKG paced rhythm Medications given: 3 baby aspirin Consultants: Hospitalist service Triage Nursing notes reviewed and agree them. Vital Signs: reviewed and remarkable for: no significant abnormalities Past Med/Surg History Medical History Edema Endometriosis Fracture of femoral neck, right Headache Hyperlipidemia Hypertension No pertinent family history Osteoporosis Rheumatoid arthritis Surgical History No pertinent past surgical history Social History Smoking Status: Former smoker Tobacco Type: Cigarettes Second Hand Exposure: No; Do You Dip or Chew Tobacco: No; Hx Alcohol Use: No Hx Substance Use: No Preferred Language: Lithuanian Communication Ability: Effective [employer] Required: No Beliefs That Will Affect Care: None marital status: / Current Living Situation: Family Current Living Situation Comment: Lives with son and grandchildren How many Children do You have: 1 Feels Safe at Home: Yes Assistive Devices: Cane Allergies Allergies Allergy/AdvReac Type Severity Reaction Status Date / Time Sulfa (Sulfonamide Allergy Intermediate Rash Verified 04/08/23 21:04 Antibiotics) trimethoprim Allergy Intermediate Rash Verified 04/08/23 21:04 vancomycin Allergy Intermediate Rash, Verified 04/08/23 21:04 shortness of breath Cephalosporins AdvReac Mild Vomiting Verified 04/08/23 21:04 Home Meds Home Medications Medication Instructions Recorded Confirmed acetaminophen 500 mg tablet 1,000 mg PO Q6H PRN Pain 05/09/20 04/08/23 aspirin 81 mg tablet,delayed 81 mg PO QAM 05/09/20 04/08/23 release (Niya Low Dose Aspirin) calcium carbonate 600 mg calcium 600 mg PO QAM 05/09/20 04/08/23 (1,500 mg) tablet (Calcium) cholecalciferol (vitamin D3) 125 125 mcg PO QAM 05/09/20 04/08/23 mcg (5,000 unit) tablet (Vitamin D3) hydroxychloroquine 200 mg tablet 200 mg PO BID 05/09/20 04/08/23 amlodipine 2.5 mg tablet 2.5 mg PO QAM 04/08/23 04/08/23 furosemide 20 mg tablet 20 mg PO QAM 04/08/23 04/08/23 metoprolol succinate 100 mg 50 mg PO HS 04/08/23 04/08/23 tablet,extended release 24 hr simvastatin 20 mg tablet 20 mg PO HS 04/08/23 04/08/23 Results & Data (ED) Vital Signs Vital Signs - 24 hr 04/08/23 17:19 04/08/23 17:19 04/08/23 17:22 Temperature 36.7 C Temperature Source Oral Pulse Rate 81 79 Pulse Rate from SpO2 Sensor Respiratory Rate 18 Respiratory Effort / Characteristics Spontaneous Short of Breath Blood Pressure 141/98 H Blood Pressure Mean 112 Pulse Oximetry 98 98 Oxygen Delivery Method Room Air Room Air Oxygen Flow Rate 0 Sepsis Recent Fever Within 48 Hours No Sepsis New/Unexplained Change in Mental Status N/A Sepsis Action Taken by Nursing No Action Required 04/08/23 17:32 04/08/23 18:01 04/08/23 18:31 Temperature Temperature Source Pulse Rate 84 77 78 Pulse Rate from SpO2 Sensor Respiratory Rate 16 17 13 Respiratory Effort / Characteristics Blood Pressure 156/117 H 138/91 156/93 H Blood Pressure Mean 130 106 114 Pulse Oximetry 95 98 96 Oxygen Delivery Method Room Air Room Air Room Air Oxygen Flow Rate Sepsis Recent Fever Within 48 Hours Sepsis New/Unexplained Change in Mental Status Sepsis Action Taken by Nursing 04/08/23 19:23 04/08/23 19:25 04/08/23 19:25 Temperature Temperature Source Pulse Rate 93 H 81 Pulse Rate from SpO2 Sensor 88 Respiratory Rate 19 14 Respiratory Effort / Characteristics Blood Pressure 139/85 Blood Pressure Mean 104 Pulse Oximetry 98 Oxygen Delivery Method Oxygen Flow Rate Sepsis Recent Fever Within 48 Hours Sepsis New/Unexplained Change in Mental Status Sepsis Action Taken by Nursing 04/08/23 19:30 04/08/23 19:30 04/08/23 20:00 Temperature Temperature Source Pulse Rate 82 Pulse Rate from SpO2 Sensor 85 Respiratory Rate 17 Respiratory Effort / Characteristics Blood Pressure 148/78 H 124/76 Blood Pressure Mean 84 97 Pulse Oximetry 94 Oxygen Delivery Method Oxygen Flow Rate Sepsis Recent Fever Within 48 Hours Sepsis New/Unexplained Change in Mental Status Sepsis Action Taken by Nursing 04/08/23 20:00 04/08/23 20:30 04/08/23 20:30 Temperature Temperature Source Pulse Rate 80 78 Pulse Rate from SpO2 Sensor 112 H Respiratory Rate 16 16 Respiratory Effort / Characteristics Blood Pressure 135/81 Blood Pressure Mean 108 Pulse Oximetry 97 Oxygen Delivery Method Oxygen Flow Rate Sepsis Recent Fever Within 48 Hours Sepsis New/Unexplained Change in Mental Status Sepsis Action Taken by Nursing 04/08/23 21:00 04/08/23 21:02 04/08/23 21:02 Temperature Temperature Source Pulse Rate 85 80 Pulse Rate from SpO2 Sensor Respiratory Rate 16 16 Respiratory Effort / Characteristics Blood Pressure 149/75 H Blood Pressure Mean 103 Pulse Oximetry Oxygen Delivery Method Oxygen Flow Rate Sepsis Recent Fever Within 48 Hours Sepsis New/Unexplained Change in Mental Status Sepsis Action Taken by Nursing 04/08/23 21:31 04/08/23 21:31 Temperature Temperature Source Pulse Rate 85 Pulse Rate from SpO2 Sensor Respiratory Rate 19 Respiratory Effort / Characteristics Blood Pressure 137/89 Blood Pressure Mean 92 Pulse Oximetry Oxygen Delivery Method Oxygen Flow Rate Sepsis Recent Fever Within 48 Hours Sepsis New/Unexplained Change in Mental Status Sepsis Action Taken by Nursing Laboratory Data 04/08/23 17:20 04/08/23 17:20 Lab Results 04/08/23 04/08/23 Range/Units 17:20 19:45 WBC 7.77 (4.8-10.8) K/ul RBC 4.10 L (4.20-5.40) M/uL Hgb 12.6 (12.0-16.0) g/dl Hct 38.0 (37.0-47.0) % MCV 92.7 (80.0-100.0) fL MCH 30.7 (25.0-34.0) pg MCHC 33.2 (32.0-36.0) g/dL RDW Std Deviation 41.7 (36.4-46.3) fL RDW Coeff of Emily 12.2 (11.5-14.5) % Plt Count 170 (130-400) K/uL MPV 10.4 (9.4-12.4) fL Immature Gran % (Auto) 0.4 % Neut % (Auto) 70.7 % Lymph % (Auto) 18.1 % [place] % (Auto) 7.9 % Eos % (Auto) 2.1 % Baso % (Auto) 0.8 % Neut # (Auto) 5.50 (1.40-6.50) K/uL Lymph # (Auto) 1.41 (1.20-3.40) K/uL [place] # (Auto) 0.61 H (0.11-0.59) K/uL Eos # (Auto) 0.16 (0.00-0.50) K/uL Baso # (Auto) 0.06 (0.00-0.20) K/uL Immature Gran # (Auto) 0.03 (0.01-0.20) K/uL Sodium 138 (136-145) mmol/L Potassium 3.3 L (3.5-5.1) mmol/L Chloride 103 (98-107) mmol/L Carbon Dioxide 27 (21-32) mmol/L Anion Gap 8 (3-11) BUN 19 (6-23) mg/dl Creatinine 0.78 (0.6-1.2) mg/dl Est Cr Clr Drug Dosing 40.7 ml/min Est GFR ( Amer) 83.8 ml/min Est GFR (Non-Af Amer) 72.3 ml/min BUN/Creatinine Ratio 24.4 H (10-20) Glucose 105 H (70-99(Fasting)) mg/dl Calcium 10.1 (8.6-10.3) mg/dl Magnesium 1.8 (1.7-2.4) mg/dl Total Bilirubin 0.7 (0.2-1.0) mg/dl AST 28 (13-39) U/L ALT 24 (7-52) U/L Alkaline Phosphatase 116 H (34-104) U/L Troponin I High Sens 36.8 H 46.8 H D (0-14) pg/ml B-Natriuretic Peptide 467 H (0-100) pg/ml Total Protein 7.9 (6.0-8.3) gm/dl Albumin 3.9 (3.4-5.0) gm/dl Globulin 4.0 (2.5-4.0) gm/dl Albumin/Globulin Ratio 1.0 (0.9-2) Lipase 37 (11-82) U/L Administered Medications Discontinued Medications Aspirin (Aspirin 81 Mg Chew) 243 mg PO NOW STA Stop: 04/08/23 21:12 Last Admin: 04/08/23 21:35 Dose: 243 mg Documented By: BOOGIEW Furosemide (Furosemide Inj 20 Mg/2 Ml Vial) 20 mg IV ONE ONE Stop: 04/08/23 21:35 Last Admin: 04/08/23 21:56 Dose: 20 mg Documented By: ORLIN Hydroxychloroquine Sulfate (Hydroxychloroquine Sulfate 200 Mg Tab) 200 mg PO NOW STA Stop: 04/08/23 21:35 Last Admin: 04/08/23 22:34 Dose: 200 mg Documented By: ORLIN Acetaminophen (Ofirmev) 1,000 mg in 100 mls @ 400 mls/hr IV NOW STA Stop: 04/08/23 21:48 Last Infusion: 04/08/23 22:27 Dose: Infused Documented By: Admin: 04/08/23 21:56 Dose: 400 mls/hr Documented By: ORLIN Ioversol (Optiray 320 125ml) 116 ml IV ONCE ONE Stop: 04/08/23 18:48 Last Admin: 04/08/23 18:48 Dose: 116 ml Documented By: STACEY Metoprolol Succinate (Metoprolol Succ 50mg Ext Rel Tab) 50 mg PO NOW STA Stop: 04/08/23 21:35 Last Admin: 04/08/23 22:34 Dose: 50 mg Documented By: ORLIN Potassium Chloride (Potassium Chloride Crtab 20 Meq Tabcr) 60 meq PO NOW STA Stop: 04/08/23 21:35 Last Admin: 04/08/23 21:56 Dose: 60 meq Documented By: ORLIN Simvastatin (Simvastatin 20 Mg Tab) 20 mg PO NOW STA Stop: 04/08/23 21:35 Last Admin: 04/08/23 22:34 Dose: 20 mg Documented By: ORLIN Imaging Data Radiologist's Impression: Chest X-Ray 04/08/23 17:49 XR chest 1V portable HISTORY: 78 years-old Female Chest pain, nonspecific COMPARISON: 01/03/2021 TECHNIQUE: AP view of the chest FINDINGS: Cardiac silhouette is enlarged. Left subclavian dual lead pacer. No pneumothorax, pleural effusion, airspace consolidation or overt pulmonary edema. Degenerative changes of the shoulders and spine. Healed chronic right proximal humeral fracture deformity. IMPRESSION: No acute process of the chest. ACT 112: Negative or not required by law. The above report was generated using voice recognition software. It may contain grammatical, syntax or spelling errors. Electronically signed by: Viktor Dunne M.D. 04/08/2023 6:12 PM Chest CTA 04/08/23 17:50 Exam(s): CTA CHEST IV Amt: 116 ml optiray 320 EXAM: CT Angiography Chest With Intravenous Contrast CLINICAL HISTORY: Reason for exam: Chest Pain, eval for PE. TECHNIQUE: Axial computed tomographic angiography images of the chest with intravenous contrast. CTDI is 47.37 mGy and DLP is 1264.62 mGy-cm. Automated exposure control was utilized for the study. A dose lowering technique was utilized adhering to the principles of ALARA. MIP reconstructed images were created and reviewed. COMPARISON: No relevant prior studies available. FINDINGS: Pulmonary arteries: Unremarkable. No pulmonary embolus. Aorta: See below. Lungs: Bibasilar atelectasis versus scarring with small basilar cyst may be related to early fibrosis. No mass. Pleural space: Unremarkable. No significant effusion. No pneumothorax. Heart: Unremarkable. No cardiomegaly. No significant pericardial effusion. No evidence of RV dysfunction. Thyroid: Unremarkable. No suspicious no thyroid lesions. Bones/joints: Moderate multilevel changes of the thoracic spine with thoracic kyphosis. No acute fracture. No dislocation. Soft tissues: Unremarkable. Lymph nodes: Unremarkable. No enlarged lymph nodes. Tubes, lines and devices: Left-sided pacemaker. Moderate atherosclerotic disease of the thoracic aorta. IMPRESSION: 1. No pulmonary embolus. 2. Bibasilar atelectasis versus scarring with small basilar cyst may be related to early fibrosis. Electronically signed by: Omayra Eli MD 04/08/23 19:36 PM Discharge Plan Visit Data Chief Complaint: Back Injury/Pain ED Provider: Damaso Nichols Discharge Problem: Acute non-ST elevation myocardial infarction (NSTEMI) Patient Disposition: Admitted As Inpatient Discharge Instructions Interventions: ED Discharge Assessment Last Done: 04/08/23 23:18
--- NOTE | 2023-04-08 18:14 | XRay Report ---
XR chest 1V portable HISTORY: 78 years-old Female Chest pain, nonspecific COMPARISON: 01/03/2021 TECHNIQUE: AP view of the chest FINDINGS: Cardiac silhouette is enlarged. Left subclavian dual lead pacer. No pneumothorax, pleural effusion, a irspace consolidation or overt pulmonary edema. Degenerative changes of the shoulders and spine. Heal ed chronic right proximal humeral fracture deformity. IMPRESSION: No acute process of the chest. ACT 112: Negative or not required by law. The above report was generated using voice recognition software. It may contain grammatical, syntax o r spelling errors. Electronically signed by: Viktor Dunne M.D. 04/08/2023 6:12 PM
[2023-04-08 18:21] LABS: Albumin Level 3.9 gm/dl (3.4-5.0); BUN Creatinine Ratio 24.4 (10-20); Bilirubin,Total 0.7 mg/dl (0.2-1.0); Calcium 10.1 mg/dl (8.6-10.3); Creatinine Clr Calc Pharmacy 40.7 ml/min; Est GFR (African American) 83.8 ml/min; Est GFR (Non-African American) 72.3 ml/min; Potassium 3.3 mmol/L (3.5-5.1); Total Protein 7.9 gm/dl (6.0-8.3)
[2023-04-08 18:27] LABS: Troponin I High Sensitivity 36.8 pg/ml (0-14)
[2023-04-08] MEDS ORDERED: OPTIRAY 320 125ml IV ONE (18:47)
--- NOTE | 2023-04-08 19:37 | CT Scan Report ---
Exam(s): CTA CHEST IV Amt: 116 ml optiray 320 EXAM: CT Angiography Chest With Intravenous Contrast CLINICAL HISTORY: Reason for exam: Chest Pain, eval for PE. TECHNIQUE: Axial computed tomographic angiography images of the chest with intravenous contrast. CTDI is 47.37 mGy and DLP is 1264.62 mGy-cm. Automated exposure control was utilized for the study. A dose lowering technique was utilized adhering to the principles of ALARA. MIP reconstructed images were created and reviewed. COMPARISON: No relevant prior studies available. FINDINGS: Pulmonary arteries: Unremarkable. No pulmonary embolus. Aorta: See below. Lungs: Bibasilar atelectasis versus scarring with small basilar cyst may be related to early fibrosis. No mass. Pleural space: Unremarkable. No significant effusion. No pneumothorax. Heart: Unremarkable. No cardiomegaly. No significant pericardial effusion. No evidence of RV dysfunction. Thyroid: Unremarkable. No suspicious no thyroid lesions. Bones/joints: Moderate multilevel changes of the thoracic spine with thoracic kyphosis. No acute fracture. No dislocation. Soft tissues: Unremarkable. Lymph nodes: Unremarkable. No enlarged lymph nodes. Tubes, lines and devices: Left-sided pacemaker. Moderate atherosclerotic disease of the thoracic aorta. IMPRESSION: 1. No pulmonary embolus. 2. Bibasilar atelectasis versus scarring with small basilar cyst may be related to early fibrosis. Electronically signed by: Omayra Eli MD 04/08/23 19:36 PM
[2023-04-08 20:35] LABS: Troponin I High Sensitivity 46.8 pg/ml (0-14)
[2023-04-08] MEDS ORDERED: ASPIRIN 81 MG CHEW PO STA (21:11)
--- OUTSIDE RECORDS SUMMARY | 2023-04-08 21:14 | External Medical Summary | Summary of Care ---
Author Name Unknown Organization [facility] Address [address] [place] [address] Phone [phone] Care Team Providers Care Aerospace Engineer Officer Armament Name Role Phone Georgia Rosenthal PA-C Primary Care Provide r Reason for Visit * Reason Onset Date Comments Appointment 07/09/2022 Prolia Encounter Details Date Type Department Care Team (Late st Contact Info) Description 07/09/2022 Telephone Rheumatology [facility] [address] [facility] [place] [address] Services, Scheduling [address] [place] [address] Appointment (Prolia) Allergies Active Allergy Reactions Criticality Noted Date Comments Sulfamethoxazole-Trimethopri m 01/05/2015 Cephalexin Nausea/vomiting 03/23/2007 Vancomycin 09/26/2014 Short of breath documented as of this encounter (statuses as of 01/15/2023) Medications Medication Sig Dispensed Refills Start Date End Date Status OMEPRAZOLE 20 MG PO TBEC one tablet by mouth daily 0 Active Multiple Vitamin (MULTIVITAMINS) Capsule daily 0 Active Cholecalciferol (VITAMIN D3) 5000 UNITS Tablet Take 1 Capsule by mouth in the morning. 0 Active Calcium 600 MG Tablet Take 1 Tablet by mouth in the morning and 1 Tablet before bedtime. 0 Active Simvastatin 40 MG Oral Tablet Take 1 Tablet by mouth in the morning. 1/2 tab daily . 0 Active Aspirin 81 MG Oral Tablet Delayed Release Take 1 Tablet by mouth. 1 daily 0 Active Furosemide 20 MG Oral Tablet (Lasix) 1 daily 0 11/06/2020 Active hydroxychloroquine (PLAQUENIL) 200 MG Tablet 1 Tablet. 1 tab twice daily 0 10/30/2016 10/01/2022 Discontinued( Refill) metoprolol tartrate (LOPRESSOR) 100 MG Tablet Take 1 Tablet by mouth in the morning and 1 Tablet before bedtime. 1 twice daily. 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 ULCER OF LOWER LIMB,RIGHT FOOT 01/18/2005 Dyslipidemia, goal to be determined 01/18/2005 TETANUS-DIPTHERIA (TD), (DT) 01/18/2005 Senile osteoporosis 09/23/2003 BUNIONS 08/31/2003 BENIGN AMARILIS SKIN FACE NEC 08/31/2003 ROUTINE MEDICAL EXAM 08/31/2003 Menopause 08/31/2003 Family history of ischemic heart disease 004 FAM HX-DIABETES MELLITUS 08/31/2003 Reflux esophagitis Hyperlipidemia with target LDL less than 100 Overview: ICD-10 update of inactive term Hypertension, goal below 140/80 Gammopathy documented as of this encounter (statuses as of 01/15/2023) Resolved Problems Problem Noted Date Diagnosed Date Resolved Date ARTHRITIS,RHEUMATOID 08/31/2003 016 Overview: used to be at [facility] Other, multiple, and unspeci fied sites, insect bite, nonvenomous, without mention of infection(919.4) 08/31/2003 08/13/2005 Cellulitis of foot 08/31/2003 6 Overview: RESOLVED Special screening for malign ant neoplasms, colon 08/31/2003 06/01/2008 Overview: Resolved per Screening Diagnosis Protocol #6 Screening for malignant neoplasm of breast 08/31/2003 06/01/2008 Overview: Resolved per Screening Diagnosis Protocol #6 Tobacco use disorder 08/31/2003 012 Gammopathy, monoclonal 04/16 documented as of this encounter (statuses as of 01/15/2023) Immunizations Name Administration Dates Next Due Pneumococcal Polysaccharide PPV23 (Pneumovax) Seasonal Influenza, Quadrivalent, No Preserve, I M 01/05/2015 documented as of this encounter Social History Tobacco Use Types Packs/Day Years Used Date Smoking Tobacco: Former Cigarettes 0.5 43 Q uit: 07/03/2006 Smokeless Tobacco: Never Comments:began at age 17 Alcohol Use Standard Drinks/Week Comments Yes 0 (1 standard drink = 0.6 oz pur e alcohol) rarely Sex and Gender Information Value Date Recorded Sex Assigned at Not on file Gender Identity Not on file Sexual Orientation Not on file Job Start Date Occupation Industry Not on file Not on file Not on file documented as of this encounter Miscellaneous Notes * Telephone Encounter - ALFRED Caldwell - 01/15/2023 3:13 PM EDT LM for pt to get lab work done this week and call Friday or later to schedule Prolia Injection visit on the nurse schedule at [facility], 01/18/23 or later * Telephone Encounter - Milka Fisher LPN - 01/15/2023 9:48 AM EDT Pt can be scheduled with Nurse in LT for her Prolia 01/18 or after but she needs to have updated non-fasting labs done 1 or 2 days at least before. Dr Ha already put the orders in * Addendum Note - Joya Ha MD - 01/13/2023 10:45 AM EDTAddended by: JOYA HA on: 01/13/2023 10:45 AM Modules accepted: Orders * Telephone Encounter - Joya Ha MD - 01/13/2023 10:45 AM EDT Please call patient to get labs this week prior to prolia. [facility] * Telephone Encounter - Milka Fisher LPN - 01/03/2023 11:55 AM EDT Prolia is due 01/18 or after, can schedule her with the Rheum nurse Will she need updated labs? * Telephone Encounter - ALFRED Feng - 01/03/2023 10:12 AM EDT Salt Operator - Patient Related Communication Reason for Call: Appt request (Scheduling Pool): The patient is calling to schedule her prolia. The patient is scheduled for the next available 07/09/22. The patient would like a sooner appointment, please return callto the patient at [phone].un[address] the patient to fast pass as she does not have MyChart. ALFRED Feng * Telephone Encounter - Joya Ha MD - 07/12/2022 11:39 AM EDT Ok noted * Telephone Encounter - Milka Fisher LPN - 07/09/2022 4:07 PM EDT appts are fine, we can always add pt to the wait list for the end of Dec 2022 for her next providervisit * Telephone Encounter - ALFRED Altman - 07/09/2022 2:29 PM EDT Patient calling to make her Prolia injection appointment. Patient scheduled for 07/18/22 as per Amira's check out notes from last appointment. Patient is scheduled with Dr. Ha for first available, and added to the Wait List. Please review this info and advise patient prn, thank you. documented in this encounter Plan of Treatment Upcoming Encounters Date Type Department Care Team (Late st Contact Info) Description 07/10/2023 10:00 AM EDT Office Visit Rheumatology [facility] [address] [place] [address] Shaun Rubin CRNP [address] [place] [address] Scheduled Orders Name Type Priority Associated Diagnoses Orde r Schedule BASIC METABOLIC PANEL Lab Routine Senile osteoporosis Expected: 01/13/2023 (Approximate), Expires: 04/15/2023 25-HYDROXY VITAMIN D Lab Routine Senile osteoporosis Expected: 01/13/2023, Expires: 01/14/2024 Health Maintenance Due Date Last Done Comments COVID-19 Vaccine (#1) 01/11/1950 Depression Screening 1957 Albumin/Creatinine Ratio 01/11/1962 DTaP,Tdap,and Td Vaccines (1 - Tdap) 01/11/1963 Zoster Vaccines (1 of 2) 01/11/1963 Pneumococcal Vaccine: 65+ Years (2 - PCV) 03/24/2010 03/24/2009 Influenza Vaccine (FLU shot) (#1) 2022 03/04/2019, 01/05/2015, 01/09/2008 GFR 12/12/2022 12/12/2021, 11/22, 12/08/2020, Additional history exists DXA Scan 12/13/2022 12/13/2020, 07/0 11/2018, 06/19/2016, Additional history exists VITAMIN D LEVEL ONCE IN A LIFETIME-USE SMARTSET# [id number] Completed 12/12/2021, 12/16/2019, 05/25/2019, Additional history exists GARDASIL-HPV IMMUNIZATION SERIES Aged Out No longer eligible based on patient's age to complete this topic Hepatitis B Aged Out No longer eligi ble based on patient's age to complete this topic MENINGOCOCCAL (MENACTRA/MENVEO) Aged Out No longer eligible based on patient's age to complete this topic documented as of this encounter Medical Devices Not on filedocumented as of this encounter Visit Diagnoses Diagnosis Senile osteoporosis- Primary documented in this encounter Care Teams Aerospace Engineer Officer Armament Relationship Specialty Start Date End Date Georgia Rosenthal PA-C [address] [place] [address], [place] [address] PCP - General Physician Community Health Planning Director 07/18/22 documented as of this encounter
--- OUTSIDE RECORDS SUMMARY | 2023-04-08 21:14 | External Medical Summary | Continuity of Care Document ---
Author Name Unknown Organization [facility] [address] [facility] Address [address] [place], [place] [id number] Care Team Providers Care Child Protective Services Social Worker Name Role Phone HayleejeysonGeorgia ledesma Primary Care Physician [phone] [id number] Date(s): 03/07/23 - 03/07/23 [facility] [address], [address] [place] [address] [phone] Encounter Diagnosis Chronic diastolic heart failure(Discharge Diagnosis) - 03/07/23 Coronary arteriosclerosis in torres martinez artery(Discharge Diagnosis) - 03/07/23 Fistula, coronary artery(Discharge Diagnosis) - 03/07/23 Pacemaker(Discharge Diagnosis) - 03/07/23 RBBB(Discharge Diagnosis) - 03/07/23 Syncope(Discharge Diagnosis) - 03/07/23 Discharge Disposition: Home or Self Care Attending Physician: DO Cunha Jason D Allergies, Adverse Reactions, Alerts Substance Reaction Severity Status vancomycin Shortness of breath Rash Active Keflex rash Active Bactrim rash Active Assessment and Plan Extracted from: Title:Cardiology Office Visit Note Author:DO Cunha Jason D Date:03/07/23 1.Chronic diastolic heart failure 2.Coronary arteriosclerosis in torres martinez artery 3.Fistula, coronary artery 4.Pacemaker 5.RBBB 6.Syncope I am concerned about the lower extremity edema in her legs. She consumes a fair amount of salt and it has been worse since . We discussed trying to avoid salty foods and I reviewed those with her and we also discussed avoiding sauerkraut which seems to be a regular item for her. She already takes Lasix 20 mg daily we discussed increasing it to 40 mg over the next number of days. We also discussed she could take an extra dose as needed. In addition, her amlodipine may be contributing to her lower extremity edema and given her relatively low blood pressure I recommended reducing it from 5 mg to 2-1/2 mg. If she notes an improvement but it does not completely resolve we may need to stop her amlodipine completely. I did review her device interrogations with her she is atrially paced about 60% of the time and almost never RV paced. She has not had any atrial or ventricular arrhythmias. She has about 12 years of battery life. Will see her in 6 months time. Sooner if she has worsening lower extremity edema and I discussed that with her. Immunizations Given and Recorded Vaccine Date Status Refusal Reason influenza virus vaccine, inactivated 12/27/22 Give n influenza virus vaccine, inactivated 02/10/20 Give n influenza virus vaccine, inactivated 01/09/08 Give n pneumococcal 13-valent vaccine 1 06/30/20 Recorded pneumococcal 23-valent vaccine 2 03/24/09 Recorded 1Result Comment: 2022-06-27: Historical information-source unspecified 2Result Comment: 2022-06-27: Historical information-source unspecified Medications amLODIPine 2.5 mg oral tablet Start: 03/07/23 14:16:00 EST, 1 tab, PO, Daily, Disp# 90 tab, Refills: 3, Pharmacy: [facility] Start Date: 03/07/23 Status: Ordered aspirin 81 mg oral tablet Start: 02/03/15 11:37:00, 1 tab, PO, Daily Start Date: 02/03/15 Status: Ordered calcium (as calcium citrate) 250 mg oral tablet Start: 09/29/17 13:16:00 EDT, See Instructions, 1200 mg a day Start Date: 09/29/17 Status: Ordered furosemide 20 mg oral tablet Start: 05/15/22 12:49:00 EST, 1 tab, PO, Daily, Disp# 90 tab, Refills: 3, Pharmacy: [facility] Start Date: 05/15/22 Status: Ordered hydroxychloroquine 200 mg oral tablet Start: 06/27/22 14:08:00 EDT, 1 tab, PO, bid, Disp# 180 tab, Refills: 1, with food or milk, Pharmacy: [facility] Start Date: 06/27/22 Stop Date: 12/24/22 Status: Ordered metoprolol succinate 100 mg oral tablet, extended release Start: 09/05/22 14:24:00 EDT, 0.5 tab, PO, qhs, Disp# 135 tab, Refills: 3, Note to Pharmacy: dose change only, Pharmacy: [facility] Start Date: 09/05/22 Status: Ordered Prilosec OTC Start: 01/11/08 16:03:14, 40 mg =, PO, Daily, Refills: 0, PRN: acid reflux, current medication fromanother provider Start Date: 01/11/08 Status: Ordered Prolia Start: 07/03/15 13:41:00, 60 mg =, subQ, [id number], q 6 month Start Date: 07/03/15 Status: Ordered simvastatin 20 mg oral tablet Start: 12/13/22 16:47:00 EDT, 1 tab, PO, qhs, Disp# 90 tab, Refills: 3, Pharmacy: [facility] Start Date: 12/13/22 Status: Ordered Tylenol 500 mg oral tablet Start: 10/16/12 14:30:00, 1 tab, PO, q6h, PRN: as needed for pain Start Date: 10/16/12 Status: Ordered Vitamin D3 5000 intl units oral capsule Start: 10/16/12 14:30:00, 1 cap, PO, Daily Start Date: 10/16/12 Status: Ordered Problem List Condition Confirmation Course Effective Dates Status H ealt Status Informant Arthritis mutilans affecting hand Confirmed Active Pacemaker Confirmed Active Chronic diastolic heart failure Confirmed Active Fx femoral neck Confirmed Active Coronary arteriosclerosis in torres martinez artery Confirmed Active Coronary artery fistula Confirmed Active GERD (gastroesophageal reflux disease) Confirmed Active Osteoarthritis of knee Confirmed Active Osteoporosis Confirmed Active 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 Rheumatoid arthritis Confirmed Active RBBB Confirmed Active Syncope Confirmed Active Diagnosis Diagnosis Type Effective Dates Health Status Clinical Service Informant Fistula, coronary artery Discharge Diagnosis 03/07/23 RBBB Discharge Diagnosis 03/07/23 Chronic diastolic heart failure Discharge Diagnosis 03/07/23 Coronary arteriosclerosis in torres martinez artery Discharge Diagnosis 03/07/23 Pacemaker Discharge Diagnosis 03/07/23 Syncope Discharge Diagnosis 03/07/23 Procedures Procedure Date Related Diagnosis Body Site Status Amputation of toe Complet ed Bunionectomy Completed Cataract extraction and inse rtion of intraocular lens Completed echo 08/2011 Completed Hysterectomy Completed Vital Signs Most recent to oldest [Reference Range]: 1 Patient Weight 52 kg (03/07/23 1:48 PM) Heart Rate 66 bpm (03/07/23 1:48 PM) Blood Pressure 108/62mmHg (03/07/23 1:48 PM) Cuff Pulse Pressure 46 mmHg (03/07/23 1:48 PM) BP Location # 1 Right Arm, Other: (03/07/23 1:48 PM) Social History Social History Type Response Smoking Status Never smoked cigaret tom Sex Female Cardiology Outpatient Note * DO Cunha Jason D: PERFORM Event Display: Cardiology Outpt Note Authored Date: [id number] Primary Care Provider BARB Rosenthal, Georgia Hoyos Chief Complaint 4 mon f/u History of Present Illness She denies any chest pain or chest pressure. She really does not do a lot. She was able to walkfrom the front of the office to the back which is about 60 feet with a cane without any chest tightness or shortness of breath. She does occasionally walk in a grocery store noting she feels more stable pushing the cart. She does have mild to moderate lower extremity edema. She notes it is worse at the end of the daybut it does not appear to be resolving in the morning. She has no orthostatic symptoms or falls. Her appetites been stable. She denies any early satiety. She is unaware of any palpitations or fluttering or feeling her heart racing. She does note withchanging the sensitivity and ramp of her pacemaker the previous shortness of breath she was having with activity has improved. Review of Systems PAST MEDICAL HISTORY: 1. A 60% mid LAD lesion. 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 3. Normal Qp/Qs suggesting no evidence of significant left to right shunting. 4. Normal pulmonary artery pressures and normal pulmonary capillary wedge pressures (10/2012 at [facility] in the scanned outside procedure note from 10/20/2012) which were significantly different than the[facility] which revealed pulmonary hypertension and severe elevation of her wedge pressures. 5. Echocardiogram 02/2020 with normal LV function, EF in the range of 65% with type 2 diastolic dysfunction and elevated left atrial pressures and top normal pulmonary artery pressures without significant valvular heart disease. 6. Longstanding rheumatoid arthritis. 7. Polyclonal gammopathy 8. TMA of her left foot. 9. History of hyperviscosity syndrome. 10. Osteoporosis. 11. History of perirectal abscess with E. coli bacteremia. 12. Negative workup for amyloidosis 09/2007. 13. History of a negative workup for heparin-induced thrombocytopenia. 14. Status post hip fracture, 07/2014. 15. Right bundle-branch block, status post syncope with pauses greater than 3 seconds on her event recorder, status post [employer] [place] XT MRI compatible pacemaker December 2020. Physical Exam Vitals & Measurements HR:66(Monitored) BP:108/62 SpO2:100% WT:52.000kg(Dosing) WT:52kg PHYSICAL EXAMINATION: She is awake, alert, oriented x3. She looks chronically ill, but in no acute distress. HEENT: 2+ carotid upstrokes, no evidence of carotid bruits. Jugular venous pressure appeared elevated. Her sclerae was anicteric. Her hearing is normal. Lungs clear auscultation bilaterally, no rales, rhonchi or wheezing. Heart: Regular rate and rhythm, no appreciable murmurs, rubs orgallops. Extremities: No clubbing,. mild to moderate edema. Musculoskeletal: She has significant deformities related to rheumatoid arthritis affecting her hands and knees. Assessment/Plan 1.Chronic diastolic heart failure 2.Coronary arteriosclerosis in torres martinez artery 3.Fistula, coronary artery 4.Pacemaker 5.RBBB 6.Syncope I am concerned about the lower extremity edema in her legs. She consumes a fair amount of salt and it has been worse since . We discussed trying to avoid salty foods and I reviewed those with her and we also discussed avoiding sauerkraut which seems to be a regular item for her. She already takes Lasix 20 mg daily we discussed increasing it to 40 mg over the next number of days. We also discussed she could take an extra dose as needed. In addition, her amlodipine may be contributing to her lower extremity edema and given her relatively low blood pressure I recommended reducing it from 5 mg to 2-1/2 mg. If she notes an improvementbut it does not completely resolve we may need to stop her amlodipine completely. I did review her device interrogations with her she is atrially paced about 60% of the time and almost never RV paced. She has not had any atrial or ventricular arrhythmias. She has about 12 years of battery life. Will see her in 6 months time. Sooner if she has worsening lower extremity edema and I discussed that with her. 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 Fx femoral neck GERD (gastroesophageal reflux disease) Osteoarthritis of knee Osteoporosis Pacemaker Peripheral arterial occlusive disease Polyclonal gammopathy RBBB Rheumatoid arthritis Syncope Procedure/Surgical History Cataract extraction and insertion of intraocular lensBunionectomyAmputation of toeHysterectomyecho 08/2011 Medications acetaminophen(Tylenol 500 mg oral tablet), 1 tab, PO, q6h, PRN amLODIPine(amLODIPine 2.5 mg oral tablet), 2.5 mg= 1 tab, PO, Daily, 3 refills aspirin(aspirin 81 mg oral tablet), 81 mg= 1 tab, PO, Daily calcium citrate(calcium (as calcium citrate) 250 mg oral tablet), See Instructions cholecalciferol(Vitamin D3 5000 intl units oral capsule), 5000 Int_Unit= 1 cap, PO, Daily denosumab(Prolia), 60 mg, subQ, [id number] furosemide(furosemide 20 mg oral tablet), 20 mg= 1 tab, PO, Daily, 3 refills hydroxychloroquine(hydroxychloroquine 200 mg oral tablet), 200 mg= 1 tab, PO, bid, 1 refills metoprolol(metoprolol succinate 100 mg oral tablet, extended release), 50 mg= 0.5 tab, PO, qhs, 3 refills omeprazole(Prilosec OTC), 40 mg, PO, Daily, PRN simvastatin(simvastatin 20 mg oral tablet), 20 mg= 1 tab, PO, qhs, 3 refills Allergies Bactrimrash Keflexrash vancomycinShortness of breath, Rash Social History Smoking Status Never smoked cigarettes Family History Coronary artery disease: Brother. Pacemaker: Brother. Health Status Family Member(s) Electronic Signature on File CC: Georgia Rosenthal PA-C,MPAS [address] [facility] [address] [facility] [address] Electronically Reviewed/Signed by: Rafal Cunha DO Author Signature Dt/Tm:03/07/2023 02:33 PM Career Services Representativecosmetics presser [facility] [place], [facility] [address] [place] [address] KEIRA Patient Care team information Care Team Personnel Name: BARB Rosenthal, Georgia Hoyos Position: Physician Asst Annie - Family Med Member Role: Primary Care Provider Address: Address: [address] [place] [address], [place] [address] [place] Care Team Related Persons Name: REMEDIOS PATEL Address: home [address] [place], [id number]
--- OUTSIDE RECORDS SUMMARY | 2023-04-08 21:14 | External Medical Summary | Summary of Care ---
Author Name Unknown Organization [facility] Address [address] [place] [address] Phone [phone] Care Team Providers Care Glass Maker Name Role Phone Georgia Rosenthal PA-C Primary Care Provide r Reason for Visit * Reason Onset Date Comments Appointment 07/09/2022 Prolia Encounter Details Date Type Department Care Team (Late st Contact Info) Description 07/09/2022 Telephone Rheumatology [facility] [address] [facility] [place] [address] Services, Scheduling [address] [place] [address] Appointment (Prolia) Allergies Active Allergy Reactions Criticality [...] 08/31/2003 016 Overview: used to be at [facility] Other, multiple, and unspeci fied sites, insect [...] encounter Miscellaneous Notes * Telephone Encounter - Milka Fisher LPN [...] prior to prolia. Can go to any [facility] * Telephone Encounter - Milka Fisher LPN - 01/03/2023 11:55 AM EDT Prolia is due 01/18 or after, can schedule her with the Rheum nurse Will she need updated labs? * Telephone Encounter - ALFRED Feng - 01/03/2023 10:12 AM EDT Adolescent Coordinator - Patient Related Communication Reason for Call: Appt request (Scheduling Pool): The patient is calling to schedule her prolia. The patient is scheduled for the next available 07/09/22. The patient would like a sooner appointment, please return callto the patient at [phone].[address] the patient to fast pass [...] 07/10/2023 10:00 AM EDT Office Visit Rheumatology [facility] [address] [facility] [place] [address] Shaun Rubin CRNP [address] [facility] [place] [address] Scheduled Orders Name Type Priority Associated Diagnoses [...] D LEVEL ONCE IN A LIFETIME-USE SMARTSET# 24535 Completed 12/12/2021, 12/16/2019, 05/25/2019, Additional history exists [...] Primary documented in this encounter Care Teams Glass Maker Relationship Specialty Start Date End Date Georgia Rosenthal PA-C [address] [place] [address], [place] [address] PCP - General Physician Abatement Worker 07/18/22 documented as of this encounter
--- OUTSIDE RECORDS SUMMARY | 2023-04-08 21:14 | External Medical Summary | Summary of Care ---
Author Name Unknown Organization [facility] Address [address] [place] [address] Phone [phone] Care Team Providers Care Portable Router Operator Name Role Phone Georgia Rosenthal PA-C Primary Care Provide r Reason for Visit * Reason Onset Date Comments Appointment 07/09/2022 Prolia Encounter Details Date Type Department Care Team (Late st Contact Info) Description 07/09/2022 Telephone Rheumatology [facility] [address] [facility] [place] [address] Services, Scheduling [address] [place] [address] Appointment (Prolia) Allergies Active Allergy Reactions Criticality Noted Date Comments Sulfamethoxazole-Trimethopri m 01/05/2015 Cephalexin Nausea/vomiting 03/23/2007 Vancomycin 09/26/2014 Short of breath documented as of this encounter (statuses as of 03/11/2023) Medications Medication Sig Dispensed Refills Start Date [...] as of this encounter (statuses as of 03/11/2023) Active Problems Problem Noted Date Diagnosed Date [...] as of this encounter (statuses as of 03/11/2023) Resolved Problems Problem Noted Date Diagnosed Date Resolved Date ARTHRITIS,RHEUMATOID 08/31/2003 016 Overview: used to be at [facility] Other, multiple, and unspeci fied sites, insect [...] as of this encounter (statuses as of 03/11/2023) Immunizations Name Administration Dates Next Due Pneumococcal [...] encounter Miscellaneous Notes * Telephone Encounter - Yunier Broussard OSA - 03/11/2023 1:54 PM EST Someone has pt scheduled w/ [facility] 07/10/2023 * Telephone Encounter - Ivania Nino OSA - 01/15/2023 3:13 PM EDT LM for pt to get lab work done this week and call Friday or later to schedule Prolia Injection visit on the nurse schedule at [facility], 01/18/23 or later * Telephone Encounter [...] prior to prolia. [facility] * Telephone Encounter - Milka Fisher LPN - 01/03/2023 11:55 AM EDT Prolia is due 01/18 or after, can schedule her with the Rheum nurse Will she need updated labs? * Telephone Encounter - Chelita Pressley OSA - 01/03/2023 10:12 AM EDT [place] - Patient Related Communication Reason for Call: Appt request (Scheduling Pool): The patient is calling to schedule her prolia. The patient is scheduled for the next available 07/09/22. The patient would like a sooner appointment, please return callto the patient at [phone] the patient to fast pass [...] her next providervisit * Telephone Encounter - Harriet Overton OSA - 07/09/2022 2:29 PM EDT Patient calling [...] 07/10/2023 10:00 AM EDT Office Visit Rheumatology [place] [id number] [place] [address] Shaun Rubin CRNP [facility] [place] [address] Scheduled Orders Name Type Priority Associated Diagnoses Orde r Schedule BASIC METABOLIC PANEL Lab Routine Senile osteoporosis Expected: 01/13/2023 (Approximate), Expires: 04/15/2023 25-HYDROXY VITAMIN D Lab Routine Senile osteoporosis Expected: 01/13/2023, Expires: 01/14/2024 Health Maintenance Due Date Last Done Comments COVID-19 Vaccine (#1) 01/11/1950 Depression Screening 1957 Albumin/Creatinine Ratio 01/11/1962 DTaP,Tdap,and Td Vaccines (1 - Tdap) 01/11/1963 Zoster Vaccines (1 of 2) 01/11/1963 Influenza Vaccine (FLU shot) (#1) 2022 03/04/2019, 01/05/2015, 01/09/2008 GFR 12/12/2022 12/12/2021, 11/22, 12/08/2020, Additional history exists DXA Scan 12/13/2022 12/13/2020, 07/0 11/2018, 06/19/2016, Additional history exists *BISPHONATE OR OTHER ACCEPTABLE MEDICATION NEEDED FOR OSTEOPOROSIS (REFER TO SMARTSET #1146) 01/18/2023 Pneumococcal Vaccine: 65+ Years Completed 06/30/2020, 03/24/2009 VITAMIN D LEVEL ONCE IN A LIFETIME-USE SMARTSET# 32951 Completed 12/12/2021, 12/16/2019, 05/25/2019, Additional history exists [...] Primary documented in this encounter Care Teams Portable Router Operator Relationship Specialty Start Date End Date Georgia Rosenthal PA-C [address] [place] [address], [place] [address] PCP - General Physician Cost Clerk 07/18/22 documented as of this encounter
--- OUTSIDE RECORDS SUMMARY | 2023-04-08 21:15 | External Medical Summary | Continuity of Care Document ---
Author Name Unknown Organization [facility] [address] [facility] Address [address] [place], [place] [id number] Care Team Providers Care Mosaic Tile Maker Name Role Phone HayleeangelGeorgia knight Soha Primary Care Physician [phone] Encounter [id number] Date(s): 10/17/22 - 10/17/22 [facility] [address], [address] [place] [address] [phone] Encounter Diagnosis Dyspnea(Discharge Diagnosis) - 10/17/22 Pacemaker(Discharge Diagnosis) - 10/17/22 Chronic edema(Discharge Diagnosis) - 10/17/22 Hypertension(Discharge Diagnosis) - 10/17/22 Discharge Disposition: Home or Self Care Attending Physician: JIE Marin Sarah A Referring Physician: DO Cunha Jason D Allergies, Adverse Reactions, Alerts Substance Reaction Severity Status vancomycin Shortness of breath Rash Active Keflex rash Active Bactrim rash Active Assessment and Plan Extracted from: Title:Cardiology Office Visit Note Author:JIE Lara rd, Sarah A Date:10/17/22 IMPRESSIONS: 1. 60% mid LAD lesion. 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 3. Normal Qp/Qs suggesting no evidence of significant left to right shunting. 4. History of normal pulmonary artery pressure, normal pulmonary artery pressure and normal pulmonary capillary wedge pressure confirmed by echocardiography 10/2012. 5. Hypertension. 6. Rheumatoid arthritis and recent hip fracture. 7. Right bundle-branch block, status post syncope with pauses greater than 3 seconds on her event recorder, status post Medtronic [place] XT MRI compatible pacemaker December 2020. 8. Echocardiogram 02/2020 with normal LV function, EF in the range of 65% with type 2 diastolic dysfunction and elevated left atrial pressures and top normal pulmonary artery pressures without significant valvular heart disease. Ms. Patel's dyspnea on exertion has improved with the addition of amlodipine and reduction in metoprolol. She is still more sob than she was 6 months ago however. Device clinic was able to see her and adjust her ramp although they noted that her ramp was already fairly aggressive so it may not make a huge change. I will see her back in 3 weeks. If she is not feeling any better I will [facility] Per Dr. Cunha's previous note, it's possible that her LAD lesion is further stenosed and causing her symptoms. She appears euvolemic. She continues daily furosemide. Her blood pressure is running on the low side of normal. She is not having any orthostatic symptoms. I asked her to let us know if her blood pressure is getting any lower or she starts having dizziness when standing. We may have to decrease the amlodipine to 2.5 mg. She will return in 3 weeks. Immunizations Given and Recorded Vaccine Date Status Refusal Reason pneumococcal 13-valent vaccine 1 06/30/20 Recorded influenza virus vaccine, inactivated 02/10/20 Give n influenza virus vaccine, inactivated 01/09/08 Give n pneumococcal 23-valent vaccine 2 03/24/09 Recorded 1Result Comment: 2022-06-27: Historical information-source unspecified 2Result Comment: 2022-06-27: Historical information-source unspecified Medications amLODIPine 5 mg oral tablet Start: 09/05/22 14:24:00 EDT, 1 tab, PO, Daily, Disp# 90 tab, Refills: 3, Pharmacy: [facility] Start Date: 09/05/22 Status: Ordered aspirin 81 mg oral tablet Start: 02/03/15 11:37:00, 1 tab, PO, Daily Start Date: 02/03/15 Status: Ordered calcium (as calcium citrate) 250 mg oral tablet Start: 09/29/17 13:16:00 EDT, See Instructions, 1200 mg a day Start Date: 09/29/17 Status: Ordered furosemide 20 mg oral tablet Start: 05/15/22 12:49:00 EST, 1 tab, PO, Daily, Disp# 90 tab, Refills: 3, Pharmacy: [facility] Start Date: 05/15/22 Status: Ordered hydroxychloroquine 200 mg oral tablet Start: 06/27/22 14:08:00 EDT, 1 tab, PO, bid, Disp# 180 tab, Refills: 1, with food or milk, Pharmacy: [facility] Start Date: 06/27/22 Stop Date: 12/24/22 Status: Ordered metoprolol succinate 100 mg oral tablet, extended release Start: 09/05/22 14:24:00 EDT, 0.5 tab, PO, qhs, Disp# 135 tab, Refills: 3, Note to Pharmacy: dose change only, Pharmacy: [facility] Start Date: 09/05/22 Status: Ordered Prilosec OTC Start: 01/11/08 16:03:14, 40 mg =, PO, Daily, Refills: 0, PRN: acid reflux, current medication fromanother provider Start Date: 01/11/08 Status: Ordered Prolia Start: 07/03/15 13:41:00, 60 mg =, subQ, [id number], q 6 month Start Date: 07/03/15 Status: Ordered simvastatin 40 mg oral tablet Start: 05/15/22 12:49:00 EST, 1/2 tab, PO, qhs, Disp# 90 tab, Refills: 0, Pharmacy: [facility] Start Date: 05/15/22 Status: Ordered Tylenol 500 mg oral tablet Start: 10/16/12 14:30:00, 1 tab, PO, q6h, PRN: as needed for pain Start Date: 10/16/12 Status: Ordered Vitamin D3 5000 intl units oral capsule Start: 10/16/12 14:30:00, 1 cap, PO, Daily Start Date: 10/16/12 Status: Ordered Mental Status 10/17/22 Barriers to Learning one year None evide nt Mandatory Health Literacy Documentation Yes Health Literacy Communication Barriers N ever Primary Language Mozambican Problem List Condition Confirmation Course Effective Dates Status H ealth Status Informant Arthritis mutilans affecting hand Confirmed Active Pacemaker Confirmed Active Chronic diastolic heart failure Confirmed Active Fx femoral neck Confirmed Active Coronary arteriosclerosis in [place] artery Confirmed Active Coronary artery fistula Confirmed Active GERD (gastroesophageal reflux disease) Confirmed Active Osteoarthritis of knee Confirmed Active Osteoporosis Confirmed Active 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 Rheumatoid arthritis Confirmed Active RBBB Confirmed Active Syncope Confirmed Active Diagnosis Diagnosis Type Effective Dates Health Status Cl inical Service Informant Pacemaker Discharge Diagnosis 10/17/22 Non-Specified Dyspnea Discharge Diagnosis 10/17/22 Non-Specified Hypertension Discharge Diagnosis 10/17/22 Non-Specified Chronic edema Discharge Diagnosis 10/17/22 Non-Specified Procedures Procedure Date Related Diagnosis Body Site Status Amputation of toe Complet ed Bunionectomy Completed Cataract extraction and inse rtion of intraocular lens Completed echo 08/2011 Completed Hysterectomy Completed Vital Signs Most recent to oldest [Reference Range]: 1 Patient Weight 50 kg (10/17/22 12:54 PM) Heart Rate 56 bpm (10/17/22 12:54 PM) Respiratory Rate 16 br/min (10/17/22 12:54 PM) Blood Pressure 100/58mmHg (10/17/22 12:54 PM) BP Location # 1 Right Arm (10/17/22 12:54 PM) Social History Social History Type Response Smoking Status Never smoked cigaret tom Sex Female Cardiology * Event Display: Cardiac Device Check Authored Date: Please click on link to see image. Cardiology Outpatient Note * JIE Marin Sarah A: PERFORM, MODIFY Event Display: Cardiology Outpt Note Authored Date: Primary Care Provider BARB Rosenthal Jessica A Referring Provider DO Cunha Jason D Chief Complaint Some SOB denies resent chest pain, Palpitations, heart racing, dizziness or lightheadedness, no edema noted. no resent ER visits History of Present Illness Ms. 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 She was seen 6 weeks ago for sob with exertion. Dr. Cunha added amlodipine and reduced her metoprolol which made her feel less sob but still not to where she was 6 months ago. Her blood pressure is a little on the lower side. She has not had any orthostatic symptoms. She has some vertigo if she moves quickly which precedes her antihypertensive medications changes. Review of Systems All other systems reviewed and negative except as discussed in the HPI Physical Exam Vitals & Measurements HR:56(Monitored) RR:16 BP:100/58 SpO2:98% WT:50kg WT:50.000kg(Dosing) Physical Examination General: Alert and oriented, No acute distress. Respiratory: Lungs are clear to auscultation, Respirations are non-labored. Cardiovascular: Normal rate, Regular rhythm, No murmur, No edema. Integumentary: Warm, Dry, [place] Neurologic: Alert, Oriented. Cognition and Speech: Speech clear and coherent. Psychiatric: Cooperative, Appropriate mood & affect. Assessment/Plan IMPRESSIONS: 1. 60% mid LAD lesion. 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 3. Normal Qp/Qs suggesting no evidence of significant left to right shunting. 4. History of normal pulmonary artery pressure, normal pulmonary artery pressure and normal pulmonary capillary wedge pressure confirmed by echocardiography 10/2012. 5. Hypertension. 6. Rheumatoid arthritis and recent hip fracture. 7. Right bundle-branch block, status post syncope with pauses greater than 3 seconds on her eventrecorder, status post Medtronic [place] XT MRI compatible pacemaker December 2020. 8. Echocardiogram 02/2020 with normal LV function, EF in the range of 65% with type 2 diastolic dysfunction and elevated left atrial pressures and top normal pulmonary artery pressures without significant valvular heart disease. Ms. Patel's dyspnea on exertion has improved with the addition of amlodipine and reduction in metoprolol. She is still more sob than she was 6 months ago however. Device clinic was able to see her andadjust her ramp although they noted that her ramp was already fairly aggressive so it may not make a huge change. I will see her back in 3 weeks. If she is not feeling any better I [facility] Per Dr. Cunha's previous note, it's possible that her LAD lesion is further stenosed and causing her symptoms. She appears euvolemic. She continues daily furosemide. Her blood pressure is running on the low side of normal. She is not having any orthostatic symptoms. I asked her to let us know if her blood pressure is getting any lower or she starts having dizziness when standing. We may have to decrease the amlodipine to 2.5 mg. She will return in 3 weeks. 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 Fx femoral neck GERD (gastroesophageal reflux disease) Osteoarthritis of knee Osteoporosis Pacemaker Peripheral arterial occlusive disease Polyclonal gammopathy RBBB Rheumatoid arthritis Syncope Procedure/Surgical History Cataract extraction and insertion of intraocular lensBunionectomyAmputation of toeHysterectomyecho 08/2011 Medications acetaminophen(Tylenol 500 mg oral tablet), 1 tab, PO, q6h, PRN amLODIPine(amLODIPine 5 mg oral tablet), 5 mg= 1 tab, PO, Daily, 3 refills aspirin(aspirin 81 mg oral tablet), 81 mg= 1 tab, PO, Daily calcium citrate(calcium (as calcium citrate) 250 mg oral tablet), See Instructions cholecalciferol(Vitamin D3 5000 intl units oral capsule), 5000 Int_Unit= 1 cap, PO, Daily denosumab(Prolia), 60 mg, subQ, [id number] furosemide(furosemide 20 mg oral tablet), 20 mg= 1 tab, PO, Daily, 3 refills hydroxychloroquine(hydroxychloroquine 200 mg oral tablet), 200 mg= 1 tab, PO, bid, 1 refills metoprolol(metoprolol succinate 100 mg oral tablet, extended release), 50 mg= 0.5 tab, PO, qhs, 3 refills omeprazole(Prilosec OTC), 40 mg, PO, Daily, PRN simvastatin(simvastatin 40 mg oral tablet), 1/2 tab, PO, qhs Allergies Bactrimrash Keflexrash vancomycinShortness of breath, Rash Social History Smoking Status Never smoked cigarettes Family History Coronary artery disease: Brother. Pacemaker: Brother. Health Status Family Member(s) Electronic Signature on File CC: Georgia Rosenthal PA-C,MPAS [address] [place] [address] Electronically Reviewed/Signed by: JIE Barrera Author Signature Dt/Tm:10/17/2022 01:29 PM [facility] Patient Care team information Care Team Personnel Name: BARB Rosenthal, Georgia Hoyos Position: Physician Asst Exmpt - Family Med Member Role: Primary Care Provider Address: Address: [address] [place] [address] [place] Care Team Related Persons Name: REMEDIOS PATEL Address: home [address] [place], [id number]
--- OUTSIDE RECORDS SUMMARY | 2023-04-08 21:15 | External Medical Summary | Summary of Care ---
Author Name Unknown Organization [facility] Address [address] [place] [address] Phone [phone] Care Team Providers Care Retail Loss Prevention Officer Name Role Phone Georgia Rosenthal PA-C Primary Care Provide r Reason for Visit * Reason Onset Date Comments Appointment 07/09/2022 Prolia Encounter Details Date Type Department Care Team (Late st Contact Info) Description 07/09/2022 Telephone Rheumatology [facility] [address] [facility] [place] [address] Services, Scheduling [address] [place] [address] Appointment (Prolia) Allergies Active Allergy Reactions Criticality Noted Date Comments Sulfamethoxazole-Trimethopri m 01/05/2015 Cephalexin Nausea/vomiting 03/23/2007 Vancomycin 09/26/2014 Short of breath documented as of this encounter (statuses as of 01/13/2023) Medications Medication Sig Dispensed Refills Start Date [...] as of this encounter (statuses as of 01/13/2023) Active Problems Problem Noted Date Diagnosed Date [...] as of this encounter (statuses as of 01/13/2023) Resolved Problems Problem Noted Date Diagnosed Date Resolved Date ARTHRITIS,RHEUMATOID 08/31/2003 016 Overview: used to be at [facility] Other, multiple, and unspeci fied [...] as of this encounter (statuses as of 01/13/2023) Immunizations Name Administration Dates Next Due Pneumococcal [...] as of this encounter Miscellaneous Notes * Addendum Note - Joya Ha MD - 01/13/2023 10:45 AM EDTAddended by: JOYA HA on: 01/13/2023 10:45 AM Modules accepted: Orders * Telephone Encounter - Joya Ha MD - 01/13/2023 10:45 AM EDT Please call patient to get labs this week prior to prolia. [facility] * Telephone Encounter - Milka Fisher LPN - 01/03/2023 11:55 AM EDT Prolia is due 01/18 or after, can schedule her with the Rheum nurse Will she need updated labs? * Telephone Encounter - ALFRED Feng - 01/03/2023 10:12 AM EDT Packaging Manager - Patient Related Communication Reason for Call: Appt request (Scheduling Pool): The patient is calling to schedule her prolia. The patient is scheduled for the next available 07/09/22. The patient would like a sooner appointment, please return callto the patient at [phone] the patient to fast pass [...] 07/10/2023 10:00 AM EDT Office Visit Rheumatology [place] [id number] [facility] [place] [address] Shaun Rubin CRNP [facility] [place] [address] Scheduled Orders Name Type Priority Associated Diagnoses [...] D LEVEL ONCE IN A LIFETIME-USE SMARTSET# [id number] Completed 12/12/2021, 12/16/2019, 05/25/2019, Additional history exists [...] Primary documented in this encounter Care Teams Retail Loss Prevention Officer Relationship Specialty Start Date End Date Georgia Rosenthal PA-C [address] [place] [address], [place] [address] PCP - General Physician Gericare Aide Teacher 07/18/22 documented as of this encounter
--- OUTSIDE RECORDS SUMMARY | 2023-04-08 21:15 | External Medical Summary | Summary of Care ---
Author Name Unknown Organization [facility] Address [address] [place] [address] Phone [phone] Care Team Providers Care Staff Pharmacist Hospital Name Role Phone Georgia Rosenthal PA-C Primary Care Provide r Reason for Visit * Reason Onset Date Comments Appointment 07/09/2022 Prolia Encounter Details Date Type Department Care Team Description 07/09/2022 Telephone Rheumatology [facility] [address] [employer] [place] [id number] Services, Scheduling [address] [place] [address] Appointment (Prolia) Allergies Active Allergy Reactions Severity Noted Date Comments Sulfamethoxazole-Trimethoprim 2014 Cephalexin Nausea/vomiting 03/23/2007 Vancomycin 09/26/2014 Short of breath documented as of this encounter (statuses as of 01/03/2023) Medications Medication Sig Dispensed Refills Start Date [...] as of this encounter (statuses as of 01/03/2023) Active Problems Problem Noted Date Rheumatoid arthritis of multiple sites w ithout rheumatoid factor 10/09/2015 Loss of weight 03/23/2007 Hyperthyroidism 12/18/2006 ACUTE SINUSITIS NOS 11/21/2005 Overview: RESOLVED ADVANCE DIRECTIVE INFORMATION 01/18/2005 Overview: No, Advance Directive brochure given to patient at prior appointment. ULCER OF LOWER LIMB,RIGHT FOOT 5 Dyslipidemia, goal to be determined 12/23 TETANUS-DIPTHERIA (TD), (DT) 01/18/2005 Senile osteoporosis 09/23/2003 BUNIONS 08/31/2003 BENIGN AMARILIS SKIN FACE NEC 08/31/2003 ROUTINE MEDICAL EXAM 08/31/2003 Menopause 08/31/2003 Family history of ischemic heart disease 08/31/2003 FAM HX-DIABETES MELLITUS 08/31/2003 Reflux esophagitis Hyperlipidemia with target LDL less than 100 Overview: ICD-10 update of inactive term Hypertension, goal below 140/80 Gammopathy documented as of this encounter (statuses as of 01/03/2023) Resolved Problems Problem Noted Date Resolved Date ARTHRITIS,RHEUMATOID 08/31/2003 10/09/2015 Overview: used to be at [facility] Other, multiple, and unspeci fied sites, insect bite, nonvenomous, without mention of infection(919.4) 08/31/200308/13 Cellulitis of foot 08/31/2003 08/13/2005 Overview: RESOLVED Special screening for malignant neoplasms, colon 08/31/2003 06/01/2008 Overview: Resolved per Screening Diagnosis Protocol #6 Screening for malignant neoplasm of breast 08/3006/01/2008 Overview: Resolved per Screening Diagnosis Protocol #6 Tobacco use disorder 08/31/2003 04/16/2011 Gammopathy, monoclonal 2 documented as of this encounter (statuses as of 01/03/2023) Immunizations Name Administration Dates Next Due Pneumococcal [...] 0.6 oz pur e alcohol) rarely Sex Assigned at Date Recorded Not on file Job Start Date Occupation [...] ALFRED Feng - 01/03/2023 10:12 AM EDT Second Officer - Patient Related Communication Reason for Call: Appt request (Scheduling Pool): The patient is calling to schedule her prolia. The patient is scheduled for the next available 07/09/22. The patient would like a sooner appointment, please return callto the patient at [phone].[address] the patient to fast pass as she does not have MyChart. ALFRED Feng * Telephone Encounter - Lyle Woo MD - 07/12/2022 11:39 AM EDT Ok [...] last appointment. Patient is scheduled with Dr. Woo for first available, and added to the Wait List. Please review this info and advise patient prn, thank you. documented in this encounter Plan of Treatment Upcoming Encounters Date Type Specialty Care Team Description 07/10/2023 Office Visit Rheumatology Shaun Rubin CRNP [address] [place] [address] Health Maintenance Due Date Last Done Comments [...] D LEVEL ONCE IN A LIFETIME-USE SMARTSET# [id number] Completed 12/12/2021, 12/16/2019, 05/25/2019, Additional history exists [...] Not on filedocumented as of this encounter Care Teams Staff Pharmacist Hospital Relationship Specialty Start Date End Date Georgia Rosenthal PA-C [address] [facility] [address] PCP - General Physician Clinical Microbiologist 07/18/22 documented as of this encounter
--- OUTSIDE RECORDS SUMMARY | 2023-04-08 21:15 | External Medical Summary | Continuity of Care Document ---
Author Name Unknown Organization [facility] [address] Address [address] [place], [place] [id number] Care Team Providers Care Navy Material Inspector Name Role Phone GauravGeorgia knight Primary Care Physician [phone] [id number] Date(s): 12/27/22 - 12/27/22 [facility] [address] [facility] [address], [facility] 1 [place], [place] [phone] Encounter Diagnosis Hyperlipidemia, unspecified(Final) - Discharge Disposition: Home or Self Care Attending Physician: JIE Marin Sarah A Referring Physician: JIE Marin Sarah A Allergies, Adverse Reactions, Alerts Substance Reaction Severity Status vancomycin Shortness of breath Rash Active Keflex rash Active Bactrim rash Active Immunizations Given and Recorded Vaccine Date Status [...] Daily, Disp# 90 tab, Refills: 3, Pharmacy: [facility] Start Date: 09/05/22 Status: Ordered aspirin 81 [...] Daily, Disp# 90 tab, Refills: 3, [facility] Start Date: 05/15/22 Status: Ordered hydroxychloroquine 200 mg oral tablet Start: 06/27/22 14:08:00 EDT, 1 tab, PO, bid, Disp# 180 tab, Refills: 1, with food or milk, [facility]acy[facility] Start Date: 06/27/22 Stop Date: 12/24/22 Status: Ordered metoprolol succinate 100 mg oral tablet, extended release Start: 09/05/22 14:24:00 EDT, 0.5 tab, PO, qhs, Disp# 135 tab, Refills: 3, Note to Pharmacy: dose change only, [facility]acy[facility] Start Date: 09/05/22 Status: Ordered Prilosec OTC Start: 01/11/08 16:03:14, 40 mg =, PO, Daily, Refills: 0, PRN: acid reflux, current medication fromanother provider Start Date: 01/11/08 Status: Ordered Prolia Start: 07/03/15 13:41:00, 60 mg =, subQ, [id number], q 6 month Start Date: 07/03/15 Status: Ordered simvastatin 20 mg oral tablet Start: 12/13/22 16:47:00 EDT, 1 tab, PO, qhs, Disp# 90 tab, Refills: 3, [facility] Start Date: 12/13/22 Status: Ordered Tylenol 500 [...] femoral neck Confirmed Active Coronary arteriosclerosis in [place] artery Confirmed Active Coronary artery fistula Confirmed Active GERD (gastroesophageal reflux disease) Confirmed Active Osteoarthritis of knee Confirmed Active Osteoporosis Confirmed Active 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 Rheumatoid arthritis Confirmed Active RBBB Confirmed Active Syncope Confirmed Active Procedures Procedure Date Related Diagnosis Body Site Status Amputation of toe Complet ed Bunionectomy Completed Cataract extraction and inse rtion of intraocular lens Completed echo 08/2011 Completed Hysterectomy Completed Results Laboratory List Name Date Comprehensive Metabolic Panel (COMP META B PANEL) 12/27/22 Lipid Profile (LIPOPROTEINS) 12/27/22 Most recent to oldest [Reference Range]: 1 eGFR CKD-EPI [>60 mL/min/1.73 m2] 56 mL/ min/1.73 m2 1 *LOW* (12/27/22 10:33 AM) Non-HDL 70 mg/dL 2 (12/27/22 10: AM) Estimated CrCl 31.15 mL/min (12/27/22 11:06 AM) Anion Gap [5-14 mmol/L] 6 mmol/L (12/27/22 10:33 AM) Alb [3.5-5.0 g/dL] 4.1 g/dL (12/27/22 10:33 AM) Alk Phos [38-126 unit/L] 110 unit/L (12/27/22 10:33 AM) ALT [<35 unit/L] 36 unit/L *HI* (12/27/22 10:33 AM) AST [15-46 unit/L] 48 unit/L *HI* (12/27/22 10:33 AM) BUN [7-20 mg/dL] 20 mg/dL (12/27/22 10:33 AM) Ca [8.4-10.2 mg/dL] 9.6 mg/dL (12/27/22 10:33 AM) Chol/HDL 2 (12/27/22 10:33 AM) Chol [125-200 mg/dL] 169 mg/dL (12/27/22 10:33 AM) Cl- [96-107 mmol/L] 106 mmol/L (12/27/22 10:33 AM) HCO3 [22-30 mmol/L] 26 mmol/L (12/27/22 10:33 AM) Cret [0.60-1.00 mg/dL] 1.02 mg/dL *HI* (12/27/22 10:33 AM) Glu [74-106 mg/dL] 99 mg/dL (12/27/22 10:33 AM) HDL [>35 mg/dL] 99 mg/dL (12/27/22 10:33 AM) K [3.5-5.1 mmol/L] 4.3 mmol/L (12/27/22 10:33 AM) LDL Chol, Calculated [50-130 mg/dL] 55 m g/dL (12/27/22 10:33 AM) Na [137-145 mmol/L] 138 mmol/L (12/27/22 10:33 AM) T Bili [0.2-1.3 mg/dL] 0.8 mg/dL (12/27/22 10:33 AM) Prot [6.3-8.2 g/dL] 8.2 g/dL (12/27/22 10:33 AM) TG [<200 mg/dL] 74 mg/dL (12/27/22 10:33 AM) 1Result Comment: Testing Performed By: Dept of Pathology [facility] Gary Vasquez, [address] [place] [id number] 2Result Comment: Testing Performed By: Dept of Pathology [facility] [address] Vasquez, [address] [place] [address] Social History Social History Type Response Smoking Status Never smoked cigaret tom Sex Female Patient Care team information Care Team Personnel Name: BARB Rosenthal, Georgia Hoyos Position: Physician Asst Exmpt - Family Med Member Role: Primary Care Provider Address: Address: [address] [place] [address] [place] Care Team Related Persons Name: REMEDIOS PATEL Address: home [address] [place], [id number]
--- OUTSIDE RECORDS SUMMARY | 2023-04-08 21:15 | External Medical Summary | Summary of Care ---
Author Name Unknown Organization [facility] Address [address] [place] [address] Phone [phone] Care Team Providers Care Security Flex Officer Name Role Phone Georgia Rosenthal PA-C Primary Care Provide r Reason for Visit * Reason Onset Date Comments Appointment 07/09/2022 Prolia Encounter Details Date Type Department Care Team Description 07/09/2022 Telephone Rheumatology [facility] [email or web address] [place] [id number] Services, Scheduling [address] [place] [address] Appointment (Prolia) Allergies Active Allergy Reactions Severity [...] 08/31/2003 10/09/2015 Overview: used to be at [facility] Other, multiple, and unspeci fied sites, insect [...] Miscellaneous Notes * Telephone Encounter - ALFRED Feng - 01/03/2023 10:12 AM EDT Fiberglass Quality Technician - Patient Related Communication Reason for Call: Appt request (Scheduling Pool): The patient is calling to schedule her prolia. The patient is scheduled for the next available 07/09/22. The patient would like a sooner appointment, please return callto the patient at [phone].unable [address] the patient to fast pass [...] 07/10/2023 Office Visit Rheumatology Shaun Rubin CRNP [address] [facility], [place] [id number] Health Maintenance Due Date Last Done Comments [...] D LEVEL ONCE IN A LIFETIME-USE SMARTSET# [id number] Completed 12/12/2021, 12/16/2019, 05/25/2019, Additional history exists [...] filedocumented as of this encounter Care Teams Security Flex Officer Relationship Specialty Start Date End Date Georgia Rosenthal PA-C [address] [place] [address] PCP - General Physician Sample Shoe Inspector And Reworker 07/18/22 documented as of this encounter
--- OUTSIDE RECORDS SUMMARY | 2023-04-08 21:15 | External Medical Summary | Continuity of Care Document ---
Author Name Unknown Organization [facility] [address] [facility] Address [address] [place], [place] [id number] Care Team Providers Care Heel Builder Name Role Phone Georgia Rosenthal Primary Care Physician [phone] Encounter [facility] [id number] Date(s): 12/27/22 - 12/27/22 [facility] [address], [address] [place] [address] [phone] Encounter Diagnosis Rheumatoid arthritis(Discharge Diagnosis) - 12/27/22 Arthritis mutilans affecting hand(Discharge Diagnosis) - 12/27/22 Coronary arteriosclerosis in [place] artery(Discharge Diagnosis) - 12/27/22 GERD (gastroesophageal reflux disease)(Discharge Diagnosis) - 12/27/22 Chronic diastolic heart failure(Discharge Diagnosis) - 12/27/22 Osteoporosis(Discharge Diagnosis) - 12/27/22 Discharge Disposition: Home or Self Care Attending Physician: BARB Rosenthal Jessica A Referring Physician: BARB Rosenthal Jessica A Allergies, Adverse Reactions, Alerts Substance Reaction Severity Status vancomycin Shortness of breath Rash Active Keflex rash Active Bactrim rash Active Assessment and Plan Extracted from: Title:6 month f/u Author:BARB Rosenthal Jessic a A Date:12/27/22 1.Rheumatoid arthritis Rheumatoid arthritis is chronicand overall stable with hydroxychloroquine 200 mg, 1 tab p.o. twice daily. Her medication was refilled today and to continue with care of rheumatology. RTC in 6 months for recheck. High-dose influenza vaccine was counseled and given today. 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 Goal is to prevent progression of disease. To continue taking hydroxychloroquine and with care of rheumatology as above. 3.Chronic diastolic heart failure Chronic diastolic heart failure is stable with use of furosemide 20 mg, 1 tab p.o.daily. To continue with care of cardiology. 4.Coronary arteriosclerosis in [place] artery CAD is chronic and stablewithoutsigns/symptoms of angina. To continue current regimen and with care of cardiology. Last labs from February 2022 were reviewed today and stable. RTC in 6 months. 5.GERD (gastroesophageal reflux disease) GERD is chronic and stable with OTC Prilosec 20 mg, 2 tabs p.o. daily. EGD is UTD per patient and without any alarm signs/symptoms. Continue current regimen and RTC in 6 months. 6.Osteoporosis Osteoporosis is chronic and stable with Prolia injections every 6 months. To continue with care of rheumatology. Immunizations Given and Recorded Vaccine Date Status [...] Daily, Disp# 90 tab, Refills: 3, Pharmacy: [facility] Start Date: 09/05/22 Status: Ordered aspirin 81 [...] Daily, Disp# 90 tab, Refills: 3, Pharmacy: [facility] Start Date: 05/15/22 Status: Ordered hydroxychloroquine 200 mg oral tablet Start: 06/27/22 14:08:00 EDT, 1 tab, PO, bid, Disp# 180 tab, Refills: 1, with food or milk, Pharmacy: [facility] Start Date: 06/27/22 Stop Date: 12/24/22 Status: Ordered metoprolol succinate 100 mg oral tablet, extended release Start: 09/05/22 14:24:00 EDT, 0.5 tab, PO, qhs, Disp# 135 tab, Refills: 3, Note to Pharmacy: dose change only, Pharmacy: [facility] Start Date: 09/05/22 Status: Ordered Prilosec OTC Start: 01/11/08 16:03:14, 40 mg =, PO, Daily, Refills: 0, PRN: acid reflux, current medication fromanother provider Start Date: 01/11/08 Status: Ordered Prolia Start: 07/03/15 13:41:00, 60 mg =, subQ, [id number], q 6 month Start Date: 07/03/15 Status: Ordered simvastatin 20 mg oral tablet Start: 12/13/22 16:47:00 EDT, 1 tab, PO, qhs, Disp# 90 tab, Refills: 3, Pharmacy: [facility] Start Date: 12/13/22 Status: Ordered Tylenol 500 mg oral tablet Start: 10/16/12 14:30:00, 1 tab, PO, q6h, PRN: as needed for pain Start Date: 10/16/12 Status: Ordered Vitamin D3 5000 intl units oral capsule Start: 10/16/12 14:30:00, 1 cap, PO, Daily Start Date: 10/16/12 Status: Ordered Mental Status 12/27/22 Barriers to Learning one year None evide nt Mandatory Health Literacy Documentation Yes Health Literacy Communication Barriers N ever Primary Language Samoan Problem List Condition Confirmation Course Effective Dates Status H ealth Status Informant Arthritis mutilans affecting hand Confirmed Active Pacemaker Confirmed Active Chronic diastolic heart failure Confirmed Active Fx femoral neck Confirmed Active Coronary arteriosclerosis in [place] artery Confirmed Active Coronary artery fistula Confirmed Active GERD (gastroesophageal reflux disease) Confirmed Active Osteoarthritis of knee Confirmed Active Osteoporosis Confirmed Active 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 Rheumatoid arthritis Confirmed Active RBBB Confirmed Active Syncope Confirmed Active Diagnosis Diagnosis Type Effective Dates Health Status Clinical Service Informant Rheumatoid arthritis Discharge Diagnosis 12/27/22 Arthritis mutilans affecting hand Discharge Diagnosis 12/27/22 Coronary arteriosclerosis in [place] artery Discharge Diagnosis 12/27/22 GERD (gastroesophageal reflux disease) Discharge Diagnosis 12/27/22 Chronic diastolic heart failure Discharge Diagnosis 12/27/22 Osteoporosis Discharge Diagnosis 12/27/22 Procedures Procedure Date Related Diagnosis Body Site Status Amputation of toe Complet ed Bunionectomy Completed Cataract extraction and inse rtion of intraocular lens Completed echo 08/2011 Completed Hysterectomy Completed Vital Signs Most recent to oldest [Reference Range]: 1 Patient Weight 50.6 kg (12/27/22 9:59 AM) Temperature [36.5-37.9 DegC] 36.6 DegC (12/27/22 9:59 AM) Heart Rate 78 bpm (12/27/22 9:59 AM) Respiratory Rate 20 br/min (12/27/22 9:59 AM) Blood Pressure 102/76mmHg (12/27/22 9:59 AM) Cuff Pulse Pressure 26 mmHg (12/27/22 9:59 AM) BP Location # 1 Left Arm, Manual (12/27/22 9:59 AM) Social History Social History Type Response Smoking Status Never smoked cigaret tom Sex Female [facility] Note * BARB Rosenthal, Georgia Hoyos: PERFORM Event Display: [facility] Note Authored Date: Chief Complaint 6 month follow-up chronic conditions History of Present Illness Ally presents for 6 month follow up of CAD, sinus node dysfunction, rheumatoid arthritis, GERD andosteoporosis. Outside records were not availablefrom former PCP to review today. Previously saw Dr. Padgett. Last cardiology note was reviewed today. CADand sinus node dysfunction are chronic.Has a known mid LAD lesion that has been treatedmedically and has pacemaker/defibrillation. Since the time of her last appointment she has seen cardiology a few timesand mention she was having increased dyspnea on exertion. She was started on amlodipine andthe ramp was adjusted and herpacemakerwith improvement. She still gets shortof breath occasionally, butfinds it is much better. She is able towalk up and down a flight of stairs in her home without difficulty, but says "I take it easy." Follows w/ cardiology every 6 months. Checks BP at home once weekly that runs 105-107/75-77. Echo has previously shown grade 2 diastolic dysfunction. Drinks EtOH 1-2 times per year. Former smoker. No recreational drug use. No regular exercisesecondary to orthopedic conditions, whichcause her to have an unsteady gait.Ambulates with a single- point cane. + LE edema that is stable w/ furosemide 20 mg daily. Nofalls, loss of balance,claudication, chest pain, SOB at rest, tachycardia, dizziness, lightheadedness, weakness, near syncope, syncope, nausea, vomiting, diarrhea, constipation, cough, headaches, blurred vision, loss of vision, confusion or epistaxis. Rheumatoid arthritis is chronic(dx more than 35 years ago) RAprimarily causes bilateral hand, wrist and knee pain presently - this comes and goes. Gets joint stiffness, soreness, but no redness. Hands are with significant deformitysecondary to the RA.Follows with [facility] rheumatology every 6 months and next appointment is in February 2022. Continues on hydroxychloroquine 200 mg, 1 tab p.o.twice daily that she is taking for years. Recalls having tried multiple medications previously, including gold shots, but hydroxychloroquine is the most recent. If she does haveincreased pain she will take Tylenol as needed that doeshelp ease it. No joint redness, joint warmth, fever, chills, rashesor acute joint swelling. Osteoporosisis chronic and this is also managed by [facility] rheumatology every 6 months. Has been on Prolia injections for more than 5 years. Takes calcium and vitamin D. Believes she's due for a DEXA scan this year. Hx of right hip fracture years ago. GERD is chronic and stable withOTC Suozuckt89 mg, 2 tabs p.o. daily. Only gets breakthrough heartburn if she eats something spicyor spaghetti sauce. Has tried reducing the medication to every other day and thishelps as long as she follows a very "light" diet. Had an EGD years ago thatwas reportedly normal.No abdominal pain, melena, hematochezia, nausea, vomiting, diarrhea, constipation, change in bowel habits, voice changes, dysphagia, odynophagia or unintentional weight loss. She has hada Prevnar 13 and Pneumovax 23 previously. Has had chickenpox and shingles in the past, but not Shingrix vaccine and declines. Review of Systems ROS:All other systems negative, except HPI. Physical Exam Vitals & Measurements T:36.6C HR:78(Monitored) RR:20 BP:102/76 SpO2:98% WT:50.6kg WT:50.600kg(Dosing) PHQ2 Data(Data Documented on:12/27/2022 09:59) Emotional health assessment NEGATIVE General: Alert and oriented, No acute distress.Pleasant elderly female, frail.Accompanied by a friend. Eye: Pupils are equal, round and reactive to light, Extraocular movements are intact, Normal conjunctiva. HENT: Normocephalic. Neck: Supple, No lymphadenopathy, No thyromegaly. No audible carotid bruit. Respiratory: Lungs are clear to auscultation, Respirations are non-labored, Breath sounds are equal, Symmetrical chest wall expansion. Cardiovascular: Normal rate, Normal rhythm, No murmur, No gallop, Good pulses equal in all extremities, Normal peripheral perfusion. + trace pitting edema at BLE. Abdomen: Normoactive BS x 4. Soft. No tenderness, palpable masses or organomegaly. Lymphatics: No submandibular, anterior or posterior cervical adenopathy palpable. Musculoskeletal Ambulates w/ single point cane. + arthritis mutilans at hands bilaterally. Integumentary: Warm, [place], No pallor. Neurologic: Alert, Oriented, Cranial Nerves II-XII are grossly intact. Cognition and Speech: Oriented, Speech clear and coherent, Functional cognition intact. Psychiatric: Cooperative, Appropriate mood & affect, Normal judgment, Nonsuicidal Assessment/Plan 1.Rheumatoid arthritis Rheumatoid arthritis is chronicand overall stable with hydroxychloroquine 200 mg, 1 tab p.o. twice daily. Her medication was refilled today and to continue with care of rheumatology. RTC in 6 months for recheck. High-dose influenza vaccine was counseled and given today. 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 Goal is to prevent progression of disease. To continue taking hydroxychloroquine and with care of rheumatology as above. 3.Chronic diastolic heart failure Chronic diastolic heart failure is stable with use of furosemide 20 mg, 1 tab p.o.daily. To continue with care of cardiology. 4.Coronary arteriosclerosis in [place] artery CAD is chronic and stablewithoutsigns/symptoms of angina. To continue current regimen and with care of cardiology. Last labs from February 2022 were reviewed today and stable. RTC in 6 months. 5.GERD (gastroesophageal reflux disease) GERD is chronic and stable with OTC Prilosec 20 mg, 2 tabs p.o. daily. EGD is UTD per patient andwithout any alarm signs/symptoms. Continue current regimen and RTC in 6 months. 6.Osteoporosis Osteoporosis is chronic and stable with Prolia injections every 6 months. To continue with care of rheumatology. Problem List/Past Medical History Ongoing Arthritis mutilans affecting hand Chronic diastolic heart failure Coronary arteriosclerosis in [place] artery Coronary artery fistula Fx femoral neck [...] cap, PO, Daily denosumab(Prolia), 60 mg, subQ, [id number] furosemide(furosemide 20 mg oral tablet), 20 mg= [...] Brother. Pacemaker: Brother. Health Status Family Member(s) Immunizations Vaccine Date Status influenza virus vaccine, inactivated 12/27/2022 Given pneumococcal 13-valent vaccine 06/30/2020 Recorded Comments : 2022-06-27: Historical information-source unspecified influenza virus vaccine, inactivated 02/10/2020 Given pneumococcal 23-valent vaccine 03/24/2009 Recorded Comments : 2022-06-27: Historical information-source unspecified influenza virus vaccine, inactivated 01/09/2008 Given Recommendations Health Maintenance Pending(in the next year) OverDue Body Mass Index due02/01/22and every 1year Due Adult COVID-19 Vaccination due12/27/22Unknown Frequency Adult Tdap/Td Vaccine due12/27/22Unknown Frequency Hepatitis C Screening due12/27/22One-time only Medicare Annual Wellness Visit due12/27/22and every 1year Shingles Vaccine due12/27/22One-time only Due In Future Adult Influenza Vaccine not due until09/22/23and every 1year Satisfied(in the past 1 year) Satisfied Adult Influenza Vaccine on12/27/22.Satisfied by PAULIE Scott Andrew E Lipid Screening on12/27/22.Satisfied by Contributor_system, [place] Patient Care team information Care Team Personnel Name: BARB Rosenthal, Georgia Hoyos Position: Physician Jesúst Annie - Family Med Member Role: Primary Care Provider Address: Address: [address] [place] [address], [place] [address] Care Team Related Persons Name: REMEDIOS PATEL Address: home [address] [place], [id number]
--- OUTSIDE RECORDS SUMMARY | 2023-04-08 21:15 | External Medical Summary | Continuity of Care Document ---
Author Name Unknown Organization [facility] [address] [facility] Address [address] [place], [place] [id number] Care Team Providers Care Application Support Analyst Name Role Phone GauravGeorgia knight Soha Primary Care Physician [phone] Encounter [facility] [id number] Date(s): 11/04/22 - 11/04/22 [facility] [address], [address] [place] [address] [phone] Encounter Diagnosis HLD (hyperlipidemia)(Discharge Diagnosis) - 11/04/22 CAD in [place] artery(Discharge Diagnosis) - 11/04/22 HTN (hypertension)(Discharge Diagnosis) - 11/04/22 Discharge Disposition: Home or Self Care Attending Physician: JIE Marin Sarah A Referring Physician: JIE Marin Sarah A Allergies, Adverse Reactions, Alerts Substance Reaction Severity Status vancomycin Shortness of breath Rash Active Keflex rash Active Bactrim rash Active Assessment and Plan Extracted from: Title:Cardiology Office Visit Note Author:JIE Lara rd, Sarah A Date:11/04/22 IMPRESSIONS: 1. 60% mid LAD lesion. 2. [...] on her event recorder, status post Medtronic Radha XT MRI compatible pacemaker December 2020. 8. Echocardiogram 02/2020 with normal LV function, EF in the range of 65% with type 2 diastolic dysfunction and elevated left atrial pressures and top normal pulmonary artery pressures without significant valvular heart disease. Ms. Patel's dyspnea resolved with the increase in ramp on her device, decreasing her metoprololand adding a small dose of amlodipine. Her blood pressure is controlled. She is euvolemic and continues daily furosemide. She continues on statin therapy. I have ordered cmp and lipids which she will have drawn when she sees her pcp in December in case there are other labs she would like to add. She will return to the clinic in 4 months. Immunizations Given and Recorded Vaccine Date Status [...] Daily, Disp# 90 tab, Refills: 3, [facility] Start Date: 09/05/22 Status: Ordered aspirin 81 [...] Daily, Disp# 90 tab, Refills: 3, [facility]acy[facility] Start Date: 05/15/22 Status: Ordered hydroxychloroquine 200 mg oral tablet Start: 06/27/22 14:08:00 EDT, 1 tab, PO, bid, Disp# 180 tab, Refills: 1, with food or milk, [facility]acy: [facility] Start Date: 06/27/22 Stop Date: 12/24/22 Status: Ordered metoprolol succinate 100 mg oral tablet, extended release Start: 09/05/22 14:24:00 EDT, 0.5 tab, PO, qhs, Disp# 135 tab, Refills: 3, Note to Pharmacy: dose change only, [facility]acy[facility] Start Date: 09/05/22 Status: Ordered Prilosec OTC Start: 01/11/08 16:03:14, 40 mg =, PO, Daily, Refills: 0, PRN: acid reflux, current medication fromanother provider Start Date: 01/11/08 Status: Ordered Prolia Start: 07/03/15 13:41:00, 60 mg =, subQ, [id number], q 6 month Start Date: 07/03/15 Status: Ordered simvastatin 40 mg oral tablet Start: 05/15/22 12:49:00 EST, 1/2 tab, PO, qhs, Disp# 90 tab, Refills: 0, [facility] Start Date: 05/15/22 Status: Ordered Tylenol 500 mg oral tablet Start: 10/16/12 14:30:00, 1 tab, PO, q6h, PRN: as needed for pain Start Date: 10/16/12 Status: Ordered Vitamin D3 5000 intl units oral capsule Start: 10/16/12 14:30:00, 1 cap, PO, Daily Start Date: 10/16/12 Status: Ordered Mental Status 11/04/22 Barriers to Learning one year None evide nt Mandatory Health Literacy Documentation Yes Health Literacy Communication Barriers N ever Primary Language Marshallese Problem List Condition Confirmation Course Effective Dates Status H ealth Status Informant Arthritis mutilans affecting hand Confirmed Active Pacemaker Confirmed Active Chronic diastolic heart failure Confirmed Active Fx femoral neck Confirmed Active Coronary arteriosclerosis in [place] artery Confirmed Active Coronary artery fistula Confirmed Active GERD (gastroesophageal reflux disease) Confirmed Active Osteoarthritis of knee Confirmed Active Osteoporosis Confirmed Active 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 Rheumatoid arthritis Confirmed Active RBBB Confirmed Active Syncope Confirmed Active Diagnosis Diagnosis Type Effective Dates Health Status Cl inical Service Informant CAD in [place] artery Discharge Diagnosis 11/04/22 Non-Specified HLD (hyperlipidemia) Discharge Diagnosis 11/04/22 Non-Specified HTN (hypertension) Discharge Diagnosis 11/04/22 Non-Specified Procedures Procedure Date Related Diagnosis Body Site Status Amputation of toe Complet ed Bunionectomy Completed Cataract extraction and inse rtion of intraocular lens Completed echo 08/2011 Completed Hysterectomy Completed Vital Signs Most recent to oldest [Reference Range]: 1 Patient Weight 51.6 kg (11/04/22 3:41 PM) Heart Rate 64 bpm (11/04/22 3:41 PM) Respiratory Rate 16 br/min (11/04/22 3:41 PM) Blood Pressure 104/60mmHg (11/04/22 3:41 PM) BP Location # 1 Right Arm (11/04/22 3:41 PM) Social History Social History Type Response Smoking Status Never smoked cigaret tom Sex Female Cardiology Outpatient Note * JIE Marin Sarah A: PERFORM, MODIFY Event Display: Cardiology Outpt Note Authored Date: [id number] Primary Care Provider BARB Rosenthal, Georgia Hoyos Referring Provider JIE Marin Sarah A Chief Complaint SOB is better - denies chest pain/ tightness, Palpitations, or heart racing, or lightheadedness, noedema History of Present Illness Ms. Patel presents for follow up of her dyspnea on exertion. She feels much better with the adjustment in her ramp on her device and small dose of amlodipine. She is only sob now if she is running up anddown her stairs multiple times doing laundry. Otherwise she feels pretty good. No chest discomfort. She's no longer getting sob with basic tasks like making her bed. Review of Systems All other systems reviewed and negative except as discussed in the HPI Physical Exam Vitals & Measurements HR:64(Monitored) RR:16 BP:104/60 SpO2:98% WT:51.600kg(Dosing) WT:51.6kg Physical Examination General: Alert and oriented, No acute distress. Respiratory: Lungs are clear to auscultation, Respirations are non-labored. Cardiovascular: Normal rate, Regular rhythm, No murmur, No edema, Integumentary: Warm, Dry, Edwards Neurologic: Alert, Oriented. Cognition and Speech: Speech [...] seconds on her eventrecorder, status post Medtronic Greenview XT MRI compatible pacemaker December 2020. 8. Echocardiogram 02/2020 with normal LV function, EF in the range of 65% with type 2 diastolic dysfunction and elevated left atrial pressures and top normal pulmonary artery pressures without significant valvular heart disease. Ms. Patel's dyspnea resolved with the increase in ramp on her device, decreasing her metoprololandadding a small dose of amlodipine. Her blood pressure is controlled. She is euvolemic and continues daily furosemide. She continues on statin therapy. I have ordered cmp and lipids which she will have drawn when she sees her pcp in December in case there are other labs she would like to add. She will return to the clinic in 4 months. Problem List/Past Medical History Ongoing Arthritis mutilans affecting hand Chronic diastolic heart failure Coronary arteriosclerosis in [place] artery Coronary artery fistula Fx femoral neck [...] cap, PO, Daily denosumab(Prolia), 60 mg, subQ, [id number] furosemide(furosemide 20 mg oral tablet), 20 mg= [...] Signature on File CC: Georgia Rosenthal PA-C,MPAS [address] [place] [id number] Electronically Reviewed/Signed by: JIE Barrera Author Signature Dt/Tm:11/04/2022 04:43 PM [facility] Patient Care team information Care Team Personnel Name: BARB Rosenthal, Georgia Hoyos Position: Physician Asst Exmpt - Family Med Member Role: Primary Care Provider Address: Address: [address] [place] [id number] [place] Care Team Related Persons Name: REMEDIOS PATEL Address: home [address] [place], [id number]
[2023-04-08] MEDS ORDERED: METOPROLOL SUCC 50MG EXT REL TAB PO STA (21:34)
[2023-04-08] MEDS ORDERED: FUROSEMIDE INJ 20 MG/2 ML VIAL IV ONE (21:34)
[2023-04-08] MEDS ORDERED: POTASSIUM CHLORIDE CRTAB 20 MEQ TABCR PO STA (21:34)
[2023-04-08] MEDS ORDERED: HYDROXYCHLOROQUINE SULFATE 200 MG TAB PO STA (21:34)
[2023-04-08] MEDS ORDERED: ACETAMINOPHEN 1,000 MG/100 ML VIAL IV STA (21:34)
[2023-04-08] MEDS ORDERED: SIMVASTATIN 20 MG TAB PO STA (21:34)
[2023-04-08 21:54] LABS: Magnesium 1.8 mg/dl (1.7-2.4)
[2023-04-08] MEDS ORDERED: POLYETHYLENE (MIRALAX) 17 GM PACK PO PRN (23:17)
[2023-04-08] MEDS ORDERED: MoRPHine SULFATE 2 MG/ML CARP IV PRN (23:17)
--- NOTE | 2023-04-09 00:55 | History & Physical Report ---
Date of Service April 09, 2023 Assessment & Plan (1) Elevated troponin: Plan: 78yo female with HTN, HLP, HFpEF and GERD presenting with several days of back pain. Found to have elevation of troponin on intake labs 36.8 --> 46.8 Description of pain is not typical for cardiac chest pain as it is reproducible and positional. ?Musculoskeletal, ?myopericarditis (no recent illness or vaccination reported) -Admit to medical with telemetry -Trend troponin -Check 2D echo -Tylenol 1gm PO TID -Morphine PRN -Cardiology consultation appreciated -Continue ASA 81mg po daily -Continue Simvastatin (2) Hypertension: Plan: Chronic -Continue Amlodipine - Continue Metoprolol (3) Hyperlipidemia: Plan: Chronic. Stable -Continue Simvastatin 20mg po qHS (4) Rheumatoid arthritis: Plan: Chronic. Patient reports stable symptoms -Continue Hydroxychloroquine Admission and Anticipated Discharge Date Admission Date: April 08, 2023 History of Present Illness Chief Complaint: chest pain Primary Care Provider: Georgia Rosenthal PA-C Araceli Cobos is a pleasant 78yo female with history of HTN, HLP, RA, GERD and HFpEF presenting with several days of pain in the chest and back. Patient started on 04/04/23 as a pulling sensation in her mid-thoracic back and between her shoulder blades. The pain started when she was getting out of bed. She has been taking Tylenol with no relief. Symptoms have mildly improved over the last several days but are mostly stable and persistent. She notes worsening discomfort with movement, specifically with sitting forward which causes her pain to radiate into her sides. Pain is not pleuritic or exertional. No relieving factors identified. She denies anterior chest pain, palpitations, cough, dizziness or syncope. Has some stable bilateral LE edema. Denies weight gain or orthopnea. She has shortness of breath with sitting forward to put on her socks and shoes otherwise no SOB. In the ER she is afebrile, HD stable ER Course: ASA 243mg KCl 60mEq Lasix 20mg IV Tylenol 1000mg IV Allergies Allergy/AdvReac Type Severity Reaction Status Date / Time Sulfa (Sulfonamide Allergy Intermediate Rash Verified 04/08/23 21:04 Antibiotics) trimethoprim Allergy Intermediate Rash Verified 04/08/23 21:04 vancomycin Allergy Intermediate Rash, Verified 04/08/23 21:04 shortness of breath Cephalosporins AdvReac Mild Vomiting Verified 04/08/23 21:04 Home Medications Medication Instructions Recorded Confirmed Type acetaminophen 500 mg tablet 1,000 mg PO Q6H PRN Pain 05/09/20 04/08/23 History aspirin 81 mg tablet,delayed 81 mg PO QAM 05/09/20 04/08/23 History release (Niya Low Dose Aspirin) calcium carbonate 600 mg calcium 600 mg PO QAM 05/09/20 04/08/23 History (1,500 mg) tablet (Calcium) cholecalciferol (vitamin D3) 125 125 mcg PO QAM 05/09/20 04/08/23 History mcg (5,000 unit) tablet (Vitamin D3) hydroxychloroquine 200 mg tablet 200 mg PO BID 05/09/20 04/08/23 History amlodipine 2.5 mg tablet 2.5 mg PO QAM 04/08/23 04/08/23 History furosemide 20 mg tablet 20 mg PO QAM 04/08/23 04/08/23 History metoprolol succinate 100 mg 50 mg PO HS 04/08/23 04/08/23 History tablet,extended release 24 hr simvastatin 20 mg tablet 20 mg PO HS 04/08/23 04/08/23 History Past Med/Surg History Medical History Osteoporosis Edema No pertinent family history Headache Fracture of femoral neck, right Hyperlipidemia Hypertension Rheumatoid arthritis Endometriosis Surgical History No pertinent past surgical history Social History Smoking Status: Former smoker Tobacco Type: Cigarettes Second Hand Exposure: No; Do You Dip or Chew Tobacco: No; Hx Alcohol Use: No Hx Substance Use: No Preferred Language: Uzbek Communication Ability: Effective Blind Cleaner Required: No Beliefs That Will Affect Care: None marital status: / Current Living Situation: Family Current Living Situation Comment: Lives with son and grandchildren How many Children do You have: 1 Feels Safe at Home: Yes Safety Concerns: Feels Safe At This Time Assistive Devices: Cane Review of Systems Review of Systems: All systems reviewed & are unremarkable except as noted in HPI & below Physical Exam Physical Exam: General: patient resting comfortably, NAD, non-toxic in appearance, AA&O x 4 Skin: warm, dry, intact, no rashes or lesions HEENT: NC/AT, PERRL, EOMI, anicteric sclera, conjunctiva without injection, external ear normal to inspection and nontender, nares patent, moist mucus membranes, dentition intact, no oropharyngeal lesions, neck supple, trachea midline, no LAD, no thyromegaly, no JVD Heart: +S1/S2, ?bigeminy noted on monitor, no m/r/g Lungs: equal air entry bilaterally, crackles in bilateral bases, no rhonchi/wheezes Mild kyphosis. Tenderness with palpation of mid-thoracic spine and ribs, No rash Abd: +BS, soft, NT/ND, no masses/organomegaly/ascites Ext: warm, 2+ pulses in UE/LE bilaterally, no clubbing/cyanosis or edema, hand and joint changes consistent with patient history of RA Neuro: nonfocal, patient AA&O x 4, speech intact, no facial droop, moving all extremities on command with equal strength 5/5 Results & Data Results & Data Vital Signs (Past 12 Hours) Vital Signs Temp Pulse Pulse Resp BP BP Pulse Ox 04/09/23 00:23 74 21 137/91 97 04/08/23 23:53 37.2 C 75 14 112/84 94 04/08/23 23:30 112/84 04/08/23 23:30 76 20 04/08/23 22:30 79 24 04/08/23 22:30 121/96 04/08/23 22:00 81 14 04/08/23 22:00 131/87 04/08/23 21:31 85 19 04/08/23 21:31 137/89 04/08/23 21:02 80 16 04/08/23 21:02 149/75 H 04/08/23 21:00 85 16 04/08/23 20:30 135/81 04/08/23 20:30 78 16 04/08/23 20:00 80 16 97 04/08/23 20:00 124/76 04/08/23 19:30 82 17 94 04/08/23 19:30 148/78 H 04/08/23 19:25 81 14 98 04/08/23 19:25 139/85 04/08/23 19:23 93 H 19 04/08/23 18:31 78 13 156/93 H 96 04/08/23 18:01 77 17 138/91 98 04/08/23 17:32 84 16 156/117 H 95 04/08/23 17:22 79 04/08/23 17:19 98 04/08/23 17:19 36.7 C 81 18 141/98 H 98 O2 Del Method O2 Flow Rate 04/09/23 00:23 Room Air 04/08/23 23:53 Room Air 04/08/23 23:30 04/08/23 23:30 04/08/23 22:30 04/08/23 22:30 04/08/23 22:00 04/08/23 22:00 04/08/23 21:31 04/08/23 21:31 04/08/23 21:02 04/08/23 21:02 04/08/23 21:00 04/08/23 20:30 04/08/23 20:30 04/08/23 20:00 04/08/23 20:00 04/08/23 19:30 04/08/23 19:30 04/08/23 19:25 04/08/23 19:25 04/08/23 19:23 04/08/23 18:31 Room Air 04/08/23 18:01 Room Air 04/08/23 17:32 Room Air 04/08/23 17:22 04/08/23 17:19 Room Air 0 04/08/23 17:19 Room Air Laboratory Results Laboratory Results WBC 7.77 K/ul (4.8-10.8) 04/08/23 17:20 RBC 4.10 M/uL (4.20-5.40) L 04/08/23 17:20 Hgb 12.6 g/dl (12.0-16.0) 04/08/23 17:20 Hct 38.0 % (37.0-47.0) 04/08/23 17:20 MCV 92.7 fL (80.0-100.0) 04/08/23 17:20 MCH 30.7 pg (25.0-34.0) 04/08/23 17:20 MCHC 33.2 g/dL (32.0-36.0) 04/08/23 17:20 RDW Std Deviation 41.7 fL (36.4-46.3) 04/08/23 17:20 RDW Coeff of Emily 12.2 % (11.5-14.5) 04/08/23 17:20 Plt Count 170 K/uL (130-400) 04/08/23 17:20 MPV 10.4 fL (9.4-12.4) 04/08/23 17:20 Immature Gran % (Auto) 0.4 % 04/08/23 17:20 Neut % (Auto) 70.7 % 04/08/23 17:20 Lymph % (Auto) 18.1 % 04/08/23 17:20 [place] % (Auto) 7.9 % 04/08/23 17:20 Eos % (Auto) 2.1 % 04/08/23 17:20 Baso % (Auto) 0.8 % 04/08/23 17:20 Neut # (Auto) 5.50 K/uL (1.40-6.50) 04/08/23 17:20 Lymph # (Auto) 1.41 K/uL (1.20-3.40) 04/08/23 17:20 [place] # (Auto) 0.61 K/uL (0.11-0.59) H 04/08/23 17:20 Eos # (Auto) 0.16 K/uL (0.00-0.50) 04/08/23 17:20 Baso # (Auto) 0.06 K/uL (0.00-0.20) 04/08/23 17:20 Immature Gran # (Auto) 0.03 K/uL (0.01-0.20) 04/08/23 17:20 Sodium 138 mmol/L (136-145) 04/08/23 17:20 Potassium 3.3 mmol/L (3.5-5.1) L 04/08/23 17:20 Chloride 103 mmol/L (98-107) 04/08/23 17:20 Carbon Dioxide 27 mmol/L (21-32) 04/08/23 17:20 Anion Gap 8 (3-11) 04/08/23 17:20 BUN 19 mg/dl (6-23) 04/08/23 17:20 Creatinine 0.78 mg/dl (0.6-1.2) 04/08/23 17:20 Est Cr Clr Drug Dosing 40.7 ml/min 04/08/23 17:20 Est GFR ( Amer) 83.8 ml/min 04/08/23 17:20 Est GFR (Non-Af Amer) 72.3 ml/min 04/08/23 17:20 BUN/Creatinine Ratio 24.4 (10-20) H 04/08/23 17:20 Glucose 105 mg/dl (70-99(Fasting)) H 04/08/23 17:20 Calcium 10.1 mg/dl (8.6-10.3) 04/08/23 17:20 Magnesium 1.8 mg/dl (1.7-2.4) 04/08/23 19:45 Total Bilirubin 0.7 mg/dl (0.2-1.0) 04/08/23 17:20 AST 28 U/L (13-39) 04/08/23 17:20 ALT 24 U/L (7-52) 04/08/23 17:20 Alkaline Phosphatase 116 U/L (34-104) H 04/08/23 17:20 Troponin I High Sens 46.8 pg/ml (0-14) H D 04/08/23 19:45 B-Natriuretic Peptide 467 pg/ml (0-100) H 04/08/23 17:20 Total Protein 7.9 gm/dl (6.0-8.3) 04/08/23 17:20 Albumin 3.9 gm/dl (3.4-5.0) 04/08/23 17:20 Globulin 4.0 gm/dl (2.5-4.0) 04/08/23 17:20 Albumin/Globulin Ratio 1.0 (0.9-2) 04/08/23 17:20 Lipase 37 U/L (11-82) 04/08/23 17:20 Impressions Chest X-Ray 04/08/23 17:49 XR chest 1V portable HISTORY: 78 years-old Female Chest pain, nonspecific COMPARISON: 01/03/2021 TECHNIQUE: AP view of the chest FINDINGS: Cardiac silhouette is enlarged. Left subclavian dual lead pacer. No pneumothorax, pleural effusion, airspace consolidation or overt pulmonary edema. Degenerative changes of the shoulders and spine. Healed chronic right proximal humeral fracture deformity. IMPRESSION: No acute process of the chest. ACT 112: Negative or not required by law. The above report was generated using voice recognition software. It may contain grammatical, syntax or spelling errors. Electronically signed by: Viktor Dunne M.D. 04/08/2023 6:12 PM Chest CTA 04/08/23 17:50 Exam(s): CTA CHEST IV Amt: 116 ml optiray 320 EXAM: CT Angiography Chest With Intravenous Contrast CLINICAL HISTORY: Reason for exam: Chest Pain, eval for PE. TECHNIQUE: Axial computed tomographic angiography images of the chest with intravenous contrast. CTDI is 47.37 mGy and DLP is 1264.62 mGy-cm. Automated exposure control was utilized for the study. A dose lowering technique was utilized adhering to the principles of ALARA. MIP reconstructed images were created and reviewed. COMPARISON: No relevant prior studies available. FINDINGS: Pulmonary arteries: Unremarkable. No pulmonary embolus. Aorta: See below. Lungs: Bibasilar atelectasis versus scarring with small basilar cyst may be related to early fibrosis. No mass. Pleural space: Unremarkable. No significant effusion. No pneumothorax. Heart: Unremarkable. No cardiomegaly. No significant pericardial effusion. No evidence of RV dysfunction. Thyroid: Unremarkable. No suspicious no thyroid lesions. Bones/joints: Moderate multilevel changes of the thoracic spine with thoracic kyphosis. No acute fracture. No dislocation. Soft tissues: Unremarkable. Lymph nodes: Unremarkable. No enlarged lymph nodes. Tubes, lines and devices: Left-sided pacemaker. Moderate atherosclerotic disease of the thoracic aorta. IMPRESSION: 1. No pulmonary embolus. 2. Bibasilar atelectasis versus scarring with small basilar cyst may be related to early fibrosis. Electronically signed by: Omayra Eli MD 04/08/23 19:36 PM ECG Additional Comments: RBBB, occasional paced beat PG Care Time/CCT Total # of Minutes Spent Total Time Spent with Patient: Total time spent is greater than 50% in coordination of care (as documented) at patient's floor/unit and/or counseling patient: Coding Level of Care Code 00379 INT INP/OBS CARE 2/55MIN Diagnoses Elevated troponin R77.8 Hypertension I10 Hyperlipidemia E78.5 Rheumatoid arthritis M06.9
[2023-04-09] MEDS: MoRPHine SULFATE 2 MG/ML CARP IV PRN ×3 (01:23→08:27)
[2023-04-09] MEDS: ACETAMINOPHEN 500 MG TAB PO SCH ×3 (08:25→21:37)
[2023-04-09] MEDS: amLODIPine BESYLATE 5 MG TAB PO SCH (08:25)
[2023-04-09] MEDS: ASPIRIN 81 MG ECTAB PO SCH (08:26)
[2023-04-09] MEDS: HYDROXYCHLOROQUINE SULFATE 200 MG TAB PO SCH ×2 (08:26→21:37)
[2023-04-09] MEDS: FUROSEMIDE INJ 20 MG/2 ML VIAL IV SCH (08:27)
--- NOTE | 2023-04-09 09:23 | Cardiology Consultation ---
Date of Consultation April 09, 2023 History of Present Illness Reason for Consultation: Elevated troponin Attending Physician: Joseph Alejandro History of Present Illness Is a very pleasant 78-year-old female with significant rheumatoid arthritis. She notes Friday getting up out of bed all of a sudden she had diffuse musculoskeletal discomfort involving her back. It is not worse with a deep breath. It is not worse lying flat. She notes it bothers her most when she has to push off like to get up out of a commode or to get up out of bed. Walking from 1 room to the next does not make it worse. She denies any fevers or chills or recent sick contacts. She is not short of breath with it or diaphoretic. There is no anterior chest discomfort or throat discomfort. She denies any palpitations or fluttering. She has had no fevers or chills or night sweats. She denies a productive cough. Allergies Allergy/AdvReac Type Severity Reaction Status Date / Time Sulfa (Sulfonamide Allergy Intermediate Rash Verified 04/08/23 21:04 Antibiotics) trimethoprim Allergy Intermediate Rash Verified 04/08/23 21:04 vancomycin Allergy Intermediate Rash, Verified 04/08/23 21:04 shortness of breath Cephalosporins AdvReac Mild Vomiting Verified 04/08/23 21:04 Home Medications Medication Instructions Recorded Confirmed Type acetaminophen 500 mg tablet 1,000 mg PO Q6H PRN Pain 05/09/20 04/08/23 History aspirin 81 mg tablet,delayed 81 mg PO QAM 05/09/20 04/08/23 History release (Niya Low Dose Aspirin) calcium carbonate 600 mg calcium 600 mg PO QAM 05/09/20 04/08/23 History (1,500 mg) tablet (Calcium) cholecalciferol (vitamin D3) 125 125 mcg PO QAM 05/09/20 04/08/23 History mcg (5,000 unit) tablet (Vitamin D3) hydroxychloroquine 200 mg tablet 200 mg PO BID 05/09/20 04/08/23 History amlodipine 2.5 mg tablet 2.5 mg PO QAM 04/08/23 04/08/23 History furosemide 20 mg tablet 20 mg PO QAM 04/08/23 04/08/23 History metoprolol succinate 100 mg 50 mg PO HS 04/08/23 04/08/23 History tablet,extended release 24 hr simvastatin 20 mg tablet 20 mg PO HS 04/08/23 04/08/23 History Patient History Medical History Osteoporosis Edema No pertinent family history Headache Fracture of femoral neck, right Hyperlipidemia Hypertension Rheumatoid arthritis Endometriosis Surgical History No pertinent past surgical history Social History Smoking Status: Former smoker Tobacco Type: Cigarettes Second Hand Exposure: No; Do You Dip or Chew Tobacco: No; Hx Alcohol Use: No Hx Substance Use: No Preferred Language: Citizen Of [place] Communication Ability: Effective [employer] Research Manager Required: No Beliefs That Will Affect Care: None marital status: / Current Living Situation: Family Current Living Situation Comment: Lives with son and grandchildren How many Children do You have: 1 Feels Safe at Home: Yes Safety Concerns: Feels Safe At This Time Assistive Devices: Cane Results & Data Vital Signs (Past 12 Hours) Vital Signs Temp Pulse Pulse Resp BP BP Pulse Ox 04/09/23 08:00 37.0 C 78 19 140/77 95 04/09/23 07:10 74 04/09/23 06:01 76 19 96 04/09/23 06:01 76 24 100/74 95 04/09/23 06:00 76 24 95 04/09/23 05:01 77 20 103/76 95 04/09/23 05:01 77 21 94 04/09/23 05:00 79 16 96 04/09/23 04:01 77 20 129/76 94 04/09/23 04:01 77 20 94 04/09/23 04:00 77 16 95 04/09/23 03:39 76 04/09/23 03:00 152/82 H 04/09/23 03:00 78 24 04/09/23 02:00 75 17 96 04/09/23 02:00 132/86 04/09/23 01:47 76 16 144/94 H 93 04/09/23 01:24 75 20 144/94 H 96 04/09/23 01:00 144/94 H 04/09/23 01:00 76 20 95 04/09/23 00:23 74 21 137/91 97 04/09/23 00:21 74 16 97 04/09/23 00:21 137/91 04/09/23 00:00 129/74 04/09/23 00:00 75 16 04/08/23 23:53 37.2 C 75 14 112/84 94 04/08/23 23:30 112/84 04/08/23 23:30 76 20 04/08/23 22:30 79 24 04/08/23 22:30 121/96 04/08/23 22:00 81 14 04/08/23 22:00 131/87 04/08/23 21:31 85 19 04/08/23 21:31 137/89 O2 Del Method 04/09/23 08:00 Room Air 04/09/23 07:10 04/09/23 06:01 04/09/23 06:01 04/09/23 06:00 04/09/23 05:01 04/09/23 05:01 04/09/23 05:00 04/09/23 04:01 04/09/23 04:01 04/09/23 04:00 04/09/23 03:39 04/09/23 03:00 04/09/23 03:00 04/09/23 02:00 04/09/23 02:00 04/09/23 01:47 Room Air 04/09/23 01:24 Room Air 04/09/23 01:00 04/09/23 01:00 04/09/23 00:23 Room Air 04/09/23 00:21 04/09/23 00:21 04/09/23 00:00 04/09/23 00:00 04/08/23 23:53 Room Air 04/08/23 23:30 04/08/23 23:30 04/08/23 22:30 04/08/23 22:30 04/08/23 22:00 04/08/23 22:00 04/08/23 21:31 04/08/23 21:31 she is awake alert and oriented x 3. She is in a moderate degree of discomfort. HEENT: 2+ carotid upstrokes Lungs: Clear to auscultation bilaterally Heart: Regular rate and rhythm no appreciable murmurs or rubs or gallops Her heart sounds are not distant Abdomen: Soft nontender nondistended positive bowel sounds Extremities: No clubbing cyanosis or edema she has marked deformities related to her rheumatoid arthritis Musculoskeletal she has reproducible chest wall discomfort posteriorly. Initial EKG sinus rhythm right bundle branch block with PACs in a bigeminal pattern Her laboratory studies were reviewed IMPRESSIONS: 1. Minimally elevated highly sensitive troponin 2. back discomfort which does not sound cardiac; which is worse pushing off using her arms 3. History of dual-chamber pacemaker with [employer] as you are MRI compatible device December 2020 4. Echocardiogram February 2020 with normal biventricular size and function and type II diastolic dysfunction and top normal pulmonary artery pressures 5. 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 Longstanding rheumatoid arthritis impacting her quality of life As I discussed with Ally I do not think that this is cardiac in etiology. It is not ripping or tearing in nature. She had a CT angiogram of her chest that does not reveal any evidence of a pulmonary embolism nor an aortic dissection. I think her troponin is just related purely to pain. It is worse when she pushes off using her arms. There is no anterior chest discomfort and it is not applied between her shoulder blades. I will continue to maximize her pain control and control her blood pressure. If there is a concern for markedly elevated troponins or change in her symptomatology that is concerning for a cardiac etiology please feel free to reach out.
[2023-04-09] MEDS ORDERED: PROCHLORPERAZINE 5 MG in SYRINGE 4 ML IV PRN (09:59)
[2023-04-09 11:07] LABS: Troponin I High Sensitivity 44.5 pg/ml (0-14)
[2023-04-09] MEDS ORDERED: LIDOCAINE 5% 1 PATCH TD STA (11:16)
[2023-04-09 12:31] LABS: Hemoglobin 12.2 g/dl (12.0-16.0); Mean Corpuscular Hemoglobin 30.5 pg (25.0-34.0); Mean Corpuscular Volume 92.5 fL (80.0-100.0); Mean Platelet Volume 10.6 fL (9.4-12.4); Platelet Count 140 K/uL (130-400); RDW Coefficient of Variation 12.4 % (11.5-14.5); RDW Standard Deviation 42.1 fL (36.4-46.3)
[2023-04-09 12:37] LABS: Calcium 9.9 mg/dl (8.6-10.3); Potassium 3.8 mmol/L (3.5-5.1)
[2023-04-09 12:42] LABS: BUN Creatinine Ratio 16.3 (10-20); C Reactive Protein 0.61 mg/dl (0-0.5); Creatinine Clr Calc Pharmacy 31.3 ml/min; Est GFR (African American) 63.6 ml/min; Est GFR (Non-African American) 54.9 ml/min
--- NOTE | 2023-04-09 14:44 | CT Scan Report ---
CT SCAN OF THE LUMBAR SPINE WITHOUT IV CONTRAST CLINICAL HISTORY: Low back pain. COMPARISON STUDY: Lumbar spine radiographs dated 05/18/2010. Abdominal CT dated 12/14/2020. TECHNIQUE: CT scan of the lumbar spine was performed from the lower thoracic spine to the sacrum. Valentina ges are reviewed in the axial, sagittal, and coronal planes. IV contrast was not administered for thi s examination. A dose lowering technique was utilized adhering to the principles of ALARA. CT DOSE: 1001.92 mGy.cm FINDINGS: The skeletal structures are osteopenic. There is no evidence of acute fracture or malalignm ent. Chronic compression deformities of T11, T12, L1, L3, and L4 are unchanged from the 12/14/[address] Vertebral body height is otherwise maintained throughout the lumbar spine. Retropulsed fra gments at T12 and L1 are unchanged from previous. Alignment is otherwise preserved. There is straight ening of the lumbar lordosis. Anterior and lateral marginal osteophytes are seen throughout. The teague sverse and spinous processes appear intact. There is no spondylolysis. No lytic or blastic lesion is seen. There is moderate to severe disc space narrowing at L2-L3, L4-L5, and L5-S1. End plate sclerosi s is noted at L5-S1. Posterior disc osteophyte complexes are seen at all lumbar levels. No high-grade central canal stenosis is clearly identified by CT. The visualized sacrum and bony pelvis appear int act. There is mild fatty atrophy of the paraspinous musculature. Excreted IV contrast is seen within the renal collecting system and ureters bilaterally. There is advanced atherosclerotic calcification of the abdominal aorta which is normal in caliber. No retroperitoneal lymphadenopathy is identified. IMPRESSION: 1. No acute bony abnormality is seen involving the lumbar spine. 2. Numerous thoracolumbar compression deformities have not appreciably changed from 12/14/2020. 3. Osteopenia and spondylotic change as above. ACT 112: Negative or not required by law. Dictated: 04/09/2023 1:22 PM Transcribed: 04/09/2023 1:35 PM Bobby [id number] GERMAN_Randall [id number] Electronically signed by: Jorgito Gutierrez M.D. 04/09/2023 2:42 PM
[2023-04-09] MEDS: traMADol HCL 50 MG TABLET PO PRN ×2 (17:10→22:57)
[2023-04-09] MEDS: ONDANSETRON INJ 2 MG/ML 2 ML VIAL IV PRN (18:04)
--- NOTE | 2023-04-09 19:57 | CT Scan Report ---
Exam(s): CT T SPINE EXAM: CT Thoracic Spine Without Intravenous Contrast CLINICAL HISTORY: Pain. TECHNIQUE: Axial computed tomography images of the thoracic spine without intravenous contrast. CTDI is 30.22 mGy and DLP is 946.47 mGy-cm. Automated exposure control was utilized for the study. A dose lowering technique was utilized adhering to the principles of ALARA. COMPARISON: CTA chest 05/09/2020 FINDINGS: Vertebrae: Slightly worsened now severe T7 compression fracture. There is 3 mm of retropulsion. Redemonstrated 5 mm of retropulsion at the levels of T11 and T12. There is accentuated kyphosis secondary to these compression fractures. Chronic T4, T6, T8, T9, T10, T11, T12 and L1 compression fractures. Discs/spinal canal/neural foramina: No acute findings. No spinal canal stenosis. Soft tissues: Unremarkable. Lungs: Interseptal thickening could relate to pulmonary edema and/or atelectasis. IMPRESSION: 1. Slightly worsened now severe T7 compression fracture. There is 3 mm of retropulsion. 2. Redemonstrated 5 mm of retropulsion at the levels of T11 and T12. 3. There is accentuated kyphosis secondary to these compression fractures. 4. Interseptal thickening could relate to pulmonary edema and/or atelectasis. Electronically signed by: Rimma Bush MD 04/09/23 19:56 PM
--- NOTE | 2023-04-09 21:05 | XCELERA ---
[id number]
[2023-04-09] MEDS: METOPROLOL SUCC 50MG EXT REL TAB PO SCH (21:37)
[2023-04-09] MEDS: SIMVASTATIN 20 MG TAB PO SCH (21:37)
--- NOTE | 2023-04-09 22:29 | Hospitalist Progress Note ---
Date of Service April 09, 2023 Assessment & Plan (1) Elevated troponin: Plan: 78yo female with HTN, HLP, HFpEF and GERD presenting with several days of back pain. Found to have elevation of troponin on intake labs 36.8 --> 46.8 Description of pain is not typical for cardiac chest pain as it is reproducible and positional. Pain at this momenet appears to be Musculoskeletal. DOes not appear to be cardiac, or life threatening. However due to her pain, we cannot discharge patient. Will need to further assess her back pain. WIll obtain a thoracic spine CT scan to assess for occult fracture. Unsure if patient can tolerate an MRI of the spine. If CT scan is negative, perhaps consider an injection with pain management. also will lidocaine as morphine was causing nausea. -Cardiology consultation appreciated -Continue ASA 81mg po daily -Continue Simvastatin (2) Hypertension: Plan: Chronic -Continue Amlodipine - Continue Metoprolol (3) Hyperlipidemia: Plan: Chronic. Stable -Continue Simvastatin 20mg po qHS (4) Rheumatoid arthritis: Plan: Chronic. Patient reports stable symptoms -Continue Hydroxychloroquine Admission and Anticipated Discharge Date Admission Date: April 08, 2023 Subjective Patient reports sevre back pain in her thoracic spine. She states it is in the middle of her thoracic spine and radiates bilaterally. Patient denies any trauma and states this has been ongoing since last Friday. Review of Systems Review of Systems: All systems reviewed & are unremarkable except as noted in HPI & below Physical Exam Physical Exam: General: patient resting comfortably, NAD Skin: warm, dry, intact, no rashes or lesions HEENT: NC/AT, PERRL, EOMI Heart: +S1/S2, ?bigeminy noted on monitor, no m/r/g Lungs: equal air entry bilaterally, crackles in bilateral bases, no rhonchi/wheezes MSK: TTP on T4-T5 and TTP to left on spine on paraspinal muscle. Results & Data Results & Data Vital Signs (Past 12 Hours) Vital Signs Temp Pulse Pulse Resp BP BP Pulse Ox 04/09/23 19:17 36.6 C 93 H 18 158/65 H 95 04/09/23 16:20 04/09/23 16:15 36.6 C 51 L 18 142/82 H 98 04/09/23 11:00 65 16 132/70 98 O2 Del Method 04/09/23 19:17 Room Air 04/09/23 16:20 Room Air 04/09/23 16:15 Room Air 04/09/23 11:00 Room Air PG Care Time/CCT Total # of Minutes Spent Total Time Spent with Patient: Total time spent is greater than 50% in coordination of care (as documented) at patient's floor/unit and/or counseling patient: Coding Level of Care Code 29589 SUB INP/OBS CARE 3/50MIN Diagnoses Elevated troponin R77.8 Hypertension I10 Hyperlipidemia E78.5 Rheumatoid arthritis M06.9
[2023-04-10] MEDS: traMADol HCL 50 MG TABLET PO PRN ×4 (07:19→21:07)
[2023-04-10] MEDS: HYDROXYCHLOROQUINE SULFATE 200 MG TAB PO SCH ×2 (08:25→21:08)
[2023-04-10] MEDS: ACETAMINOPHEN 500 MG TAB PO SCH ×3 (08:26→21:08)
[2023-04-10] MEDS: amLODIPine BESYLATE 5 MG TAB PO SCH (08:29)
[2023-04-10] MEDS: ASPIRIN 81 MG ECTAB PO SCH (08:30)
[2023-04-10] MEDS: FUROSEMIDE INJ 20 MG/2 ML VIAL IV SCH (08:33)
--- NOTE | 2023-04-10 08:45 | Hospitalist Progress Note ---
Date of Service April 10, 2023 Assessment & Plan (1) Elevated troponin: Plan: 78yo female with HTN, HLP, HFpEF and GERD presenting with several days of back pain. Found to have elevation of troponin on intake labs 36.8 --> 46.8 Description of pain is not typical for cardiac chest pain as it is reproducible and positional. Did have cardiology eval and review of past cardiac history and exam, do not feel the pain is cardiac in nature and no recommendations of further testing cardioligy notes PPM is mri compatable Pain at this moment appears to be likely from thoracic compression fractures -Continue ASA 81mg po daily -Continue Simvastatin (2) Acute back pain: Plan: Thoracic/Lumbar spine CT scan severe T7 compression fracture with 3 mm retropulsion T11,12 5mm retropulsion, associated Kyphosis Unsure if patient can tolerate an MRI of the spine, due to kyphosis consider an injection with pain management, has not been on home opiates, does have some nausea with these meds (3) Hypertension: Plan: Chronic -Continue Amlodipine - Continue Metoprolol (4) Hyperlipidemia: Plan: Chronic. Stable -Continue Simvastatin 20mg po qHS (5) Rheumatoid arthritis: Plan: Chronic. Patient reports stable symptoms -Continue Hydroxychloroquine Admission and Anticipated Discharge Date Admission Date: April 08, 2023 Subjective Patient reports 8 out of 10 pain with ambulation and 4-10 pain was resting comfortably. There is no radicular aspect of the pain stays in relative location to the thoracic fractures noted on CT imaging. Patient is not interested in surgery but she would be interested in procedures that may help her discomfort. Physical Exam Physical Exam: point tenderness in lower thoracic spine area Results & Data Results & Data Vital Signs (Past 12 Hours) Vital Signs Temp Pulse Pulse Resp BP Pulse Ox O2 Del Method 04/10/23 08:09 97.7 F 60 18 127/85 96 Room Air 04/10/23 07:29 98.1 F 113 H 20 138/59 L 96 Room Air 04/10/23 06:02 63 04/10/23 02:52 97.9 F 44 L 18 116/66 94 Room Air 04/09/23 22:34 97.9 F 84 18 151/72 H 96 Room Air Medications Administered adjust ultram dosing PG Care Time/CCT Total # of Minutes Spent Total Time Spent with Patient: Total time spent is greater than 50% in coordination of care (as documented) at patient's floor/unit and/or counseling patient: Coding Level of Care Code 76879 SUB INP/OBS CARE 235MIN Diagnoses Elevated troponin R77.8 Acute back pain M54.9 Hypertension I10 Hyperlipidemia E78.5 Rheumatoid arthritis M06.9
[2023-04-10] MEDS: LIDOCAINE 5% 1 PATCH TD SCH (08:48)
[2023-04-10] MEDS: SIMVASTATIN 20 MG TAB PO SCH (21:08)
[2023-04-10] MEDS: METOPROLOL SUCC 50MG EXT REL TAB PO SCH (21:09)
[2023-04-11] MEDS: traMADol HCL 50 MG TABLET PO PRN (05:23)
[2023-04-11] MEDS: FUROSEMIDE INJ 20 MG/2 ML VIAL IV SCH (08:20)
[2023-04-11] MEDS: HYDROXYCHLOROQUINE SULFATE 200 MG TAB PO SCH ×2 (08:20→20:55)
[2023-04-11] MEDS: ACETAMINOPHEN 500 MG TAB PO SCH ×3 (08:21→20:56)
[2023-04-11] MEDS: LIDOCAINE 5% 1 PATCH TD SCH (08:21)
[2023-04-11] MEDS: ASPIRIN 81 MG ECTAB PO SCH (08:22)
[2023-04-11] MEDS: amLODIPine BESYLATE 5 MG TAB PO SCH (08:23)
[2023-04-11] MEDS ORDERED: DEXAMETHASONE SOD INJ 4 MG/ML VIAL IV SCH (10:30)
[2023-04-11] MEDS: POLYETHYLENE (MIRALAX) 17 GM PACK PO SCH (12:06)
[2023-04-11] MEDS: CALCITONIN SALMON NA 200 IU/AC 3.7 ML BTL SCH (12:06)
[2023-04-11] MEDS: dexAMETHasone 4 MG in SYRINGE 0 ML IV SCH (12:06)
[2023-04-11] MEDS ORDERED: SODIUM CHLORIDE 0.9% 500 ML IV ONE (13:17)
--- NOTE | 2023-04-11 17:11 | Hospitalist Progress Note ---
Date of Service April 11, 2023 Assessment & Plan (1) Elevated troponin: Plan: 78yo female with HTN, HLP, HFpEF and GERD presenting with several days of back pain. Found to have elevation of troponin on intake labs 36.8 --> 46.8 Description of pain is not typical for cardiac chest pain as it is reproducible and positional. Did have cardiology eval and review of past cardiac history and exam, do not feel the pain is cardiac in nature and no recommendations of further testing cardioligy notes PPM is mri compatable Pain at this moment appears to be likely from thoracic compression fractures -Continue ASA 81mg po daily -Continue Simvastatin (2) Acute back pain: Plan: Thoracic/Lumbar spine CT scan severe T7 compression fracture with 3 mm retropulsion T11,12 5mm retropulsion, associated Kyphosis Unsure if patient can tolerate an MRI of the spine, due to kyphosis consider an injection with pain management, has not been on home opiates, does have some nausea with these meds transitioning to nucynta, started miacalcin and using decadron in addition to scheduled tylenol and lidoderm patch seems like most opiates cause nausea and balance issues PT/OT eval; (3) Hypertension: Plan: Chronic, now lower in the hospital -04/11/23 stopping Amlodipine, and reduce Metoprolol by 50% 500ml nss over 5 hours (4) Hyperlipidemia: Plan: Chronic. Stable -Continue Simvastatin 20mg po qHS (5) Rheumatoid arthritis: Plan: Chronic. Patient reports stable symptoms -Continue Hydroxychloroquine Admission and Anticipated Discharge Date Admission Date: April 08, 2023 Subjective Patient continues with reports 8 out of 10 pain with ambulation and 4-10 pain was resting comfortably. There is no radicular aspect of the pain stays in relative location to the thoracic fractures noted on CT imaging. Patient is not interested in surgery ortho spine did review films and feels her fractures are not amenable to kyphoplasty son was updated and he and mother viewed CT scan images in room Physical Exam Physical Exam: point tenderness in lower thoracic spine area no peripheral sensation loss marked kyphosis Results & Data Results & Data Vital Signs (Past 12 Hours) Vital Signs Temp Pulse Pulse Resp BP Pulse Ox O2 Del Method 04/11/23 15:30 97.5 F L 87 20 120/77 95 Room Air 04/11/23 11:19 97.9 F 93 H 20 91/62 L 93 Room Air 04/11/23 10:16 76 04/11/23 07:34 98.1 F 81 20 134/78 96 Room Air PG Care Time/CCT Total # of Minutes Spent Total Time Spent with Patient: Total time spent is greater than 50% in coordination of care (as documented) at patient's floor/unit and/or counseling patient: Coding Level of Care Code 18598 SUB INP/OBS CARE 3/50MIN Diagnoses Elevated troponin R77.8 Acute back pain M54.9 Hypertension I10 Hyperlipidemia E78.5 Rheumatoid arthritis M06.9
--- NOTE | 2023-04-11 18:45 | Electrocardiogram Report ---
Test Reason : Blood Pressure : / mmHG Vent. Rate : 085 BPM Atrial Rate : 085 BPM P-R Int : 158 ms QRS Dur : 138 ms QT Int : 414 ms P-R-T Axes : 000 025 -40 degrees QTc Int : 492 ms Sinus rhythm with frequent Premature atrial complexes in a pattern of bigeminy Right bundle branch block T wave abnormality, consider inferolateral ischemia Abnormal ECG When compared with ECG of 02-JAN-2021 14:04, Premature atrial complexes are now Present T wave inversion more evident in Inferior leads T wave inversion more evident in Anterior leads Confirmed by Jeremías Whitlock ([id number]) on 04/11/2023 6:45:14 PM Referred By: REFERRED SELF Confirmed By:Jeremías Whitlock
[2023-04-11] MEDS: METOPROLOL SUCC 25MG EXT REL TAB PO SCH (20:56)
[2023-04-11] MEDS: SIMVASTATIN 20 MG TAB PO SCH (20:56)
[2023-04-11] MEDS: TAPENTADOL HCL 50 MG TAB PO PRN (21:56)
[2023-04-12] MEDS: TAPENTADOL HCL 50 MG TAB PO PRN (02:57)
[2023-04-12] MEDS: LIDOCAINE 5% 1 PATCH TD SCH (08:19)
[2023-04-12] MEDS: ACETAMINOPHEN 500 MG TAB PO SCH ×3 (08:19→22:03)
[2023-04-12] MEDS: ASPIRIN 81 MG ECTAB PO SCH (08:20)
[2023-04-12] MEDS: dexAMETHasone 4 MG in SYRINGE 0 ML IV SCH (08:20)
[2023-04-12] MEDS: POLYETHYLENE (MIRALAX) 17 GM PACK PO SCH (08:20)
[2023-04-12] MEDS: HYDROXYCHLOROQUINE SULFATE 200 MG TAB PO SCH ×2 (08:21→21:19)
[2023-04-12] MEDS: CALCITONIN SALMON NA 200 IU/AC 3.7 ML BTL SCH (10:28)
[2023-04-12] MEDS: ONDANSETRON INJ 2 MG/ML 2 ML VIAL IV PRN ×2 (12:01→21:15)
[2023-04-12] MEDS ORDERED: PROMETHAZINE HCL 12.5 MG in SODIUM CHLORIDE 0.9% 50 ML IV PRN (13:51)
--- NOTE | 2023-04-12 14:10 | Hospitalist Progress Note ---
Date of Service April 12, 2023 Assessment & Plan (1) Acute back pain: Plan: Optinizing symptom control is biggest issue at the moment Patient is intolerance to many opiates is tried oxycodone with nausea and balance instability as well as similar reactions to Ultram and Nucynta Continue adjunctive pain control with scheduled Tylenol, Lidoderm locally, miacalcin and using decadron Will try low-dose methadone 2.5 mg every 8 hours on 04/12/2023 understanding it m ay take a few days for this medication to take full effect seems like most opiates cause nausea and balance issues Thoracic/Lumbar spine CT scan severe T7 compression fracture with 3 mm retropulsion T11,12 5mm retropulsion, associated Kyphosis Unsure if patient can tolerate an MRI of the spine, due to kyphosis Patient eventually will need referral to outpatient pain management PT/OT eval; (2) Elevated troponin: Plan: 78yo female with HTN, HLP, HFpEF and GERD presenting with several days of back pain. Found to have elevation of troponin on intake labs 36.8 --> 46.8 Description of pain is not typical for cardiac chest pain as it is reproducible and positional. Did have cardiology eval and review of past cardiac history and exam, do not feel the pain is cardiac in nature and no recommendations of further testing cardioligy notes PPM is mri compatable Pain at this moment appears to be likely from thoracic compression fractures -Continue ASA 81mg po daily -Continue Simvastatin (3) Hypertension: Plan: Chronic, now lower in the hospital -04/11/23 stopping Amlodipine, and reduced Metoprolol by 50% Favorable response to blood pressure especially after fluid bolus (4) Hyperlipidemia: Plan: Chronic. Stable -Continue Simvastatin 20mg po qHS (5) Rheumatoid arthritis: Plan: Chronic. Patient reports stable symptoms -Continue Hydroxychloroquine Admission and Anticipated Discharge Date Admission Date: April 08, 2023 Subjective Patient continues with reports 8 out of 10 pain 04/12/23. She continues without radicular aspect of the pain stays in relative location to the thoracic fractures noted on CT imaging. Patient is not a candidate for kyphoplasty or surgery she has intolerance to oral opiates such as oxycodone and no relief or nausea with escalating doses of ultram and nucynta ortho spine did review films and feels her fractures are not amenable to kyphoplasty son was updated and he and mother viewed CT scan images in room Physical Exam Physical Exam: point tenderness in lower thoracic spine area no peripheral sensation loss marked kyphosis Results & Data Results & Data Vital Signs (Past 12 Hours) Vital Signs Temp Pulse Resp BP Pulse Ox O2 Del Method 04/12/23 07:13 98.1 F 71 17 138/85 94 Room Air PG Care Time/CCT Total # of Minutes Spent Total Time Spent with Patient: Total time spent is greater than 50% in coordination of care (as documented) at patient's floor/unit and/or counseling patient: Coding Level of Care Code 04462 SUB INP/OBS CARE 3/50MIN Diagnoses Acute back pain M54.9 Elevated troponin R77.8 Hypertension I10 Hyperlipidemia E78.5 Rheumatoid arthritis M06.9
[2023-04-12] MEDS: METHADONE HCL 5 MG TAB PO SCH ×3 (14:31→22:31)
[2023-04-12] MEDS: METOPROLOL SUCC 25MG EXT REL TAB PO SCH (21:19)
[2023-04-12] MEDS: SIMVASTATIN 20 MG TAB PO SCH (21:20)
[2023-04-13] MEDS: METHADONE HCL 5 MG TAB PO SCH ×2 (04:53→11:59)
[2023-04-13] MEDS: ACETAMINOPHEN 500 MG TAB PO SCH ×2 (08:09→11:59)
[2023-04-13] MEDS: LIDOCAINE 5% 1 PATCH TD SCH (08:09)
[2023-04-13] MEDS: HYDROXYCHLOROQUINE SULFATE 200 MG TAB PO SCH (08:09)
[2023-04-13] MEDS: ASPIRIN 81 MG ECTAB PO SCH (08:09)
[2023-04-13] MEDS: dexAMETHasone 4 MG in SYRINGE 0 ML IV SCH (08:09)
[2023-04-13] MEDS: POLYETHYLENE (MIRALAX) 17 GM PACK PO SCH (08:10)
[2023-04-13] MEDS: ONDANSETRON INJ 2 MG/ML 2 ML VIAL IV PRN (09:18)
[2023-04-13] MEDS: CALCITONIN SALMON NA 200 IU/AC 3.7 ML BTL SCH (10:00)
--- NOTE | 2023-04-13 11:18 | Discharge Summary ---
Date of Service April 13, 2023 Admission HPI Per Admitting Provider Araceli Cobos is a pleasant 78yo female with history of HTN, HLP, RA, GERD and HFpEF presenting with several days of pain in the chest and back. Patient started on 04/04/23 as a pulling sensation in her mid-thoracic back and between her shoulder blades. The pain started when she was getting out of bed. She has been taking Tylenol with no relief. Symptoms have mildly improved over the last several days but are mostly stable and persistent. She notes worsening discomfort with movement, specifically with sitting forward which causes her pain to radiate into her sides. Pain is not pleuritic or exertional. No relieving factors identified. She denies anterior chest pain, palpitations, cough, dizziness or syncope. Has some stable bilateral LE edema. Denies weight gain or orthopnea. She has shortness of genna ath with sitting forward to put on her socks and shoes otherwise no SOB. In the ER she is afebrile, HD stable ER Course: ASA 243mg KCl 60mEq Lasix 20mg IV Tylenol 1000mg IV Principal Diagnosis subacute thoracic compression fracture with acute back pain Discharge Exam severely kyphotic pain improved lungs are clear Discharge Data Allergies Allergy/AdvReac Type Severity Reaction Status Date / Time Sulfa (Sulfonamide Allergy Intermediate Rash Verified 04/08/23 21:04 Antibiotics) trimethoprim Allergy Intermediate Rash Verified 04/08/23 21:04 vancomycin Allergy Intermediate Rash, Verified 04/08/23 21:04 shortness of breath Cephalosporins AdvReac Mild Vomiting Verified 04/08/23 21:04 Consultations 04/08/23 21:13 ED Decision to Admit Stat 04/08/23 21:34 Consult Cardiology Routine Ordered Studies Chest CTA 04/08/23 17:50 Exam(s): CTA CHEST IV Amt: 116 ml optiray 320 EXAM: CT Angiography Chest With Intravenous Contrast CLINICAL HISTORY: Reason for exam: Chest Pain, eval for PE. TECHNIQUE: Axial computed tomographic angiography images of the chest with intravenous contrast. CTDI is 47.37 mGy and DLP is 1264.62 mGy-cm. Automated exposure control was utilized for the study. A dose lowering technique was utilized adhering to the principles of ALARA. MIP reconstructed images were created and reviewed. COMPARISON: No relevant prior studies available. FINDINGS: Pulmonary arteries: Unremarkable. No pulmonary embolus. Aorta: See below. Lungs: Bibasilar atelectasis versus scarring with small basilar cyst may be related to early fibrosis. No mass. Pleural space: Unremarkable. No significant effusion. No pneumothorax. Heart: Unremarkable. No cardiomegaly. No significant pericardial effusion. No evidence of RV dysfunction. Thyroid: Unremarkable. No suspicious no thyroid lesions. Bones/joints: Moderate multilevel changes of the thoracic spine with thoracic kyphosis. No acute fracture. No dislocation. Soft tissues: Unremarkable. Lymph nodes: Unremarkable. No enlarged lymph nodes. Tubes, lines and devices: Left-sided pacemaker. Moderate atherosclerotic disease of the thoracic aorta. IMPRESSION: 1. No pulmonary embolus. 2. Bibasilar atelectasis versus scarring with small basilar cyst may be related to early fibrosis. Lumbar Spine CT 04/09/23 12:53 CT SCAN OF THE LUMBAR SPINE WITHOUT IV CONTRAST CLINICAL HISTORY: Low back pain. COMPARISON STUDY: Lumbar spine radiographs dated 05/18/2010. Abdominal CT dated 12/14/2020. TECHNIQUE: CT scan of the lumbar spine was performed from the lower thoracic sp ine to the sacrum. Images are reviewed in the axial, sagittal, and coronal planes. IV contrast was not administered for this examination. A dose lowering technique was utilized adhering to the principles of ALARA. CT DOSE: 1001.92 mGy.cm FINDINGS: The skeletal structures are osteopenic. There is no evidence of acute fracture or malalignment. Chronic compression deformities of T11, T12, L1, L3, and L4 are unchanged from the 12/14/[address] Vertebral body height is otherwise maintained throughout the lumbar spine. Retropulsed fragments at T12 and L1 are unchanged from previous. Alignment is otherwise preserved. There is straightening of the lumbar lordosis. Anterior and lateral marginal osteophytes are seen throughout. The transverse and spinous processes appear intact. There is no spondylolysis. No lytic or blastic lesion is seen. There is moderate to severe disc space narrowing at L2-L3, L4-L5, and L5-S1. End plate sclerosis is noted at L5-S1. Posterior disc osteophyte complexes are seen at all lumbar levels. No high-grade central canal stenosis is clearly identified by CT. The visualized sacrum and bony pelvis appear intact. There is mild fatty atrophy of the paraspinous musculature. Excreted IV contrast is seen within the renal collecting system and ureters bilaterally. There is advanced atherosclerotic calcification of the abdominal aorta which is normal in caliber. No retroperitoneal lymphadenopathy is identified. IMPRESSION: 1. No acute bony abnormality is seen involving the lumbar spine. 2. Numerous thoracolumbar compression deformities have not appreciably changed from 12/14/2020. 3. Osteopenia and spondylotic change as above. Electronically signed by: Jorgito Gutierrez M.D. 04/09/2023 2:[address] 04/09/23 16:47 Exam(s): CT T SPINE EXAM: CT Thoracic Spine Without Intravenous Contrast CLINICAL HISTORY: Pain. TECHNIQUE: Axial computed tomography images of the thoracic spine without intravenous contrast. CTDI is 30.22 mGy and DLP is 946.47 mGy-cm. Automated exposure control was utilized for the study. A dose lowering technique was utilized adhering to the principles of ALARA. COMPARISON: CTA chest 05/09/2020 FINDINGS: Vertebrae: Slightly worsened now severe T7 compression fracture. There is 3 mm of retropulsion. Redemonstrated 5 mm of retropulsion at the levels of T11 and T12. There is accentuated kyphosis secondary to these compression fractures. Chronic T4, T6, T8, T9, T10, T11, T12 and L1 compression fractures. Discs/spinal canal/neural foramina: No acute findings. No spinal canal stenosis. Soft tissues: Unremarkable. Lungs: Interseptal thickening could relate to pulmonary edema and/or atelectasis. IMPRESSION: 1. Slightly worsened now severe T7 compression fracture. There is 3 mm of retropulsion. 2. Redemonstrated 5 mm of retropulsion at the levels of T11 and T12. 3. There is accentuated kyphosis secondary to these compression fractures. 4. Interseptal thickening could relate to pulmonary edema and/or atelectasis. Electronically signed by: Rimma Bush MD 04/09/23 19:56 PM Hospital Course (1) Acute back pain: Optinizing symptom control is biggest issue of this hospital stay Patient is intolerance to many opiates is tried oxycodone with nausea and ba greg instability as well as similar reactions to Ultram and Nucynta Continue adjunctive pain control with scheduled Tylenol, Lidoderm locally, miacalcin and using decadron good success with low-dose methadone 2.5 mg every 8 hours on 04/12/2023 Pt however does not want to take it scheduled but wants to take it as needed seems like most other opiates cause nausea and balance issues, reluctant to use transderm fentanyl as pt concerned with drowsiness Thoracic/Lumbar spine CT scan severe T7 compression fracture with 3 mm retropulsion T11,12 5mm retropulsion, associated Kyphosis Unsure if patient can tolerate an MRI of the spine, due to kyphosis Patient eventually will need referral to outpatient pain management did well with PT/OT considering home therapy (2) Elevated troponin: 78yo female with HTN, HLP, HFpEF and GERD presenting with several days of back pain. Found to have elevation of troponin on intake labs 36.8 --> 46.8 Description of pain is not typical for cardiac chest pain as it is reproducible and positional. Did have cardiology eval and review of past cardiac history and exam, do not feel the pain is cardiac in nature and no recommendations of further testing cardioligy notes PPM is mri compatable Pain at this moment appears to be likely from thoracic compression fractures -Continue ASA 81mg po daily -Continue Simvastatin (3) Hypertension: Chronic, now lower in the hospital -04/11/23 stopping Amlodipine, lasix and reduced Metoprolol by 50% Favorable response to blood pressure especially after fluid bolus (4) Hyperlipidemia: Chronic. Stable -Continue Simvastatin 20mg po qHS (5) Rheumatoid arthritis: Chronic. Patient reports stable symptoms -Continue Hydroxychloroquine Total Time Total Time Spent Total Time Spent (In Minutes): It required greater than 30 minutes to prepare this patient for discharge. Discharge Plan Discharge Items Patient Disposition: Home - Self-Care Reason For Visit: BACK PAIN Discharge Diagnosis: back pain from subacute compression fractures Activity: Per Instructions section Activity Comment: slowly increase activity Non-emergency contact: Primary Care Provider Call non-emergency contact if: your symptoms worsen Follow-up/Referrals: Georgia Rosenthal PA-C [Primary Care Provider] - Diet: Regular Addtl Attending Provider Instructions: A compression fracture happens when the front part of a spinal bone breaks and collapses. A fall or other accident can cause it. A minor injury or moving the wrong way can cause a break if you have thin or brittle bones (osteoporosis). These types of breaks usually will heal within a few months. You may need to rest at first, but it's best to return to your normal activity as soon as you can. You may need medicine for pain. Your doctor may recommend physical therapy. Some doctors recommend that certain people with compression fractures wear braces. Your doctor also may treat thin or brittle bones. You may need surgery if you have lasting pain or if the bone presses on the spinal cord or nerves. You heal best when you take good care of yourself. Eat a variety of healthy foods, and don't smoke. Follow-up care is a ro part of your treatment and safety.Be sure to make and go to all appointments, and call your doctor if you are having problems. It's also a good idea to know your test results and keep a list of the medicines you take. How can you care for yourself at home? * Be safe with medicines. Read and follow all instructions on the label. * If the doctor gave you a prescription medicine for pain, take it as prescribed. * If you are not taking a prescription pain medicine, ask your doctor if you can take an aiih-grn-ffgydti medicine. * Talk to your doctor about how to make your bones stronger. You may need medicines or a change in what you eat. * Be active only as directed by your doctor. * When should you call for help? [id number] you think you may need emergency care. For example, call if: * You are unable to move an arm or a leg at all. Call your doctor nowor seek immediate medical care if: * You have new or worse symptoms in your arms, legs, belly, or buttocks. Symptoms may include: * Numbness or tingling. * Weakness. * Pain. * You lose bladder or bowel control. * You have belly pain, bloating, vomiting, or nausea. Addtl Aviation Electrical Technician Provider Instructions: you are started on a new pain medicine that seems to be helping, you may take it up to 3 times a day, you will have an rx for a month and futher refills will need to be from you primary care doctor please see your primary care doctor to consider a referral to pain management please be sure to watch for constipation, recommending miralax or generic and a senna product along with good fiber inyour diet or a fiber supplement such as metamucil your blood pressure was low during your stay and we stopped some medications and reduced your metoprolol Pending Studies at Discharge: No Stand-Alone Forms: My [facility] [address], Smoking Cessation Medications and DC Order Prescriptions: New calcitonin (salmon) 200 unit/actuation [place],Non-Aerosol 1 spray NA Q24H Qty: 1 0RF lidocaine 5 % Adhesive Patch,Medicated 1 patch transdermal QAM Qty: 1 2RF methadone 5 mg Tablet 2.5 mg PO Q8H PRN (Reason: Moderate Pain (Scale Score 5-6)) Qty: 90 0RF Rx Instructions: this is for pain control not addiction metoprolol succinate 25 mg tablet extended release 24 hr 25 mg PO DAILY Qty: 30 5RF Continued aspirin [Niya Low Dose Aspirin] 81 mg Tablet,Delayed Release (Dr/Ec) 81 mg PO QAM calcium carbonate [Calcium 600] 600 mg calcium (1,500 mg) Tablet 600 mg PO QAM hydroxychloroquine 200 mg tablet 200 mg PO BID cholecalciferol (vitamin D3) [Vitamin D3] 125 mcg (5,000 unit) Tablet 125 mcg PO QAM simvastatin 20 mg tablet 20 mg PO HS Changed acetaminophen 500 mg Tablet 1,000 mg PO TID Qty: 90 0RF Discontinued amlodipine 2.5 mg tablet 2.5 mg PO QAM furosemide 20 mg tablet 20 mg PO QAM metoprolol succinate 100 mg tablet extended release 24 hr 50 mg PO HS Discharge Orders: Discharge Order (Routine); Ordered 04/13/23 Ordered By: Brad Medina Admission Data Admit Date/Time: 04/08/23 21:34 Attending Provider: Brad Medina Admit Provider: Mary Lou Marcum Primary Care Provider: Georgia Rosenthal Other Providers: Mary Lou Marcum; Rafal Cunha Other Interventions: Discharge Summary Assessment (RN) Last Done: 04/13/23 12:49 Coding Level of Care Code 78299 INP/OBS DISCH >30 MIN Diagnoses Acute back pain M54.9 Elevated troponin R77.8 Hypertension I10 Hyperlipidemia E78.5 Rheumatoid arthritis M06.9
[2023-04-13] MEDS ORDERED: METOPROLOL SUCC 25MG EXT REL TAB PO ONE (11:23)
== END 2023-04-13 12:50 | disposition home health service (06) | DRG 543 ==
LOC: ED 17:11 → SUATTDRO 21:34 → EDINP 21:34 → 2W 04-09 16:37 → 3N 04-11 18:29

== ENCOUNTER 2023-04-25 00:29 | Inpatient (IN) ==
--- NOTE | 2023-04-25 00:40 | Emergency Department Note ---
Impression & Plan Closed left femoral fracture, Fall from standing, Acute hypokalemia ED Provider Note HISTORY OF PRESENT ILLNESS: Patient is a 78-year-old female presenting with left hip pain and deformity after fall. Patient reports she was walking down the stairs when she went to turn and close the door when she lost her footing and fell down 1 step, landing on her left hip. Denies striking her head or loss of consciousness. Her family called 911 because she was unable to get up on her own. She reports that she has some pain in her left groin region. Denies any chest pain, shortness of breath or lightheadedness prior to the fall. She is on an aspirin daily but no other anticoagulation or antiplatelet therapy. Denies any abdominal pain, nausea or vomiting. ROS: as above PHYSICAL EXAM: Constitutional: Patient appears in no acute distress. HENT: Head: Normocephalic and atraumatic. Eyes: EOMI, PERRL Mouth/Throat: Mucous membranes moist. Neck: Trachea midline. Neck supple. No midline cervical spine tenderness to palpation. Cardiovascular: RRR, No murmurs, rubs or gallops. Intact distal pulses. Pulmonary/Chest: No respiratory distress. Breath sounds clear and equal bilaterally. No wheezes or rales. Abdominal: Abdomen soft, no tenderness, rebound or guarding. Musculoskeletal: - LLE: Left lower extremity is shortened and externally rotated. Intact DP and PT pulses. 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 She has tenderness to palpation and deformity at the proximal femur. No open wounds. She is able to flex and extend at the knee and dorsiflex and plantarflex at the ankle. Skin: Warm and dry. Psychiatric: Appropriate mood and affect for situation. Neurological: Alert and keenly responsive. CN II-XII grossly intact MDM: - Vitals signs showed hypertension - History obtained via patient. Patient presents with left hip pain after a fall from standing. Patient was walking downstairs when she went to turn and close the door and she lost her footing and fell down 1 step landing on her left hip. Denies striking her head or loss of consciousness. Family called 911. Patient complaining of pain in her left hip and groin area. Denies any chest pain, shortness of breath or lightheadedness prior to the fall. She is on aspirin daily. - Chronic conditions affecting care: osteoporosis; HTN; HLD; RA - Differential diagnoses include, but are not limited to: Pelvic fracture; femur fracture; femur dislocation - Order placed for continuous cardiac monitoring. At this time, monitor showed rate of 86 bpm with normal sinus rhythm, per my interpretation. - External medical records reviewed. EMS run sheet was reviewed. Patient was vitally stable and route. No medications were given prehospital. - EKG interpreted by myself showed normal sinus rhythm. Rate 80 bpm. QT 422. No acute ischemic changes. Noted to have a right bundle branch block which was present on previous EKGs. - Laboratory workup interpreted by myself showed normal WBC; stable hemoglobin; slight hyponatremia (Na 132); slight hypokalemia (K 3.1) - Xray of pelvis with left hip views showed left femur fracture, per my interpretation - Patient offered pain medications in ER, but declined. - Discussion was had with client care manager about patient's case and need for admission - Hospitalist consulted for admission - [facility]. ASSESSMENT AND PLAN: Diagnosis: fall from standing; left sided hip fracture; hypokalemia Plan: admit Past Med/Surg History Medical History Osteoporosis Edema No pertinent family history Headache Fracture of femoral neck, right Hyperlipidemia Hypertension Rheumatoid arthritis Endometriosis Surgical History No pertinent past surgical history Social History Smoking Status: Former smoker Tobacco Type: Cigarettes Second Hand Exposure: No; Do You Dip or Chew Tobacco: No; Hx Alcohol Use: No Hx Substance Use: No Preferred Language: Northern Irish Communication Ability: Effective Strategic Partnership Representative Required: No Beliefs That Will Affect Care: None marital status: / Current Living Situation: Family Current Living Situation Comment: Lives with son and grandchildren How many Children do You have: 1 Feels Safe at Home: Yes Assistive Devices: Cane Allergies Allergies Allergy/AdvReac Type Severity Reaction Status Date / Time Sulfa (Sulfonamide Allergy Intermediate Rash Verified 04/08/23 21:04 Antibiotics) trimethoprim Allergy Intermediate Rash Verified 04/08/23 21:04 vancomycin Allergy Intermediate Rash, Verified 04/08/23 21:04 shortness of breath Cephalosporins AdvReac Mild Vomiting Verified 04/08/23 21:04 Home Meds Home Medications Medication Instructions Recorded Confirmed aspirin 81 mg tablet,delayed 81 mg PO QAM 05/09/20 04/25/23 release (Niya Low Dose Aspirin) calcium carbonate 600 mg calcium 600 mg PO QAM 05/09/20 04/25/23 (1,500 mg) tablet (Calcium) cholecalciferol (vitamin D3) 125 125 mcg PO QAM 05/09/20 04/25/23 mcg (5,000 unit) tablet (Vitamin D3) hydroxychloroquine 200 mg tablet 200 mg PO BID 05/09/20 04/25/23 simvastatin 20 mg tablet 20 mg PO HS 04/08/23 04/25/23 metoprolol succinate 25 mg 25 mg PO QAM 04/25/23 04/25/23 tablet,extended release 24 hr Previous Rx's Medication Instructions Recorded acetaminophen 500 mg tablet 1,000 mg (2 x 500 mg) PO TID Pain 04/13/23 #90 tabs calcitonin (salmon) 200 1 spray NA Q24H #1 inhaler 04/13/23 unit/actuation nasal spray lidocaine 5 % topical patch 1 patch transdermal QAM #1 box 04/13/23 methadone 5 mg tablet 2.5 mg (1/2 x 5 mg) PO Q8H PRN 04/13/23 Moderate Pain (Scale Score 5-6) #90 tabs Results & Data (ED) Vital Signs Vital Signs - 24 hr 04/25/23 00:38 04/25/23 00:39 Temperature 36.7 C Temperature Source Oral Pulse Rate 87 86 Respiratory Rate 18 Respiratory Effort / Characteristics Non-Labored Spontaneous Respiratory Depth Normal Blood Pressure 163/93 H Blood Pressure Mean 116 Blood Pressure Position Semi-fowlers Pulse Oximetry 100 Oxygen Delivery Method Room Air Sepsis Recent Fever Within 48 Hours No Sepsis New/Unexplained Change in Mental Status N/A Sepsis Action Taken by Nursing No Action Required Laboratory Data 04/25/23 Unknown 04/25/23 Unknown Lab Results 04/25/23 Range/Units Unknown WBC 9.32 (4.8-10.8) K/ul RBC 4.17 L (4.20-5.40) M/uL Hgb 12.9 (12.0-16.0) g/dl Hct 38.0 (37.0-47.0) % MCV 91.1 (80.0-100.0) fL MCH 30.9 (25.0-34.0) pg MCHC 33.9 (32.0-36.0) g/dL RDW Std Deviation 44.0 (36.4-46.3) fL RDW Coeff of Emily 13.7 (11.5-14.5) % Plt Count 230 (130-400) K/uL MPV 9.6 (9.4-12.4) fL Immature Gran % (Auto) 0.4 % Neut % (Auto) 68.3 % Lymph % (Auto) 17.8 % [place] % (Auto) 10.2 % Eos % (Auto) 2.9 % Baso % (Auto) 0.4 % Neut # (Auto) 6.36 (1.40-6.50) K/uL Lymph # (Auto) 1.66 (1.20-3.40) K/uL [place] # (Auto) 0.95 H (0.11-0.59) K/uL Eos # (Auto) 0.27 (0.00-0.50) K/uL Baso # (Auto) 0.04 (0.00-0.20) K/uL Immature Gran # (Auto) 0.04 (0.01-0.20) K/uL Sodium 132 L (136-145) mmol/L Potassium 3.1 L (3.5-5.1) mmol/L Chloride 99 (98-107) mmol/L Carbon Dioxide 24 (21-32) mmol/L Anion Gap 9 (3-11) BUN 19 (6-23) mg/dl Creatinine 0.78 (0.6-1.2) mg/dl Est Cr Clr Drug Dosing 39.2 ml/min Est GFR ( Amer) 83.8 ml/min Est GFR (Non-Af Amer) 72.3 ml/min BUN/Creatinine Ratio 24.4 H (10-20) Glucose 118 H (70-99(Fasting)) mg/dl Calcium 10.2 (8.6-10.3) mg/dl Total Bilirubin 0.9 (0.2-1.0) mg/dl AST 25 (13-39) U/L ALT 17 (7-52) U/L Alkaline Phosphatase 116 H (34-104) U/L Total Protein 7.3 (6.0-8.3) gm/dl Albumin 4.0 (3.4-5.0) gm/dl Globulin 3.3 (2.5-4.0) gm/dl Albumin/Globulin Ratio 1.2 (0.9-2) Discharge Plan Visit Data Chief Complaint: Hip Pain Stated Complaint: TRIPPED AND FELL L HIP DEFORMITY ED Provider: Kenia Patel Discharge Problem: Closed left femoral fracture, Fall from standing, Acute hypokalemia Forms Stand Alone Forms: [facility] Prescriptions Prescriptions: No Action aspirin [Niya Low Dose Aspirin] 81 mg Tablet,Delayed Release (Dr/Ec) 81 mg PO QAM calcium carbonate [Calcium 600] 600 mg calcium (1,500 mg) Tablet 600 mg PO QAM hydroxychloroquine 200 mg tablet 200 mg PO BID cholecalciferol (vitamin D3) [Vitamin D3] 125 mcg (5,000 unit) Tablet 125 mcg PO QAM simvastatin 20 mg tablet 20 mg PO HS calcitonin (salmon) 200 unit/actuation [place],Non-Aerosol 1 spray NA Q24H Qty: 1 0RF lidocaine 5 % Adhesive Patch,Medicated 1 patch transdermal QAM Qty: 1 2RF methadone 5 mg Tablet 2.5 mg PO Q8H PRN (Reason: Moderate Pain (Scale Score 5-6)) Qty: 90 0RF Rx Instructions: this is for pain control not addiction acetaminophen 500 mg Tablet 1,000 mg PO TID Qty: 90 0RF metoprolol succinate 25 mg tablet extended release 24 hr 25 mg PO QAM Referrals Referrals: Georgia Rosenthal PA-C [Primary Care Provider] -
[2023-04-25 01:00] LABS: Basophils # (auto) 0.04 K/uL (0.00-0.20); Basophils % (auto) 0.4 %; Eosinophils # (auto) 0.27 K/uL (0.00-0.50); Eosinophils % (auto) 2.9 %; Hemoglobin 12.9 g/dl (12.0-16.0); Immature Granulocytes # (auto) 0.04 K/uL (0.01-0.20); Immature Granulocytes % (auto) 0.4 %; Lymphocytes # (auto) 1.66 K/uL (1.20-3.40); Lymphocytes % (auto) 17.8 %; Mean Corpuscular Hemoglobin 30.9 pg (25.0-34.0); Mean Corpuscular Hgb Conc 33.9 g/dL (32.0-36.0); Mean Corpuscular Volume 91.1 fL (80.0-100.0); Mean Platelet Volume 9.6 fL (9.4-12.4); Monocytes # (auto) 0.95 K/uL (0.11-0.59); Monocytes % (auto) 10.2 %; Neutrophils # (auto) 6.36 K/uL (1.40-6.50); Neutrophils % (auto) 68.3 %; Platelet Count 230 K/uL (130-400); RDW Coefficient of Variation 13.7 % (11.5-14.5); Red Blood Count 4.17 M/uL (4.20-5.40); White Blood Count 9.32 K/ul (4.8-10.8)
[2023-04-25 01:16] LABS: Albumin Globulin Ratio 1.2 (0.9-2); BUN Creatinine Ratio 24.4 (10-20); Bilirubin,Total 0.9 mg/dl (0.2-1.0); Calcium 10.2 mg/dl (8.6-10.3); Creatinine Clr Calc Pharmacy 39.2 ml/min; Est GFR (African American) 83.8 ml/min; Est GFR (Non-African American) 72.3 ml/min; Globulin 3.3 gm/dl (2.5-4.0); Potassium 3.1 mmol/L (3.5-5.1); Total Protein 7.3 gm/dl (6.0-8.3)
[2023-04-25 01:30] LABS: Partial Thromboplastin Ratio 0.9; Partial Thromboplastin Time 25 Seconds (21-31); Prothrombin Time 11.4 Seconds (9.0-12.0)
[2023-04-25 01:39] LABS: Appearance Urine Cloudy (Clear); Bacteria Urine Automated Negative (Negative); Blood Urine Negative (Negative); Color Urine Dark Yellow; Epithelial Cell Urine Auto >30 /lpf (0-5); Glucose Urine UA Negative (Negative); Ketones Urine Trace (Negative); Leukocyte Esterase Urine Negative (Negative); Nitrite Urine Negative (Negative); Protein Urine 1+ (Negative); Specific Gravity Urine 1.033 (1.000-1.030); Urobilinogen Urine Positive (Negative)
[2023-04-25 01:40] LABS: Bilirubin Urine 1+ (Negative)
[2023-04-25 01:50] LABS: Calcium Oxalate Crystals Urine Present (None Prsent); RBC Urine Automated 0-4 /hpf (0-4)
[2023-04-25 01:58] LABS: Influenza A virus by PCR Negative (Neg); Influenza B virus by PCR Negative (Neg); RSV by PCR Negative (Neg); SARS CoV2 RNA(COVID-19) Ceph NEGATIVE (Negative)
[2023-04-25] MEDS: MoRPHine SULFATE 2 MG/ML CARP IV STA (02:16)
--- NOTE | 2023-04-25 02:26 | History & Physical Report ---
Date of Service April 25, 2023 Assessment & Plan (1) Closed left femoral fracture: Plan: Araceli Cobos is a 78yo female presenting from home after a ground level fall resulting in a left hip fracture. Pain is well controlled. Patient is HD stble, NV intact, pain is well controlled -Admit to medical with telemetry -Soria catheter in place -routine care q shift -Pain control with Tylenol and morphine PRN -Bowel regimen -Zofran PRN -Continue Lidoderm patch -Orthopedic surgery consultation appreciated -Gentle IVF with D5 1/2 NSS at 100ml/hr -Continue Calcitonin nasal spray for recent thoracic fracture (2) Acute hypokalemia: Plan: Potassium repletion -Repeat chemistry in AM (3) Rheumatoid arteritis: Plan: Patient with chronic joint changes of hands and wrists consistent with rheumatoid arthritis -Will hold hydroxychloroquine for now pre-operatively (4) Nonocclusive coronary atherosclerosis of [place] coronary artery: Plan: Patient denies chest pain. She has adequate exercise tolerance. No ischemic changes on EKG Per RCRI criteria patient is Class II Risk given history of CAD and cardiac risk factors. She may proceed to surgery with no additional testing (5) Hyperlipidemia: Plan: Chronic. Stable -Continue Simvastatin 20mg po qHS (6) Hypertension: Plan: Chronic. Stable. Blood pressure mildly elevated at 148/78 -Pain control -Continue metoprolol 25mg po qAM -Monitor BP History of Present Illness Chief Complaint: left hip pain Primary Care Provider: Georgia Rosenthal PA-C Araceli Cobos is a 78yo female presenting after a fall at home landing on her left hip. Patient denies head trauma or loss of consciousness. She denies chest pain, cough, SOB. No additional complaints at this time. She is having discomfort in her hip when she moves it. In the ER she is afebrile, HD stable, NAD ER Course: Morphine 2mg IV ordered Allergies Allergy/AdvReac Type Severity Reaction Status Date / Time Sulfa (Sulfonamide Allergy Intermediate Rash Verified 04/08/23 21:04 Antibiotics) trimethoprim Allergy Intermediate Rash Verified 04/08/23 21:04 vancomycin Allergy Intermediate Rash, Verified 04/08/23 21:04 shortness of breath Cephalosporins AdvReac Mild Vomiting Verified 04/08/23 21:04 Home Medications Medication Instructions Recorded Confirmed Type aspirin 81 mg tablet,delayed 81 mg PO QAM 05/09/20 04/25/23 History release (Niya Low Dose Aspirin) calcium carbonate 600 mg calcium 600 mg PO QAM 05/09/20 04/25/23 History (1,500 mg) tablet (Calcium) cholecalciferol (vitamin D3) 125 125 mcg PO QAM 05/09/20 04/25/23 History mcg (5,000 unit) tablet (Vitamin D3) hydroxychloroquine 200 mg tablet 200 mg PO BID 05/09/20 04/25/23 History simvastatin 20 mg tablet 20 mg PO HS 04/08/23 04/25/23 History acetaminophen 500 mg tablet 1,000 mg (2 x 500 mg) PO TID Pain 04/13/23 04/25/23 Rx #90 tabs calcitonin (salmon) 200 1 spray NA Q24H #1 inhaler 04/13/23 04/25/23 Rx unit/actuation nasal spray lidocaine 5 % topical patch 1 patch transdermal QAM #1 box 04/13/23 04/25/23 Rx methadone 5 mg tablet 2.5 mg (1/2 x 5 mg) PO Q8H PRN 04/13/23 04/25/23 Rx Moderate Pain (Scale Score 5-6) #90 tabs metoprolol succinate 25 mg 25 mg PO QAM 04/25/23 04/25/23 History tablet,extended release 24 hr Past Med/Surg History Medical History Osteoporosis Edema No pertinent family history Headache Fracture of femoral neck, right Hyperlipidemia Hypertension Rheumatoid arthritis Endometriosis Surgical History No pertinent past surgical history Social History Smoking Status: Former smoker Tobacco Type: Cigarettes Second Hand Exposure: No; Do You Dip or Chew Tobacco: No; Hx Alcohol Use: No Hx Substance Use: No Preferred Language: Tanzanian Communication Ability: Effective 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 HEENT: NC/AT, PERRL, EOMI, anicteric sclera, conjunctiva without injection, external ear normal to inspection and nontender, nares patent, moist mucus membranes, dentition intact, no oropharyngeal lesions, neck supple, trachea midline, no LAD, no thyromegaly, no JVD Heart: +S1/S2, regular, no m/r/g Lungs: equal air entry bilaterally, no rales/rhonchi/wheezes Abd: +BS, soft, NT/ND, no masses/organomegaly/ascites Ext: warm, 2+ pulses in UE/LE bilaterally, no clubbing/cyanosis or edema. s/p left TMA, LLE shortened and externally rotated. No bruising. Neuro: nonfocal, patient AA&O x 4, speech intact, no facial droop, moving all extremities on command with equal strength 5/5 Results & Data Results & Data Vital Signs (Past 12 Hours) Vital Signs Temp Pulse Resp BP Pulse Ox O2 Del Method 04/25/23 00:39 36.7 C 86 18 163/93 H 100 Room Air 04/25/23 00:38 87 Laboratory Results Laboratory Results WBC 9.32 K/ul (4.8-10.8) 04/25/23 Unknown RBC 4.17 M/uL (4.20-5.40) L 04/25/23 Unknown Hgb 12.9 g/dl (12.0-16.0) 04/25/23 Unknown Hct 38.0 % (37.0-47.0) 04/25/23 Unknown MCV 91.1 fL (80.0-100.0) 04/25/23 Unknown MCH 30.9 pg (25.0-34.0) 04/25/23 Unknown MCHC 33.9 g/dL (32.0-36.0) 04/25/23 Unknown RDW Std Deviation 44.0 fL (36.4-46.3) 04/25/23 Unknown RDW Coeff of Emily 13.7 % (11.5-14.5) 04/25/23 Unknown Plt Count 230 K/uL (130-400) 04/25/23 Unknown MPV 9.6 fL (9.4-12.4) 04/25/23 Unknown Immature Gran % (Auto) 0.4 % 04/25/23 Unknown Neut % (Auto) 68.3 % 04/25/23 Unknown Lymph % (Auto) 17.8 % 04/25/23 Unknown [place] % (Auto) 10.2 % 04/25/23 Unknown Eos % (Auto) 2.9 % 04/25/23 Unknown Baso % (Auto) 0.4 % 04/25/23 Unknown Neut # (Auto) 6.36 K/uL (1.40-6.50) 04/25/23 Unknown Lymph # (Auto) 1.66 K/uL (1.20-3.40) 04/25/23 Unknown [place] # (Auto) 0.95 K/uL (0.11-0.59) H 04/25/23 Unknown Eos # (Auto) 0.27 K/uL (0.00-0.50) 04/25/23 Unknown Baso # (Auto) 0.04 K/uL (0.00-0.20) 04/25/23 Unknown Immature Gran # (Auto) 0.04 K/uL (0.01-0.20) 04/25/23 Unknown PT 11.4 Seconds (9.0-12.0) 04/25/23 Unknown INR 1.0 (0.9-1.1) 04/25/23 Unknown APTT 25 Seconds (21-31) 04/25/23 Unknown PTT Ratio 0.9 04/25/23 Unknown Sodium 132 mmol/L (136-145) L 04/25/23 Unknown Potassium 3.1 mmol/L (3.5-5.1) L 04/25/23 Unknown Chloride 99 mmol/L (98-107) 04/25/23 Unknown Carbon Dioxide 24 mmol/L (21-32) 04/25/23 Unknown Anion Gap 9 (3-11) 04/25/23 Unknown BUN 19 mg/dl (6-23) 04/25/23 Unknown Creatinine 0.78 mg/dl (0.6-1.2) 04/25/23 Unknown Est Cr Clr Drug Dosing 39.2 ml/min 04/25/23 Unknown Est GFR ( Amer) 83.8 ml/min 04/25/23 Unknown Est GFR (Non-Af Amer) 72.3 ml/min 04/25/23 Unknown BUN/Creatinine Ratio 24.4 (10-20) H 04/25/23 Unknown Glucose 118 mg/dl (70-99(Fasting)) H 04/25/23 Unknown Calcium 10.2 mg/dl (8.6-10.3) 04/25/23 Unknown Total Bilirubin 0.9 mg/dl (0.2-1.0) 04/25/23 Unknown AST 25 U/L (13-39) 04/25/23 Unknown ALT 17 U/L (7-52) 04/25/23 Unknown Alkaline Phosphatase 116 U/L (34-104) H 04/25/23 Unknown Total Protein 7.3 gm/dl (6.0-8.3) 04/25/23 Unknown Albumin 4.0 gm/dl (3.4-5.0) 04/25/23 Unknown Globulin 3.3 gm/dl (2.5-4.0) 04/25/23 Unknown Albumin/Globulin Ratio 1.2 (0.9-2) 04/25/23 Unknown Urine Color Dark Yellow 04/25/23 01:25 Urine Appearance Cloudy (Clear) A 04/25/23 01:25 Urine pH 5.0 (4.5-7.5) 04/25/23 01:25 Ur Specific [place] 1.033 (1.000-1.030) H 04/25/23 01:25 Urine Protein 1+ (Negative) H 04/25/23 01:25 Urine Glucose (UA) Negative (Negative) 04/25/23 01:25 Urine Ketones Trace (Negative) H 04/25/23 01:25 Urine Blood Negative (Negative) 04/25/23 01:25 Urine Nitrite Negative (Negative) 04/25/23 01:25 Urine Bilirubin 1+ (Negative) H 04/25/23 01:25 Urine Urobilinogen Positive (Negative) H 04/25/23 01:25 Ur Leukocyte Esterase Negative (Negative) 04/25/23 01:25 Urine WBC (Auto) 1-5 /hpf (0-5) 04/25/23 01:25 Urine RBC (Auto) 0-4 /hpf (0-4) 04/25/23 01:25 U Hyaline Cast (Auto) 1-5 /lpf (0-5) 04/25/23 01:25 U Epithel Cells (Auto) >30 /lpf (0-5) H 04/25/23 01:25 Urine Bacteria (Auto) Negative (Negative) 04/25/23 01:25 Urine Crystals Not Reportable 04/25/23 01:25 Calcium Oxalate Crystal Present (None Prsent) A 04/25/23 01:25 SARS-CoV-2 (PCR) NEGATIVE (Negative) 04/25/23 00:50 Influenza Type A (PCR) Negative (Neg) 04/25/23 00:50 Influenza Type B (PCR) Negative (Neg) 04/25/23 00:50 RSV (RT-PCR) Negative (Neg) 04/25/23 00:50 Diagnostic Findings Per my interpretation - X-ray left hip with mildly displaced intertrochanteric hip fracture ECG Additional Comments: EKG by my interpretation with NSR at 80bpm, RBBB pattern with pacemaker in place, no acute ischemic changes Code Status & VTE Plan VTE Prophylaxis Plan VTE Prophylaxis will be ordered: Yes PG Care Time/CCT Total # of Minutes Spent Total Time Spent with Patient: Total time spent is greater than 50% in coordination of care (as documented) at patient's floor/unit and/or counseling patient: Coding Level of Care Code 13250 INT INP/OBS CARE 2MIN Diagnoses Closed left femoral fracture S72.92XA Acute hypokalemia E87.6 Rheumatoid arteritis M05.20 Nonocclusive coronary atherosclerosis of [place] coronary artery I25.10 Hyperlipidemia E78.5 Hypertension I10
[2023-04-25] MEDS ORDERED: MoRPHine SULFATE 2 MG/ML CARP IV PRN (03:28)
[2023-04-25] MEDS ORDERED: bisacodyL 10 MG SUPP PR PRN (03:28)
[2023-04-25] MEDS ORDERED: NALOXONE HCL 0.4 MG/1 ML VIAL/CARP IV PRN (03:28)
[2023-04-25] MEDS ORDERED: diphenhydrAMINE Capsule 25 MG CAP PO PRN (03:28)
[2023-04-25] MEDS ORDERED: MAGNESIUM HYDROXIDE SUSP 30 ML UDC PO PRN (03:28)
[2023-04-25 03:53] LABS: Magnesium 1.6 mg/dl (1.7-2.4); Phosphorus 2.9 mg/dl (2.5-4.9)
[2023-04-25] MEDS: D5W AND 1/2NSS 1,000 ML IV SCH (04:04)
[2023-04-25] MEDS: ONDANSETRON INJ 2 MG/ML 2 ML VIAL IV PRN (04:05)
[2023-04-25] MEDS: POTASSIUM CHLORIDE CRTAB 20 MEQ TABCR PO STA ×2 (04:05→08:22)
[2023-04-25] MEDS: ACETAMINOPHEN 500 MG TAB PO SCH (05:15)
[2023-04-25] MEDS: MoRPHine SULFATE 2 MG/ML CARP IV PRN (05:16)
--- NOTE | 2023-04-25 08:03 | XRay Report ---
LEFT HIP 2 VIEWS CLINICAL HISTORY: Fall with left hip injury. FINDINGS: AP and crosstable lateral views of the left hip are correlated with pelvic x-ray dated 12/14. The skeletal structures are osteopenic. There is a comminuted intertrochanteric/subtrochanteri c fracture of the left proximal femur. There is mild distraction and angulation at the fracture site. There is medial displacement of the lesser trochanter. Overlying soft tissue edema is noted. The lef t hip joint is maintained noting mild osteoarthritic change. The visualized left hemipelvis appears i ntact. A right hip arthroplasty is partially imaged. Advanced atherosclerotic calcification is noted. IMPRESSION: Comminuted fracture of the intertrochanteric/subtrochanteric left femur as above. Electronically signed by: Jorgtio Gutierrez M.D. 04/25/2023 8:01 AM
[2023-04-25] MEDS: METOPROLOL SUCC 25MG EXT REL TAB PO SCH (08:23)
[2023-04-25] MEDS: MAGNESIUM SULFATE / D5W 1 GM/100 ML BAG IV SCH (08:30)
[2023-04-25] MEDS: LIDOCAINE 5% 1 PATCH TD SCH (08:34)
[2023-04-25] MEDS: CALCITONIN SALMON NA 200 IU/AC 3.7 ML BTL SCH (08:36)
[2023-04-25] MEDS: POTASSIUM CHLORIDE / WTR 10 MEQ/100 ML PLCT IV SCH (09:19)
--- NOTE | 2023-04-25 10:30 | Hospitalist Progress Note ---
Date of Service April 25, 2023 Assessment & Plan (1) Closed left femoral fracture: Plan: Araceli Cobos is a 78yo female presenting from home after a ground level fall resulting in a left hip fracture. Pain is well controlled. Patient is HD stble, NV intact, pain is well controlled -Soria catheter in place -routine care q shift -Pain control with Tylenol and morphine PRN -Bowel regimen -Zofran PRN -Continue Lidoderm patch -Orthopedic surgery consultation appreciated, anticipate OR -Continue Calcitonin nasal spray for recent thoracic fracture -Presume osteoporotic fracture, will need outpatient bone health management (2) Acute hypokalemia: Plan: 3.1 this AM KCl 40mEq IV (3) Rheumatoid arteritis: Plan: -Will hold hydroxychloroquine (4) Nonocclusive coronary atherosclerosis of [place] coronary artery: Plan: Patient denies chest pain. She has adequate exercise tolerance. No ischemic changes on EKG Per RCRI criteria patient is Class II Risk given history of CAD and cardiac risk factors. She may proceed to surgery with no additional testing (5) Hyperlipidemia: Plan: Chronic. Stable -Continue Simvastatin 20mg po qHS (6) Hypertension: Plan: Chronic. Stable. Blood pressure mildly elevated at 148/78 -Pain control -Continue metoprolol 25mg po qAM -Monitor BP Admission and Anticipated Discharge Date Admission Date: April 25, 2023 Supervising Physician Co-Signing Physician Notes I personally examined the patient and verified all ro points of history and exam, discussed case, and agree with decision making with Dr Carter sleeping, appearing comfortable, awaiting ortho input but anticipate OR vitals noted nad breathing unlabored no accessory muscles good effort skin no rashes no pallor or icterus neuro no focal deficits hip fracture - presumed osteoporotic fracture - pain control, anticipate OR, outpt bone health management anticipate initiation of pharmacologic dvt proph post op otherwise as above Subjective No acute events overnight. Patient seen and evaluated at bedside this morning. Patient continues to have pain in L hip described as 5/10. Otherwise no acute complaints. Denies DYE, CP, SOB, N/V/D Review of Systems Review of Systems: reviewed, per HPI Physical Exam Physical Exam: Constitutional: frail appearing, in obvious pain described as 5/10 HEENT: NCAT, no conjunctival injection CV: regular rhythm, no murmur appreciated, extremities well-perfused, no LE edema Resp: CTABL, no wheezes/rales/rhonchi appreciated, no increased work of breathing GI: soft, nondistended, nontender, BS normoactive MSK: TTP over L hip joint Skin: warm, dry, no rash appreciated Neuro: alert, oriented, no focal neurologic deficit appreciated Results & Data Results & Data Vital Signs (Past 12 Hours) Vital Signs Temp Pulse Pulse Pulse Resp BP BP 04/25/23 08:09 36.7 C 78 18 133/72 04/25/23 07:23 79 04/25/23 03:29 36.9 C 83 19 155/77 H 04/25/23 02:51 80 16 138/74 04/25/23 02:09 82 18 04/25/23 00:39 36.7 C 86 18 163/93 H 04/25/23 00:38 87 BP Pulse Ox O2 Del Method 04/25/23 08:09 97 Room Air 04/25/23 07:23 04/25/23 03:29 155/77 H Room Air 04/25/23 02:51 98 Room Air 04/25/23 02:09 148/78 H 100 Room Air 04/25/23 00:39 100 Room Air 04/25/23 00:38
--- NOTE | 2023-04-25 13:07 | Billing Data ---
Date of Service April 25, 2023 Coding Level of Care Code 23143 SUB INP/OBS CARE
--- NOTE | 2023-04-25 14:59 | Orthopedic Consultation ---
Date of Consultation April 25, 2023 Assessment & Plan (1) Intertrochanteric fracture of left hip: I discussed the findings with both her and her son Ezequiel. Given the displaced fracture and inability to bear weight recommendations for left hip intertrochanteric nail. We discussed risk benefits use of outcomes and expectations for surgical treatment. Risk and benefits have been discussed including but not limited to infection, nerve injury stiffness failure to improve failure to heal, decreased ambulatory status. She is agreeable and wishes to proceed with surgical intervention. Hospital states she is cleared for surgical intervention. Will plan for surgical intervention in the a.m. for: 1. left intertrochanteric hip nail History of Present Illness Reason for Consultation: Left hip fracture, intertrochanteric Requesting Physician: Dr. Mary Lou Marcum Attending Physician: John Coffman DO History of Present Illness This is a 78-year-old female who sustained a fall from standing height when she tripped on a step. Injury occurred approximate 11 PM last night. She has complaints of pain and inability to bear weight in the left hip. Allergies Allergy/AdvReac Type Severity Reaction Status Date / Time Sulfa (Sulfonamide Allergy Intermediate Rash Verified 04/08/23 21:04 Antibiotics) trimethoprim Allergy Intermediate Rash Verified 04/08/23 21:04 vancomycin Allergy Intermediate Rash, Verified 04/08/23 21:04 shortness of breath Cephalosporins AdvReac Mild Vomiting Verified 04/08/23 21:04 Home Medications Medication Instructions Recorded Confirmed Type aspirin 81 mg tablet,delayed 81 mg PO QAM 05/09/20 04/25/23 History release (Niya Low Dose Aspirin) calcium carbonate 600 mg calcium 600 mg PO QAM 05/09/20 04/25/23 History (1,500 mg) tablet (Calcium) cholecalciferol (vitamin D3) 125 125 mcg PO QAM 05/09/20 04/25/23 History mcg (5,000 unit) tablet (Vitamin D3) hydroxychloroquine 200 mg tablet 200 mg PO BID 05/09/20 04/25/23 History simvastatin 20 mg tablet 20 mg PO HS 04/08/23 04/25/23 History acetaminophen 500 mg tablet 1,000 mg (2 x 500 mg) PO TID Pain 04/13/23 04/25/23 Rx #90 tabs calcitonin (salmon) 200 1 spray NA Q24H #1 inhaler 04/13/23 04/25/23 Rx unit/actuation nasal spray lidocaine 5 % topical patch 1 patch transdermal QAM #1 box 04/13/23 04/25/23 Rx methadone 5 mg tablet 2.5 mg (1/2 x 5 mg) PO Q8H PRN 04/13/23 04/25/23 Rx Moderate Pain (Scale Score 5-6) #90 tabs metoprolol succinate 25 mg 25 mg PO QAM 04/25/23 04/25/23 History tablet,extended release 24 hr Patient History Medical History Osteoporosis Edema No pertinent family history Headache Fracture of femoral neck, right Hyperlipidemia Hypertension Rheumatoid arthritis Endometriosis Surgical History No pertinent past surgical history Social History Smoking Status: Former smoker Tobacco Type: Cigarettes Second Hand Exposure: No; Do You Dip or Chew Tobacco: No; Hx Alcohol Use: No Hx Substance Use: No Preferred Language: Sami Communication Ability: Effective Nuclear Cardiology Technologist Required: No Beliefs That Will Affect Care: None marital status: / Current Living Situation: Family Current Living Situation Comment: Lives with son and grandchildren How many Children do You have: 1 Feels Safe at Home: Yes Assistive Devices: Cane and Walker Physical Exam Musculoskeletal: Left lower extremity exam: Her compartments are soft. Her left leg is shortened and internally rotated. There are no open injuries. She can flex and extend the ankle but exam is limited secondary to discomfort. Previous toe amputation of all 5 toes is noted. Results & Data Vital Signs (Past 12 Hours) Vital Signs Temp Pulse Pulse Pulse Resp BP BP 04/25/23 14:17 36.6 C 75 18 121/81 04/25/23 11:04 04/25/23 10:56 36.7 C 80 18 118/73 04/25/23 08:09 36.7 C 78 18 133/72 04/25/23 07:28 04/25/23 07:23 79 04/25/23 03:29 36.9 C 83 19 155/77 H 155/77 H Pulse Ox Pulse Ox O2 Del Method O2 Del Method 04/25/23 14:17 97 Room Air 04/25/23 11:04 97 Room Air 04/25/23 10:56 97 Room Air 04/25/23 08:09 97 Room Air 04/25/23 07:28 97 Room Air 04/25/23 07:23 04/25/23 03:29 Room Air Diagnostic Findings Independently reviewed AP and lateral of the left hip. It does show intertrochanteric hip fracture with varus displacement. Lesser trochanter is off.
--- OUTSIDE RECORDS SUMMARY | 2023-04-25 15:22 | External Medical Summary ---
Author Name UNSPECIFIED Address Unknown Organization [facility] [place] History of Encounters Reason for Assessment: Start of care - f urther visits planned Inpatient discharge facility: Past 14 Da ys: Discharged From Short Stay Acute Hospital Most Recent Inpatient Discharge Date: Functional Assessment Patient Living Situation: Patient Lives Alone: Around the clock When Dyspneic: When walking more th an 20 feet, climbing stairs Bowel Incontinence Frequency: Very rarel y or never has bowel incontinence Cognitive and Behavioral and Psychiatric Symptoms: None Current Ability: Bathing: able to partic ipate in bathing self in shower or tub, but requires presence of another person throughout the bath for assistance or supervision. Current Ability: Ambulation: Requires us e of a two-handed device (e.g., walker or crutches) to walk alone on a level surface and/or requires human supervision or assistance to negotiate stairs or steps or uneven surfaces. Current: Management Of Oral Medications: Able to take medication(s) at the correct times if: (a) individual dosages are prepared in advance by another person; OR (b) another person develops a drug diary or chart Problems Primary Home Care Diagnosis ICD Code: S2 2.060D, Wedge comprsn fx T7-T8 vertebra, subs for fx w routn heal Home Care Diagnosis 1: ICD Code: M54.50^ ^ Home Care Diagnosis 1: Severity Ratin Home Care Diagnosis 2: ICD Code: M06.9, Rheumatoid arthritis, unspecified Home Care Diagnosis 2: Severity Ratin Home Care Diagnosis 3: ICD Code: I11.0, Hypertensive heart disease with heart failure Home Care Diagnosis 3: Severity Ratin Home Care Diagnosis 4: ICD Code: I50.30, Unspecified diastolic (congestive) heart failure Home Care Diagnosis 4: Severity Ratin Home Care Diagnosis 5: ICD Code: E78.5, Hyperlipidemia, unspecified Home Care Diagnosis 5: Severity Ratin
--- OUTSIDE RECORDS SUMMARY | 2023-04-25 15:22 | External Medical Summary | Continuity of Care Document ---
Author Name Unknown Organization [facility] [address] [facility] Address [address] [place] [id number] Care Team Providers Care Social Work Faculty Member Name Role Phone Georgia Rosenthal Primary Care Physician [phone] Encounter [facility] [id number] Date(s): 04/21/23 - 04/21/23 [facility] [address], [address] [place] [address] [phone] Encounter Diagnosis Benign hypertension with coincident congestive heart failure(Discharge Diagnosis) - 04/21/23 Elevated troponin(Discharge Diagnosis) - 04/21/23 Thoracic compression fracture(Discharge Diagnosis) - 04/21/23 Lumbar compression fracture(Discharge Diagnosis) - 04/21/23 Chronic diastolic heart failure(Discharge Diagnosis) - 04/21/23 Rheumatoid arthritis(Discharge Diagnosis) - 04/21/23 Osteoporosis(Discharge Diagnosis) - 04/21/23 Arthritis mutilans affecting hand(Discharge Diagnosis) - 04/21/23 Acute mid back pain(Discharge Diagnosis) - 04/21/23 Discharge Disposition: Home or Self Care Attending Physician: BARB Rosenthal Jessica A Allergies, Adverse Reactions, Alerts Substance Reaction Severity Status vancomycin Shortness of breath Rash Active Keflex rash Active Bactrim rash Active Assessment and Plan Extracted from: Title:hospital f/u Author:BARB Rosenthal Jessi ca A Date:04/21/23 1.Acute mid back pain Acute mid back pain secondary to acute on chronicthoracic compression fracture has beenuncontrolled. Goalis improvement in pain and quality of life. Advised patient that she may continue methadone 2.5 mg, 1 tab p.o. every 8 hoursas needed, topical lidocaine patches OTCapplied daily for up to 12 hours,Tylenol 1000 mg every 8 hoursand calcitonin nasal spray. We did discuss additionof a tricyclic antidepressant orSNRI for additional pain control and patient is open to trying medication. Will start her on duloxetine 30 mg, 1 cap p.o.dailyand reviewed it may take a few weeks to see full benefit of medication. Will have her follow- up for telephone appointmentin about 3 to 4 weeks. [facility]. Unfortunately, was evaluated by in-home PT andsounds like they did not feel they could be of benefit. Also, son statespatient was told she is not a surgical candidateduring hospitalization. She will contact the office if she needs any refills of medication prior to her next appointment. 2.Thoracic compression fracture As above in #1. 3.Lumbar compression fracture Lumbar compression fractures are chronicand unchanged. Goal is pain control and prevention of recurrent fracture. As above in #1. 4.Elevated troponin Patient did have an elevated troponinduring hospitalization. She was evaluated by cardiology, including her site physician, Dr. Cunha and this was felt to berelated to pain alone and not cardiac in nature. To continue with care of cardiology as an outpatient. 5.Benign hypertension with coincident congestive heart failure Benign hypertension with coincidental chronic congestive heart failure is chronic and well-controlled. Goal SBP <130 and DBP <80 mmHg. Continuemetoprolol succinate 25 mg, 1 tab p.o. daily. Advised patient to contact the office if home BP readings rise above goal. 6.Chronic diastolic heart failure Chronic diastolic heart failurehas been stable. To continue with care of [facility] cardiology. She had been on furosemide 20 mg once daily that was discontinued during her hospitalization. I did advise that she can keep this medication on hand and use 1 tablet by mouth daily as neededif she develops lower extremity edemaor increasing shortness of breath. Patient agreed. To keep follow-up appoint with cardiology in August 2023. 7.Osteoporosis Osteoporosis is chronic and has beenuncontrolled. Goal is improvement in bone density and prevention of fracture. Patientwas lost to follow-up with rheumatology and has been off of her Prolia injections for over a year. Patient was referred back to rheumatology and we will facilitate setting up an appointment. 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 Goalis improvement in symptoms and prevention of disease progression. Refilled hydroxychloroquine and we willreschedule patient with rheumatology. 9.Rheumatoid arthritis As above in #8. Time spent on pre-visit plannin minutes on chart and discharge summary review. Face to face time spent w/ patient:20 minutes Time spent documenting pertinent clinical information into the EMR:23 minutes Total time: 46 minutes Immunizations Given and Recorded Vaccine Date Status Refusal Reason influenza virus vaccine, inactivated 12/27/22 Give n influenza virus vaccine, inactivated 02/10/20 Give n influenza virus vaccine, inactivated 01/09/08 Give n pneumococcal 13-valent vaccine 1 06/30/20 Recorded pneumococcal 23-valent vaccine 2 03/24/09 Recorded 1Result Comment: 2022-06-27: Historical information-source unspecified 2Result Comment: 2022-06-27: Historical information-source unspecified Medications aspirin 81 mg oral tablet Start: 02/03/15 11:37:00, 1 tab, PO, Daily Start Date: 02/03/15 Status: Ordered calcium (as calcium citrate) 250 mg oral tablet Start: 09/29/17 13:16:00 EDT, See Instructions, 1200 mg a day Start Date: 09/29/17 Status: Ordered DULoxetine 30 mg oral delayed release capsule Start: 04/21/23 11:02:00 EST, 1 cap, PO, Daily, Disp# 30 cap, Refills: 5, Pharmacy: [facility] Start Date: 04/21/23 Stop Date: 10/18/23 Status: Ordered furosemide 20 mg oral tablet Start: 04/21/23 11:13:00 EST, 1 tab, PO, Daily, Disp# 90 tab, Refills: 3, PRN edema or shortness ofbreath, other Start Date: 04/21/23 Stop Date: 04/15/24 Status: Ordered hydroxychloroquine 200 mg oral tablet Start: 04/21/23 11:12:00 EST, 1 tab, PO, bid, Disp# 180 tab, Refills: 3, with food or milk, Pharmacy: [facility] Start Date: 04/21/23 Stop Date: 04/15/24 Status: Ordered metoprolol succinate 25 mg oral tablet, extended release Start: 04/21/23 11:13:00 EST, 1 tab, PO, Daily Start Date: 04/21/23 Status: Ordered Prilosec OTC Start: 01/11/08 16:03:14, 40 mg =, PO, Daily, Refills: 0, PRN: acid reflux, current medication fromanother provider Start Date: 01/11/08 Status: Ordered Prolia Start: 07/03/15 13:41:00, 60 mg =, subQ, [id number], q 6 month Start Date: 07/03/15 Status: Ordered simvastatin 20 mg oral tablet Start: 12/13/22 16:47:00 EDT, 1 tab, PO, qhs, Disp# 90 tab, Refills: 3, Pharmacy: [facility] Start Date: 12/13/22 Status: Ordered Tylenol 500 mg oral tablet Start: 10/16/12 14:30:00, 1 tab, PO, q6h, PRN: as needed for pain Start Date: 10/16/12 Status: Ordered Vitamin D3 5000 intl units oral capsule Start: 10/16/12 14:30:00, 1 cap, PO, Daily Start Date: 10/16/12 Status: Ordered Mental Status 04/21/23 Barriers to Learning one year None evide nt Mandatory Health Literacy Documentation Yes Health Literacy Communication Barriers N ever Primary Language Palestinian Problem List Condition Confirmation Course Effective Dates Status H ealth Status Informant Arthritis mutilans affecting hand Confirmed Active Pacemaker Confirmed Active Chronic diastolic heart failure Confirmed Active Fx femoral neck Confirmed Active Lumbar compression fracture Confirmed Active Thoracic compression fracture Confirmed Active Coronary arteriosclerosis in [place] artery Confirmed Active Coronary artery fistula Confirmed Active GERD (gastroesophageal reflux disease) Confirmed Active Osteoarthritis of knee Confirmed Active Osteoporosis Confirmed Active 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 Rheumatoid arthritis Confirmed Active RBBB Confirmed Active Syncope Confirmed Active Diagnosis Diagnosis Type Effective Dates Health Status Clinical Service Informant Benign hypertension with coincident congestive heart failure Discharge Diagnosis 04/21/23 Elevated troponin Discharge Diagnosis 04/21/23 Thoracic compression fracture Discharge Diagnosis 04/21/23 Lumbar compression fracture Discharge Diagnosis 04/21/23 Chronic diastolic heart failure Discharge Diagnosis 04/21/23 Rheumatoid arthritis Discharge Diagnosis 04/21/23 Osteoporosis Discharge Diagnosis 04/21/23 Arthritis mutilans affecting hand Discharge Diagnosis 04/21/23 Acute mid back pain Discharge Diagnosis 04/21/23 Procedures Procedure Date Related Diagnosis Body Site Status Amputation of toe Complet ed Bunionectomy Completed Cataract extraction and inse rtion of intraocular lens Completed echo 08/2011 Completed Hysterectomy Completed Vital Signs Most recent to oldest [Reference Range]: 1 Patient Weight 50 kg (04/21/23 10:48 AM) Heart Rate 71 bpm (04/21/23 10:48 AM) Respiratory Rate 16 br/min (04/21/23 10:48 AM) Blood Pressure 138/70mmHg (04/21/23 10:48 AM) Social History Social History Type Response Smoking Status Never smoked cigaret tom Sex Female [facility] Note * BARB Rosenthal, Georgia Hoyos: PERFORM Event Display: [facility] Note Authored Date: [id number] Chief Complaint hospital follow History of Present Illness Araceli [facility] pain secondary to thoracic compression fracture. [facility] discharge summary was reviewed today. She was admitted to [facility] from 04/08/2023 through 04/13/2023. Notes that alicia had chronicdiffuse back pain for years, buta few days prior to hospital admission she had developed sudden onsetof mid back painbetween her shoulder blades. "This just hit me." Pain was radiating from her mid back around to hersides and worse with movement. She did proceed [facility] ERand during evaluation did have an elevated troponin. Repeat troponin was elevatedand she was consultedby cardiology and patientdue to history ofknown CAD and diastolic heart failure. Cardiologyfelt troponin was elevated apparently due to painand that this was notcardiac in nature. She did have a CTa of the chest that showed no pulmonary embolismand just bibasilar atelectasis. She had a lumbar CT scan that showed chronic compression deformities of T11, T12, L1, L3and L4that were unchanged from CT scan in November 2020. She had aCT of the thoracic spine that showed slightly worsenedand now severe T7 compression fracture with 3 mm of retropulsion. There was also redemonstrated 5 mm of retropulsion in the levels of T11 and T12. Again there was noted chronic T4, T6, T8, T9, T10, T11, T12 and L1 compression deformitiesandaccentuatedkyphosis. During admissionit was attempted to optimizepatient's pain control. She had been intolerant to manyopiates, including oxycodone, Ultram and Nucynta. She was ultimately placed on low-dose methadone 2.5 mg every 8 hoursas needed. Ernst oh was consulted by orthopedics, Dr. Benitez,who did not feel she was a surgicalcandidatedue to location of severe compression deformity and "he saidany surgery would be too close to her aorta, so there was nothing he could do." She was discharged with themethadone 2.5 mg every 8 hours as needed,calcitonin nasal [id number] units/spray, 1 sprayin the nostril every 24 hours, lidocaine 5% patches to be applied once dailyand Tylenol 1000 mg every 8 hours. She was also referred for physical therapy and outpatient pain management referral was recommended. She also has a known history of osteoporosis that has been managed by [facility] rheumatology. Dottiehad been on Prolia injections for more than 5 years, but notes that she has not been able to get into see rheumatology or had her Prolia injection in over a year. Last DEXA scan was 2 years ago. Regarding acutemid back pain secondary to compression fractures,pain since hospitalization has not been much better. After taking her methadone pain improves to 3-4/10and has been using this about every 12 hours. Notes that Tylenol upsets her stomach, so is trying toavoid taking thismedication. She has been using OTC lidocaine patches as insurance would not coverprescription patches. Thesedo seem to help because "I notice if I do not put them on." She did have someone come to assess her for in-home physical therapy and "he said he could not help me." And occupational therapist to schedule to come to her home soon. Also,she has a known history of hypertensionwith coincidentalchronic diastolic heart failure. BP waslow in the hospital, so her amlodipine5 mgand Lasix20 mg daily were discontinued. Her metoprolol succinate was reduced from 50 mg to 25 mg once daily. She is overall feeling well from the standpoint and check BPat home yesterday that was 127/72. No ETOH, tobacco or drug use. No claudication, chest pain, SOB, palpitations, tachycardia, dizziness, lightheadedness, weakness, near syncope, syncope, nausea, vomiting, diarrhea, constipation, cough, LE edema, headaches, blurred vision, loss of vision, confusion or epistaxis. Requesting a refill of hydroxychloroquinefor rheumatoid arthritis and arthritis mutilans thathas been followed by rheumatology. Review of Systems ROS:All other systems negative, except HPI. Physical Exam Vitals & Measurements HR:71(Monitored) RR:16 BP:138/70 SpO2:99% WT:50.000kg(Dosing) WT:50kg PHQ2 Data(Data Documented on:04/21/2023 10:48) Emotional health assessment NEGATIVE General: Alert and oriented, No acute distress.Pleasant elderly female, frail.Accompanied by her son. Eye: Pupils are equal, round and reactive [...] cane. + arthritis mutilans at hands bilaterally. + thoracic kyphosis w/tenderness over thoracic and lumbar spinous processes. Integumentary: Warm, [place], No pallor. Neurologic: Alert, Oriented, Cranial Nerves II-XII are grossly intact. Cognition and Speech: Oriented, Speech clear and coherent, Functional cognition intact. Psychiatric: Cooperative, Appropriate mood & affect, Normal judgment, Nonsuicidal Assessment/Plan 1.Acute mid back pain Acute mid back pain secondary to acute on chronicthoracic compression fracture has beenuncontrolled. Goalis improvement in pain and quality of life. Advised patient that she may continue methadone 2.5 mg, 1 tab p.o. every 8 hoursas needed, topical lidocaine patches OTCapplied daily for up to 12 hours,Tylenol 1000 mg every 8 hoursand calcitonin nasal spray. We did discuss additionof a tricyclic antidepressant orSNRI for additional pain control and patient is open to trying medication. Will start her on duloxetine 30 mg, 1 cap p.o.dailyand reviewed it may take a few weeks to see full benefit of medication. Will have her follow-up for telephone appointmentin about 3 to 4 weeks. [facility]. Unfortunately, was evaluated by in-home PT andsounds like they did not feel they could be of benefit. Also, son statespatient was told she is not a surgical candidateduring hospitalization. She will contact the office if she needs any refills of medication prior to her next appointment. 2.Thoracic compression fracture As above in #1. 3.Lumbar compression fracture Lumbar compression fractures are chronicand unchanged. Goal is pain control and prevention of recurrent fracture. As above in #1. 4.Elevated troponin Patient did have an elevated troponinduring hospitalization. She was evaluated by cardiology, including her site physician, Dr. Cunha and this was felt to berelated to pain alone and not cardiacin nature. To continue with care of cardiology as an outpatient. 5.Benign hypertension with coincident congestive heart failure Benign hypertension with coincidental chronic congestive heart failure is chronic and well-controlled. Goal SBP <130 and DBP <80 mmHg. Continuemetoprolol succinate 25 mg, 1 tab p.o. daily. Advised patient to contact the office if home BP readings rise above goal. 6.Chronic diastolic heart failure Chronic diastolic heart failurehas been stable. To continue with care of [facility] cardiology. She had been on furosemide 20 mg once daily that was discontinued during her hospitalization. I did advise that she can keep this medication on hand and use 1 tablet by mouth daily as neededif she develops lower extremity edemaor increasing shortness of breath. Patient agreed. To keep follow-up appoint with cardiology in August 2023. 7.Osteoporosis Osteoporosis is chronic and has beenuncontrolled. Goal is improvement in bone density and prevention of fracture. Patientwas lost to follow-up with rheumatology and has been off of her Proliainjections for over a year. Patient was referred back to rheumatology and we will facilitate setting up an appointment. 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 Goalis improvement in symptoms and prevention of disease progression. Refilled hydroxychloroquineand we willreschedule patient with rheumatology. 9.Rheumatoid arthritis As above in #8. Time spent on pre-visit plannin minutes on chart and discharge summary review. Face to face time spent w/ patient:20 minutes Time spent documenting pertinent clinical information into the EMR:23 minutes Total time: 46 minutes Problem List/Past Medical History Ongoing Arthritis mutilans affecting hand Chronic diastolic heart failure Coronary arteriosclerosis in [place] artery Coronary artery fistula Fx femoral neck GERD (gastroesophageal reflux disease) Lumbar compression fracture Osteoarthritis of knee Osteoporosis Pacemaker Peripheral arterial occlusive disease Polyclonal gammopathy RBBB Rheumatoid arthritis Syncope Thoracic compression fracture Procedure/Surgical History Cataract extraction and insertion of intraocular lensBunionectomyAmputation of toeHysterectomyecho 08/2011 Medications acetaminophen(Tylenol 500 mg oral tablet), 1 tab, PO, q6h, PRN aspirin(aspirin 81 mg oral tablet), 81 mg= 1 tab, PO, Daily calcium citrate(calcium (as calcium citrate) 250 mg oral tablet), See Instructions cholecalciferol(Vitamin D3 5000 intl units oral capsule), 5000 Int_Unit= 1 cap, PO, Daily denosumab(Prolia), 60 mg, subQ, [id number] DULoxetine(DULoxetine 30 mg oral delayed release capsule), 30 mg= 1 cap, PO, Daily, 5 refills furosemide(furosemide 20 mg oral tablet), 20 mg= 1 tab, PO, Daily, 3 refills hydroxychloroquine(hydroxychloroquine 200 mg oral tablet), 200 mg= 1 tab, PO, bid, 3 refills metoprolol(metoprolol succinate 25 mg oral tablet, extended release), 25 mg= 1 tab, PO, Daily omeprazole(Prilosec OTC), 40 mg, PO, Daily, PRN [...] the next year) OverDue Body Mass Index due02/02/22and every 366day Due Adult COVID-19 Vaccination due04/21/23Unknown Frequency Adult Social Determinants of Health Screening due04/21/23Unknown Frequency Adult Tdap/Td Vaccine due04/21/23Unknown Frequency Hepatitis C Screening due04/21/23One-time only Medicare Annual Wellness Visit due04/21/23and every 1year Shingles Vaccine due04/21/23One-time only Due In Future Adult Influenza Vaccine not due until09/21/23and every 1year Satisfied(in the past 1 year) Satisfied Adult Influenza Vaccine on12/27/22.Satisfied by PAULIE Scott Andrew E Lipid Screening on12/27/22.Satisfied by Contributor_system, [email or web address] Patient Care team information Care Team Personnel Name: BARB Rosenthal, Georgia Hoyos Position: Physician Asst Exmpt - Family Med Member Role: Primary Care Provider Address: Address: [address] [place] [id number] Care Team Related Persons Name: LEX PATEL Address: home [address] [place], [phone]
--- NOTE | 2023-04-25 16:55 | Anesthesiology Consultation ---
Date of Service April 25, 2023 Assessment & Plan Chart Review Chart Review: Acceptable Risk for Surgery and Patient NOT seen in Pre Admission Testing Consults Requested none ASA ASA4 Proposed Anesthesia Anesthesia Type: General History Surgery Operation Date: 04/26/23 07:30 Proposed Procedures p Left Hip Trochanteric Fracture - Lex Hastings MD Height/Weight Height: 4 ft 8 in Weight: 51.5 kg Allergies Allergy/AdvReac Type Severity Reaction Status Date / Time Sulfa (Sulfonamide Allergy Intermediate Rash Verified 04/08/23 21:04 Antibiotics) trimethoprim Allergy Intermediate Rash Verified 04/08/23 21:04 vancomycin Allergy Intermediate Rash, Verified 04/08/23 21:04 shortness of breath Cephalosporins AdvReac Mild Vomiting Verified 04/08/23 21:04 Medications Home Medications Medication Instructions Recorded Confirmed Last Taken aspirin 81 mg tablet,delayed 81 mg PO QAM 05/09/20 04/25/23 04/24/23 release ([place] Low Dose Aspirin) calcium carbonate 600 mg calcium 600 mg PO QAM 05/09/20 04/25/23 04/24/23 (1,500 mg) tablet (Calcium) cholecalciferol (vitamin D3) 125 125 mcg PO QAM 05/09/20 04/25/23 04/24/23 mcg (5,000 unit) tablet (Vitamin D3) hydroxychloroquine 200 mg tablet 200 mg PO BID 05/09/20 04/25/23 04/24/23 simvastatin 20 mg tablet 20 mg PO HS 04/08/23 04/25/23 04/24/23 acetaminophen 500 mg tablet 1,000 mg (2 x 500 mg) PO TID Pain 04/13/23 04/25/23 04/24/23 #90 tabs calcitonin ([place]) 200 1 spray NA Q24H #1 inhaler 04/13/23 04/25/23 04/24/23 unit/actuation nasal spray lidocaine 5 % topical patch 1 patch transdermal QAM #1 box 04/13/23 04/25/23 04/24/23 methadone 5 mg tablet 2.5 mg (1/2 x 5 mg) PO Q8H PRN 04/13/23 04/25/23 Unknown Moderate Pain (Scale Score 5-6) #90 tabs metoprolol succinate 25 mg 25 mg PO QAM 04/25/23 04/25/23 04/24/23 tablet,extended release 24 hr Active Medications Generic Name Dose Route Start Last Admin Trade Name Freq PRN Reason Stop Dose Admin Acetaminophen 1,000 mg 04/25/23 06:00 04/25/23 16:52 Acetaminophen 500 Mg Tab PO 05/25/23 05:59 1,000 mg Q8 KARLA Administration Calcitonin [place] 1 sprays 04/25/23 09:00 04/25/23 08:36 Calcitonin [place] Na 200 Iu/Ac 3.7 Ml Btl NA 05/25/23 08:59 1 sprays QAM KARLA Administration Lidocaine 1 patch 04/25/23 09:00 04/25/23 08:34 Lidocaine 5% 1 Patch TD 05/25/23 08:59 1 patch QAM KARLA Administration Metoprolol Succinate 25 mg 04/25/23 09:00 04/25/23 08:23 Metoprolol Succ 25mg Ext Rel Tab PO 05/25/23 08:59 Not Given QAM KARLA Morphine Sulfate 2 mg 04/25/23 03:41 04/25/23 14:47 Morphine Sulfate 2 Mg/Ml Carp IV 05/09/23 03:40 2 mg Q3H PRN Administration Pain (6,7,8,9,10) Ondansetron HCl 4 mg 04/25/23 03:28 04/25/23 11:25 Ondansetron Inj 2 Mg/Ml 2 Ml Vial IV 05/25/23 03:27 4 mg Q6H PRN Administration Nausea And Vomiting Past Medical History Medical History Osteoporosis Edema No pertinent family history Headache Fracture of femoral neck, right Hyperlipidemia Hypertension Rheumatoid arthritis Endometriosis CAD Pacemaker for heart Block Hx/o seizures ASCVD Ao Exercise / Class Metabolic Activity III < 4 Walking/Shop/Light housework Past Surgical History Surgical History No pertinent past surgical history Past Anesthesia History No Hx of Anesthesia Complications and No Family Hx of Anesthesia Complications History of PONV No Hx of PONV and No Hx of Motion Sickness Social History Smoking Status: Former smoker Do You Dip or Chew Tobacco: No Hx Alcohol Use: No Alcohol type: wine alcohol intake frequency: holidays/special occasions only Hx Substance Use: No Physical Exam Vital Signs Last Vital Signs Temp 36.6 C 04/25/23 14:17 Pulse 75 04/25/23 14:17 Resp 18 04/25/23 14:17 BP 121/81 04/25/23 14:17 Pulse Ox 97 04/25/23 16:00 O2 Del Method Room Air 04/25/23 16:00 Testing Laboratory Results 04/25/23 Unknown 04/25/23 Unknown PT 11.4 Seconds (9.0-12.0) 04/25/23 Unknown INR 1.0 (0.9-1.1) 04/25/23 Unknown APTT 25 Seconds (21-31) 04/25/23 Unknown Urine Color Dark Yellow 04/25/23 01:25 Urine Appearance Cloudy (Clear) A 04/25/23 01:25 Urine pH 5.0 (4.5-7.5) 04/25/23 01:25 Ur Specific [place] 1.033 (1.000-1.030) H 04/25/23 01:25 Urine Protein 1+ (Negative) H 04/25/23 01:25 Urine Glucose (UA) Negative (Negative) 04/25/23 01:25 Urine Ketones Trace (Negative) H 04/25/23 01:25 Urine Nitrite Negative (Negative) 04/25/23 01:25 Ur Leukocyte Esterase Negative (Negative) 04/25/23 01:25 Urine WBC (Auto) 1-5 /hpf (0-5) 04/25/23 01:25 Urine RBC (Auto) 0-4 /hpf (0-4) 04/25/23 01:25 U Hyaline Cast (Auto) 1-5 /lpf (0-5) 04/25/23 01:25 U Epithel Cells (Auto) >30 /lpf (0-5) H 04/25/23 01:25 Urine Bacteria (Auto) Negative (Negative) 04/25/23 01:25 Electrocardiogram Date: 04/08/23 Findings: + NSR @ (@ 80;RBBB;LVH;? infer. infarct;T wave abnl) and + RBBB Chest X-Ray Date: 04/08/23 Findings: + NAD, + cardiomegaly and + other (left subclavian Pacemaker) Echocardiogram Date: 04/09/23 EF: 60% LV Function: normal RWMA: + none Other Findings: + atrial enlargement (LA-severe dilation) Valvular Disease: + MR (mild)
--- NOTE | 2023-04-25 17:57 | XRay Report ---
XR femur LT 2V routine, XR pelvis 1-2V routine, XR femur RT 1V CLINICAL HISTORY: fx femur L leg TECHNIQUE: 2 radiographic views of the left femur, 1 view of the right femur, and single view of the pelvis were obtained. Comparison: None available at the time of this dictation. FINDINGS: There is a comminuted fracture of the intertrochanteric and subtrochanteric left femur. [place] lateral angulation is seen. Right hip total arthroplasty is seen. Soft tissue swelling is seen. IMPRESSION: Redemonstration of a comminuted fracture of the intratrochanteric/subtrochanteric left femur. ACT 112: Negative or not required by law. Electronically signed by: Damian Lobo M.D. 04/25/2023 5:55 PM
--- NOTE | 2023-04-25 17:57 | XRay Report ---
XR femur LT 2V routine, XR pelvis 1-2V routine, XR femur RT 1V CLINICAL HISTORY: fx femur L leg TECHNIQUE: 2 radiographic views of the left femur, 1 view of the right femur, and single view of the pelvis were obtained. Comparison: None available at the time of this dictation. FINDINGS: There is a comminuted fracture of the intertrochanteric and subtrochanteric left femur. [place] lateral angulation is seen. Right hip total arthroplasty is seen. Soft tissue swelling is seen. IMPRESSION: Redemonstration of a comminuted fracture of the intratrochanteric/subtrochanteric left femur. ACT 112: Negative or not required by law. Electronically signed by: Damian Lobo M.D. 04/25/2023 5:55 PM
[2023-04-25] MEDS: SIMVASTATIN 20 MG TAB PO SCH (21:09)
[2023-04-26] MEDS ORDERED: fentaNYL citrate PF 100 MCG/2 ML VIAL ONE (07:09)
--- NOTE | 2023-04-26 07:22 | Hospitalist Progress Note ---
Date of Service April 26, 2023 Assessment & Plan (1) Closed left femoral fracture: Plan: Araceli Cobos is a 78yo female presenting from home after a ground level fall resulting in a left hip fracture. Pain is well controlled. Patient is HD stble, NV intact, pain is well controlled -Soria catheter in place -routine care q shift -Pain control with Tylenol and [place] -Bowel regimen -Zofran PRN -Continue Lidoderm patch -Orthopedic surgery consultation appreciated, OR today - PT/OT after surgery -Continue Calcitonin nasal spray for recent thoracic fracture -Presume osteoporotic fracture, will need outpatient bone health management (2) Acute hypokalemia: Plan: Resolved after KCl 40mEq IV Monitor am labs (3) Rheumatoid arteritis: Plan: -Will hold hydroxychloroquine (4) Nonocclusive coronary atherosclerosis of [place] coronary artery: Plan: Patient denies chest pain. She has adequate exercise tolerance. No ischemic changes on EKG Per RCRI criteria patient is Class II Risk given history of CAD and cardiac risk factors. She may proceed to surgery with no additional testing (5) Hyperlipidemia: Plan: Chronic. Stable -Continue Simvastatin 20mg po qHS (6) Hypertension: Plan: Chronic. Stable. Blood pressure mildly elevated at 148/78 -Pain control -Continue metoprolol 25mg po qAM -Monitor BP Plan Dispo: Med surged DVT prophylaxis: hold for now due to surgery, SCDs Diet: npo now Admission and Anticipated Discharge Date Admission Date: April 25, 2023 Supervising Physician Co-Signing Physician Notes I personally examined the patient and verified all ro points of history and exam, discussed case, and agree with decision making with Dr Hola chacon. also notes that she's been nauseated for a while due to other pain meds. BMs not that often vitals noted nad breathing unlabored no accessory muscles good effort skin no rashes no pallor or icterus neuro no focal deficits hip fracture - presumed osteoporotic fracture - pain control, postop now, PT/OT, anticipate need for rehab, outpt bone health management. constipation - probably part of nausea. bowel regimen. nausea control post op as well DVT proph - asa bid per ortho otherwise as above Subjective To OR today. Saw her in the am, resting comfortable. Pain controlled. Denied any nausea, headache, vomiting, chest pain, palpitations or SOB Review of Systems Review of Systems: All systems reviewed & are unremarkable except as noted in HPI & below Physical Exam Physical Exam: Constitutional: frail appearing, in obvious pain described as 5/10 CV: regular rhythm, no murmur appreciated, extremities well-perfused, no LE edema Resp: CTABL, no wheezes/rales/rhonchi appreciated, no increased work of breathing GI: soft, nondistended, nontender, BS normoactive MSK: Her left leg is shortened and internally rotated. Results & Data Results & Data Vital Signs (Past 12 Hours) Vital Signs Temp Pulse Pulse Resp BP Pulse Ox O2 Del Method 04/26/23 02:36 36.7 C 79 16 105/66 97 Room Air 04/25/23 23:00 36.6 C 78 18 126/68 94 Room Air 04/25/23 22:00 79 04/25/23 19:34 36.7 C 82 18 103/72 96 Room Air Resident Activity Tracking Resident Involvement: Resident Care Provided Care Provided: Adult Hospital Medicine
[2023-04-26 09:00] LABS: Basophils # (auto) 0.04 K/uL (0.00-0.20); Basophils % (auto) 0.5 %; Eosinophils # (auto) 0.13 K/uL (0.00-0.50); Eosinophils % (auto) 1.5 %; Hematocrit (blood only) 30.9 % (37.0-47.0); Hemoglobin 10.2 g/dl (12.0-16.0); Immature Granulocytes # (auto) 0.02 K/uL (0.01-0.20); Immature Granulocytes % (auto) 0.2 %; Lymphocytes # (auto) 0.92 K/uL (1.20-3.40); Mean Corpuscular Hemoglobin 30.6 pg (25.0-34.0); Mean Corpuscular Volume 92.8 fL (80.0-100.0); Mean Platelet Volume 9.7 fL (9.4-12.4); Monocytes # (auto) 0.74 K/uL (0.11-0.59); Monocytes % (auto) 8.8 %; Neutrophils # (auto) 6.55 K/uL (1.40-6.50); Platelet Count 133 K/uL (130-400); RDW Coefficient of Variation 13.9 % (11.5-14.5); RDW Standard Deviation 46.1 fL (36.4-46.3); Red Blood Count 3.33 M/uL (4.20-5.40)
[2023-04-26 09:14] LABS: BUN Creatinine Ratio 16.7 (10-20); Calcium 8.9 mg/dl (8.6-10.3); Creatinine Clr Calc Pharmacy 50.1 ml/min; Est GFR (African American) 100.5 ml/min; Est GFR (Non-African American) 86.7 ml/min; Potassium 5.1 mmol/L (3.5-5.1)
--- NOTE | 2023-04-26 09:40 | History & Physical Bridge Note ---
Date of Service April 26, 2023 History & Physical Bridge Note I have examined the patient, reviewed the History & Physical and in the interval since the performance of the History & Physical I have noted the following changes of clinical significance: no changes noted Supervising Physician Co-Signing Physician Notes will plan for left hip IM nail
[2023-04-26] MEDS ORDERED: ceFAZolin 330 MG/ML 1 GM VIAL ONE (09:59)
[2023-04-26] MEDS: ceFAZolin 2000MG 2,000 MG/15 ML SYR IV ONE (10:00)
[2023-04-26] MEDS ORDERED: ONDANSETRON INJ 2 MG/ML 2 ML VIAL ONE (10:37)
[2023-04-26] MEDS ORDERED: ROCURONIUM BROMIDE 10 MG/ML 5 ML VIAL IV ONE (10:37)
[2023-04-26] MEDS ORDERED: LIDOCAINE 2% 2 ML VIAL/AMP(20MG/ML) INFIL ONE (10:37)
[2023-04-26] MEDS ORDERED: PROPOFOL IV EMULSION 10 MG/ML 20 ML VIAL IV ONE (10:37)
[2023-04-26] MEDS ORDERED: ONDANSETRON INJ 2 MG/ML 2 ML VIAL IV PRN (10:38)
[2023-04-26] MEDS ORDERED: FLUMAZENIL 0.1 MG/1 ML 10 ML VIAL IV PRN (10:38)
[2023-04-26] MEDS ORDERED: ATROPINE SULFATE 0.1 MG/ML 10ML SYR IV PRN (10:38)
[2023-04-26] MEDS ORDERED: ePHEDrine sulfate 50 MG/ML AMP IV PRN (10:38)
[2023-04-26] MEDS ORDERED: LABETALOL HCL IV 5 MG/ML 20ML IV PRN (10:38)
[2023-04-26] MEDS ORDERED: NALOXONE HCL 0.4 MG/1 ML VIAL/CARP IV PRN (10:38)
[2023-04-26] MEDS ORDERED: HYDROmorphone INJ 1 MG/ML SYRINGE IV PRN (10:38)
[2023-04-26] MEDS ORDERED: fentaNYL citrate PF 100 MCG/2 ML VIAL IV PRN (10:38)
[2023-04-26] MEDS ORDERED: NEOSTIGMINE METHYLSULFATE 1 MG/ML 10ML VIAL ONE (11:15)
[2023-04-26] MEDS ORDERED: GLYCOPYRROLATE 0.2 MG/ML VIAL ONE (11:15)
[2023-04-26] MEDS: BUPIVACAINE 0.5 % 5 MG/1 ML MPF 30ML VIAL ONE (11:25)
--- NOTE | 2023-04-26 11:29 | Operative Report ---
Post Operative Report Procedure Date: April 26, 2023 Procedure Date: March 30, 2023 Pre & Post Diagnosis: Right intertrochanteric hip fracture Time Out: I identified the patient and participated in the time-out. Procedure: Left intertrochanteric hip nail Surgeon: Dr Hastings Molasses Coloring Operator: BARB Caldera Estimated Blood Loss: 25 mL Findings: Displaced intertrochanteric hip fracture. Lesser troch was off. Mild comminution seen. Specimens: None Description of Procedure: Patient was placed on fracture table and we performed a closed reduction with the fracture table and traction. It did show acceptable alignment. Patient was given perioperative antibiotics prior to the skin incision. I made a longitudinal incision proximal to the tip of the greater trochanter. Dissection was carried down through the skin and subcutaneous tissue. I sharply incised the fascial layer. Identified the droop greater trochanter. I then placed a guidewire for a Synthes TFN-a nail at the tip of the trochanter and down the canal. I then reamed with the entry reamer. I then passed the ball- tipped guidewire and verify this was in the femur. I reamed with a size 12.5 and passed an 11 nail. We held the femur in a position of reduction with elevating the femur and a medial push to hold it in reduction. I then drilled for the center screw. I placed this in the center center position and was verified under C-arm fluoroscopy. I then placed the screw and did compress the fracture. This did result in good alignment. I placed the interlock screw for the mid nail with the guide. Final C-arm radiographs confirmed good alignment. Incisions were irrigated Fascial layer was closed with 0 Vicryl. Subcutaneous layer was closed with 2-0 Vicryl. Catie were used on skin and patient was sent to the PACU in a stable condition I discussed results of the procedure in detail with the patient's family. Attestation: I attest to the content of the Intraoperative Record and any orders documented therein. Any exceptions are noted below. Attestation: I attest to the content of the Intraoperative Record and any orders documented therein. Any exceptions are noted below.
[2023-04-26] MEDS: PROMETHAZINE HCL 12.5 MG in SODIUM CHLORIDE 0.9% 50 ML IV PRN (11:55)
--- NOTE | 2023-04-26 12:23 | Anesthesiology Progress Note ---
Date of Service April 26, 2023 Anesthesia Post Procedure Vital Signs Vital Signs: Temp Pulse Pulse Pulse Resp BP BP 04/26/23 12:10 36.4 C L 73 18 146/80 H 04/26/23 12:00 80 14 133/68 04/26/23 11:50 74 16 128/72 04/26/23 11:40 36.1 C L 75 16 125/62 04/26/23 08:00 76 04/26/23 07:42 36.7 C 84 18 128/70 04/26/23 02:36 36.7 C 79 16 105/66 04/25/23 23:00 36.6 C 78 18 126/68 04/25/23 22:00 79 04/25/23 19:34 36.7 C 82 18 103/72 04/25/23 18:49 75 04/25/23 16:00 04/25/23 14:17 36.6 C 75 18 121/81 Pulse Ox Pulse Ox O2 Del Method O2 Del Method O2 Flow Rate 04/26/23 12:10 96 Room Air 04/26/23 12:00 98 Room Air 04/26/23 11:50 99 Oxymask 4 04/26/23 11:40 100 Oxymask 6 04/26/23 08:00 04/26/23 07:42 100 Room Air 04/26/23 02:36 97 Room Air 04/25/23 23:00 94 Room Air 04/25/23 22:00 04/25/23 19:34 96 Room Air 04/25/23 18:49 04/25/23 16:00 97 Room Air 04/25/23 14:17 97 Room Air Pain Intensity Left Hip: Pain Intensity: 5 Transfer of Care Handoff Completed per policy Notes Mental Status: alert / awake / arousable Patient Amnestic to Procedure: Yes Nausea / Vomiting: adequately controlled Pain: adequately controlled Airway Patency, RR, SpO2: stable & adequate BP & HR: stable & adequate Hydration State: stable & adequate Anesthetic Complications: no major complications apparent
[2023-04-26] MEDS ORDERED: COUGH DROP (SUGAR FREE) LOZ 24 LOZ/1 BOX BUCCAL PRN (12:43)
[2023-04-26] MEDS ORDERED: SOD PHOSPHATE/SOD BIPHOSPHATE ENEMA 132 ML BTL PR PRN (12:43)
--- NOTE | 2023-04-26 12:51 | Electrocardiogram Report ---
Test Reason : Blood Pressure : / mmHG Vent. Rate : 080 BPM Atrial Rate : 080 BPM P-R Int : 142 ms QRS Dur : 126 ms QT Int : 422 ms P-R-T Axes : 020 001 -45 degrees QTc Int : 486 ms Normal sinus rhythm Right bundle branch block Minimal voltage criteria for LVH, may be normal variant ( R in aVL ) Possible Inferior infarct , age undetermined T wave abnormality, consider lateral ischemia Abnormal ECG When compared with ECG of 08-APR-2023 17:17, Premature atrial complexes are no longer Present Confirmed by Jeremías Whitlock ([id number]) on 04/26/2023 12:51:30 PM Referred By: REFERRED SELF Confirmed By:Jeremías Whitlock
--- NOTE | 2023-04-26 13:32 | XRay Report ---
XR hip LT min 2V HISTORY: 78 years-old Female Post-Operative implant position left hip arthroplasty COMPARISON: April 25, 2023 TECHNIQUE: 2 views of the left hip FINDINGS: Acute, comminuted and displaced trochanteric left femoral fracture. Status post placement of an intra trochanteric nail with medullary glenna. Overlying skin gabe are noted along with expected postoperat [place] soft tissue swelling with deep tissue air. Arterial calcifications. [id number] left hip ost eoarthritis. IMPRESSION: Fixated acute intertrochanteric left femoral fracture. ACT 112: Negative or not required by law. The above report was generated using voice recognition software. It may contain grammatical, syntax o r spelling errors. Electronically signed by: Viktor Dunne M.D. 04/26/2023 1:31 PM
[2023-04-26] MEDS: PROMETHAZINE HCL INJ 25 MG/ML 1 ML VIAL ONE (13:33)
[2023-04-26] MEDS ORDERED: PROCHLORPERAZINE 5 MG in SYRINGE 4 ML IV PRN (13:52)
--- NOTE | 2023-04-26 15:14 | Billing Data ---
Date of Service April 26, 2023 Coding Level of Care Code 29802 SUB INP/OBS CARE
[2023-04-26] MEDS: HYDROCODONE/ACETAMOPHEN 5/325MG TAB PO PRN (16:07)
--- NOTE | 2023-04-26 18:20 | Fluoroscopy Report ---
FL hip LT 2-3V CLINICAL HISTORY: LEFT TROCHacute fracture left hip COMPARISON STUDY: Left femur radiographs April 25, 2023 FLUOROSCOPY TIME: 133 seconds FLUOROSCOPY IMAGES: 7 EXPOSURE DOSE: 22.21 mGy FINDINGS: Status post placement of an intertrochanteric nail with medullary glenna fixating the acute in tertrochanteric left femoral fracture. There is improved alignment. Expected postoperative soft tissu e swelling with deep tissue air. IMPRESSION: Fluoroscopic assistance as above. ACT 112: Negative or not required by law. Electronically signed by: Viktor Dunne M.D. 04/26/2023 6:18 PM
[2023-04-26] MEDS: POLYETHYLENE (MIRALAX) 17 GM PACK PO SCH (20:46)
[2023-04-26] MEDS: ASPIRIN 81 MG ECTAB PO SCH (20:50)
[2023-04-27 07:10] LABS: Basophils # (auto) 0.05 K/uL (0.00-0.20); Basophils % (auto) 0.6 %; Eosinophils % (auto) 2.5 %; Hematocrit (blood only) 27.8 % (37.0-47.0); Hemoglobin 9.2 g/dl (12.0-16.0); Immature Granulocytes # (auto) 0.03 K/uL (0.01-0.20); Immature Granulocytes % (auto) 0.4 %; Lymphocytes # (auto) 2.11 K/uL (1.20-3.40); Lymphocytes % (auto) 26.8 %; Mean Corpuscular Hemoglobin 30.8 pg (25.0-34.0); Mean Corpuscular Hgb Conc 33.1 g/dL (32.0-36.0); Mean Platelet Volume 10.1 fL (9.4-12.4); Monocytes # (auto) 0.84 K/uL (0.11-0.59); Monocytes % (auto) 10.7 %; Neutrophils # (auto) 4.65 K/uL (1.40-6.50); Platelet Count 156 K/uL (130-400); RDW Coefficient of Variation 14.4 % (11.5-14.5); RDW Standard Deviation 47.9 fL (36.4-46.3); Red Blood Count 2.99 M/uL (4.20-5.40); White Blood Count 7.88 K/ul (4.8-10.8)
[2023-04-27 07:15] LABS: Calcium 8.7 mg/dl (8.6-10.3); Creatinine Clr Calc Pharmacy 37.9 ml/min; Est GFR (African American) 81.3 ml/min; Est GFR (Non-African American) 70.1 ml/min; Potassium 4.9 mmol/L (3.5-5.1)
--- NOTE | 2023-04-27 07:26 | Hospitalist Progress Note ---
Date of Service April 27, 2023 Assessment & Plan (1) Closed left femoral fracture: Plan: Araceli Cobos is a 78yo female presenting from home after a ground level fall resulting in a left hip fracture. Pain is well controlled. Patient is HD stble, NV intact, pain is well controlled - S/p intertrochanteric nail for left hip fracture (2/3) -Pain control with Tylenol and [place] -Bowel regimen -Zofran PRN -Continue Lidoderm patch -Orthopedic surgery consultation appreciated: - continue toe-touch weightbearing with mobilization and physical therapy - PT/OT -Continue Calcitonin nasal spray for recent thoracic fracture -Presume osteoporotic fracture, will need outpatient bone health management - Plan for rehab (2) Acute hypokalemia: Plan: Resolved after KCl 40mEq IV x1 Monitor am labs (3) Rheumatoid arteritis: Plan: -Will hold hydroxychloroquine (4) Nonocclusive coronary atherosclerosis of [place] coronary artery: Plan: Chronic, Stable. Patient denies chest pain. Continue Simvastatin (5) Hyperlipidemia: Plan: Chronic. Stable -Continue Simvastatin 20mg po qHS (6) Hypertension: Plan: Chronic. Stable. Blood pressure mildly elevated at 148/78 -Pain control -Continue metoprolol 25mg po qAM -Monitor BP - had soft BPs overnight and today morning. Plan Dispo: Med surged DVT prophylaxis: ASA as per ortho Diet: Regular Soria cath in place Admission and Anticipated Discharge Date Admission Date: April 25, 2023 Supervising Physician Co-Signing Physician Notes I personally examined the patient and verified all ro points of history and exam, discussed case, and agree with decision making with Dr Hola Davis sitting in chair, ate most of breakfast, on phone. notes hip pain but not out of range of expected and feels pain meds are working well enough vitals noted nad breathing unlabored no accessory muscles good effort skin no rashes no pallor or icterus neuro no focal deficits hip fracture - presumed osteoporotic fracture - pain control, postop now, PT/OT, anticipate need for rehab (stable when bed available), outpt bone health management. constipation - bowel regimen. DVT proph - asa bid per ortho otherwise as above Subjective Evaluated this morning. Found resting comfortable. Refer pain controlled with pain Meds. Denied chest pain, nausea, vomiting, diarrhea, palpitation, dizziness or any other symptoms. Plan to get PT/OT while admitted. Rehab after discharge. Review of Systems Review of Systems: reviewed, per HPI Physical Exam Physical Exam: Constitutional: frail appearing, in obvious pain described as 5/10 CV: regular rhythm, no murmur appreciated, extremities well-perfused, no LE edema Resp: CTABL, no wheezes/rales/rhonchi appreciated, no increased work of breathing GI: soft, nondistended, nontender, BS normoactive MSK: Dry dressing. Results & Data Results & Data Vital Signs (Past 12 Hours) Vital Signs Temp Pulse Pulse Resp BP Pulse Ox O2 Del Method 04/27/23 07:02 83 04/27/23 02:07 36.6 C 82 18 94/56 L 98 Room Air 04/27/23 01:39 Room Air 04/26/23 22:18 36.8 C 91 H 18 95/63 L 95 Room Air 04/26/23 22:00 85 04/26/23 20:16 36.5 C 83 16 92/59 L 96 Room Air Resident Activity Tracking Resident Involvement: Resident Care Provided Care Provided: Adult Hospital Medicine
--- NOTE | 2023-04-27 10:09 | Orthopedic Progress Note ---
Date of Service April 27, 2023 Assessment & Plan (1) Intertrochanteric fracture of left hip: Plan Postop day 1 intertrochanteric nail for left hip fracture Overall she is doing well. May continue toe-touch weightbearing with mobilization and physical therapy Aspirin for DVT prophylaxis Admission and Anticipated Discharge Date Admission Date: April 25, 2023 Subjective She is doing well this morning. Notes appropriate amount of pain. Is able to sit up out of bed without difficulty. Physical Exam Musculoskeletal: Left lower extremity exam: Her compartments are soft. She can flex and extend the ankle. Her dressings are dry. Results & Data Vital Signs (Past 12 Hours) Vital Signs Temp Pulse Pulse Resp BP Pulse Ox O2 Del Method 04/27/23 08:07 36.4 C L 73 18 105/63 100 Room Air 04/27/23 07:02 83 04/27/23 02:07 36.6 C 82 18 94/56 L 98 Room Air 04/27/23 01:39 Room Air 04/26/23 22:18 36.8 C 91 H 18 95/63 L 95 Room Air
--- NOTE | 2023-04-27 10:11 | Communication Note ---
Date of Service: April 27, 2023 Orthopedics called due to soilage of the splint. I saw the patient at the bedside this morning. She exhibits minor soilage of the splint, but cast over all is intact. I would not recommend removal of left leg splint, as this could cause fracture to change in alignment and would give her significant discomfort to change it. Recommendation is to wrap the splint and protected material and use depends for the patient for hygiene purposes. Upon discharge may follow-up with [facility]
--- NOTE | 2023-04-27 14:22 | Billing Data ---
Date of Service April 27, 2023 Coding Level of Care Code 72360 SUB INP/OBS CARE
[2023-04-27] MEDS: SODIUM CHLORIDE 0.9% 500 ML IV ONE (23:50)
--- NOTE | 2023-04-28 07:00 | Hospitalist Progress Note ---
Date of Service April 28, 2023 Assessment & Plan (1) Closed left femoral fracture: Plan: Araceli Cobos is a 78yo female presenting from home after a ground level fall resulting in a left hip fracture. Pain is well controlled. Patient is HD stble, NV intact, pain is well controlled - S/p intertrochanteric nail for left hip fracture (2/3) -Pain control with Tylenol and [place] -Bowel regimen -Zofran PRN -Continue Lidoderm patch -Orthopedic surgery consultation appreciated: - continue toe-touch weightbearing with mobilization and physical therapy - PT/OT -Continue Calcitonin nasal spray for recent thoracic fracture -Presume osteoporotic fracture, will need outpatient bone health management - Plan for rehab (2) Acute hypokalemia: Plan: Resolved after KCl 40mEq IV x1 Monitor am labs (3) Rheumatoid arteritis: Plan: -Will hold hydroxychloroquine (4) Nonocclusive coronary atherosclerosis of [place] coronary artery: Plan: Chronic, Stable. Patient denies chest pain. Continue Simvastatin (5) Hyperlipidemia: Plan: Chronic. Stable -Continue Simvastatin 20mg po qHS (6) Hypertension: Plan: Chronic. Stable. Blood pressure mildly elevated at 148/78 -Pain control -Continue metoprolol 25mg po qAM -Monitor BP - had soft BPs overnight and today morning. Plan Dispo: Med surged DVT prophylaxis: ASA as per ortho Diet: Regular Soria cath in place Admission and Anticipated Discharge Date Admission Date: April 25, 2023 Subjective Saw patient this morning. Found resting comfortable. Refer pain controlled with pain Meds. Denied chest pain, abdominal pain, vomiting, diarrhea, palpitation, dizziness or any other symptoms. Endorses slight residual nausea, and constipation (at baseline, takes Miralax). Plan to get PT/OT while admitted. Rehab after discharge. Review of Systems Constitutional: + body aches; no fever, no chills, no fa tigue and no weakness Ear, Nose, Mouth, Throat: + nasal congestion; no ear pain, no nasa l discharge and no post nasal drip Respiratory: no cough and no dyspnea Cardiovascular: no chest pain and no palpitations Gastrointestinal: + nausea and + constipation; no abdomina l pain, no vomiting and no diarrhea/loose stools Genitourinary: no dysuria and no urinary frequency (patient has catheter in) Musculoskeletal: + back pain (pt states she has some stre ss fractures in lumbar area) and + joint pain (l. hip pain (y), r. hip pain (n)) Neurologic: no loss of sensation, no tingling and no numbness Hematologic / Lymphatic: no easy bleeding Results & Data Results & Data Vital Signs (Past 12 Hours) Vital Signs Temp Pulse Pulse Resp BP BP Pulse Ox 04/28/23 02:47 36.6 C 79 18 112/76 99 04/28/23 01:08 89 04/27/23 22:13 36.7 C 84 16 88/50 L 97 04/27/23 19:33 36.8 C 87 18 84/51 L 85/48 L 96 O2 Del Method 04/28/23 02:47 Room Air 04/28/23 01:08 04/27/23 22:13 Room Air 04/27/23 19:33 Room Air Resident Activity Tracking Resident Involvement: Resident Care Provided Care Provided: Adult Hospital Medicine
--- NOTE | 2023-04-28 10:22 | Orthopedic Progress Note ---
Date of Service April 28, 2023 Assessment & Plan (1) Intertrochanteric fracture of left hip: Plan: Postop day 2 intertrochanteric nail for left hip fracture Overall she is doing well. May continue toe-touch weightbearing with mobilization and physical therapy. Aspirin for DVT prophylaxis. The patient will probably require rehab. It seems like she may be ready to go to [facility] later today. Orthopedics will sign off at this time. Follow-up as an outpatient 10-14 days postop. Admission and Anticipated Discharge Date Admission Date: April 25, 2023 Subjective Overall, patient is doing well. She is having pain in the left hip but the pain is mostly controlled. No new complaints today. Physical Exam Constitutional: WD/WN, vitals as above no acute distress (Lying comfortably in bed) Musculoskeletal: Hip: + surgical incision (Left hip dressings C/D/I.); no deformity, no skin erythema and no ecchymosis Skin: no rashes, warm and dry Trauma: no evidence of skin trauma Neurologic: normal touch/pain/proprioception Psychiatric: A+Ox3, euthymic affect Speech: normal rate/rhythm/volume of speech Results & Data Vital Signs (Past 12 Hours) Vital Signs Temp Pulse Pulse Resp BP Pulse Ox O2 Del Method 04/28/23 07:30 36.7 C 83 17 99/63 L 95 Room Air 04/28/23 07:20 Room Air 04/28/23 07:03 80 04/28/23 02:47 36.6 C 79 18 112/76 99 Room Air 04/28/23 01:08 89
--- NOTE | 2023-04-28 12:13 | Discharge Summary ---
Date of Service April 28, 2023 Admission HPI Per Admitting Provider Araceli Cobos is a 78yo female presenting after a fall at home landing on her left hip. Patient denies head trauma or loss of consciousness. She denies chest pain, cough, SOB. No additional complaints at this time. She is having discomfort in her hip when she moves it. In the ER she is afebrile, HD stable, NAD ER Course: Morphine 2mg IV ordered Admission Exam Per Admitting Provider Physical Exam: General: patient resting comfortably, NAD, non-toxic in appearance, AA&O x 4 Skin: diffuse non-pruritic erythematous macular rash on arms and abdomen. HEENT: NC/AT, PERRL, EOMI, anicteric sclera, conjunctiva without injection, external ear normal to inspection and nontender, nares patent, moist mucus membranes, dentition intact, no oropharyngeal lesions, neck supple, trachea midline, no LAD, no thyromegaly, no JVD Heart: +S1/S2, regular, no m/r/g Lungs: equal air entry bilaterally, no rales/rhonchi/wheezes Abd: +BS, soft, NT/ND, no masses/organomegaly/ascites Ext: warm, 2+ pulses in UE/LE bilaterally, no clubbing/cyanosis or edema. s/p left TMA, LLE shortened and externally rotated. No bruising. Neuro: nonfocal, patient AA&O x 4, speech intact, no facial droop, moving all extremities on command with equal strength 5/5 Principal Diagnosis s/p intertrochanteric nail for l. hip fracture Discharge Exam Constitutional WD/WN, vitals as above Respiratory normal respiratory effort, lungs clear to auscultation Cardiovascular RRR, no murmur, no edema Gastrointestinal (Abdomen) normal bowel sounds, soft, nontender, no hepatosplenomegaly Musculoskeletal Hip: + ecchymosis (l. hip pain ecchymosis s/p surgery) and + joint line tenderness Psychiatric A+Ox3, euthymic affect Genitourinary no CVA tenderness Discharge Data Allergies Allergy/AdvReac Type Severity Reaction Status Date / Time Sulfa (Sulfonamide Allergy Intermediate Rash Verified 04/08/23 21:04 Antibiotics) trimethoprim Allergy Intermediate Rash Verified 04/08/23 21:04 vancomycin Allergy Intermediate Rash, Verified 04/08/23 21:04 shortness of breath Cephalosporins AdvReac Mild Vomiting Verified 04/08/23 21:04 Consultations 04/25/23 01:19 ED Decision to Admit Stat 04/25/23 03:28 Consult Orthopedic Surgery Routine Procedures Performed Operation Date: 04/26/23 07:30 Actual Procedures p Left Hip Intertrochanteric Nail(Left) - Lex Hastings MD Ordered Studies 04/26/23 [place] hip LT 2-3V Routine Hospital Course (1) Closed left femoral fracture: (2) Acute hypokalemia: (3) Rheumatoid arteritis: (4) Nonocclusive coronary atherosclerosis of [place] coronary artery: (5) Hyperlipidemia: (6) Hypertension: Plan Araceli Cobos is a 78 yo F presenting from home after a ground level fall resulting in a left hip fracture. Closed left femoral fracture - S/p intertrochanteric nail for left hip fracture (04/26/23) - continue toe-touch weightbearing with mobilization and physical therapy - Aspirin for DVT proph -Presumed osteoporotic fracture, F/U as outpt, DEXA scan, medical mgmt - discharge to [facility] Vertebral fracture -Continue Calcitonin nasal spray for recent thoracic fracture Rheumatoid arteritis - Resumed hydroxychloroquine CAD/HTN - continued home meds Soria catheter removed on disharge and pt tolerated well Total Time Total Time Spent Total Time Spent (In Minutes): see attending attestation Discharge Plan Discharge Items Patient Disposition: Transfer Inpatient Rehab Fac Reason For Visit: LEFT HIP FRACTURE Discharge Diagnosis: Left Hip fx Activity: Per Instructions section Weightbearing: Left toe touch Non-emergency contact: Primary Care Provider Call non-emergency contact if: your symptoms worsen, your pain is concerning for you and you have a fever Follow-up/Referrals: Lex Hastigns MD [Physician] - (Call to schedule a follow-up 10-14 days from surgery.) Georgia Rosenthal PA-C [Primary Care Provider] - Diet: Regular Addtl Attending Provider Instructions: (1) Closed left femoral fracture: Araceli Cobos is a 78yo female presenting from home after a ground level fall resulting in a left hip fracture. Pain is well controlled. Patient is HD stable, NV intact, pain is well controlled - Ortho consulted, S/p intertrochanteric nail for left hip fracture (2) -continue aspirin 81mg BID for 4 weeks -Pain control with Tylenol and [place] PRN -Bowel regimen -Zofran PRN -Continue Lidoderm patch - PT/OT recommend inpatient rehab -Continue Calcitonin nasal spray for recent thoracic fracture -Presume osteoporotic fracture, will need outpatient bone health management (2) Acute hypokalemia: -repleted (3) Rheumatoid arteritis: -held hydroxychloroquine prior to surgery, may resume (4) Nonocclusive coronary atherosclerosis of [place] coronary artery: Continue Simvastatin (5) Hyperlipidemia: -Continue Simvastatin 20mg po qHS (6) Hypertension: -Continue metoprolol 25mg po qAM Addtl News Copy Editor Provider Instructions: [facility] DISCHARGE INSTRUCTIONS: HIP FRACTURE SELF CARE INSTRUCTIONS: A. You are to ambulate with a walker or crutches for approximately 6 weeks. B. You are TOE TOUCH WEIGHT BEARING on your operative lower extremity for at least 6 weeks. C. Wear low heeled shoes with non-slip soles D. Be sure that your floors are free of things that could trip you throw rugs, electrical cords, and small objects. Avoid wet and waxed floors, especially with crutches/walker/cane. E. Try to walk several times a day with rest periods between. F. You may shower 48 hours after surgery and get the incision area wet, but DO NOT soak or submerge incision area in water. (No baths, swimming pools, hot tubs) G. You may have a large, band-aid like dressing over your incision (Aquacel). This will remain on your incision for 7 days, and then can be removed. You CAN shower with this on. If incision is leaking through the dressing, please call the office . H. Do NOT apply soap or any ointment/lotions directly over incision. I. You may use ice as needed to operative site. SPECIAL CARE INSTRUCTIONS: VERY IMPORTANT TO READ AND REVIEW A. You may be at risk for phlebitis or blood clots. a. Wear surgical stockings (BREANNE hose) for 2 weeks after surgery to improve circulation and reduce swelling. b. Take ASPIRIN 81 mg twice daily for 4 weeks or as directed. This is your blood thinner. c. If you are on Coumadin- you will have daily/weekly blood work to monitor your levels. This will be done by either your family physician/piece dyer (if you are on Coumadin chronically) versus your orthopedic surgeon. Expect a phone call the day of or the day after your blood work is drawn to adjust your dose accordingly. B. There are a few signs you need to watch for after you are home. Call [facility] at [phone] if you experience any of the following: a. If you have a temperature of 101 degrees or higher. b. Sudden increase in pain in your hip not relieved by rest or pain medication. c. Any fluid or drainage from the incision; redness of the incision. d. Shortness of breath or chest pain. B. Please call [facility] at [phone] if you have any questions or concerns about your operation or recovery. C. Call your physician if: a. Temperature is greater than 101 degrees (F). b. Pain is not relieved by prescribed pain medications. c. Increase drainage or redness from incision. d. Unanswered questions or concerns. D. Pain Medication: a. You will be prescribed pain medication upon discharge that should last till your first post-operative appointment. b. If you experience nausea and/or skin rash, discontinue this medication and contact our office for an alternative medication. c. Caution- narcotic pain medication can cause constipation. FOLLOW UP VISIT: Please call [facility] at [phone] to schedule a follow up appointment 10-14 days from the date of your surgery date. Pending Studies at Discharge: No Stand-Alone Forms: My [facility] Skilled Items Patient informed of condition?: Yes DNR: No Discharge Level of Care: Acute rehab Communicable Disease: No Discharge Prognosis: Stable Lines: None Urinary Catheter: No Medications and DC Order Prescriptions: New aspirin 81 mg tablet,delayed release (DR/EC) 81 mg PO BID 28 Days Qty: 56 0RF Continued aspirin [Niya Low Dose Aspirin] 81 mg Tablet,Delayed Release (Dr/Ec) 81 mg PO QAM calcium carbonate [Calcium 600] 600 mg calcium (1,500 mg) Tablet 600 mg PO QAM hydroxychloroquine 200 mg tablet 200 mg PO BID cholecalciferol (vitamin D3) [Vitamin D3] 125 mcg (5,000 unit) Tablet 125 mcg PO QAM simvastatin 20 mg tablet 20 mg PO HS calcitonin (salmon) 200 unit/actuation [place],Non-Aerosol 1 spray NA Q24H Qty: 1 0RF lidocaine 5 % Adhesive Patch,Medicated 1 patch transdermal QAM Qty: 1 2RF methadone 5 mg Tablet 2.5 mg PO Q8H PRN (Reason: Moderate Pain (Scale Score 5-6)) Qty: 90 0RF Rx Instructions: this is for pain control not addiction acetaminophen 500 mg Tablet 1,000 mg PO TID Qty: 90 0RF metoprolol succinate 25 mg tablet extended release 24 hr 25 mg PO QAM Discharge Orders: Discharge Order (Routine); Ordered 04/28/23 Ordered By: Tricia Spencer Admission Data Admit Date/Time: 04/25/23 02:08 Attending Provider: Bridget Umana Admit Provider: Mary Lou Marcum Primary Care Provider: Georgia Rosenthal Other Providers: [place]; [facility]; Mary Lou Marcum; Lex Hastings.; John Coffman Other Interventions: Discharge Summary Assessment (RN) Last Done: 04/28/23 14:29 Supervising Physician Co-Signing Physician Notes Attending Physician Supervision Note: I independently interviewed and examined the patient and verified the ro history and physical, reviewed labs and image studies and agree with findings and care plan noted above.
== END 2023-04-28 15:20 | DRG 481 ==
LOC: ED 00:29 → SUATTDRO 02:08 → 2W 02:08
DX: M06.9 Rheumatoid arthritis, unspecified; Y92.019 Unspecified place in single-family (private) house as the place of occurrence of the external cause; I10 Essential (primary) hypertension; E87.6 Hypokalemia; W18.30XA Fall on same level, unspecified, initial encounter; Z87.891 Personal history of nicotine dependence; E78.5 Hyperlipidemia, unspecified; I25.10 Atherosclerotic heart disease of native coronary artery without angina pectoris; Z88.2 Allergy status to sulfonamides; D62 Acute posthemorrhagic anemia; M84.452A Pathological fracture, left femur, initial encounter for fracture; Z79.82 Long term (current) use of aspirin; K59.00 Constipation, unspecified; Z88.1 Allergy status to other antibiotic agents

== ENCOUNTER 2024-04-09 14:23 | Inpatient (IN) ==
[2024-04-09 15:33] LABS: Basophils # (auto) 0.01 K/uL (0.00-0.20); Basophils % (auto) 0.1 %; Hematocrit (blood only) 24.9 % (37.0-47.0); Hemoglobin 8.2 g/dl (12.0-16.0); Immature Granulocytes # (auto) 0.03 K/uL (0.01-0.20); Immature Granulocytes % (auto) 0.4 %; Lymphocytes % (auto) 16.2 %; Mean Corpuscular Hemoglobin 31.8 pg (25.0-34.0); Mean Corpuscular Hgb Conc 32.9 g/dL (32.0-36.0); Mean Corpuscular Volume 96.5 fL (80.0-100.0); Mean Platelet Volume 9.9 fL (9.4-12.4); Monocytes # (auto) 0.66 K/uL (0.11-0.59); Monocytes % (auto) 8.9 %; Neutrophils # (auto) 5.52 K/uL (1.40-6.50); Neutrophils % (auto) 74.4 %; Platelet Count 215 K/uL (130-400); RDW Coefficient of Variation 13.3 % (11.5-14.5); RDW Standard Deviation 45.8 fL (36.4-46.3); Red Blood Count 2.58 M/uL (4.20-5.40); White Blood Count 7.42 K/ul (4.8-10.8)
[2024-04-09 15:54] LABS: Albumin Globulin Ratio 1.2 (0.9-2); BUN Creatinine Ratio 42.9 (10-20); Bilirubin,Total 0.8 mg/dl (0.2-1.0); Calcium 9.4 mg/dl (8.6-10.3); Creatinine Clr Calc Pharmacy 45.9 ml/min; Globulin 3.3 gm/dl (2.5-4.0); Potassium 3.9 mmol/L (3.5-5.1); Total Protein 7.3 gm/dl (6.0-8.3)
--- NOTE | 2024-04-09 16:02 | Emergency Department Note ---
Impression & Plan COVID-19, Elevated troponin, Generalized weakness, Gastroenteritis due to COVID-19 virus ED Provider Note NAME: CANDIS PATEL AGE: 79 SEX: F : 1945 ARRIVES VIA: Walk-In INFORMANT: Patient ED PROVIDER(S): Joaquín Greenberg MD CHIEF COMPLAINT: Nausea, vomiting, diarrhea. PLAN: Disposition: Admit MEDICAL DECISION MAKING: The patient is a pleasant 79-year-old woman with a past medical history of CHF with preserved EF, history of heart block status post PPM, history of hypertension hyperlipidemia, GERD, rheumatoid arthritis who presents to this department via walk-in for evaluation of nausea, vomiting, diarrhea over the past several days with generalized weakness where her son reports that she is in weak and wobbly at home. He reports he is worried she may fall. The patient denies cough or congestion. She denies chest pain and shortness of breath. Patient's son who lives with the patient recently had a respiratory illness but did not have any testing performed. Of note, the patient did arrive to emergency department during time of high volume, acuity and prolonged emergency department waiting times. Critical pathways initiated from triage. On evaluation patient is fatigued appearing but no distress, afebrile with HR in the 100s and otherwise table vital signs. She appears clinically dry. Her abdomen is nontender. EKG demonstrates right bundle branch block, similar to prior without overt acute ischemia. Chest x-ray without overt focal infiltrates. WBC and platelets within the limits. H/H 8.2/24.9 approximate 2 prior though downtrending. Iron is low-normal. MCV is upper 90s but folate and B12 are wnl. Chemistry without metabolic acidosis. BUN is 24 with BUN/creatinine 42 consistent with patient's clinically dry appearance. LFTs unremarkable. Initial high-sensitivity troponin 132, increased from patient's baseline range with repeat high-sensitivity troponin 152, nonspecific. The patient was treated with IV hydration, Zofran and did feel some improvement however still with generalized weakness and given concern for risk of falling in the setting of her weakness the patient and her son agree with plan for admission for further management. Case was discussed with Dr. Kelley Hong, admitting resident with Dr. Norman, [facility] hospitalist, who will evaluate the patient for admission. This patient was managed with the assistance of resident, Dr. Hanna. I discussed the case with the resident, examined the patient, and confirm the findings and plan as documented in this note. Triage Nursing notes reviewed and agree them. Prior/external medical records reviewed Vital Signs: reviewed Differential diagnosis: Infection, dehydration, metabolic abnormality, hypo/hyperglycemia, electrolyte disturbance, anemia, hypoxia, cardiac sources, intracerebral event, toxicologic, neurologic, as well as other pathologies. ER treatment provided: See below. Diagnostics interpreted by me: ECG: Right bundle branch block, no ectopy, no overt ST elevation or depression, similar to prior. Cardiac Monitoring: An order for continuous cardiac monitoring was placed and demonstrated normal sinus rhythm, 87 bpm, no ectopy. Laboratory studies: See below Imaging studies: See below Consultation(s): Dr. Kelley Hong, admitting resident with Dr. Norman, [facility] hospitalist HPI: The patient is a pleasant 79-year-old woman with a past medical history of CHF with preserved EF, history of heart block status post PPM, history of hypertension hyperlipidemia, GERD, rheumatoid arthritis who presents to this department via walk-in for evaluation of nausea, vomiting, diarrhea over the past several days with generalized weakness where her son reports that she is in weak and wobbly at home. He reports he is worried she may fall. The patient denies cough or congestion. She denies chest pain and shortness of breath. Patient's son who lives with the patient recently had a respiratory illness but did not have any testing performed. ROS: See above HPI for pertinent positives & negatives. A total of 10 systems reviewed and were otherwise negative. VITALS:See Below PHYSICAL EXAMINATION: GENERAL: Awake, alert, fatigued-appearing, in no distress HENT: Normocephalic, atraumatic. Oropharynx with dry mucous membranes and otherwise unremarkable. EYES: Normal conjunctiva. Sclera non-icteric. NECK: Supple. No nuchal rigidity. FROM. No JVD. RESPIRATORY: Clear to auscultation. CARDIAC: Tachycardic rate, normal rhythm. Extremities warm and well perfused. Pulses equal. ABDOMEN: Soft, non-distended. No tenderness to palpation. No rebound or guarding. No masses. MUSCULOSKELETAL: Chest examination reveals no tenderness. The back is symmetrical on inspection without obvious abnormality. There is no CVA tenderness to palpation. No joint edema. LOWER EXTREMITIES: Calves are equal size bilaterally and non-tender. No edema. No discoloration. NEURO: Normal sensorium. No sensory or motor deficits noted. SKIN: No rash or jaundice noted. Joaquín Greenberg MD Past Med/Surg History Problem List (Updated 04/09/24 @ 22:34 by Joaquín Greenberg MD) Gastroenteritis due to COVID-19 virus (Acute) Anemia Generalized weakness (Acute) Elevated troponin (Acute) COVID-19 (Acute) Intertrochanteric fracture of left hip Acute hypokalemia (Acute) Fall from standing (Acute) Closed left femoral fracture (Acute) Thoracic compression fracture Acute back pain Acute non-ST elevation myocardial infarction (NSTEMI) (Acute) Status post placement of cardiac pacemaker AV block, Mobitz II DVT prophylaxis Pancytopenia Sinus pause Rheumatoid arteritis Arrhythmia (Acute) Acute kidney injury (Acute) Episodic lightheadedness (Acute) Seizure Lyme disease Chronic heart failure with preserved ejection fraction (HFpEF) Nonocclusive coronary atherosclerosis of [place] coronary artery 60% LAD lesion at 2009 cath Headache Concussion Post-traumatic seizures Hyponatremia (Acute) Syncope (Acute) GERD (gastroesophageal reflux disease) Osteoporosis Edema Hyperlipidemia (Chronic) Hypertension (Chronic) Rheumatoid arthritis (Chronic) Pneumonia due to 2019 novel coronavirus (Acute 04/2020) Hypoxia (Acute) Elevated troponin (Acute) Prolonged Q-T interval on ECG (Acute) Fall (Acute) Medical History No pertinent family history Headache Fracture of femoral neck, right Endometriosis Surgical History No pertinent past surgical history Social History Smoking Status: Former smoker Tobacco Type: Cigarettes Second Hand Exposure: No; Do You Dip or Chew Tobacco: No; Hx Alcohol Use: No Hx Substance Use: No Preferred Language: Martiniquais Communication Ability: Effective 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 Beliefs That Will Affect Care: None marital status: / Current Living Situation: Family Current Living Situation Comment: Lives with son and grandchildren How many Children do You have: 1 Feels Safe at Home: Yes Assistive Devices: Cane and Walker Allergies Allergies Allergy/AdvReac Type Severity Reaction Status Date / Time Sulfa (Sulfonamide Allergy Intermediate Rash Verified 04/08/23 21:04 Antibiotics) trimethoprim Allergy Intermediate Rash Verified 04/08/23 21:04 vancomycin Allergy Intermediate Rash, Verified 04/08/23 21:04 shortness of breath Cephalosporins AdvReac Mild Vomiting Verified 04/08/23 21:04 Home Meds Home Medications Medication Instructions Recorded Confirmed aspirin 81 mg tablet,delayed 81 mg PO QAM 05/09/20 04/09/24 release (Niya Low Dose Aspirin) calcium carbonate (Calcium 600) 600 mg PO QAM 05/09/20 04/09/24 hydroxychloroquine 200 mg tablet 200 mg PO BID 05/09/20 04/09/24 simvastatin 20 mg tablet 20 mg PO HS 04/08/23 04/09/24 metoprolol succinate 25 mg 25 mg PO QAM 04/25/23 04/09/24 tablet,extended release 24 hr amlodipine 2.5 mg tablet 2.5 mg PO DAILY 04/09/24 04/09/24 duloxetine 30 mg capsule,delayed 30 mg PO DAILY 04/09/24 04/09/24 release sacubitril 49 mg-valsartan 51 mg 1 tab PO BID 04/09/24 04/09/24 tablet (Entresto) Previous Rx's Medication Instructions Recorded acetaminophen 500 mg tablet 1,000 mg (2 x 500 mg) PO TID Pain 04/13/23 #90 tabs Results & Data (ED) Vital Signs Vital Signs - 24 hr 04/09/24 14:29 04/09/24 16:06 04/09/24 17:24 Temperature 36.3 C L Temperature Source Temporal Artery Scan Pulse Rate 101 H 78 Pulse Rate [Apical] 81 Pulse Rhythm Regular Pulse Strength Normal Respiratory Rate 20 18 Respiratory Effort / Characteristics Non-Labored Spontaneous Non-Labored Spontaneous Respiratory Depth Normal Normal Respiratory Pattern Regular Blood Pressure 136/66 Blood Pressure [Right Arm] 143/66 H Blood Pressure Mean 89 Blood Pressure Mean [Right Arm] 91 Blood Pressure Position Sitting Pulse Oximetry 98 92 Oxygen Delivery Method Room Air Room Air Sepsis Recent Fever Within 48 Hours No Sepsis New/Unexplained Change in Mental Status N/A Sepsis Action Taken by Nursing No Action Required 04/09/24 17:25 04/09/24 19:00 Temperature Temperature Source Pulse Rate Pulse Rate [Apical] 83 Pulse Rhythm Pulse Strength Respiratory Rate 18 Respiratory Effort / Characteristics Respiratory Depth Respiratory Pattern Blood Pressure Blood Pressure [Right Arm] 139/66 Blood Pressure Mean Blood Pressure Mean [Right Arm] 90 Blood Pressure Position Pulse Oximetry 97 98 Oxygen Delivery Method Room Air Room Air Sepsis Recent Fever Within 48 Hours Sepsis New/Unexplained Change in Mental Status Sepsis Action Taken by Nursing Laboratory Data Attestation: I reviewed the patient's lab results. 04/09/24 19:43 04/09/24 15:10 Lab Results 04/09/24 04/09/24 04/09/24 Range/Units 15:10 16:20 17:01 WBC 7.42 (4.8-10.8) K/ul RBC 2.58 L (4.20-5.40) M/uL Hgb 8.2 L (12.0-16.0) g/dl Hct 24.9 L (37.0-47.0) % MCV 96.5 (80.0-100.0) fL MCH 31.8 (25.0-34.0) pg MCHC 32.9 (32.0-36.0) g/dL RDW Std Deviation 45.8 (36.4-46.3) fL RDW Coeff of Emily 13.3 (11.5-14.5) % Plt Count 215 (130-400) K/uL MPV 9.9 (9.4-12.4) fL Immature Gran % (Auto) 0.4 % Neut % (Auto) 74.4 % Lymph % (Auto) 16.2 % [place] % (Auto) 8.9 % Eos % (Auto) 0.0 % Baso % (Auto) 0.1 % Neut # (Auto) 5.52 (1.40-6.50) K/uL Lymph # (Auto) 1.20 (1.20-3.40) K/uL [place] # (Auto) 0.66 H (0.11-0.59) K/uL Eos # (Auto) 0.00 (0.00-0.50) K/uL Baso # (Auto) 0.01 (0.00-0.20) K/uL Immature Gran # (Auto) 0.03 (0.01-0.20) K/uL PT 10.9 (9.0-12.0) Seconds INR 1.0 (0.9-1.1) APTT 21 (21-31) Seconds PTT Ratio 0.8 Sodium 136 (136-145) mmol/L Potassium 3.9 (3.5-5.1) mmol/L Chloride 103 (98-107) mmol/L Carbon Dioxide 23 (21-32) mmol/L Anion Gap 10 (3-11) BUN 24 H (6-23) mg/dl Creatinine 0.56 L (0.6-1.2) mg/dl Est Cr Clr Drug Dosing 45.9 ml/min eGFR 92.20 BUN/Creatinine Ratio 42.9 H (10-20) Glucose 131 H (70-99(Fasting)) mg/dl Calcium 9.4 (8.6-10.3) mg/dl Phosphorus 3.2 (2.5-4.9) mg/dl Magnesium 2.0 (1.7-2.4) mg/dl Iron 40 (35-150) mcg/dl Total Bilirubin 0.8 (0.2-1.0) mg/dl AST 23 (13-39) U/L ALT 17 (7-52) U/L Alkaline Phosphatase 134 H (34-104) U/L Troponin I High Sens 132.6 H* 152.5 H* (0-14) pg/ml Total Protein 7.3 (6.0-8.3) gm/dl Albumin 4.0 (3.4-5.0) gm/dl Globulin 3.3 (2.5-4.0) gm/dl Albumin/Globulin Ratio 1.2 (0.9-2) Vitamin B12 413 (180-914) pg/ml Folate 15.83 (>5.38) ng/ml Adenovirus (PCR) Not Detected (NotDetected) B. pertussis DNA (PCR) Not Detected (NotDetected) B.parapertussis DNA PCR Not Detected (NotDetected) C. pneumoniae DNA (PCR) Not Detected (NotDetected) Coronavirus OC43 (PCR) Not Detected (NotDetected) Coronavirus HKU1 (PCR) Not Detected (NotDetected) Coronavirus 229E (PCR) Not Detected (NotDetected) SARS-CoV-2 (PCR) DETECTED A (NotDetected) Coronavirus NL63 (PCR) Not Detected (NotDetected) Human Metapneumovir PCR Not Detected (NotDetected) Influenza Type A (PCR) Not Detected (NotDetected) Influenza Type B (PCR) Not Detected (NotDetected) M. pneumoniae (PCR) Not Detected (NotDetected) Parainfluenza 1 (PCR) Not Detected (NotDetected) Parainfluenza 2 (PCR) Not Detected (NotDetected) Parainfluenza 3 (PCR) Not Detected (NotDetected) Parainfluenza 4 (PCR) Not Detected (NotDetected) RSV (PCR) Not Detected (NotDetected) Entero/Rhino (PCR) Not Detected (NotDetected) Administered Medications Discontinued Medications Sodium Chloride (Nss) 1,000 mls @ 500 mls/hr IV .Q2H KARLA Stop: 04/09/24 18:08 Last Infusion: 04/09/24 18:23 Dose: Infused Documented By: Admin: 04/09/24 16:23 Dose: 500 mls/hr Documented By: ADELA Ondansetron HCl (Ondansetron Inj 2 Mg/Ml 2 Ml Vial) 4 mg IV NOW STA Stop: 04/09/24 16:14 Last Admin: 04/09/24 16:23 Dose: 4 mg Documented By: ADELA Imaging Data Radiologist's Impression: Chest X-Ray 04/09/24 14:33 XR chest 1V not portable CLINICAL HISTORY: Chest pain, nonspecific TECHNIQUE: Single frontal radiograph of the chest was obtained. Comparison: Comparison is made to chest radiograph 04/08/2023 FINDINGS: An implanted pacemaker is seen. Calcified aortic knob is seen. The lungs are clear. No evidence of pleural effusion or pneumothorax. IMPRESSION: No acute chest disease. ACT 112: Negative or not required by law. Electronically signed by: Damian Lobo M.D. 04/09/2024 4:09 PM Discharge Plan Visit Data Chief Complaint: Flu Like Symptoms Stated Complaint: DIARRHEA, VOMIT ED Provider: Joaquín Greenberg ED Midlevel Provider: Yola Hanna Discharge Problem: COVID-19, Elevated troponin, Generalized weakness, Gastroenteritis due to COVID-19 virus Discharge Instructions Interventions: ED Discharge Assessment Last Done: 04/09/24 21:27
[2024-04-09 16:03] LABS: Partial Thromboplastin Ratio 0.8; Partial Thromboplastin Time 21 Seconds (21-31); Prothrombin Time 10.9 Seconds (9.0-12.0)
--- NOTE | 2024-04-09 16:15 | XRay Report ---
XR chest 1V not portable CLINICAL HISTORY: Chest pain, nonspecific TECHNIQUE: Single frontal radiograph of the chest was obtained. Comparison: Comparison is made to chest radiograph 04/08/2023 FINDINGS: An implanted pacemaker is seen. Calcified aortic knob is seen. The lungs are clear. No evidence of pl eural effusion or pneumothorax. IMPRESSION: No acute chest disease. ACT 112: Negative or not required by law. Electronically signed by: Damian Lobo M.D. 04/09/2024 4:09 PM
[2024-04-09 16:23] LABS: Troponin I High Sensitivity 132.6 pg/ml (0-14)
[2024-04-09] MEDS: SODIUM CHLORIDE 0.9% 1,000 ML IV SCH (16:23)
[2024-04-09] MEDS: ONDANSETRON INJ 2 MG/ML 2 ML VIAL IV STA (16:23)
[2024-04-09 16:36] LABS: Phosphorus 3.2 mg/dl (2.5-4.9)
[2024-04-09 17:14] LABS: Folate (Folic Acid),Ser orPlas 15.83 ng/ml (>5.38)
[2024-04-09 17:17] LABS: Adenovirus PCR Not Detected (NotDetected); Bordetella parapertussis PCR Not Detected (NotDetected); Bordetella pertussis PCR Not Detected (NotDetected); Chlamydia pneumoniae PCR Not Detected (NotDetected); Coronavirus 229E PCR Not Detected (NotDetected); Coronavirus CoV-2 (COVID19)PCR DETECTED (NotDetected); Coronavirus HKU1 PCR Not Detected (NotDetected); Coronavirus NL63 PCR Not Detected (NotDetected); Coronavirus OC43PCR Not Detected (NotDetected); Human Metapneumovirus PCR Not Detected (NotDetected); Influenza A PCR Not Detected (NotDetected); Influenza B PCR Not Detected (NotDetected); Mycoplasma pneumoniae PCR Not Detected (NotDetected); Parainfluenza Virus 1 PCR Not Detected (NotDetected); Parainfluenza Virus 2 PCR Not Detected (NotDetected); Parainfluenza Virus 3 PCR Not Detected (NotDetected); Parainfluenza Virus 4 PCR Not Detected (NotDetected); Respiratory Syncytial VirusPCR Not Detected (NotDetected); Rhinovirus/Enterovirus PCR Not Detected (NotDetected)
--- NOTE | 2024-04-09 19:45 | History & Physical Report ---
Date of Service April 09, 2024 Assessment & Plan (1) COVID-19: Plan: - mild symptoms; on room air - contact precautions - Stool PCR pending to r/u concernment GI virus - s/p 500mL NSS in ED; hold on further fluid given history of HFpEF - continue to monitor for symptoms (2) Anemia: Plan: - hemoglobin 8.2-> 7.2 - no signs of acute bleedings, BUN is elevated-> heme occult pending - type and screen ordered and blood consent is on chart - currently hemodynamically stable - plan to trend q6H H/H - 40mg IV pantoprazole BID - NPO (3) Generalized weakness: Plan: - in the setting of COVID infection, anemia - PT/OT ordered (4) Elevated troponin: Plan: - Troponin 132.6->152.5; trend to peak - EKG is without ischemic changes - likely demand ischemia in the setting of acute infection - repeat TTE pending - monitor on telemetry - holding aspirin given GI bleed (5) Rheumatoid arthritis: Plan: - hold hydroxychloroquine while NPO (6) Hyperlipidemia: Plan: - hold statin while NPO (7) Hypertension: Plan: - holding amlodipine, Entresto, metoprolol -> blood pressure is stable 110s/60s but concern for hypotensive given ?GI bleed Plan Diet: NPO Code: Full VTE Prophylaxis: SCD; hold chemical given anemia Dispo: Tele History of Present Illness Primary Care Provider: Georgia Rosenthal PA-C 79 year old female with a past medical history of RA, HFpEF, GERD, HLD, HTN presenting with weakness, dizziness, nausea/vomiting, diarrhea. Son is present with her. Symptoms started 5 days ago. Notes some rhinorrhea, but otherwise denies URI symptoms- cough, congestion. Denies fever/chills, chest/pleuritic pain. Denies dark/bloody stools, hematemesis. At present denies any acute c omplaints. ED Course Significant for: Hgb= 8.2, Troponin 132.6-> 152.2. EKG with RBBB, no acute ischemic changes when compared to prior. +COVID. CXR without acute pathology. Allergies Allergy/AdvReac Type Severity Reaction Status Date / Time Sulfa (Sulfonamide Allergy Intermediate Rash Verified 04/08/23 21:04 Antibiotics) trimethoprim Allergy Intermediate Rash Verified 04/08/23 21:04 vancomycin Allergy Intermediate Rash, Verified 04/08/23 21:04 shortness of breath Cephalosporins AdvReac Mild Vomiting Verified 04/08/23 21:04 Home Medications Medication Instructions Recorded Confirmed Type aspirin 81 mg tablet,delayed 81 mg PO QAM 05/09/20 04/09/24 History release (Niya Low Dose Aspirin) calcium carbonate (Calcium 600) 600 mg PO QAM 05/09/20 04/09/24 History hydroxychloroquine 200 mg tablet 200 mg PO BID 05/09/20 04/09/24 History simvastatin 20 mg tablet 20 mg PO HS 04/08/23 04/09/24 History acetaminophen 500 mg tablet 1,000 mg (2 x 500 mg) PO TID Pain 04/13/23 04/09/24 Rx #90 tabs metoprolol succinate 25 mg 25 mg PO QAM 04/25/23 04/09/24 History tablet,extended release 24 hr amlodipine 2.5 mg tablet 2.5 mg PO DAILY 04/09/24 04/09/24 History duloxetine 30 mg capsule,delayed 30 mg PO DAILY 04/09/24 04/09/24 History release sacubitril 49 mg-valsartan 51 mg 1 tab PO BID 04/09/24 04/09/24 History tablet (Entresto) Past Med/Surg History Problem List (Updated 04/09/24 @ 22:34 by Joaquín Greenberg MD) Gastroenteritis due to COVID-19 virus (Acute) Anemia Generalized weakness (Acute) Elevated troponin (Acute) COVID-19 (Acute) Intertrochanteric fracture of left hip Acute hypokalemia (Acute) Fall from standing (Acute) Closed left femoral fracture (Acute) Thoracic compression fracture Acute back pain Acute non-ST elevation myocardial infarction (NSTEMI) (Acute) Status post placement of cardiac pacemaker AV block, Mobitz II DVT prophylaxis Pancytopenia Sinus pause Rheumatoid arteritis Arrhythmia (Acute) Acute kidney injury (Acute) Episodic lightheadedness (Acute) Seizure Lyme disease Chronic heart failure with preserved ejection fraction (HFpEF) Nonocclusive coronary atherosclerosis of [place] coronary artery 60% LAD lesion at 2009 cath Headache Concussion Post-traumatic seizures Hyponatremia (Acute) Syncope (Acute) GERD (gastroesophageal reflux disease) Osteoporosis Edema Hyperlipidemia (Chronic) Hypertension (Chronic) Rheumatoid arthritis (Chronic) Pneumonia due to 2019 novel coronavirus (Acute 04/2020) Hypoxia (Acute) Elevated troponin (Acute) Prolonged Q-T interval on ECG (Acute) Fall (Acute) Medical History No pertinent family history Headache Fracture of femoral neck, right Endometriosis Surgical History No pertinent past surgical history Social History Smoking Status: Former smoker Tobacco Type: Cigarettes Second Hand Exposure: No; Do You Dip or Chew Tobacco: No; Hx Alcohol Use: No Hx Substance Use: No Preferred Language: Frisian Communication Ability: Effective Rf Test Technician Required: No Beliefs That Will Affect Care: None marital status: / Current Living Situation: Family Current Living Situation Comment: Lives with son and grandchildren How many Children do You have: 1 Feels Safe at Home: Yes Safety Concerns: Feels Safe At This Time Assistive Devices: Cane Review of Systems Review of Systems: As per above Physical Exam Physical Exam: Constitutional: well-appearing, no acute distress HEENT: NCAT, no conjunctival injection CV: regular rhythm, no murmur appreciated, extremities well-perfused, no LE edema Resp: CTABL, no wheezes/rales/rhonchi appreciated, no increased work of breathing GI: soft, nondistended, nontender, BS normoactive MSK: no gross deformities appreciated Skin: warm, dry, no rash appreciated Neuro: alert, oriented, no focal neurologic deficit appreciated Results & Data Results & Data Vital Signs (Past 12 Hours) Vital Signs Temp Pulse Pulse Resp BP BP Pulse Ox 04/09/24 19:00 83 18 139/66 98 04/09/24 17:25 97 04/09/24 17:24 81 18 143/66 H 92 04/09/24 16:06 78 04/09/24 14:29 36.3 C L 101 H 20 136/66 98 O2 Del Method 04/09/24 19:00 Room Air 04/09/24 17:25 Room Air 04/09/24 17:24 Room Air 04/09/24 16:06 04/09/24 14:29 Room Air Supervising Physician Co-Signing Physician Notes Attending addendum: I have physically seen this patient, have supervised the medical residents activities, and agree with the H&P unless as otherwise noted. Assessment and Plan: The patient is an 79-year-old female with past medical history including rheumatoid arthritis, HFpEF, GERD, hyperlipidemia, hypertension who presents to the emergency department with generalized weakness, nausea, vomiting, diarrhea that began about 5 days ago, with history reinforced by her son, who is present in the room with her. COVID-19 infection- Patient presenting with symptoms of generalized weakness, diarrhea, vomiting, decreased oral intake. Room air oxygenation upper 90s on room air Progressive anemia- Hemoglobin has been 10.2 on 04/26/2023, then decreased to 9.2 on 05/17, then decreased to 8.2 on 04/09/2024, and presently is 7.2 Hemoccult stools Type and screen H&H every 6 hours x 4 Pantoprazole 40 mg IV twice daily N.p.o., including aspirin Consult gastroenterology Transfuse for hemoglobin less than 7 Generalized weakness- Likely combination of COVID infection, progressive anemia of unclear etiology May be a component rheumatoid arthritis as well RA- Temporarily hold hydroxychloroquine while n.p.o. Hypertension/elevated troponin- Hold amlodipine, Entresto and metoprolol in the setting of declining hemoglobin and low blood pressure Initial troponin 132.6, follow-up 152.5, without acute ST-T changes Likely still function of supply demand Resident Activity Tracking Resident Involvement: Resident Care Provided Care Provided: Adult Hospital Medicine
[2024-04-09 19:58] LABS: Hematocrit (blood only) 22.2 % (37.0-47.0); Hemoglobin 7.2 g/dl (12.0-16.0)
--- OUTSIDE RECORDS SUMMARY | 2024-04-09 22:00 | External Medical Summary | Continuity of Care Document ---
Author Name Unknown Organization [facility] [address] Address [address] [place] [address] ANSELMO OLIVER [id number] Care Team Providers Care Instructional Design Consultant Name Role Phone Georgia Rosenthal Primary Care Physician [phone] [id number] Date(s): 11/25/23 - 11/25/23 [facility] [address] [facility] [place] [facility] [address], [address] AN[place] Stuart [address] [phone] Discharge Disposition: Home or Self Care Attending Physician: DO Cunha Jason D Allergies, Adverse Reactions, Alerts Substance Criticality Severity Reaction Reaction Severity Status vancomycin Shortness of br eath Rash Active Keflex rash Active Bactrim rash [...] aspirin 81 mg oral tablet Start: 02/03/15 11:37:00 AM EST, 1 tab, PO, Daily Start Date: 02/03/15 Status: Ordered calcium (as calcium citrate) 250 mg oral tablet Start: 09/29/17 1:16:00 PM EDT, See Instructions, 1200 mg a day Start Date: 09/29/17 Status: Ordered DULoxetine 30 mg oral delayed release capsule Start: 04/21/23 11:02:00 AM EST, 1 cap, PO, Daily, Disp# 30 cap, Refills: 5, Pharmacy: [facility] Start Date: 04/21/23 Stop Date: 10/18/23 Status: Ordered furosemide 20 mg oral tablet Start: 04/21/23 11:13:00 AM EST, 1 tab, PO, Daily, Disp# 90 tab, Refills: 3, PRN edema or shortness of breath, other Start Date: 04/21/23 Stop Date: 04/15/24 Status: Ordered hydroxychloroquine 200 mg oral tablet Start: 04/21/23 11:12:00 AM EST, 1 tab, PO, bid, Disp# 180 tab, Refills: 3, with food or milk, Pharmacy: [facility] Start Date: 04/21/23 Stop Date: 04/15/24 Status: Ordered metoprolol succinate 25 mg oral tablet, extended release Start: 04/21/23 11:13:00 AM EST, 1 tab, PO, Daily Start Date: 04/21/23 Status: Ordered ondansetron 4 mg oral tablet, disintegrating Start: 04/24/23 5:00:00 PM EST, 1 tab, PO, q8h, Disp# 30 tab, PRN: as needed for nausea/vomiting, Pharmacy: [facility] Start Date: 04/24/23 Stop Date: 05/04/23 Status: Ordered Prilosec OTC Start: 01/11/08 4:03:14 PM EDT, 40 mg =, PO, Daily, Refills: 0, PRN: acid reflux, current medication from another provider Start Date: 01/11/08 Status: Ordered Prolia Start: 07/03/15 1:41:00 PM EDT, 60 mg =, subQ, [id number], q 6 month Start Date: 07/03/15 Status: Ordered simvastatin 20 mg oral tablet Start: 12/13/22 4:47:00 PM EDT, 1 tab, PO, qhs, Disp# 90 tab, Refills: 3, Pharmacy: [facility] Start Date: 12/13/22 Status: Ordered Tylenol 500 mg oral tablet Start: 10/16/12 2:30:00 PM EDT, 1 tab, PO, q6h, PRN: as needed for pain Start Date: 10/16/12 Status: Ordered Vitamin D3 5000 intl units oral capsule Start: 10/16/12 2:30:00 PM EDT, 1 cap, PO, Daily Start Date: 10/16/12 Status: Ordered Problem List Condition Confirmation Course Effective Dates Status H ealth Status Informant Acute mid back pain Confirmed Active Arthritis mutilans affecting hand Confirmed Active Pacemaker Confirmed Active Chronic diastolic heart failure Confirmed Active Fx femoral neck Confirmed Active Lumbar compression fracture Confirmed Active Thoracic compression fracture Confirmed Active Coronary arteriosclerosis in [place] artery Confirmed Active Coronary artery fistula Confirmed Active GERD (gastroesophageal reflux disease) Confirmed Active Osteoarthritis of knee Confirmed Active Osteoporosis Confirmed Active 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 Rheumatoid arthritis Confirmed Active RBBB Confirmed Active Syncope Confirmed Active Procedures Procedure Date Related Diagnosis Body Site Status Fixation of hip 1 04/26/23 Complet ed Amputation of toe Complet ed Bunionectomy Completed Cataract extraction and inse rtion of intraocular lens Completed echo 08/2011 Completed Hysterectomy Completed [address] [place] [address] Left Hip Social History Social History Type Response Smoking Status Former Smoker, quit > 1 yr Sex Female Sex Representation Female (finding) Patient Care team information Care Team Personnel Name: BARB Rosenthal, Georgia Hoyos Position: Physician Asst [place] - Family Med Member Role: Primary Care Provider Address: [address] [place] [address] Care Team Related Persons Name: REMEDIOS PATEL
--- OUTSIDE RECORDS SUMMARY | 2024-04-09 22:00 | External Medical Summary | Continuity of Care Document ---
Author Name Unknown Organization [facility] Address [address] [place], [place] [id number] Care Team Providers Care Manager Advanced Name Role Phone HayleejeysonGeorgia ledesma Primary Care Physician [phone] Encounter [facility] MARY ALICER [id number] Date(s): 01/15/24 - 01/15/24 [facility] [address] [place] [address] [phone] Encounter Diagnosis CAD in [place] artery(Discharge Diagnosis) - 01/15/24 Pacemaker(Discharge Diagnosis) - 01/15/24 RBBB(Discharge Diagnosis) - 01/15/24 Fistula, coronary artery(Discharge Diagnosis) - 01/15/24 Chronic diastolic heart failure(Discharge Diagnosis) - 01/15/24 Discharge Disposition: Home or Self Care Attending Physician: DO Cunha Jason D Allergies, Adverse Reactions, Alerts Substance Criticality Severity Reaction Reaction Severity Status vancomycin Shortness of br eath Rash Active Keflex rash Active Bactrim rash Active Assessment and Plan Extracted from: Title:Cardiology Office Visit Note Author:DO Cunha Jason D Date:01/15/24 1.CAD in [place] artery 2.Chronic diastolic heart failure 3.Fistula, coronary artery 4.Pacemaker 5.RBBB The question is with regards to her shortness of breath. Could this be an anginal equivalent with her known LAD disease or could this be related to diastolic dysfunction given her known type II diastolic dysfunction with elevated left atrial pressures. We also discussed how aggressive she would want to be with her care and for now she would prefer medicine over stress testing or cardiac catheterization. She did note though that if she felt worse or did not have any improvement she might consider testing. We discussed trying Entresto low-dose twice a day to lower her left atrial pressures and improve her diastolic function and see if this helps her dyspnea. She will have blood work done in 2 weeks and based on that she will return in 3 weeks to see Savanah. If she is feeling better and there is room to uptitrate her Entresto we will continue with that. If she does not notice any improvement as we cannot give her more amlodipine given her chronic lower extremity edema we could consider long-acting nitrates and see if that improves her symptoms. She will also have a BMP, BNP and a magnesium level checked with her next labs. Her pacemaker is functioning normally she has had short nonsustained ventricular arrhythmias and atrial tachycardias. She is only pacing the atria about a third of the time and almost never paces in the ventricle. She was pressure to start follow-up as above. Immunizations Given and Recorded Vaccine Date Status Refusal Reason influenza virus vaccine, inactivated 01/15/24 Give n influenza virus vaccine, inactivated 12/27/22 Give n influenza virus vaccine, inactivated 02/10/20 Give n influenza virus vaccine, inactivated 01/09/08 Give n pneumococcal 13-valent vaccine 1 06/30/20 Recorded pneumococcal 23-valent vaccine 2 03/24/09 Recorded 1Result Comment: 2022-06-27: Historical information-source unspecified 2Result Comment: 2022-06-27: Historical information-source unspecified Medications amLODIPine 2.5 mg oral tablet Start: 12/12/23 3:39:00 PM EDT, 1 tab, PO, Daily Start Date: 12/12/23 Status: Ordered aspirin 81 mg oral tablet Start: 02/03/15 11:37:00 AM EST, 1 tab, PO, Daily Start Date: 02/03/15 Status: Ordered calcium (as calcium citrate) 250 mg oral tablet Start: 09/29/17 1:16:00 PM EDT, See Instructions, 1200 mg a day Start Date: 09/29/17 Status: Ordered DULoxetine 30 mg oral delayed release capsule Start: 01/15/24 3:26:00 PM EDT, 1 cap, PO, Daily, Disp# 90 cap, Refills: 3, Pharmacy: [facility] Start Date: 01/15/24 Status: Ordered Entresto 24 mg-26 mg oral tablet Start: 01/15/24 3:18:00 PM EDT, 1 tab, PO, bid, Disp# 180 tab, Refills: 3, Pharmacy: [facility] Start Date: 01/15/24 Status: Ordered furosemide 20 mg oral tablet Start: 04/21/23 11:13:00 AM EST, 1 tab, PO, Daily, Disp# 90 tab, Refills: 3, PRN edema or shortness of breath, other Start Date: 04/21/23 Stop Date: 04/15/24 Status: Ordered hydroxychloroquine 200 mg oral tablet Start: 04/21/23 11:12:00 AM EST, 1 tab, PO, bid, Disp# 180 tab, Refills: 3, with food or milk, Pharmacy: [facility] Start Date: 04/21/23 Stop Date: 04/15/24 Status: Ordered metoprolol succinate 25 mg oral tablet, extended release Start: 01/15/24 3:08:00 PM EDT, 1 tab, PO, Daily, Disp# 90 tab, Refills: 3, Pharmacy: [facility] Start Date: 01/15/24 Status: Ordered ondansetron 4 mg oral tablet, disintegrating Start: 04/24/23 5:00:00 PM EST, 1 tab, PO, q8h, Disp# 30 tab, PRN: as needed for nausea/vomiting, Pharmacy: [facility] Start Date: 04/24/23 Stop Date: 05/04/23 Status: Ordered Prilosec OTC Start: 01/11/08 4:03:14 PM EDT, 40 mg =, PO, Daily, Refills: 0, PRN: acid reflux, current medication from another provider Start Date: 01/11/08 Status: Ordered Prolia Start: 07/03/15 1:41:00 PM EDT, 60 mg =, subQ, [id number], q 6 month Start Date: 07/03/15 Status: Ordered simvastatin 20 mg oral tablet Start: 12/13/22 4:47:00 PM EDT, 1 tab, PO, qhs, Disp# 90 tab, Refills: 3, Pharmacy: [facility] Start Date: 12/13/22 Status: Ordered Tylenol 500 mg oral tablet Start: 10/16/12 2:30:00 PM EDT, 1 tab, PO, q6h, PRN: as needed for pain Start Date: 10/16/12 Status: Ordered Mental Status 01/15/24 Barriers to Learning one year None evide nt Mandatory Health Literacy Documentation Yes Health Literacy Communication Barriers N ever Primary Language Mongolian Problem List Condition Confirmation Course Effective Dates Status H ealth Status Informant Arthritis mutilans affecting hand Confirmed Active Pacemaker Confirmed Active Chronic diastolic heart failure Confirmed Active Fx femoral neck Confirmed Active Lumbar compression fracture Confirmed Active Thoracic compression fracture Confirmed Active Coronary arteriosclerosis in [place] artery Confirmed Active Coronary artery fistula Confirmed Active GERD (gastroesophageal reflux disease) Confirmed Active Osteoarthritis of knee Confirmed Active Osteoporosis Confirmed Active 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 Rheumatoid arthritis Confirmed Active RBBB Confirmed Active Syncope Confirmed Active Diagnosis Diagnosis Type Effective Dates Health Status Cl inical Service Informant Pacemaker Discharge Diagnosis 01/15/24 CAD in [place] artery Discharge Diagnosis 01/15/24 Fistula, coronary artery Discharge Diagnosis 01/15/24 Chronic diastolic heart failure Discharge Diagnosis 01/15/24 RBBB Discharge Diagnosis 01/15/24 Procedures Procedure Date Related Diagnosis Body Site Status Fixation of hip 1 04/26/23 Complet ed Amputation of toe Complet ed Bunionectomy Completed Cataract extraction and inse rtion of intraocular lens Completed echo 08/2011 Completed Hysterectomy Completed [address] [place] [address] Left Hip Vital Signs Most recent to oldest [Reference Range]: 1 Patient Weight 44.9 kg (01/15/24 2:56 PM) Heart Rate 87 bpm (01/15/24 2:56 PM) Respiratory Rate 18 br/min (01/15/24 2:56 PM) Blood Pressure 136/68mmHg (01/15/24 2:56 PM) BP Location # 1 Right Arm (01/15/24 2:56 PM) Social History Social History Type Response Smoking Status Former Smoker, quit > 1 yr Sex Female Sex Representation Female (finding) Cardiology Outpatient Note * DO Cunha Jason D: PERFORM Event Display: Cardiology Outpt Note Authored Date: [id number] Primary Care Provider BARB Rosenthal Jessica A Chief Complaint Follow up denies chest pain/ tightness, flutters, heart racing, palpitations, shortness of breath, dizziness, or lightheadedness, no edema, no resent ER visits, no unusual bleeding History of Present Illness She denies any chest pain or chest pressure. She notes shortness of breath if she has to walk a distance. I asked her to go between getting the numbers in the last 6 months. She notes it may beslightly more progressive. She is walking with a cane when he and notes that she has knee pain when she walks as well. She feels better walking on the cart in the grocery store. She has had no falls or syncopal episodes. She denies any palpitations or fluttering. She has some lower extremity edema which is chronic related to her prior orthopedic surgery. She is using her diuretics Daily for her lower extremity edema. Review of Systems PAST MEDICAL HISTORY: 1. A 60% mid LAD lesion. 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 3. Normal Qp/Qs suggesting no evidence of significant left to right shunting. 4. Normal pulmonary artery pressures and normal pulmonary capillary wedge pressures (10/2012 at [facility] in the scanned outside procedure note from 10/20/2012) which were significantly different than [facility] which revealed pulmonary hypertension and severe elevation of her wedge pressures. 5. Echocardiogram03/2022 with normal LV function, EF in the range of 60% with type 2 diastolic dysfunction and elevated left atrial pressures and top normal pulmonary artery pressures 6. Longstanding rheumatoid arthritis. 7. Polyclonal gammopathy [...] Radha XT MRI compatible pacemaker December 2020. Physical Exam Vitals & Measurements HR:87(Monitored) RR:18 BP:136/68 SpO2:98% WT:44.9kg WT:44.900kg(Dosing) PHYSICAL EXAMINATION: She is awake, alert, oriented [...] orgallops. Extremities: No clubbing,. mild to moderate edema R>L. Musculoskeletal: She hassignificant deformities related to rheumatoid arthritis affecting her hands and knees. Diagnostic Results Echo TransTHORacic TTE Complete Report Signatures Finalized by Dr. Rafal Cunha MD on 04/14/2022 03:46 PM Summary 1. Small left ventricular size with normal systolic function and no regional wall motion abnormalities. 2. Ejection fraction as calculated by Biplane Simpsons method is 60%. 3. Mild concentric left ventricular hypertrophy with basal asymmetric septal hypertrophy of the elderly. 4. Evidence for elevated left ventricular end-diastolic pressure. Grade II diastolic dysfunction of the left ventricle (pseudonormal filling pattern). 5. Mildly dilated right ventricle with normal systolic function. 6. Mild biatrial dilation. 7. 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 8. Mild mitral valve regurgitation. 9. Mild to moderate tricuspid valve regurgitation. 10. Normal estimated pulmonary artery systolic pressures. 11. Sinus rhythm with rare PVCs and frequent PACs. 12. Compared to the previous study performed 02/24/2020, there is nosignificant change. Assessment/Plan 1.CAD in [place] artery 2.Chronic diastolic heart failure 3.Fistula, coronary artery 4.Pacemaker 5.RBBB The question is with regards to her shortness of breath. Could this be an anginal equivalent withher known LAD disease or could this be related to diastolic dysfunction given her known type II diastolic dysfunction with elevated left atrial pressures. We also discussed how aggressive she would want to be with her care and for now she would prefer medicine over stress testing or cardiac catheterization. She did note though that if she felt worse or did not have any improvement she might consider testing. We discussed trying Entresto low-dose twice a day to lower her left atrial pressures and improve her diastolic function and see if this helps her dyspnea. She will have blood work done in 2 weeks and based on that she will return in 3 weeks to see Savanah. If she is feeling better and there is room to uptitrate her Entresto we will continue with that. If she does not notice any improvement as we cannot give her more amlodipine given her chronic lower extremity edema we could consider long-acting nitrates and see if that improves her symptoms. She will also have a BMP, BNP and a magnesium level checked with her next labs. Her pacemaker is functioning normally she has had short nonsustained ventricular arrhythmias and atrial tachycardias. She is only pacing the atria about a third of the time and almost never paces in the ventricle. She was pressure to start follow-up as above. Problem List/Past Medical History Ongoing Arthritis mutilans affecting hand Chronic diastolic heart failure Coronary arteriosclerosis in [place] artery Coronary artery fistula Fx femoral neck GERD (gastroesophageal reflux disease) Lumbar compression fracture Osteoarthritis of knee Osteoporosis Pacemaker Peripheral arterial occlusive disease Polyclonal gammopathy RBBB Rheumatoid arthritis Syncope Thoracic compression fracture Procedure/Surgical History Fixation of hip| Service Date: 4Cataract extraction and insertion of intraocular lensBunionectomyAmputation of toeHysterectomyecho 08/2011 Medications acetaminophen(Tylenol 500 mg oral tablet), 1 tab, PO, q6h, PRN amLODIPine(amLODIPine 2.5 mg oral tablet), 2.5 mg= 1 tab, PO, Daily aspirin(aspirin 81 mg oral tablet), 81 mg= 1 tab, PO, Daily calcium citrate(calcium (as calcium citrate) 250 mg oral tablet), See Instructions cholecalciferol(Vitamin D3 5000 intl units oral capsule), 5000 Int_Unit= 1 cap, PO, Daily denosumab(Prolia), 60 mg, subQ, [id number] DULoxetine(DULoxetine 30 mg oral delayed release capsule), 30 mg= 1 cap, PO, Daily, 5 refills furosemide(furosemide 20 mg oral tablet), 20 mg= 1 tab, PO, Daily, 3 refills hydroxychloroquine(hydroxychloroquine 200 mg oral tablet), 200 mg= 1 tab, PO, bid, 3 refills metoprolol(metoprolol succinate 25 mg oral tablet, extended release), 25 mg= 1 tab, PO, Daily omeprazole(Prilosec OTC), 40 mg, PO, Daily, PRN ondansetron(ondansetron 4 mg oral tablet, disintegrating), 4 mg= 1 tab, PO, q8h, PRN simvastatin(simvastatin 20 mg oral tablet), 20 mg= 1 tab, PO, qhs, 3 refills Allergies Bactrimrash Keflexrash vancomycinShortness of breath, Rash Social History Smoking Status Never smoked cigarettes Family History Coronary artery disease: Brother. Pacemaker: Brother. 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
--- OUTSIDE RECORDS SUMMARY | 2024-04-09 22:00 | External Medical Summary | Continuity of Care Document ---
Author Name Unknown Organization [facility] [address] Address [address] [place], [place] [id number] Care Team Providers Care Billet Heater Name Role Phone GauravGeorgia knight Primary Care Physician [phone] [facility] [id number] Date(s): 03/22/24 - 03/22/24 [facility] [address] [facility] [address] [facility] [address] [place], [place] [phone] Encounter Diagnosis Unspecified diastolic (congestive) heart failure(Final) - Discharge Disposition: Home or Self Care Attending Physician: JIE Marin Sarah A Referring Physician: JIE Marin Sarah A Allergies, Adverse Reactions, Alerts Substance Criticality Severity [...] Daily, Disp# 90 cap, Refills: 3, Pharmacy: [facility] Start Date: 01/15/24 Status: Ordered Entresto 49 mg-51 mg oral tablet Start: 02/06/24 3:10:00 PM EST, 1 tab, PO, bid, Disp# 180 tab, Refills: 3, Note to Pharmacy: d/c lower dose entresto. Start Date: 02/06/24 Status: Ordered Evenity Start: 02/05/24 8:20:00 AM EST Start Date: 02/05/24 Status: Ordered furosemide 20 mg oral tablet Start: 04/21/23 11:13:00 AM EST, 1 tab, PO, Daily, Disp# 90 tab, Refills: 3, PRN edema or shortness of breath, other Start Date: 04/21/23 Stop Date: 04/15/24 Status: Ordered hydroxychloroquine 200 mg oral tablet Start: 04/21/23 11:12:00 AM EST, 1 tab, PO, bid, Disp# 180 tab, Refills: 3, with food or milk, Pharmacy: [facility] Start Date: 04/21/23 Stop Date: 04/15/24 Status: Ordered metoprolol succinate 25 mg oral tablet, extended release Start: 01/15/24 3:08:00 PM EDT, 1 tab, PO, Daily, Disp# 90 tab, Refills: 3, Pharmacy: [facility] Start Date: 01/15/24 Status: Ordered ondansetron 4 mg oral tablet, disintegrating Start: 04/24/23 5:00:00 PM EST, 1 tab, PO, q8h, Disp# 30 tab, PRN: as needed for nausea/vomiting, Pharmacy: [facility] Start Date: 04/24/23 Stop Date: 05/04/23 Status: Ordered Prilosec OTC Start: 01/11/08 4:03:14 PM EDT, 40 mg =, PO, Daily, Refills: 0, PRN: acid reflux, current medication from another provider Start Date: 01/11/08 Status: Ordered simvastatin 20 mg oral tablet Start: 01/26/24 8:55:00 AM EST, 1 tab, PO, qhs, Disp# 90 tab, Refills: 3, Pharmacy: [facility] Start Date: 01/26/24 Status: Ordered Tylenol 500 mg oral tablet Start: 10/16/12 2:30:00 PM EDT, 1 tab, PO, q6h, PRN: as needed for pain Start Date: 10/16/12 Status: Ordered Problem List Condition Confirmation Course Effective Dates Status H ealth Status Informant Arthritis mutilans affecting hand Confirmed Active Pacemaker Confirmed Active Chronic diastolic heart failure Confirmed Active Fx femoral neck Confirmed Active Lumbar compression fracture Confirmed Active Thoracic compression fracture Confirmed Active Coronary arteriosclerosis in [place] artery Confirmed Active Coronary artery fistula Confirmed [...] lens Completed echo 08/2011 Completed Hysterectomy Completed [address] [place] [address] Left Hip Results Laboratory List Name Date Basic Metabolic Panel (BASIC METAB PANEL ) 03/22/24 Most recent to oldest [Reference Range]: 1 eGFR CKD-EPI [>60 mL/min/1.73 m2] 89 mL/ min/1.73 m2 (03/22/24 2:38 PM) Estimated CrCl 42.74 mL/min (03/22/24 7:56 PM) Anion Gap [5-14 mmol/L] 11 mmol/L (03/22/24 2:38 PM) BUN [6-23 mg/dL] 13 mg/dL (03/22/24 2:38 PM) Ca [8.4-10.2 mg/dL] 9.3 mg/dL (03/22/24 2:38 PM) Cl- [98-107 mmol/L] 103 mmol/L (03/22/24 2:38 PM) HCO3 [22-29 mmol/L] 23 mmol/L (03/22/24 2:38 PM) Cret [0.60-1.00 mg/dL] 0.64 mg/dL (03/22/24 2:38 PM) Glu [74-109 mg/dL] 98 mg/dL 1 (03/22/24 2:38 PM) K [3.5-5.1 mmol/L] 4.3 mmol/L (03/22/24 2:38 PM) Na [136-145 mmol/L] 137 mmol/L (03/22/24 2:38 PM) 1Result Comment: ADA recommendation for FASTING Serum/Plasma Glucose: Normal: 70-100 mg/dL Prediabetes: 100-125 mg/dL Diabetes: 126 mg/dL or higher Social History Social History Type Response Smoking Status Former Smoker, quit > 1 yr Sex Female Sex Representation Female (finding) Patient Care team information Care Team Personnel Name: BARB Rosenthal, Georgia Hoyos Position: Physician Asst Exzakt - Family Med Member Role: Primary Care Provider Address: [address] [place] [id number] Care Team Related Persons Name: REMEDIOS PATEL
--- OUTSIDE RECORDS SUMMARY | 2024-04-09 22:00 | External Medical Summary | Continuity of Care Document ---
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 Osteoporosis(Discharge Diagnosis) - 12/14/23 Rheumatoid arthritis(Discharge Diagnosis) - 12/14/23 Discharge Disposition: Home or Self Care Attending Physician: BARB Rosenthal Jessica A Allergies, Adverse Reactions, Alerts Substance Criticality Severity Reaction Reaction Severity Status vancomycin Shortness of br eath Rash Active Keflex rash Active Bactrim rash Active Assessment and Plan Extracted from: Title:Office Visit Note Author:BARB Rosenthal Jessica A Date:12/12/23 1.Loss of balance Loss of balance and ambulatory dysfunction are chronic and balance has been slightly worse than she did suffer hip fracturerequiring surgery in April 2023. I did encourage her to continueusing an assistive device at all timeswhen ambulating to prevent falls. She does live alone, but carries her cell phone in her pocket. I did place a referral for in-home physical therapyto see if this may be helpful to improve balance and fall prevention. 2.Ambulatory dysfunction As above in #2. 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 She has been stable on hydroxychloroquine 200 mg, 1 tab p.o. twice daily, butwas lost to follow-up with rheumatology and she opts totry switching toa different provider. Referral placed for [facility] rheumatology. Updated labs ordered. 4.Osteoporosis Osteoporosis is chronicand with history of osteoporotic fracture. To continue Evenity injections once monthly and with care of orthopedics. 5.Rheumatoid arthritis As above in #3. Immunizations Given and Recorded Vaccine Date Status [...] Daily, Disp# 30 cap, Refills: 5, Pharmacy: [facility] Start Date: 04/21/23 Stop Date: 10/18/23 Status: [...] Refills: 3, with food or milk, Pharmacy: [facility] Start Date: 04/21/23 Stop Date: 04/15/24 Status: Ordered metoprolol succinate 25 mg oral tablet, extended release Start: 04/21/23 11:13:00 AM EST, 1 tab, PO, Daily Start Date: 04/21/23 Status: Ordered ondansetron 4 mg oral tablet, disintegrating Start: 04/24/23 5:00:00 PM EST, 1 tab, PO, q8h, Disp# 30 tab, PRN: as needed for nausea/vomiting, Pharmacy: [facility] Start Date: 04/24/23 Stop Date: 05/04/23 Status: Ordered Prilosec OTC Start: 01/11/08 4:03:14 PM EDT, 40 mg =, PO, Daily, Refills: 0, PRN: acid reflux, current medication from another provider Start Date: 01/11/08 Status: Ordered Prolia Start: 07/03/15 1:41:00 PM EDT, 60 mg =, subQ, [id number], q 6 month Start Date: 07/03/15 Status: Ordered simvastatin 20 mg oral tablet Start: 12/13/22 4:47:00 PM EDT, 1 tab, PO, qhs, Disp# 90 tab, Refills: 3, Pharmacy: [facility] Start Date: 12/13/22 Status: Ordered Tylenol 500 mg oral tablet Start: 10/16/12 2:30:00 PM EDT, 1 tab, PO, q6h, PRN: as needed for pain Start Date: 10/16/12 Status: Ordered Vitamin D3 5000 intl units oral capsule Start: 10/16/12 2:30:00 PM EDT, 1 cap, PO, Daily Start Date: 10/16/12 Status: Ordered Mental Status 12/12/23 Barriers to Learning one year None evide nt Mandatory Health Literacy Documentation Yes Health Literacy Communication Barriers N ever Primary Language Norwegian Problem List Condition Confirmation Course Effective Dates Status H ealth Status Informant Arthritis mutilans affecting hand Confirmed Active Pacemaker Confirmed Active Chronic diastolic heart failure Confirmed Active Fx femoral neck Confirmed Active Lumbar compression fracture Confirmed Active Thoracic compression fracture Confirmed Active Coronary arteriosclerosis in [place] artery Confirmed Active Coronary artery fistula Confirmed Active GERD (gastroesophageal reflux disease) Confirmed Active Osteoarthritis of knee Confirmed Active Osteoporosis Confirmed Active 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 Rheumatoid arthritis Confirmed Active RBBB Confirmed Active Syncope Confirmed Active Diagnosis Diagnosis Type Effective Dates Health Status Clinical Service Informant Arthritis mutilans affecting hand Discharge Diagnosis 12/12/23 Non-Specified Loss of balance Discharge Diagnosis 12/12/23 Non-Specified Ambulatory dysfunction Discharge Diagnosis 12/12/23 Non-Specified Osteoporosis Discharge Diagnosis 12/14/23 Non-Specified Rheumatoid arthritis Discharge Diagnosis 12/14/23 Non-Specified Procedures Procedure Date Related Diagnosis Body Site Status Fixation of hip 1 04/26/23 Complet ed Amputation of toe Complet ed Bunionectomy Completed Cataract extraction and inse rtion of intraocular lens Completed echo 08/2011 Completed Hysterectomy Completed [address] [place] [address] Left Hip Vital Signs Most recent to oldest [Reference Range]: 1 Patient Weight 44.9 kg (12/12/23 3:36 PM) Temperature [36.5-37.9 DegC] 36.8 DegC (12/12/23 3:36 PM) Heart Rate 84 bpm (12/12/23 3:36 PM) Respiratory Rate 20 br/min (12/12/23 3:36 PM) Blood Pressure 154/72mmHg (12/12/23 3:36 PM) Cuff Pulse Pressure 82 mmHg (12/12/23 3:36 PM) BP Location # 1 Left Arm, Manual (12/12/23 3:36 PM) Social History Social History Type Response Smoking Status Never smoked cigaret tom Sex Female Sex Representation Female (finding) [facility] Outpt Note * BARB Rosenthal, Georgia Hoyos: PERFORM Event Display: [facility] Outpt Note Authored Date: [id number] Chief Complaint Follow-up for chronic back pain History of Present Illness Erikapresents for follow-up of rheumatoid arthritis with arthritis mutilans, osteoporosis,mid back pain secondary tothoracic and lumbar compression fractures andfollow-up after left hip fracture. In April 2023 she had [facility] of painin the left hip andsustained a fall. She was found to have left hip fracture, which required surgery. She notes that it was suspected that the hip may havefractured first, which caused her fall. [facility]. Admits she still experiencing pain and "I am still miserable." Feels as though the fracture is still healing, but cannot moveher left hip or leg the way she would like to some days. Chronically has had difficulty ambulating and finds thatshe still struggles with loss of balance and ambulatory dysfunction. Ambulates with a single-point cane. She does have a walker, but does notuse it. History of mid back pain secondary to thoracic and lumbar compression fractures have been stable."The back is still pretty good. I just have to watch how I move."Back pain most days is a 4/10. Remains onduloxetine 30 mg daily and will use Tylenol 1000 mg daily to twice daily that helps. For a short period she had been on calcitonin nasal spray as well, but this is since been discontinued. Also, notes she received a letter in the mail that she is due for colon cancer screening. Her last colonoscopy was about 10 years ago and wonders if she needs another one. No abdominal pain, melena, hematochezia, pallor or petechial rashes. Osteoporosis is chronic and with known history of fractures as mentioned above. [facility] now [facility] Evenityinjectionsmonthly and has been on them now for about 7 to 8 months. Believes she will have another DEXA scan [facility]. Rheumatoid arthritis is chronic. Had previously followed with [facility] rheumatology, but has not seen them in about 2 years because "they did not have a doctor there to care for me anymore." Remains on hydroxychloroquine. Has arthritis mutilans of both hands, but notes they actually do not bother her much. Review of Systems ROS:All other systems negative, except HPI. Physical Exam Vitals & Measurements T:36.8C HR:84(Monitored) RR:20 BP:154/72 SpO2:96% WT:44.9kg WT:44.900kg(Dosing) PHQ2 Data(Data Documented on:12/12/2023 15:36) Emotional health assessment NEGATIVE General: Alert and oriented, No acute distress.Pleasant elderly female, frail. Eye: Pupils are equal, round and reactive to light, Extraocular movements are intact, Normal conjunctiva. HENT: Normocephalic. Neck: Supple, No lymphadenopathy, No thyromegaly. No audible carotid bruit. Respiratory: Lungs are clear to auscultation, Respirations are non-labored, Breath sounds are equal, Symmetrical chest wall expansion. Cardiovascular: Normal rate, Normal rhythm, No murmur, No gallop, Good pulses equal in all extremities, Normal peripheral perfusion. No edema. Abdomen: Normoactive BS x 4. Soft. No tenderness, palpable masses or organomegaly. Lymphatics: No submandibular, anterior or posterior cervical adenopathy palpable. Musculoskeletal Ambulates w/ single point cane. + arthritis mutilans at hands bilaterally. + thoracic kyphosis w/tenderness over thoracic and lumbar spinous processes. Integumentary: Warm, [place], No pallor. Neurologic: Alert, Oriented, Cranial Nerves II-XII are grossly intact. Cognition and Speech: Oriented, Speech clear and coherent, Functional cognition intact. Psychiatric: Cooperative, Appropriate mood & affect, Normal judgment, Nonsuicidal Assessment/Plan 1.Loss of balance Loss of balance and ambulatory dysfunction are chronic and balance has been slightly worse than she did suffer hip fracturerequiring surgery in April 2023. I did encourage her to continueusing an assistive device at all timeswhen ambulating to prevent falls. She does live alone, but carries her cell phone in her pocket. I did place a referral for in-home physical therapyto see if this may be helpful to improve balance and fall prevention. 2.Ambulatory dysfunction As above in #2. 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 She has been stable on hydroxychloroquine 200 mg, 1 tab p.o. twice daily, butwas lost to follow-up with rheumatology and she opts totry switching toa different provider. Referral placed for [facility] rheumatology. Updated labs ordered. 4.Osteoporosis Osteoporosis is chronicand with history of osteoporotic fracture. To continue Evenity injections once monthly and with care of orthopedics. 5.Rheumatoid arthritis As above in #3. 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 Fx femoral neck [...] cap, PO, Daily denosumab(Prolia), 60 mg, subQ, [id number] DULoxetine(DULoxetine 30 mg oral delayed release capsule), [...] OverDue Body Mass Index due02/02/22and every 366day Adult Influenza Vaccine due09/21/23and every 1year Due Adult COVID-19 Vaccination due12/14/23Unknown Frequency Adult Social Determinants of Health Screening due12/14/23Unknown Frequency Adult Tdap/Td Vaccine due12/14/23Unknown Frequency Falls Plan of Care due12/14/23Unknown Frequency Hepatitis C Screening due12/14/23One-time only Medicare Annual Wellness Visit due12/14/23and every 1year Shingles Vaccine due12/14/23One-time only Satisfied(in the past 1 year) Satisfied Adult Influenza Vaccine on12/27/22.Satisfied by PAULIE Scott Andrew E Lipid Screening on12/27/22.Satisfied by [employer]system, [employer] Electronic Signature on File Electronically Reviewed/Signed by: Georgia Rosenthal PA-C,ELFEGO Author Signature Dt/Tm:407:59 AM Physician Reverse Unit Operator [facility] [address], [address] [place] [address] JAW Patient Care team information Care Team Personnel Name: BARB Rosenthal, Georgia Hoyos Position: Physician Asst Exmpt - Family Med Member Role: Primary Care Provider Address: [address] [place] [address] [address] [place] [address] [place] Care Team Related Persons Name: REMEDIOS PATEL
--- OUTSIDE RECORDS SUMMARY | 2024-04-09 22:00 | External Medical Summary | Continuity of Care Document ---
Author Name Unknown Organization [facility] [address] Address [address] [place], [place] [id number] Care Team Providers Care Business And Financial Counsel Name Role Phone GauravGeorgia knight Primary Care Physician [phone] Encounter [facility] [id number] Date(s): 03/22/24 - 03/22/24 [facility] [address] [facility] [address], [facility] [address] [place], [place] [phone] Encounter Diagnosis Unspecified diastolic (congestive) heart failure(Final) [...] Daily, Disp# 90 cap, Refills: 3, Pharmacy: [id number] Start Date: 01/15/24 Status: Ordered Entresto 49 [...] Refills: 3, with food or milk, Pharmacy: [id number] Start Date: 04/21/23 Stop Date: 04/15/24 Status: Ordered metoprolol succinate 25 mg oral tablet, extended release Start: 01/15/24 3:08:00 PM EDT, 1 tab, PO, Daily, Disp# 90 tab, Refills: 3, Pharmacy: [id number] Start Date: 01/15/24 Status: Ordered ondansetron 4 mg oral tablet, disintegrating Start: 04/24/23 5:00:00 PM EST, 1 tab, PO, q8h, Disp# 30 tab, PRN: as needed for nausea/vomiting, Pharmacy: [id number] Start Date: 04/24/23 Stop Date: 05/04/23 Status: Ordered Prilosec OTC Start: 01/11/08 4:03:14 PM EDT, 40 mg =, PO, Daily, Refills: 0, PRN: acid reflux, current medication from another provider Start Date: 01/11/08 Status: Ordered simvastatin 20 mg oral tablet Start: 01/26/24 8:55:00 AM EST, 1 tab, PO, qhs, Disp# 90 tab, Refills: 3, Pharmacy: [id number] Start Date: 01/26/24 Status: Ordered Tylenol 500 [...] compression fracture Confirmed Active 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
[2024-04-09] MEDS: PANTOprazole 40 MG/10 ML SYR IV SCH (23:18)
[2024-04-10 00:20] LABS: Hematocrit (blood only) 23.4 % (37.0-47.0); Hemoglobin 7.8 g/dl (12.0-16.0)
--- NOTE | 2024-04-10 03:30 | Billing Data ---
Date of Service April 10, 2024 Coding Level of Care Code 72705 INT INP/OBS CARE
[2024-04-10 06:54] LABS: Hematocrit (blood only) 22.5 % (37.0-47.0); Hemoglobin 7.3 g/dl (12.0-16.0)
[2024-04-10 07:25] LABS: Albumin Globulin Ratio 1.3 (0.9-2); Albumin Level 3.6 gm/dl (3.4-5.0); BUN Creatinine Ratio 48.2 (10-20); Bilirubin,Total 0.8 mg/dl (0.2-1.0); Calcium 8.6 mg/dl (8.6-10.3); Creatinine Clr Calc Pharmacy 48.2 ml/min; Globulin 2.8 gm/dl (2.5-4.0); Potassium 3.4 mmol/L (3.5-5.1); Total Protein 6.4 gm/dl (6.0-8.3)
[2024-04-10 07:45] LABS: Troponin I High Sensitivity 169.2 pg/ml (0-14)
--- NOTE | 2024-04-10 09:10 | XCELERA ---
[id number]
--- NOTE | 2024-04-10 11:27 | Hospitalist Progress Note ---
Date of Service April 10, 2024 Assessment & Plan (1) COVID-19: Plan: - mild symptoms; on room air - contact precautions - Stool PCR pending to r/u concernment GI virus - s/p 500mL NSS in ED; hold on further fluid given history of HFpEF - continue to monitor for symptoms (2) Anemia: Plan: - hemoglobin 8.2-> 7.2 - no signs of acute bleedings, BUN is elevated-> heme occult pending - type and screen ordered and blood consent is on chart - currently hemodynamically stable - plan to trend q6H H/H - 40mg IV pantoprazole BID - Patient started on diet, tolerating but with some nausea - Zofran 4mg ODT for persistent nausea (3) Generalized weakness: Plan: - in the setting of COVID infection, anemia - PT/OT ordered (4) Elevated troponin: Plan: - Troponin 132.6->152.5; trend to peak - EKG is without ischemic changes - likely demand ischemia in the setting of acute infection - repeat TTE pending - monitor on telemetry - holding aspirin given potential GI bleed (5) Rheumatoid arthritis: Plan: - hold hydroxychloroquine while NPO (6) Hyperlipidemia: Plan: - hold statin while NPO (7) Hypertension: Plan: - holding amlodipine, Entresto, metoprolol -> blood pressure is stable 110s/60s but concern for hypotensive given ?GI bleed Plan Diet: NPO Code: Full VTE Prophylaxis: SCD; hold chemical given anemia Dispo: Tele Admission and Anticipated Discharge Date Admission Date: April 09, 2024 Supervising Physician Co-Signing Physician Notes I personally examined the patient and verified all ro points of history and exam, discussed case, and agree with decision making with Dr Tanner Feeling weak, mildly nauseated. No other significant complaints. Vitals noted, in general she is awake and alert pleasant no distress but very fatigued. HEENT normocephalic atraumatic mucous membranes moist. Breathing unlabored no accessory muscle use good effort. Skin without rashes pallor or icterus. COVIDno significant respiratory symptoms, just very weak. Supportive care, PT/OT. Hopefully she will improve. If not may need rehab. Anemiano overt bleeding. She is somewhat nauseated, but without hematemesis/melena/hematochezia I doubt she has active GI bleeding, and I am more suspicious her nausea is just from the viral illness. I do wonder about viral mediated marrow suppression, but at the same time, she still does annual testing for colon cancer (am not sure if she does FIT testing/fecal occult blood/or exactly which, but she does actively surveilled for colon cancer)and given this, it makes sense for her to have a colonoscopy as an outpatient. otherwise as above Subjective Patient is seen resting comfortably at bedside. Report no SOB, cough, wheeze, chest pains, palpitations, abdominal pain, or vomiting. She does reports some ongoing nausea but has not felt any symptoms of fever, chills, congestion, or cough related to her COVID infection. Patient does not have any acute complaints or concerns today. Physical Exam Physical Exam: General: patient resting comfortably, NAD, non-toxic in appearance, answers questions appropriately. Skin: warm, dry, intact HEENT: NC/AT, anicteric sclera, conjunctiva without injection, moist mucus membranes. Heart: +S1/S2, regular, no m/r/g Lungs: equal air entry bilaterally, no rales/rhonchi/wheezes Abd: +BS, soft, NT/ND Ext: warm, no clubbing/cyanosis or edema Neuro: nonfocal, speech intact, no facial droop, moving all extremities. Results & Data Results & Data Vital Signs (Past 12 Hours) Vital Signs Temp Pulse Pulse Resp BP Pulse Ox O2 Del Method 04/10/24 08:00 Room Air 04/10/24 07:42 36.8 C 89 18 148/66 H 97 Room Air 04/10/24 07:00 77 04/10/24 03:16 36.9 C 90 18 130/45 L 96 Room Air Resident Activity Tracking Resident Involvement: Resident Care Provided Care Provided: Adult Hospital Medicine
[2024-04-10 12:37] LABS: Hemoglobin 7.8 g/dl (12.0-16.0)
[2024-04-10] MEDS: ACETAMINOPHEN 500 MG TAB PO PRN (16:21)
[2024-04-10] MEDS: ONDANSETRON 4 MG OD TAB PO PRN (16:21)
[2024-04-10] MEDS: DULoxetine HCL 30 MG CAP PO SCH (16:36)
[2024-04-10] MEDS: amLODIPine BESYLATE 5 MG TAB PO SCH (16:37)
--- NOTE | 2024-04-10 17:29 | Billing Data ---
Date of Service April 10, 2024 Coding Level of Care Code 54198 SUB INP/OBS CARE MIN
[2024-04-10 17:59] LABS: Hematocrit (blood only) 21.9 % (37.0-47.0); Hemoglobin 7.2 g/dl (12.0-16.0)
[2024-04-10 23:55] LABS: Hematocrit (blood only) 22.1 % (37.0-47.0); Hemoglobin 7.3 g/dl (12.0-16.0)
[2024-04-11 06:09] LABS: Hematocrit (blood only) 24.8 % (37.0-47.0); Hemoglobin 8.1 g/dl (12.0-16.0)
[2024-04-11 06:35] LABS: Albumin Globulin Ratio 1.2 (0.9-2); Albumin Level 3.4 gm/dl (3.4-5.0); BUN Creatinine Ratio 45.8 (10-20); Bilirubin,Total 0.7 mg/dl (0.2-1.0); Calcium 8.3 mg/dl (8.6-10.3); Creatinine Clr Calc Pharmacy 56.6 ml/min; Globulin 2.8 gm/dl (2.5-4.0); Total Protein 6.2 gm/dl (6.0-8.3)
[2024-04-11] MEDS: POTASSIUM CHLORIDE CRTAB 20 MEQ TABCR PO SCH (08:25)
[2024-04-11] MEDS: CALCIUM CARBONATE 1,250 MG/5 ML UDC PO SCH (08:29)
[2024-04-11] MEDS: METOPROLOL SUCC 25MG EXT REL TAB PO SCH ×2 (08:30→21:44)
--- NOTE | 2024-04-11 11:55 | Electrocardiogram Report ---
Test Reason : Blood Pressure : */* mmHG Vent. Rate : 73 BPM Atrial Rate : 73 BPM P-R Int : 142 ms QRS Dur : 126 ms QT Int : 434 ms P-R-T Axes : 37 39 -2 degrees QTcB Int : 478 ms Normal sinus rhythm Right bundle branch block T wave abnormality, consider inferior ischemia Abnormal ECG When compared with ECG of 25-Apr-2023 00:47, Criteria for Inferior infarct are no longer Present Nonspecific T wave abnormality has replaced inverted T waves in Lateral leads Confirmed by Lex Duggan ([id number]) on 04/11/2024 11:54:59 AM Referred By: REFERRED SELF Confirmed By: Lex Duggan
--- NOTE | 2024-04-11 14:37 | Hospitalist Progress Note ---
Date of Service April 11, 2024 Assessment & Plan (1) COVID-19: Plan: - mild symptoms; on room air - contact precautions - Stool PCR pending to r/u concernment GI virus - s/p 500mL NSS in ED; hold on further fluid given history of HFpEF - continue to monitor for symptoms (2) Anemia: Plan: - hemoglobin 8.2-> 7.2 - no signs of acute bleedings, BUN is elevated-> heme occult pending - type and screen ordered and blood consent is on chart - currently hemodynamically stable - plan to trend q6H H/H - 40mg IV pantoprazole BID - Patient started on diet, tolerating but with some nausea - Zofran 4mg ODT for persistent nausea - Continue to hold aspirin in context of potential GI bleed (3) Generalized weakness: Plan: - in the setting of COVID infection, anemia - PT/OT ordered (4) Elevated troponin: Plan: - Troponin 132.6->152.5; trend to peak - EKG is without ischemic changes - likely demand ischemia in the setting of acute infection - repeat TTE pending - monitor on telemetry - Resolved (5) Rheumatoid arthritis: Plan: - hold hydroxychloroquine while NPO (6) Hyperlipidemia: Plan: - hold statin while NPO (7) Hypertension: Plan: - holding amlodipine, Entresto, metoprolol -> blood pressure is stable 110s/60s but concern for hypotensive given ?GI bleed (8) New onset a-fib: Plan: - Patient with palpitations, HR 80s - EKG 04/11 significant for a-fib with RVR, waiting on formal read; p-waves are seen in aVL and aVR - Patient already on rate control with metoprolol succinate 25 mg PO daily - CHADVASC: 8, significant for approximately 10% chance of stroke per year - Due to GI bleed will hold anticoagulation for 2 weeks, potentially start on Eliquis after this period Plan Diet: NPO Code: Full VTE Prophylaxis: SCD; hold chemical given anemia Dispo: Tele Admission and Anticipated Discharge Date Admission Date: April 09, 2024 Supervising Physician Co-Signing Physician Notes I personally examined the patient and verified all ro points of history and exam, discussed case, and agree with decision making with Dr Tanner main complaint today is palpitations. Vitals noted, in general she is awake and alert pleasant no distress but very fatigued. HEENT normocephalic atraumatic mucous membranes moist. Breathing unlabored no accessory muscle use good effort. Skin without rashes pallor or icterus. EKG appearing sinus - computer reads as afib, but P waves appear apparent in some leads. on monitor, however, she has a narrow tachycardia more c/w flutter (vs SVT/abberrent conduction) COVIDno significant respiratory symptoms, just very weak. Supportive care, PT/OT. Hopefully she will improve. If not may need rehab. continue supportive care Anemiano overt bleeding. Hgb stable. She was somewhat nauseated, but without hematemesis/melena/hematochezia I doubt she has active GI bleeding, and I am more suspicious her nausea is just from the viral illness. I do wonder about viral mediated marrow suppression, but at the same time, she still does annual testing for colon cancer (am not sure if she does FIT testing/fecal occult blood/or exactly which, but she does actively surveilled for colon cancer)and given this, it makes sense for her to have a colonoscopy as an outpatient. tachycardia - ?exact rhythm - possibly bursts of flutter. will need to continue to monitor - obviously if flutter will need to manage as such. if rhythm conitnues to be difficult to discern, consider cardiology consult and/or ambulatory rhythm monitoring otherwise as above Subjective Patient is seen resting comfortably at bedside. Report no SOB, cough, wheeze, chest pains, abdominal pain, or vomiting. She does reports some ongoing nausea but has not felt any symptoms of fever, chills, congestion, or cough related to her COVID infection. Patient does note some ongoing mild nausea and palpitations this morning. Physical Exam Physical Exam: General: patient resting comfortably, NAD, non-toxic in appearance, answers questions appropriately. Skin: warm, dry, intact HEENT: NC/AT, anicteric sclera, conjunctiva without injection, moist mucus membranes. Heart: +S1/S2, regular, no m/r/g Lungs: equal air entry bilaterally, no rales/rhonchi/wheezes Abd: +BS, soft, NT/ND Ext: warm, no clubbing/cyanosis or edema Neuro: nonfocal, speech intact, no facial droop, moving all extremities. Results & Data Results & Data Vital Signs (Past 12 Hours) Vital Signs Temp Pulse Pulse Resp BP Pulse Ox O2 Del Method 04/11/24 13:49 81 04/11/24 12:14 36.9 C 83 18 149/89 H 98 Room Air 04/11/24 09:58 Room Air 04/11/24 08:36 36.5 C 83 18 102/60 97 Room Air 04/11/24 07:16 78 Resident Activity Tracking Resident Involvement: Resident Care Provided Care Provided: Adult Hospital Medicine
[2024-04-11] MEDS: POTASSIUM CHLORIDE PWD 20 MEQ PACK PO STA (14:39)
--- NOTE | 2024-04-11 17:18 | Billing Data ---
Date of Service April 11, 2024 Coding Level of Care Code 06751 SUB INP/OBS CARE MIN
[2024-04-11] MEDS: POTASSIUM CHLORIDE PWD 20 MEQ PACK PO SCH (21:42)
[2024-04-12 07:14] LABS: Hematocrit (blood only) 24.2 % (37.0-47.0); Hemoglobin 8.1 g/dl (12.0-16.0); Mean Corpuscular Hgb Conc 33.5 g/dL (32.0-36.0); Mean Corpuscular Volume 95.7 fL (80.0-100.0); Mean Platelet Volume 9.8 fL (9.4-12.4); Platelet Count 193 K/uL (130-400); RDW Coefficient of Variation 13.3 % (11.5-14.5); RDW Standard Deviation 46.2 fL (36.4-46.3); Red Blood Count 2.53 M/uL (4.20-5.40); White Blood Count 6.64 K/ul (4.8-10.8)
--- NOTE | 2024-04-12 07:42 | Hospitalist Progress Note ---
Date of Service April 12, 2024 Assessment & Plan (1) New onset a-fib: Plan: - Patient with palpitations, HR 80s - EKG 04/11 significant for a-fib with RVR though p-waves are seen in aVL and aVR - PVCs overnight with HR in 90s, peak of 126 - Increase metoprolol succinate from 25 mg to 50mg PO daily - Giving 1 x 25mg this AM, usual 25mg qHS, begin 50mg tomorrow - CHADVASC: 8, significant for approximately 10% chance of stroke per year - Due to GI bleed will hold anticoagulation for 2 weeks, potentially start on Eliquis after this period (2) COVID-19: Plan: - mild symptoms; on room air - s/p 500mL NSS in ED; hold on further fluid given history of HFpEF - Contact precautions - Stool PCR pending to r/o concern for GI virus - On regular diet, continue to monitor for sx - Continue 40mg IV pantoprazole BID - Zofran 4mg ODT for persistent nausea (3) Generalized weakness: Plan: - in the setting of COVID infection, anemia - not seen by PT/OT yesterday d/t afib concerns - PT/OT eval (4) Anemia: Plan: - Hgb stable at 8.1, patient currently hemodynamically stable - No signs of acute bleedings, BUN is wnl - Continue to hold aspirin in context of potential GI bleed - FOBT today (5) Elevated troponin: Plan: - Resolved; peaked at 179.3, last level (04/10) was 169.2 - EKG w no ischemic changes - TTE w EF 60-65% (6) Rheumatoid arthritis: Plan: - resume hydroxychloroquine 200mg po bid (7) Hyperlipidemia: Plan: - hold statin while NPO - simvastatin 20mg po HS (8) Hypertension: Plan: - continue home amlodipine, Entresto, metoprolol - blood pressure is stable 110s/60s Plan Diet: NPO Code: Full VTE Prophylaxis: SCD; hold chemical given anemia Dispo: Tele Admission and Anticipated Discharge Date Admission Date: April 09, 2024 Supervising Physician Co-Signing Physician Notes Attending attestation Pt seen and examined in concert with Dr. Pop. In agreement with the documented findings as noted in the resident documentation with any exceptions or additions as noted here. No acute complaints at time of evaluation. V/S as noted with episode of tachycardia in the 120s. On examination, S1/S2 nl RRR no MCG. CTAB. Abd NT/ND BS+ve Atrial fibrillation, paroxysmal, with intermittent tachycardia - increase metoprolol to 50mg daily and continue monitoring. AC recommended in 2 wks due to GIB (apixaban) normocytic anemia in the setting of suspected recent GIB - trend hgb daily, transfuse at 7 or with symptoms. FOBT TODAY Generalized weakness - PT/OT COVID-19 - isolation and symptom control Rheumatoid arthritis - restart hydroxychloroquine Else see resident documentation as noted. Subjective Feeling nauseous this morning. No emesis. Drinking water okay but ate very little breakfast. Denies SOB or CP today Review of Systems 2 Review of Systems: As per HPI. Physical Exam 2 Physical Exam: General: patient resting comfortably, NAD, hard of hearing, answers questions appropriately. Skin: warm, dry, intact HEENT: NC/AT, anicteric sclera, conjunctiva without injection, moist mucus membranes. Heart: +S1/S2, regular, no m/r/g Lungs: equal air entry bilaterally, no rales/rhonchi/wheezes Abd: +BS, soft, NT/ND Ext: warm, no clubbing/cyanosis or edema Neuro: nonfocal,speech intact, no facial droop, moving all extremities. Results & Data Results & Data Vital Signs (Past 12 Hours) Vital Signs Temp Pulse Pulse Resp BP Pulse Ox O2 Del Method 04/12/24 07:28 126 H 04/12/24 02:46 36.9 C 90 16 137/72 97 Room Air 04/12/24 00:16 Room Air 04/11/24 23:45 82 04/11/24 22:41 36.9 C 86 16 151/80 H 96 Room Air 04/11/24 20:10 36.9 C 91 H 18 143/73 H 97 Room Air Laboratory Results 04/12/24 06:49 04/12/24 06:49
[2024-04-12 07:54] LABS: Albumin Globulin Ratio 1.2 (0.9-2); Albumin Level 3.2 gm/dl (3.4-5.0); Bilirubin,Total 0.7 mg/dl (0.2-1.0); Calcium 8.3 mg/dl (8.6-10.3); Creatinine Clr Calc Pharmacy 54.4 ml/min; Globulin 2.6 gm/dl (2.5-4.0); Potassium 3.8 mmol/L (3.5-5.1); Total Protein 5.8 gm/dl (6.0-8.3)
[2024-04-12] MEDS: METOPROLOL SUCC 25MG EXT REL TAB PO ONE (13:05)
--- NOTE | 2024-04-13 07:01 | Gastrointestinal Consultation ---
Date of Consultation April 13, 2024 Assessment & Plan (1) New onset a-fib: 79 year old female w/ history of RA, HFpEF, GERD, dyslipidemia, HTN and others below admitted w/ COVID-19, new onset a-fib GI asked to evaluate for a GI bleed. She is anemia w/ heme positive stools but no report of black or bloody output. Last EGD/Colon were in 2007. - Follow iron studies, B12, folic acid - NPO after midnight - EGD Friday to rule out any high risk bleeding lesions - Should have an outpatient colonoscopy with her established GI team at [facility] - Trend H&H - Monitor and document GI output - Transfuse PRN per primary service - May continue IV PPI BID I spent a total of 60 minutes on the date of service in review of patient's record, and previously obtained information in person and appropriate medical visit, discussion and education of plan, with patient and/or caregiver, placing orders for tests/referral/procedures as medically necessary and documentation of pertinent clinical information in patient's medical records for their visit today. (2) Anemia: Supervising Physician Co-Signing Physician Notes Anemia possible occult gastrointestinal bleeding. She does not have rebecca melena or hematochezia though is heme positive. Iron stores are normal though low range of normal. Patient is developed A-fib. Blood thinners such as Eliquis are considered. An EGD would be helpful in this situation exclude a high risk lesion such as a gastric or duodenal ulcer. I think this will help clarify the situation whether anticoagulation can be started sooner rather than later. Colonic lesion less likely in the absence of red blood. Plan EGD. As she has COVID this will be done in the OR and a negative pressure History of Present Illness Reason for Consultation: GI Bleed Requesting Physician: Lex Mckee MD Attending Physician: Lex Mckee MD History of Present Illness 79 year old female w/ history of RA, HFpEF, GERD, dyslipidemia, HTN and others below admitted w/ COVID-19, new onset a-fib GI asked to evaluate for a GI bleed. Pt was seen and evaluated, chart reviewed. Notes that from a GI standpoint she feels okay. Denies abd pain. No nausea/vomiting. Moving bowels well. Denies black or bloody stools. She is constipated. Last BM was prior to arrival, brown formed stool. AC: Plavix NSAIDs: ASA GI labs: H&H 7.9/23.7 GI stools: heme + GI imaging: no recent EGD 2008: Unremarkable exam. Multiple biopsies taken. Colonoscopy 2008: Unremarkable exam. No evidence of colitis. Rectal suction biopsies done. Ulcer on buttock extending to anus - possibly a decubitus ulcer. Family history of GI malignancy: none Allergies Allergy/AdvReac Type Severity Reaction Status Date / Time Sulfa (Sulfonamide Allergy Intermediate Rash Verified 04/08/23 21:04 Antibiotics) trimethoprim Allergy Intermediate Rash Verified 04/08/23 21:04 vancomycin Allergy Intermediate Rash, Verified 04/08/23 21:04 shortness of breath Cephalosporins AdvReac Mild Vomiting Verified 04/08/23 21:04 Home Medications Medication Instructions Recorded Confirmed Type aspirin 81 mg tablet,delayed 81 mg PO QAM 05/09/20 04/09/24 History release (Niya Low Dose Aspirin) calcium carbonate (Calcium 600) 600 mg PO QAM 05/09/20 04/09/24 History hydroxychloroquine 200 mg tablet 200 mg PO BID 05/09/20 04/09/24 History simvastatin 20 mg tablet 20 mg PO HS 04/08/23 04/09/24 History acetaminophen 500 mg tablet 1,000 mg (2 x 500 mg) PO TID Pain 04/13/23 04/09/24 Rx #90 tabs metoprolol succinate 25 mg 25 mg PO QAM 04/25/23 04/09/24 History tablet,extended release 24 hr amlodipine 2.5 mg tablet 2.5 mg PO DAILY 04/09/24 04/09/24 History duloxetine 30 mg capsule,delayed 30 mg PO DAILY 04/09/24 04/09/24 History release sacubitril 49 mg-valsartan 51 mg 1 tab PO BID 04/09/24 04/09/24 History tablet (Entresto) Patient History Medical History No pertinent family history Headache Fracture of femoral neck, right Endometriosis Surgical History No pertinent past surgical history Social History Smoking Status: Former smoker Tobacco Type: Cigarettes Second Hand Exposure: No; Do You Dip or Chew Tobacco: No; Hx Alcohol Use: No Hx Substance Use: No Preferred Language: [place]ican Communication Ability: Effective Bar Back Required: No Beliefs That Will Affect Care: None marital status: / Current Living Situation: Family Current Living Situation Comment: Lives with son and grandchildren How many Children do You have: 1 Feels Safe at Home: Yes Safety Concerns: Feels Safe At This Time Assistive Devices: Cane, Walker and Wheelchair Review of Systems Review of Systems: All other findings negative except as noted in HPI. Physical Exam Constitutional: WD/WN, vitals as above Respiratory: normal respiratory effort, lungs clear to auscultation Cardiovascular: Rate/Rhythm: regular rate Gastrointestinal (Abdomen): normal bowel sounds, soft, nontender, no hepatosplenomegaly Skin: no rashes, warm and dry Results & Data Vital Signs (Past 12 Hours) Vital Signs Temp Pulse Pulse Resp BP BP Pulse Ox 04/13/24 03:30 98.2 F 85 20 117/67 98 04/13/24 00:07 98.4 F 91 H 20 135/72 98 04/12/24 23:55 121 H 04/12/24 22:49 04/12/24 19:43 98.8 F 94 H 18 155/78 H 99 O2 Del Method 04/13/24 03:30 Room Air 04/13/24 00:07 Room Air 04/12/24 23:55 04/12/24 22:49 Room Air 04/12/24 19:43 Room Air Laboratory Results 04/13/24 04/12/24 Range/Units 06:12 16:54 WBC 5.11 (4.8-10.8) K/ul RBC 2.48 L (4.20-5.40) M/uL Hgb 7.9 L (12.0-16.0) g/dl Hct 23.7 L (37.0-47.0) % MCV 95.6 (80.0-100.0) fL MCH 31.9 (25.0-34.0) pg MCHC 33.3 (32.0-36.0) g/dL RDW Std Deviation 45.9 (36.4-46.3) fL RDW Coeff of Emily 13.2 (11.5-14.5) % Plt Count 157 (130-400) K/uL MPV 10.6 (9.4-12.4) fL Sodium 132 L (136-145) mmol/L Potassium 4.3 (3.5-5.1) mmol/L Chloride 102 (98-107) mmol/L Carbon Dioxide 25 (21-32) mmol/L Anion Gap 5 (3-11) BUN 14 (6-23) mg/dl Creatinine 0.57 L (0.6-1.2) mg/dl Est Cr Clr Drug Dosing 47.2 ml/min eGFR 91.81 BUN/Creatinine Ratio 24.6 H (10-20) Glucose 86 (70-99(Fasting)) mg/dl Calcium 8.2 L (8.6-10.3) mg/dl Ferritin 16.6 (8-388) ng/ml Total Bilirubin 0.7 (0.2-1.0) mg/dl AST 16 (13-39) U/L ALT 12 (7-52) U/L Alkaline Phosphatase 99 (34-104) U/L Total Protein 5.4 L (6.0-8.3) gm/dl Albumin 3.0 L (3.4-5.0) gm/dl Globulin 2.4 L (2.5-4.0) gm/dl Albumin/Globulin Ratio 1.3 (0.9-2) Vitamin B12 562 (180-914) pg/ml Folate 15.70 (>5.38) ng/ml Stool Occult Bld Scrn Positive A (Negative) PG Care Time/CCT Total # of Minutes Spent Total Time Spent with Patient: Total time spent is greater than 50% in coordination of care (as documented) at patient's floor/unit and/or counseling patient: Coding Level of Care Code 11453 INT INP/OBS CARE 1/40MIN Diagnoses New onset a-fib I48.91 Anemia D64.9
--- NOTE | 2024-04-13 07:12 | Hospitalist Progress Note ---
Date of Service April 13, 2024 Assessment & Plan (1) Anemia: Plan: - Hgb stable at 7.9, patient hemodynamically stable - No signs of acute bleedings, BUN is wnl - Continue to hold aspirin in context of potential GI bleed - FOBT positive - GI consulted - plan for EGD tomorrow; NPO after midnight - Continue daily CBC (2) New onset a-fib: Plan: - Patient with palpitations, HR 80s - EKG 04/11 significant for a-fib with RVR though p-waves are seen in aVL and aVR - Sinus rhythm overnight w some PVCs, HR in 90s - Continue metoprolol succinate 50mg PO daily - CHADVASC: 8, significant for approximately 10% chance of stroke per year - Due to GI bleed will hold anticoagulation for 2 weeks, potentially start on El iquis after this period (3) COVID-19: Plan: - mild symptoms; on room air - s/p 500mL NSS in ED; hold on further fluid given history of HFpEF - Contact precautions - Stool PCR pending to r/o concern for GI virus - On regular diet, continue to monitor for sx - Continue 40mg IV pantoprazole BID - Zofran 4mg ODT for persistent nausea (4) Generalized weakness: Plan: - in the setting of COVID infection, anemia - not seen by PT/OT yesterday d/t afib concerns - Seen by PT/OT - pt refused acute rehab placement (5) Elevated troponin: Plan: - Resolved; peaked at 179.3, last level (04/10) was 169.2 - EKG w no ischemic changes - TTE w EF 60-65% (6) Rheumatoid arthritis: Plan: - resume hydroxychloroquine 200mg po bid (7) Hyperlipidemia: Plan: - hold statin while NPO - simvastatin 20mg po HS (8) Hypertension: Plan: - continue amlodipine, Entresto, metoprolol - blood pressure is stable 110s/60s Plan Diet: NPO Code: Full VTE Prophylaxis: SCD; hold chemical given anemia Dispo: Tele Admission and Anticipated Discharge Date Admission Date: April 09, 2024 Supervising Physician Co-Signing Physician Notes Attending attestation Pt seen and examined in concert with Dr. Pop. In agreement with the documented findings as noted in the resident documentation with any exceptions or additions as noted here. No acute complaints at time of evaluation. V/S as noted without significant tachycardia today. On examination, S1/S2 nl RRR no MCG. CTAB. Abd NT/ND BS+ve Atrial fibrillation, paroxysmal, with intermittent tachycardia - tolerating increased metoprolol well. AC recommended in 2 wks due to GIB (apixaban) normocytic anemia in the setting of suspected recent GIB - +ve FOBT. GI consultation w/ EGD tomorrow. NPO p MN. trend hgb daily, transfuse at 7 or with symptoms. [place] deferred to outpatient per GI Generalized weakness - PT/OT COVID-19 - isolation and symptom control Rheumatoid arthritis - continue hydroxychloroquine Else see resident documentation as noted. Subjective Feeling well this morning. Still drinking normally, doing better than yesterday w solids. No n/v, still no BM. Denies lightheadedness, SOB, CP, abd pain Review of Systems Review of Systems: As per HPI. Physical Exam Physical Exam: General: patient resting comfortably, NAD, hard of hearing, answers questions appropriately. Skin: warm, dry, intact HEENT: NC/AT, anicteric sclera, conjunctiva without injection, moist mucus membranes. Heart: +S1/S2, regular, no m/r/g Lungs: equal air entry bilaterally, no rales/rhonchi/wheezes Abd: +BS, soft, NT/ND Ext: warm, no clubbing/cyanosis or edema Neuro: nonfocal,speech intact, no facial droop, moving all extremities. Results & Data Results & Data Vital Signs (Past 12 Hours) Vital Signs Temp Pulse Pulse Resp BP BP Pulse Ox 04/13/24 03:30 36.8 C 85 20 117/67 98 04/13/24 00:07 36.9 C 91 H 20 135/72 98 04/12/24 23:55 121 H 04/12/24 22:49 04/12/24 19:43 37.1 C 94 H 18 155/78 H 99 O2 Del Method 04/13/24 03:30 Room Air 04/13/24 00:07 Room Air 04/12/24 23:55 04/12/24 22:49 Room Air 04/12/24 19:43 Room Air Resident Activity Tracking Resident Involvement: Resident Care Provided Care Provided: Adult [facility]
[2024-04-13 07:20] LABS: Hematocrit (blood only) 23.7 % (37.0-47.0); Hemoglobin 7.9 g/dl (12.0-16.0); Mean Corpuscular Hemoglobin 31.9 pg (25.0-34.0); Mean Corpuscular Hgb Conc 33.3 g/dL (32.0-36.0); Mean Corpuscular Volume 95.6 fL (80.0-100.0); Mean Platelet Volume 10.6 fL (9.4-12.4); Platelet Count 157 K/uL (130-400); RDW Coefficient of Variation 13.2 % (11.5-14.5); RDW Standard Deviation 45.9 fL (36.4-46.3); Red Blood Count 2.48 M/uL (4.20-5.40); White Blood Count 5.11 K/ul (4.8-10.8)
[2024-04-13 08:10] LABS: Folate (Folic Acid),Ser orPlas 15.7 ng/ml (>5.38)
[2024-04-13 09:35] LABS: Albumin Globulin Ratio 1.3 (0.9-2); BUN Creatinine Ratio 24.6 (10-20); Bilirubin,Total 0.7 mg/dl (0.2-1.0); Calcium 8.2 mg/dl (8.6-10.3); Creatinine Clr Calc Pharmacy 47.2 ml/min; Globulin 2.4 gm/dl (2.5-4.0); Potassium 4.3 mmol/L (3.5-5.1); Total Protein 5.4 gm/dl (6.0-8.3)
--- NOTE | 2024-04-14 07:20 | Hospitalist Progress Note ---
Date of Service April 14, 2024 Assessment & Plan (1) Anemia: Plan: - Hgb stable at 7.9, patient hemodynamically stable - No signs of acute bleedings, BUN is wnl - Continue to hold aspirin in context of potential GI bleed - FOBT positive - GI consulted - plan for EGD today; has been NPO since midnight - Continue daily CBC - Needs outpatient follow-up with GI, colonoscopy (2) New onset a-fib: Plan: - Overnight, sinus rhythm w occasional tachy to 110s; otherwise HR 80s - EKG 04/11 significant for a-fib with RVR though p-waves are seen in aVL and aVR - Sinus rhythm overnight w some PVCs, HR in 90s - Continue metoprolol succinate 25mg aHS - CHADVASC: 8, significant for approximately 10% chance of stroke per year - Hold Eliquis until GI bleed cleared outpatient (3) COVID-19: Plan: - mild symptoms; on room air - s/p 500mL NSS in ED; hold on further fluid given history of HFpEF - Contact precautions - Stool PCR pending to r/o concern for GI virus - On regular diet, continue to monitor for sx - Continue 40mg IV pantoprazole BID - Zofran 4mg ODT for persistent nausea (4) Generalized weakness: Plan: - in the setting of COVID infection, anemia - Seen by PT/OT - pt refused acute rehab placement (5) Elevated troponin: Plan: - Resolved; peaked at 179.3, last level (04/10) was 169.2 - EKG w no ischemic changes - TTE w EF 60-65% (6) Hyperlipidemia: Plan: - hold statin while NPO - simvastatin 20mg po HS Plan Diet: NPO Code: Full VTE Prophylaxis: SCD; hold chemical given anemia Dispo: Tele Admission and Anticipated Discharge Date Admission Date: April 09, 2024 Supervising Physician Co-Signing Physician Notes Attending attestation Pt seen and examined in concert with Dr. Pop. In agreement with the documented findings as noted in the resident documentation with any exceptions or additions as noted here. Resting comfortably in bed following EGD. V/S as noted without significant tachycardia today. On examination, S1/S2 nl RRR no MCG. CTAB. Abd NT/ND BS+ve Atrial fibrillation, paroxysmal, with intermittent tachycardia - continue metoprolol. AC recommendation based on EGD findings. normocytic anemia in the setting of recent GIB - GI consult - EGD today. Continue PPI BID. trend hgb daily, transfuse at 7 or with symptoms. [place] deferred to outpatient per GI Generalized weakness - PT/OT COVID-19 - isolation and symptom control Rheumatoid arthritis - continue hydroxychloroquine Else see resident documentation as noted. Subjective NAEO. Doing well this morning, aware of pending procedure, reports no questions or concerns. Review of Systems 2 Review of Systems: As per HPI. Physical Exam 2 Physical Exam: General: patient resting comfortably, NAD, hard of hearing, answers questions appropriately. HEENT: NC/AT, anicteric sclera, conjunctiva without injection, moist mucus membranes. Heart: +S1/S2, regular, no m/r/g Lungs: equal air entry bilaterally, no rales/rhonchi/wheezes Abd: +BS, soft, NT/ND Ext: warm, no clubbing/cyanosis or edema Skin: warm, dry, intact Neuro: nonfocal,speech intact, no facial droop, moving all extremities Results & Data Results & Data Vital Signs (Past 12 Hours) Vital Signs Temp Pulse Pulse Resp BP BP Pulse Ox 04/14/24 02:48 36.9 C 73 16 91/43 L 99 04/13/24 22:35 36.8 C 87 18 102/61 97 04/13/24 21:47 82 04/13/24 19:22 36.7 C 80 16 105/59 L 99 O2 Del Method 04/14/24 02:48 Room Air 04/13/24 22:35 Room Air 04/13/24 21:47 04/13/24 19:22 Room Air Laboratory Results 04/14/24 06:12 04/14/24 06:12 Resident Activity Tracking Resident Involvement: Resident Care Provided Care Provided: Adult Hospital Medicine
[2024-04-14 07:36] LABS: Hematocrit (blood only) 26.4 % (37.0-47.0); Hemoglobin 8.5 g/dl (12.0-16.0); Mean Corpuscular Hemoglobin 30.6 pg (25.0-34.0); Mean Corpuscular Hgb Conc 32.2 g/dL (32.0-36.0); Mean Platelet Volume 9.9 fL (9.4-12.4); Platelet Count 178 K/uL (130-400); RDW Coefficient of Variation 13.2 % (11.5-14.5); RDW Standard Deviation 45.9 fL (36.4-46.3); Red Blood Count 2.78 M/uL (4.20-5.40); White Blood Count 5.25 K/ul (4.8-10.8)
[2024-04-14 07:56] LABS: Calcium 8.5 mg/dl (8.6-10.3); Creatinine Clr Calc Pharmacy 43.6 ml/min; Potassium 4.5 mmol/L (3.5-5.1)
--- NOTE | 2024-04-14 10:22 | Gastroenterology Progress Note ---
Date of Service April 14, 2024 Assessment & Plan (1) New onset a-fib: Plan: 79 year old female w/ history of RA, HFpEF, GERD, dyslipidemia, HTN and others below admitted w/ COVID-19, new onset a-fib GI asked to evaluate for a GI bleed. She is anemia w/ heme positive stools but no report of black or bloody output. Last EGD/Colon were in 2007. - Maintain NPO status for EGD evaluation - Follow iron studies, B12, folic acid - Should have an outpatient colonoscopy with her established GI team at [facility] - Monitor and document GI output - Transfuse PRN per primary service - May continue IV PPI BID We appreciate assistance in the management of any serological abnormality and corrections to include: hemoglobin >7, INR <2, platelets >50,000, potassium levels >3.5 but <5.3, and sodium levels within 5 points of the reference range prior to endoscopic evaluation. Thank you for allowing us to participate in the care of this patient. Please call with any acute changes, questions or concerns. Please see addendum below with additional recommendation from my supervising physician. (2) Anemia: Admission and Anticipated Discharge Date Admission Date: April 09, 2024 Supervising Physician Co-Signing Physician Notes agree with angela, for EGD tody Subjective Pt was seen and evaluated, chart reviewed. NPO for EGD in the OR. Review of Systems Review of Systems: All other findings negative except as noted in HPI. Physical Exam Constitutional: WD/WN, vitals as above Respiratory: normal respiratory effort, lungs clear to auscultation Cardiovascular: Rate/Rhythm: regular rate and regular rhythm Gastrointestinal (Abdomen): normal bowel sounds, soft, nontender, no hepatosplenomegaly Skin: no rashes, warm and dry Results & Data Results & Data Vital Signs (Past 12 Hours) Vital Signs Temp Pulse Pulse Resp BP BP Pulse Ox 04/14/24 09:10 04/14/24 07:47 98.1 F 78 16 109/64 99 04/14/24 07:39 75 04/14/24 02:48 98.4 F 73 16 91/43 L 99 04/13/24 22:35 98.2 F 87 18 102/61 97 O2 Del Method 04/14/24 09:10 Room Air 04/14/24 07:47 Room Air 04/14/24 07:39 04/14/24 02:48 Room Air 04/13/24 22:35 Room Air Laboratory Results 04/14/24 Range/Units 06:12 WBC 5.25 (4.8-10.8) K/ul RBC 2.78 L (4.20-5.40) M/uL Hgb 8.5 L (12.0-16.0) g/dl Hct 26.4 L (37.0-47.0) % MCV 95.0 (80.0-100.0) fL MCH 30.6 (25.0-34.0) pg MCHC 32.2 (32.0-36.0) g/dL RDW Std Deviation 45.9 (36.4-46.3) fL RDW Coeff of Emily 13.2 (11.5-14.5) % Plt Count 178 (130-400) K/uL MPV 9.9 (9.4-12.4) fL Sodium 131 L (136-145) mmol/L Potassium 4.5 (3.5-5.1) mmol/L Chloride 101 (98-107) mmol/L Carbon Dioxide 26 (21-32) mmol/L Anion Gap 4 (3-11) BUN 18 (6-23) mg/dl Creatinine 0.62 (0.6-1.2) mg/dl Est Cr Clr Drug Dosing 43.6 ml/min eGFR 89.97 BUN/Creatinine Ratio 29.0 H (10-20) Glucose 90 (70-99(Fasting)) mg/dl Calcium 8.5 L (8.6-10.3) mg/dl PG Care Time/CCT Total # of Minutes Spent Total Time Spent with Patient: Total time spent is greater than 50% in coordination of care (as documented) at patient's floor/unit and/or counseling patient: Coding Level of Care Code None Diagnoses New onset a-fib I48.91 Anemia D64.9
--- NOTE | 2024-04-14 13:22 | Electrocardiogram Report ---
Test Reason : Blood Pressure : */* mmHG Vent. Rate : 139 BPM Atrial Rate : 150 BPM P-R Int : * ms QRS Dur : 122 ms QT Int : 342 ms P-R-T Axes : * 29 -44 degrees QTcB Int : 520 ms Sinus rhythm with intermittent SVT Right bundle branch block T wave abnormality, consider inferolateral ischemia Abnormal ECG When compared with ECG of 09-Apr-2024 15:05, Vent. rate has increased by 66 bpm Confirmed by Lex Duggan ([id number]) on 04/14/2024 1:22:08 PM Referred By: REFERRED SELF Confirmed By: Lex Duggan
--- NOTE | 2024-04-14 16:03 | Anesthesiology Consultation ---
Date of Service April 14, 2024 Assessment & Plan (1) Encounter for pre-operative examination: Chart Review Chart Review: Acceptable Risk for Surgery History Surgery Operation Date: 04/14/24 07:00 Proposed Procedures p Esophagogastroduodenoscopy - Alexi Waller MD Height/Weight Height: 4 ft 7 in Weight: 44.5 kg Allergies Allergy/AdvReac Type Severity Reaction Status Date / Time Sulfa (Sulfonamide Allergy Intermediate Rash Verified 04/14/24 15:37 Antibiotics) trimethoprim Allergy Intermediate Rash Verified 04/14/24 15:37 vancomycin Allergy Intermediate Rash, Verified 04/14/24 15:37 shortness of breath Cephalosporins AdvReac Mild Vomiting Verified 04/14/24 15:37 Medications Home Medications Medication Instructions Recorded Confirmed Last Taken aspirin 81 mg tablet,delayed 81 mg PO QAM 05/09/20 04/09/24 04/09/24 release (Niya Low Dose Aspirin) calcium carbonate (Calcium 600) 600 mg PO QAM 05/09/20 04/09/24 04/09/24 hydroxychloroquine 200 mg tablet 200 mg PO BID 05/09/20 04/09/24 04/09/24 simvastatin 20 mg tablet 20 mg PO HS 04/08/23 04/09/24 04/09/24 acetaminophen 500 mg tablet 1,000 mg (2 x 500 mg) PO TID Pain 04/13/23 04/09/24 04/09/24 #90 tabs metoprolol succinate 25 mg 25 mg PO QAM 04/25/23 04/09/24 04/09/24 tablet,extended release 24 hr amlodipine 2.5 mg tablet 2.5 mg PO DAILY 04/09/24 04/09/24 04/09/24 duloxetine 30 mg capsule,delayed 30 mg PO DAILY 04/09/24 04/09/24 04/09/24 release sacubitril 49 mg-valsartan 51 mg 1 tab PO BID 04/09/24 04/09/24 04/09/24 tablet (Entresto) Active Medications Generic Name Dose Route Start Last Admin Trade Name Freq PRN Reason Stop Dose Admin Acetaminophen 1,000 mg 04/10/24 16:07 04/11/24 22:13 Acetaminophen 500 Mg Tab PO 05/10/24 16:06 1,000 mg Q8H PRN Administration Pain Calcium Carbonate 1,250 mg 04/11/24 09:00 04/14/24 08:18 Calcium Carbonate 1,250 Mg/5 Ml Udc PO 05/11/24 08:59 1,250 mg QAM KARLA Administration Duloxetine HCl 30 mg 04/10/24 16:15 04/14/24 08:18 Duloxetine Hcl 30 Mg Cap PO 05/10/24 16:14 30 mg QAM KARLA Administration Pantoprazole Sodium 40 mg in 10 mls @ 5 mls/min 04/09/24 21:00 04/14/24 09:29 Protonix IV 05/09/24 20:59 5 mls/min BID KARLA Administration Metoprolol Succinate 25 mg 04/11/24 21:00 04/13/24 20:08 Metoprolol Succ 25mg Ext Rel Tab PO 05/11/24 20:59 25 mg HS KARLA Administration Ondansetron HCl 4 mg 04/10/24 16:03 04/12/24 09:52 Ondansetron 4 Mg Od Tab PO 05/10/24 16:02 4 mg Q4H PRN Administration Nausea And Vomiting Potassium Chloride 20 meq 04/11/24 21:00 04/14/24 08:18 Potassium Chloride Pwd 20 Meq Pack PO 05/11/24 20:59 20 meq BID KARLA Administration NPO Date Last Intake of Fluids: 04/14/24 Time Last Intake of Fluids: 08:00 Last Intake of Fluids Comment: sips of water with meds Date Last Intake of Solids: 04/13/24 Time Last Intake of Solids: 20:30 Past Medical History Medical History (Updated 04/14/24 @ 16:08 by Bogdan Prasad MD) New onset a-fib Anemia Pancytopenia Rheumatoid arteritis Seizure Chronic heart failure with preserved ejection fraction (HFpEF) Prolonged Q-T interval on ECG Hypertension Rheumatoid arthritis No pertinent family history Headache Fracture of femoral neck, right Endometriosis Past Surgical History Surgical History Status post placement of cardiac pacemaker Social History Smoking Status: Former smoker Do You Dip or Chew Tobacco: No Hx Alcohol Use: No Alcohol type: wine alcohol intake frequency: holidays/special occasions only Hx Substance Use: No Physical Exam Vital Signs Last Vital Signs Temp 36.9 C 04/14/24 15:39 Pulse 81 04/14/24 15:49 Resp 16 04/14/24 15:39 BP 110/67 04/14/24 15:39 Pulse Ox 100 04/14/24 15:39 O2 Del Method Room Air 04/14/24 15:39 Testing Laboratory Results 04/14/24 06:12 04/14/24 06:12 PT 10.9 Seconds (9.0-12.0) 04/09/24 15:10 INR 1.0 (0.9-1.1) 04/09/24 15:10 APTT 21 Seconds (21-31) 04/09/24 15:10 Blood Type A Positive 04/09/24 23:55 Antibody Screen POSITIVE A 04/09/24 23:55
--- NOTE | 2024-04-14 16:24 | Communication Note ---
Date of Service: April 14, 2024 EGD 2 decent sized esophageal ulcers. These are with surrounding erythema and depth. Recommend twice daily PPI therapy I think should be safe to start anticoagulation in 5 to 7 days as required. Should have a follow-up EGD in 3 months to evaluate healing of these ulcerations.
--- NOTE | 2024-04-14 17:31 | Anesthesiology Progress Note ---
Date of Service April 14, 2024 Anesthesia Post Procedure Vital Signs Vital Signs: Temp Pulse Pulse Pulse Resp BP BP 04/14/24 16:50 36.8 C 83 18 102/56 L 04/14/24 16:40 84 20 101/51 L 04/14/24 16:35 85 19 93/62 L 04/14/24 16:29 36.0 C L 81 81 12 156/79 H 04/14/24 15:49 81 04/14/24 15:39 36.9 C 122 H 16 110/67 04/14/24 15:15 36.6 C 83 16 109/62 04/14/24 11:54 36.7 C 79 16 118/69 04/14/24 09:10 04/14/24 07:47 36.7 C 78 16 109/64 04/14/24 07:39 75 04/14/24 02:48 36.9 C 73 16 91/43 L 04/13/24 22:35 36.8 C 87 18 102/61 04/13/24 21:47 82 04/13/24 19:22 36.7 C 80 16 105/59 L 04/13/24 19:10 Pulse Ox O2 Del Method O2 Flow Rate 04/14/24 16:50 100 Nasal Cannula 2 04/14/24 16:40 100 Nasal Cannula 2 04/14/24 16:35 97 Nasal Cannula 2 04/14/24 16:29 100 Nasal Cannula 2 04/14/24 15:49 04/14/24 15:39 100 Room Air 04/14/24 15:15 98 Room Air 04/14/24 11:54 99 Room Air 04/14/24 09:10 Room Air 04/14/24 07:47 99 Room Air 04/14/24 07:39 04/14/24 02:48 99 Room Air 04/13/24 22:35 97 Room Air 04/13/24 21:47 04/13/24 19:22 99 Room Air 04/13/24 19:10 Room Air Pain Intensity Head: Pain Intensity: 5 Transfer of Care Handoff Completed per policy Notes Mental Status: alert / awake / arousable Patient Amnestic to Procedure: Yes Nausea / Vomiting: adequately controlled Pain: adequately controlled Airway Patency, RR, SpO2: stable & adequate BP & HR: stable & adequate Hydration State: stable & adequate Anesthetic Complications: no major complications apparent
[2024-04-15 07:42] LABS: Hematocrit (blood only) 24.8 % (37.0-47.0); Hemoglobin 8.1 g/dl (12.0-16.0); Mean Corpuscular Hgb Conc 32.7 g/dL (32.0-36.0); Mean Platelet Volume 9.8 fL (9.4-12.4); Platelet Count 170 K/uL (130-400); RDW Coefficient of Variation 13.2 % (11.5-14.5); RDW Standard Deviation 45.6 fL (36.4-46.3); Red Blood Count 2.61 M/uL (4.20-5.40); White Blood Count 4.54 K/ul (4.8-10.8)
[2024-04-15 07:51] VITALS: RESP 16
[2024-04-15 07:58] LABS: BUN Creatinine Ratio 22.6 (10-20); Calcium 8.3 mg/dl (8.6-10.3); Creatinine Clr Calc Pharmacy 43.3 ml/min; Potassium 4.4 mmol/L (3.5-5.1)
--- NOTE | 2024-04-15 08:10 | Discharge Summary ---
Date of Service April 15, 2024 Admission HPI Per Admitting Provider 79 year old female with a past medical history of RA, HFpEF, GERD, HLD, HTN presenting with weakness, dizziness, nausea/vomiting, diarrhea. Son is present with her. Symptoms started 5 days ago. Notes some rhinorrhea, but otherwise denies URI symptoms- cough, congestion. Denies fever/chills, chest/pleuritic pain. Denies dark/bloody stools, hematemesis. At present denies any acute complaints. ED Course Significant for: Hgb= 8.2, Troponin 132.6-> 152.2. EKG with RBBB, no acute ischemic changes when compared to prior. +COVID. CXR without acute pathology. Admission Exam Per Admitting Provider Constitutional: well-appearing, no acute distress HEENT: NCAT, no conjunctival injection CV: regular rhythm, no murmur appreciated, extremities well-perfused, no LE edema Resp: CTABL, no wheezes/rales/rhonchi appreciated, no increased work of breathing GI: soft, nondistended, nontender, BS normoactive MSK: no gross deformities appreciated Skin: warm, dry, no rash appreciated Neuro: alert, oriented, no focal neurologic deficit appreciated Principal Diagnosis COVID, GIB Discharge Exam General: patient resting comfortably, NAD, hard of hearing, answers questions appropriately. HEENT: NC/AT, anicteric sclera, conjunctiva without injection, MMM Heart: +S1/S2, regular, no m/r/g Lungs: normal WOB, no rales/rhonchi/wheezes Abd: Soft, NT/ND, +BS Ext: Warm, no clubbing/cyanosis or edema Skin: Warm, dry, intact Neuro: No focal deficits, no facial droop, moving all extremities Discharge Data Allergies Allergy/AdvReac Type Severity Reaction Status Date / Time Sulfa (Sulfonamide Allergy Intermediate Rash Verified 04/14/24 15:37 Antibiotics) trimethoprim Allergy Intermediate Rash Verified 04/14/24 15:37 vancomycin Allergy Intermediate Rash, Verified 04/14/24 15:37 shortness of breath Cephalosporins AdvReac Mild Vomiting Verified 04/14/24 15:37 Consultations 04/09/24 19:10 ED Decision to Admit Stat 04/12/24 17:53 Consult Gastroenterology Routine Procedures Performed Operation Date: 04/14/24 07:00 Actual Procedures p Esophagogastroduodenoscopy - Alexi Waller MD Hospital Course (1) Anemia: - Hgb stable throughout admission ~8 (8.1 at discharge); patient remained hemodynamically stable - No signs of acute bleedings, BUN is wnl, FOBT positive - Aspirin was held d/t GI bleed - GI consulted - EGD done 04/14 w/o complications - Will follow-up outpt with GI - Needs colonoscopy (2) New onset a-fib: - EKG 04/11 showed afib with RVR; no reported h/o afib - CHADVASC: 8, significant for approximately 10% chance of stroke per year - Patient kept on continuous cardiac monitoring; remained tachycardic to 110s, otherwise predominantly sinus rhythm - Continue metoprolol succinate 25mg aHS - Hold Eliquis until GI bleed cleared outpatient (3) COVID-19: - Presented w mild sx of nausea, vomiting, diarrhea, weakness - Resp [employer] on 04/09 +ve for COVID; kept on contact precautions - On regular diet except when NPO for procedure; Zofran 4mg ODT available - Remained AFVSS, SpO2 > 92% on RA throughout admission - Given 40mg IV pantoprazole BID (4) Generalized weakness: - in the setting of COVID infection, anemia - Seen by PT/OT - pt refused acute rehab placement (5) Hypertension: - BP remained stably low at 90s-110s/40-50s (last read at discharge 113/56) - Stopped amlodipine - Held Entresto but resume at discharge - Continued 25mg metoprolol daily (6) Elevated troponin: - Resolved; peaked at 179.3, last level (04/10) was 169.2 - EKG w no ischemic changes - TTE w EF 60-65% Plan simvastatin and hydroxychloroquine not given during admission Total Time Total Time Spent Total Time Spent (In Minutes): See attending documentation Discharge Plan Discharge Items Patient Disposition: Home - Self-Care Reason For Visit: COVID Discharge Diagnosis: COVID, GI bleed Activity: Per Instructions section Non-emergency contact: Primary Care Provider and Watch Dial Maker Call non-emergency contact if: you have any medication questions, your symptoms worsen, your pain is not controlled and you have a fever Follow-up/Referrals: Georgia Rosenthal PA-C [Primary Care Provider] - 04/27/24 9:30 am (appt in [place] office with Ximena Salastip) Diet: Low Sodium (2gm) Addtl Attending Provider Instructions: You were admitted to the hospital for weakness. You tested positive for COVID, and your labs showed anemia. Our Gastroenterology team was consulted, and they performed an EGD (esophagogastroduodenoscopy) on 04/14 to look at your upper GI tract and determine a source for the bleeding. They did find 2 healing ulcers in your esophagus. You were given an IV medication to help these ulcers heal, and will continue a similar medication after discharge. During your admission, your anemia stabilized. You developed an abnormal heart rhythm called atrial fibrillation, and were started on a medication to control that. You will continue this medication after discharge, and another will be added after 10 days. You were deemed safe for discharge when your labs, vitals, and symptoms improved and a source of bleeding was identified with appropriate treatment. Your medication list has been reviewed and reconciled, and an updated list is included with your hospital discharge paperwork. Please review this list closely, and make note of any changes: We sent a prescription for pantoprazole (40 mg) to your pharmacy in [place]. Take one tablet twice daily for 14 days to help your ulcers heals. Discuss continuation beyond 14 days with your GI doctor. We recommend starting on Eliquis 2.5mg twice daily for afib. You are not being sent a prescription for this, as you will start no earlier than 10 days after discharge. You can discuss further with your PCP or GI doctor. Continue your metoprolol (25mg) one tablet daily to help with your afib Hold your aspirin until discussing with your PCP or GI doctor. Take your medications as instructed; do not skip a dose. Make sure all of your doctors know every medicine you are taking (including [id number] medicines, vitamins, and supplements). Call your PCP before taking any new medicines because some of these may interact with your current medications, or may make your symptoms worse. Follow-up appointments: Make a follow-up appointment with your PCP within the next week. It is very important that you follow up with them shortly after discharge from the hospital. You should follow up with your GI doctor at [facility] within 7-10 days of leilani kevin. Our GI team recommend an EGD in 3 months to evaluate healing of 2 esophageal ulcerations, and an outpatient colonoscopy. Keep all your follow-up appointments as already scheduled. If you cannot make an appointment, notify your provider. Please bring a copy of this discharge summary with you to your next office appointment so that your provider can review it at that time and stay updated on your hospitalization and potential changes in your care. Contact your PCP if your symptoms return or worsen. Call 911 or go to the ER if you experience any of the following: Sudden, severe abdominal pain or nausea/vomiting Severe chest pain, or chest pain that radiates (moves) to your jaw or arm Sudden, severe shortness of breath or difficulty breathing Thank you for allowing us to participate in your care. Pending Studies at Discharge: No Stand-Alone Forms: My [facility], Smoking Cessation Medications and DC Order Prescriptions: New pantoprazole [Protonix] 40 mg tablet,delayed release (DR/EC) 40 mg PO BID 14 Days Qty: 28 0RF Continued calcium carbonate [Calcium 600] 600 mg calcium (1,500 mg) Tablet 600 mg PO QAM hydroxychloroquine 200 mg tablet 200 mg PO BID simvastatin 20 mg tablet 20 mg PO HS acetaminophen 500 mg Tablet 1,000 mg PO TID Qty: 90 0RF metoprolol succinate 25 mg tablet extended release 24 hr 25 mg PO QAM amlodipine 2.5 mg tablet 2.5 mg PO DAILY duloxetine 30 mg capsule,delayed release(DR/EC) 30 mg PO DAILY sacubitril-valsartan [Entresto] 49-51 mg tablet 1 tab PO BID Held aspirin [Niya Low Dose Aspirin] 81 mg Tablet,Delayed Release (Dr/Ec) 81 mg PO QAM Hold Instructions: Resume on 04/25/24. Discharge Orders: Discharge Order (Routine); Ordered 04/15/24 Ordered By: Bob Pop Admission Data Admit Date/Time: 04/09/24 19:42 Attending Provider: Lex Mckee Admit Provider: Kelley Hong Primary Care Provider: Georgia Rosenthal Other Providers: Gregorio Norman; Jose Salinas; Alvarado Masterson; Georgia Klein; Leda Bell; Bertha Hennessy; Mary Carmen Jeffrey; Michael Henson; Sonja Roman; Manuel Azevedo; Jayden Summers; Isabella Schmidt; Michelle Hansen; Maryellen Dawson; Winifred Briones; Zenon Rasmussen; Mickey iJ; Rosa Cohn; Sophia Contreras Jr; Yuri Long; Guy Evans; Johnson Naik; Will Alba; Karmen Day; Radames Wyatt I; Stefany Robert; Alexi Waller Other Interventions: Discharge Summary Assessment (RN) Last Done: 04/15/24 15:53 Supervising Physician Co-Signing Physician Notes Attending attestation Pt seen and examined in concert with Dr. Pop. In agreement with the documented findings as noted in the resident documentation with any exceptions or additions as noted here. Ambulating around the room without unsteadiness or antalgic gait and reports fee ling approaching baseline. Reviewed PT vs. outpatient management, again patient defers inpatient therapy. V/S as noted without significant tachycardia today. On examination, S1/S2 nl IRR. CTAB. Abd NT/ND BS+ve Atrial fibrillation, paroxysmal, with intermittent tachycardia - continue metoprolol. Recommend resume AC no sooner than 5-7 days post discharge through PCP. normocytic anemia in the setting of recent GIB - GI consult s/p EGD - Continue PO PPI BID. Satartia deferred to outpatient per GI Generalized weakness - PT/OT rec'd rehab services, patient declines and will follow up. COVID-19 - isolation and symptom control reviewed. Rheumatoid arthritis - continue hydroxychloroquine Else see resident documentation as noted. Total attending physician time spent with this patient's care on the day of discharge: 35 minutes. Resident Activity Tracking Resident Involvement: Resident Care Provided Care Provided: Adult Hospital Medicine
[2024-04-15 16:09] VITALS: BP 113/56; PULSE 84; TEMP 98.4; O2SAT 100
== END 2024-04-15 17:08 | disposition home or self-care (01) | DRG 380 ==
LOC: ED 14:23 → 2W 19:42 → SUATTDRO 19:42 → 2W 21:27